=== PATIENT | female | born 1970 | race Caucasian/White ===

== ENCOUNTER → 2016-09-06 | Outpatient (CLI) | payer BC ==
--- NOTE | 2016-09-06 11:41 | US ---
EXAMINATION TYPE: US thyroid st tissue head/neck DATE OF EXAM: 09/06/2016 11:11 AM COMPARISON: NONE CLINICAL HISTORY: US. Difficulty swallowing, hypothyroid GLAND SIZE: Right Lobe: 4.7 x 1.4 x 1.5 cm Overall Parenchyma: homogenous Left Lobe: 5.1 x 1.3 x 1.6 cm Overall Parenchyma: homogeneous Isthmus Thickness: 0.3 cm NODULES RIGHT: # of nodules measured on right: 0 LEFT: # of nodules measured on left: 0 ISTHMUS: # of nodules measured in the isthmus: 0 TECHNOLOGIST IMPRESSION: Overall homogeneous echotexture of the thyroid gland without any significan t nodules seen at this time. Bilateral neck scanned, no abnormal lymphadenopathy noted. IMPRESSION: Mild thyromegaly. SONOGRAPHIC PATTERNS, ESTIMATED MALIGNANCY RISK AND FNA GUIDANCE FOR THYROID NODULES Sonographic Pattern: Benign Ultrasound Features: Purely Cystic Nodules (No Solid Component) Estimated Risk Of Malignancy, %: <1 FNA Size Cutoff (Largest Dimension): No Biopsy Sonographic Pattern: Very Low Suspicion Ultrasound Features: Spongiform Or Partially Cystic Nodules Without Any Of The Sonographic Features Described In Low, Inte rmediate Or High Suspicion Patterns. Estimated Risk Of Malignancy, %: <3 FNA Size Cutoff (Largest Dimension): Recommend FNA At > 2cm Or Observation Without FNA Sonographic Pattern: Low Suspicion Ultrasound Features: Isoechoic Or Hyperechoic Solid Nodule, Or Partially Cystic Nodule With Eccentric Solid Areas, Without Microcalcification, Irregular Margin Or Ete, Or Taller Than Wide Shape. Estimated Risk Of Malignancy, %: 5-10 FNA Size Cutoff (Largest Dimension): Recommend FNA At > 1.5cm Sonographic Pattern: Intermediate Suspicion Ultrasound Features: Hypoechoic Solid Nodule With Smooth Margins Without Microcalcifications, Ete, Or Taller Than Wide Sha pe. Estimated Risk Of Malignancy, %: 10-20 FNA Size Cutoff (Largest Dimension): Recommend FNA At > 1cm Sonographic Pattern: High Suspicion Ultrasound Features: Solid Hypoechoic Nodule Or Solid Hypoechoic Component Of A Partially Cystic Nodule With One Or More O f The Following Features: Irregular Margins (Infiltrative, Microlobulated), Microcalcifications, Tall er Than Wide Shape, Rim Calcifications With Small Extrusive Soft Tissue Component, Evidence Of Ete Estimated Risk Of Malignancy, %: >70-90 FNA Size Cutoff (Largest Dimension): Recommend FNA At > 1cm
== END | disposition home or self-care (01) ==
LOC: RADUSWWP 10:50
PROVIDERS: ATTEND Clinical Nurse Specialist Women's Health
DX: E01.0 Iodine-deficiency related diffuse (endemic) goiter (principal)
CPT/HCPCS: 76536

== ENCOUNTER 2016-09-17 20:09 | Emergency (ER) | payer MEDICAID, BC ==
[2016-09-17] MEDS ORDERED: methylPREDNISolone SOD SUCCI 125 MG/2 ML VIAL IM ONE (21:46)
[2016-09-17] MEDS ORDERED: DIAZEPAM 5 MG TAB PO STA (21:46)
--- NOTE | 2016-09-17 21:55 | ED ---
Back Pain HPI - General Chief Complaint: Back Pain/Injury Stated Complaint: Back Pain Time Seen by Provider: 09/17/16 21:32 Source: patient, RN notes reviewed Limitations: no limitations - History of Present Illness Initial Comments: 46-year-old female presents to the ER after hearing her back pop on the right- hand side and having some pain radiate down her buttocks and around to her anterior thigh and hip. This happened most she was moving her dog in her car today. she has a long-standing history of back problems and does have some lumbar disc issues. She is following with Dr. Luna currently. She has an MRI scheduled for Sunday. She came to the ER because of the popping noise and she was worried that her back may spasm. She recently has been treated with muscle relaxers and naproxen. She states that these did help when she took them however she is currently out because that was at the beginning of August. Denies any constitutional symptoms including headache, nausea, vomiting, abdominal pain, blurry vision, loss of bladder or bowel control, numbness or tingling or weakness in the extremities. She is brought to the ER by her sister who is her regional flatbed truck driver today. She also states that she had x-rays done at Dr. Luna office on Sunday and they did not show any major abnormalities. - Related Data Home Medications Medication Instructions Recorded Confirmed Solifenacin Succinate [Vesicare] 10 mg PO DAILY 11/10/14 08/09/16 Acetaminophen Tab [Tylenol] 500 - 1,000 mg PO Q4-6H PRN 05/18/16 08/09/16 L.acidoph,Paracasei, B.lactis 1 cap PO DAILY 05/18/16 08/09/16 [Probiotic] Vitamin B Complex 1 cap PO DAILY 05/18/16 08/09/16 Methocarbamol [Robaxin] 500 mg PO TID PRN 08/04/16 08/09/16 methylPREDNISolone [Medrol Dose 4 mg PO DIRECTED 08/04/16 08/09/16 Pack] Previous Rx's Medication Instructions Recorded Omeprazole 40 mg PO DAILY #90 capsule. 08/09/16 Diazepam [Valium] 5 mg PO BID PRN #20 tab 09/17/16 Naproxen [Naprosyn] 250 mg PO BID #20 tab 09/17/16 Allergies Allergy/AdvReac Type Severity Reaction Status Date / Time ketorolac tromethamine Allergy Rash/Hives Verified 09/17/16 21:04 [From Toradol] sulfamethoxazole Allergy Rash/Hives Verified 09/17/16 21:04 [From Bactrim] trimethoprim [From Bactrim] Allergy Rash/Hives Verified 09/17/16 21:04 adhesive AdvReac BLISTER ON Verified 09/17/16 21:04 SKIN FROM TAPE, STATES "PAPER TAPE IS OK" celecoxib [From Celebrex] AdvReac Unknown Verified 09/17/16 21:04 Review of Systems ROS Statement: Those systems with pertinent positive or pertinent negative responses have been documented in the HPI. ROS Other: All systems not noted in ROS Statement are negative. Past Medical History Past Medical History: Thyroid Disorder Additional Past Medical History / Comment(s): back pain, overactive bladder, hernia, gastritis,. Questionable ultrasound. History of Any Multi-Drug Resistant Organisms: None Reported Past Surgical History: Cholecystectomy, Orthopedic Surgery, Uterine Ablation Additional Past Surgical History / Comment(s): orif rt wrist. colonoscopy Past Anesthesia/Blood Transfusion Reactions: No Reported Reaction Past Psychological History: No Psychological Hx Reported Smoking Status: Never smoker Past Alcohol Use History: Rare Past Drug Use History: None Reported - Past Family History Father Family Medical History: Cancer General Exam Limitations: no limitations General appearance: alert, in distress (Mild; anxious.) Head exam: Present: atraumatic, normocephalic Eye exam: Present: normal appearance, PERRL, EOMI Pupils: Present: normal accommodation Neck exam: Present: normal inspection, full ROM Respiratory exam: Present: normal lung sounds bilaterally Cardiovascular Exam: Present: regular rate, normal rhythm Extremities exam: Present: normal inspection, full ROM, other (Strength is a 4 out of 4 bilaterally. Sensation intact to bilateral lower extremities.) Back exam: Present: normal inspection, other (Decreased extension due to muscle tightness and pain. Right SI joint tenderness no left SI joint tenderness. No spinous process tenderness, para vertebral muscle tenderness. Negative Dieudonne' s and straight leg raise test.) Neurological exam: Present: alert, oriented X3, CN II-XII intact Psychiatric exam: Present: normal affect, normal mood Skin exam: Present: warm, dry, intact Course Vital Signs 09/17/16 21:01 Temperature 99.3 F Pulse Rate 107 H Respiratory 18 Rate Blood Pressure 142/90 O2 Sat by Pulse 96 Oximetry Medical Decision Making - Medical Decision Making 46-year-old female brought to the ER with her sister after hearing her back pop while moving her dog in her car. Upon exam it does appear that she does have some SI joint tenderness on the right. Patient is already being followed closely by orthopedics and has an MRI scheduled for Sunday afternoon. Patient is not have any bladder or bowel control, numbness in the lower extremities, or decreased motor strength or weakness. Due to physical exam it do not feel that any further testing needs to be done today as an x-ray was taken on Sunday that was within normal limits. I do feel that she has some sacroiliitis as well as lumbar strain and tightening. She has had muscle relaxers and naproxen in the past 2 months to help with her comfort. She is currently out of these medications. I recommended changing from a muscle relaxer to Valium to get better relief of symptoms. Discussed side effects of the medication and addiction potential with patient and sister. Valium was administered in the ER and a prescription was given for her to take home. I also recommended an injection of Solu-Medrol to help decrease inflammatory process. Can take Valium 1-2 tablets at night. Cautioned on side effects and with driving. Also recommended ice, heat, rest of the area. Will keep off of work tomorrow. Patient is to follow-up with Dr. Luna on Sunday to discuss her MRI results. Warning signs were discussed and she is return to the ER if any worsening symptoms or concerns. Patient and sister voiced understanding of treatment plan and are agreeable. Disposition Clinical Impression: Strain of lumbar region, Sacro-iliac pain Disposition: HOME SELF-CARE Condition: Good Instructions: Sacroiliitis (ED), Back Pain (ED) Additional Instructions: To return to ER with any worsening symptoms or concerns. Follow-up with MRI and physician this week for results. Prescriptions: Diazepam [Valium] 5 mg PO BID PRN #20 tab PRN Reason: Pain Naproxen [Naprosyn] 250 mg PO BID #20 tab Referrals: Megan Friedman MD [Primary Care Provider] - 1-2 days Shant Luna DO [Doctor of Osteopathic Medicine] - 1-2 days Time of Disposition: 21:55
[2016-09-17 22:13] VITALS: BP 140/86; PULSE 98; RESP 16; TEMP 99.1
== END 2016-09-17 22:12 | disposition home or self-care (01) ==
LOC: EC 20:09
DX: S39.012A Strain of muscle, fascia and tendon of lower back, initial encounter (principal); X58.XXXA Exposure to other specified factors, initial encounter; M46.1 Sacroiliitis, not elsewhere classified; Z79.899 Other long term (current) drug therapy; Z88.6 Allergy status to analgesic agent; Z88.1 Allergy status to other antibiotic agents; Z88.2 Allergy status to sulfonamides
CPT/HCPCS: 99283; 96372; J2930

== ENCOUNTER → 2016-09-20 | Outpatient (CLI) | payer MEDICAID, BC ==
--- NOTE | 2016-09-20 21:24 | MR ---
EXAMINATION TYPE: MR lumbar spine wo con DATE OF EXAM: 09/20/2016 9:02 PM COMPARISON: Prior MRI lumbar spine March 03, 2014 HISTORY: LBP/ramone hip pain x 6 weeks TECHNIQUE: Multiplanar, multisequence imaging of the lumbar spine is performed without IV contrast. FINDINGS: Sagittal images of the lumbar spine show vertebral body heights and alignment to appear sat isfactory. There is redemonstration of disc desiccation L4-L5 and more prominent disc desiccation at the L5-S1 levels. Posterior disc herniations are redemonstrated at these levels with more prominent d isc herniation now identified at L4-L5 level on sagittal images. Increased signal posteriorly consist ent with annular tear is present at these levels. The conus medullaris remains normal in position and signal ending at mid L1 vertebral body level. The bone marrow signal intensity is within normal van its. No significant spurring is present. Axial images show the T12-L1, L1-L2, L2-L3, and L3-L4 levels all to remain within normal limits. Axial images at the L4-L5 level show new right paracentral disc extrusion with superior extension pas t mid L4 vertebral body level best on sagittal image 9 and axial image 16 effacing anterolateral thec al sac and central right L4 nerve on axial image 13 new from prior exam. Bilateral neural foramina re main patent. There is more central disc herniation at disc space level on axial images 11 and 12 effa cing anterior thecal sac redemonstrated though felt more prominent versus prior. Mild to moderate fac et degenerative changes bilaterally are redemonstrated at this level. Axial images at the L5-S1 level and straight right paracentral disc protrusion on axial image 4 sligh tly more prominent than prior exam effacing anterior thecal sac. There is mild bilateral anterior inf erior neural foraminal narrowing at this level felt present. Mild facet arthropathy bilaterally is ag ain seen. A few T2 hyperintense lesions scattered throughout both kidneys are felt to reflect simple cysts. The re is suggestion of mild left-sided pyelocaliectasis, this has a similar appearance to prior exam. IMPRESSION: Multilevel degenerative changes in lower lumbar spine are redemonstrated with progression from prior MRI noted, of most significance is much more prominent disc herniation L4-L5 level effaci ng anterior thecal sac and right L4 nerve.
== END | disposition home or self-care (01) ==
LOC: RADMRIMAIN 18:08
PROVIDERS: ATTEND Orthopaedic Surgery Orthopaedic Surgery of the Spine
DX: M51.16 Intervertebral disc disorders with radiculopathy, lumbar region (principal); M47.26 Other spondylosis with radiculopathy, lumbar region
CPT/HCPCS: 72148

== ENCOUNTER 2016-10-25 23:25 | Emergency (ER) | payer MEDICAID, BC ==
[2016-10-25] MEDS ORDERED: FAMOTIDINE 20 MG/2 ML VIAL IV STA (23:58)
[2016-10-25] MEDS ORDERED: MAG HYDROX/AL HYDROX/SIMETH 30 ML, HYOSCYAMINE ELIXIR 10 ML, CIMETIDINE HCL 300 MG, LID... PO STA ×4 (23:58)
[2016-10-25] MEDS ORDERED: SODIUM CHLORIDE 0.9% 1,000 ML IV ONE (23:58)
--- NOTE | 2016-10-26 00:17 | ED ---
Chest Pain HPI - General Chief Complaint: Chest Pain Stated Complaint: Chest Pain/Arm Weakness Time Seen by Provider: 10/25/16 23:43 Source: patient Mode of arrival: wheelchair Limitations: no limitations - History of Present Illness Initial Comments: This is a 46-year-old female with a history of hiatal hernia who presents emergency department for chest pain. She states over the last couple of days she's been feeling a little bit lightheaded and fatigued. She's also had intermittent headaches. She also has some episodes of tingling in her extremities. Tonight around 10 PM she developed some burning substernal chest discomfort that is been constant. She states it is worse with laying flat and better sitting up It is not worse with exertion. She has no associated shortness of breath. She does state that she still feels a little bit lightheaded however no nausea or vomiting. No fevers or chills. She states that her mother and father both from [place] and she was concerned. She was admitted once previously however never had a stress test performed at that time because she had to leave the hospital. She denies any other complaints. - Related Data Home Medications Medication Instructions Recorded Confirmed L.acidoph,Paracasei, B.lactis 1 cap PO DAILY 05/18/16 10/25/16 [Probiotic] Vitamin B Complex 1 cap PO DAILY 05/18/16 10/25/16 A D K Supplement 1 cap PO DAILY 10/25/16 10/25/16 Solifenacin Succinate [Vesicare] 10 mg PO DAILY 10/25/16 10/25/16 Thyroid,Pork [Nature-Throid] 65 mg PO BID 10/25/16 10/25/16 Previous Rx's Medication Instructions Recorded Naproxen [Naprosyn] 250 mg PO BID #20 tab 09/17/16 Sucralfate [Carafate] 1 gm PO ACHS #414 ml 10/26/16 Allergies Allergy/AdvReac Type Severity Reaction Status Date / Time ketorolac tromethamine Allergy Rash/Hives Verified 10/25/16 23:44 [From Toradol] sulfamethoxazole Allergy Rash/Hives Verified 10/25/16 23:44 [From Bactrim] trimethoprim [From Bactrim] Allergy Rash/Hives Verified 10/25/16 23:44 adhesive AdvReac BLISTER ON Verified 10/25/16 23:44 SKIN FROM TAPE, STATES "PAPER TAPE IS OK" celecoxib [From Celebrex] AdvReac Unknown Verified 10/25/16 23:44 Review of Systems ROS Statement: Those systems with pertinent positive or pertinent negative responses have been documented in the HPI. ROS Other: All systems not noted in ROS Statement are negative. EKG Findings - EKG Comments: EKG Findings:: EKG showing normal sinus rhythm with a rate of [address] segment changes or T-wave inversions. QTC is 454. Other intervals are normal. No ectopy. Past Medical History Past Medical History: Thyroid Disorder Additional Past Medical History / Comment(s): back pain, overactive bladder, hernia, gastritis,. Questionable ultrasound. History of Any Multi-Drug Resistant Organisms: None Reported Past Surgical History: Cholecystectomy, Orthopedic Surgery, Uterine Ablation Additional Past Surgical History / Comment(s): orif rt wrist. colonoscopy Past Anesthesia/Blood Transfusion Reactions: No Reported Reaction Past Psychological History: No Psychological Hx Reported Smoking Status: Never smoker Past Alcohol Use History: Rare Past Drug Use History: None Reported - Past Family History Father Family Medical History: Cancer General Exam - General Exam Comments Initial Comments: Constitutional: Awake alert Appears comfortable Head: Normocephalic atraumatic Eyes: no conjunctival injection No scleral icterus EOMI Neck: No JVD Supple Heart: Regular rate rhythm normal S1-S2 no murmurs Lungs: Clear to auscultation bilaterally No wheezing No rales Abdomen: Soft nondistended mild epigastric tenderness Extremities: Non edematous DP pulses intact Radial pulses intact Neuro: A&Ox3 No focal neurologic deficits Psych: Appropriate mood and affect Limitations: no limitations Course Vital Signs 10/25/16 10/26/16 23:27 00:37 Temperature 98.1 F Pulse Rate 94 84 Respiratory 18 18 Rate Blood Pressure 169/92 131/84 O2 Sat by Pulse 99 95 Oximetry Chest Pain MDM - MDM This is a 46-year-old female who came to the emergency department for chest burning. EKG was completely unremarkable. Troponin was negative. Patient is heart score of one and is low risk. At this time I feel that she can go home. She did feel improved after GI cocktail and Pepcid. We'll start on Carafate. I believe that her symptoms may be related to her hiatal hernia. She's also been going through a lot of testing through her neurologist and has been under a lot of stress recently and this may be playing a role. At this time I feel that she can go home. Patient can return if she has worsening or changing symptoms. Otherwise follow-up with her primary doctor and Dr. Corley. Disposition Clinical Impression: Chest pain Disposition: HOME SELF-CARE Condition: Stable Instructions: Chest Pain (ED) Prescriptions: Sucralfate [Carafate] 1 gm PO ACHS #414 ml Referrals: Megan Friedman MD [Primary Care Provider] - 1-2 days Diann Escobar MD [STAFF PHYSICIAN] - 1-2 days
[2016-10-26] MEDS ORDERED: NITROGLYCERIN SL TABS 0.4 MG TAB SUBLINGUAL STA (00:53)
--- NOTE | 2016-10-26 01:01 | XR ---
EXAM: XR Chest, 2 Views. CLINICAL HISTORY: Reason: Pain TECHNIQUE: Frontal and lateral views of the chest. COMPARISON: 12/28/15 chest radiographs. FINDINGS: Lungs: Unremarkable. No consolidation. Pleural spaces: Unremarkable. No pneumothorax. Heart: Stable without evidence of cardiomegaly. Mediastinum: Stable in appearance. Bones: Bones stable including slight leftward curvature of the mid to distal thoracic spine, and mild degenerative changes without acute fracture seen. Upper abdomen: Note is again made of surgical clips in the upper abdomen presumably from prior cholecystectomy. IMPRESSION: No significant change. No new acute intrathoracic abnormality seen.
[2016-10-26 01:07] LABS: ALT 19 U/L (9-52); AST 19 U/L (14-36); Alkaline Phosphatase 43 U/L (38-126); Anion Gap 11 mmol/L; Blood Urea Nitrogen 13 mg/dL (7-17); Calcium 9.1 mg/dL (8.4-10.2); Carbon Dioxide 26 mmol/L (22-30); Chloride 103 mmol/L (98-107); Glucose 99 mg/dL (74-99); Non-African American GFR(MDRD) >60 (>60 ml/min/1.73 sqM); Sodium 140 mmol/L (137-145); Total Bilirubin 0.6 mg/dL (0.2-1.3); Total Protein 6.7 g/dL (6.3-8.2)
[2016-10-26 01:10] LABS: INR 0.9 (<1.1); Prothrombin Time 9.6 sec (9.0-12.0)
[2016-10-26 01:11] LABS: Partial Thromboplastin Time 21.6 sec (22.0-30.0)
[2016-10-26 01:13] LABS: Basophils % (A) 0 %; CH 32.9; CHCM 35.7; Eosinophils # (A) 0.1 k/uL (0-0.7); Eosinophils % (A) 1 %; HCT 37.8 % (34.0-46.0); HDW 2.52; Luc # (Auto) 0.13; Luc % (Auto) 2; Lymphocytes # (A) 1.9 k/uL (1.0-4.8); Lymphocytes % (A) 28 %; MCH 31.8 pg (25.0-35.0); MCHC 34.4 g/dL (31.0-37.0); MCV 92.4 fL (80.0-100.0); Mean Platelet Volume 7.7; Monocytes # (A) 0.4 k/uL (0-1.0); Monocytes % (A) 6 %; Neutrophils # (A) 4.4 k/uL (1.3-7.7); Neutrophils % (A) 64 %; RBC 4.09 m/uL (3.80-5.40); RDW 12.5 % (11.5-15.5); WBC 6.9 k/uL (3.8-10.6); WBC (Perox) 6.74
[2016-10-26 01:32] LABS: Creatine Kinase MB <0.2 ng/mL (0.0-2.4); Troponin I <0.012 ng/mL (0.000-0.034)
[2016-10-26 01:48] VITALS: BP 154/76; PULSE 79; RESP 16; TEMP 97.7
== END 2016-10-26 01:49 | disposition home or self-care (01) ==
LOC: EC 23:25
DX: R07.9 Chest pain, unspecified (principal); K44.9 Diaphragmatic hernia without obstruction or gangrene; R10.816 Epigastric abdominal tenderness; R51 Headache; R53.83 Other fatigue; R42 Dizziness and giddiness; E07.9 Disorder of thyroid, unspecified; Z79.899 Other long term (current) drug therapy; Z79.1 Long term (current) use of non-steroidal anti-inflammatories (NSAID); Z88.6 Allergy status to analgesic agent; Z88.1 Allergy status to other antibiotic agents; Z88.2 Allergy status to sulfonamides
CPT/HCPCS: 36415; 71020; 80053; 82553; 83690; 83735; 84484; 85025; 85610; 85730; 93005; 96374; 99285

== ENCOUNTER → 2016-11-01 | Outpatient (CLI) | payer MEDICAID, BC ==
--- NOTE | 2016-11-01 23:16 | MR ---
EXAMINATION TYPE: MR brain wo/w con DATE OF EXAM: 11/01/2016 9:19 PM COMPARISON: 01/28/2016 HISTORY: 46-year-old female with headaches, Arnold-Chiari, blurred vision TECHNIQUE: Multiplanar, multisequence images of the brain and brainstem were acquired before and aft er administration of 18 mL IV MultiHance. Diffusion weighted imaging is performed. FINDINGS: No evidence for acute infarction, hemorrhage, mass, mass effect, midline shift, herniation, effacemen t of basal cisterns, or extra-axial fluid collection. The ventricles and sulci are age-appropriate. Major intracranial flow voids are intact. T2/FLAIR weighted sequences show stable focus of bright white matter change in the each subcortical f rontal lobe. Midline structures demonstrate normal morphology. Redemonstrated postsurgical changes of suboccipital decompression for Chiari malformation. The foramen magnum region is patent. Post contrast images demonstrate stable wispy enhancement within the anterior right frontal lobe. Dur al venous sinuses are patent. Trace mucosal thickening along the floors of the maxillary sinuses. Otherwise, the visualized sinuses are clear and the globes are intact. IMPRESSION: 1. Stable exam with postsurgical changes of suboccipital decompression for Chiari malformation. No ac vic intracranial abnormality seen. 2. 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 3. A couple T2 bright white matter foci in the frontal lobes remain unchanged.
== END ==
LOC: RADMRIMAIN 20:42
PROVIDERS: ATTEND Family Medicine
DX: R90.89 Other abnormal findings on diagnostic imaging of central nervous system (principal); G93.5 Compression of brain
CPT/HCPCS: 70553; A9577

== ENCOUNTER → 2016-12-20 | Outpatient (CLI) | payer MEDICAID, BC ==
--- NOTE | 2016-12-20 14:12 | XR ---
Right ankle HISTORY: Right ankle sprain 2 weeks prior, pain and swelling laterally 3 views of the right ankle No comparisons Soft tissue swelling is present. Bone mineralization, joint spaces and alignment are maintained. Ther e is a plantar calcaneus spur. IMPRESSION: No fracture or dislocation.
== END | disposition home or self-care (01) ==
LOC: RADXRMAIN 09:04
PROVIDERS: ATTEND Family Medicine
DX: S93.401A Sprain of unspecified ligament of right ankle, initial encounter (principal); X58.XXXA Exposure to other specified factors, initial encounter

== ENCOUNTER → 2017-02-15 | Outpatient (CLI) | payer MEDICAID, BC ==
--- NOTE | 2017-02-15 15:24 | CT ---
EXAMINATION TYPE: CT abdomen pelvis wo con DATE OF EXAM: 02/15/2017 HISTORY: Patient complains of right flank pain. Patient has a history of prior renal stones. CT DLP: 624.5 mGycm. Automated Exposure Control for Dose Reduction was Utilized. TECHNIQUE: CT scan of the abdomen and pelvis is performed without oral or IV contrast. COMPARISON: CT abdomen and pelvis May 18, 2016 FINDINGS: Within the limitations of a non-contrast study, the following observations are made. LUNG BASES: No significant abnormality is appreciated. LIVER/GB: Cholecystectomy clips are redemonstrated. PANCREAS: No significant abnormality is seen. SPLEEN: No significant abnormality is seen. ADRENALS: No significant abnormality is seen. KIDNEYS: Asymmetric atrophy or diminished size to right kidney is redemonstrated. There are 2-3 calcu li scattered throughout right kidney measured up to 2 mm in size lower pole level on coronal image 44 . Scarring laterally lower pole level right kidney is redemonstrated. The elongated 5 mm calculus low er pole level left kidney is slightly larger in size versus prior exam. No hydronephrosis or obstruct ing renal calculi are clearly seen bilaterally. No intraluminal calculus and bladder is present. BOWEL: Evaluation bowel is suboptimal secondary to lack of enteric contrast. No suspicious small or large bowel dilatation is present. Fecal filled prominent cecum is seen. Normal-appearing appendix is present on axial image 81. GENITAL ORGANS: Uterus is anteverted in shape. Tubal ligation clips in the bilateral pelvis are seen. Both ovaries are identified and not suspiciously enlarged. LYMPH NODES: No greater than 1cm abdominal or pelvic lymph nodes are appreciated. OSSEOUS STRUCTURES: There is sacralized L5 segment redemonstrated. OTHER: No significant additional abnormality is seen. IMPRESSION: Redemonstration of bilateral small renal calculi. No hydronephrosis or obstructing renal calculi are evident bilaterally. No significant new finding is seen to account for patient's symptoms .
== END | disposition home or self-care (01) ==
LOC: RADCTMAIN 14:53
PROVIDERS: ATTEND Family Medicine
DX: N20.0 Calculus of kidney (principal)
CPT/HCPCS: 74176; 87086

== ENCOUNTER → 2017-03-28 | Outpatient (CLI) | payer MEDICAID ==
[2017-03-28 14:49] LABS: Vitamin B12 >1000 pg/mL (239-931)
[2017-03-28 16:20] LABS: ANA w/Reflex to Titer NEGATIVE (NEGATIVE); Scleroderma SC-70 Ab Interp NEGATIVE (NEGATIVE)
[2017-03-29 14:03] LABS: C-ANCA <1:20 Titer (<1:20); P-ANCA <1:20 Titer (<1:20)
== END | disposition home or self-care (01) ==
LOC: LABWHC1 11:18
PROVIDERS: ATTEND Nurse Practitioner Family
DX: R06.00 Dyspnea, unspecified (principal); R53.83 Other fatigue; B37.0 Candidal stomatitis; K14.6 Glossodynia; K11.7 Disturbances of salivary secretion; Z86.19 Personal history of other infectious and parasitic diseases
CPT/HCPCS: 36415; 82164; 82306; 82607; 82784; 82785; 83036; 84439; 84443; 86038; 86235; 86255; 86334; 86376

== ENCOUNTER → 2017-04-06 | Outpatient (CLI) | payer MEDICAID ==
--- NOTE | 2017-04-06 19:09 | CT ---
EXAMINATION TYPE: CT soft tissue neck w con DATE OF EXAM: 04/06/2017 6:57 PM COMPARISON: NONE HISTORY: Cough and burning in throat x [address] DLP: 316.00 mGycm Automated exposure control for dose reduction was used. CONTRAST: CT scan of the neck is performed following with IV Contrast, patient injected with 100 mL of Omnipaqu e 300. Axial images are obtained, coronal and sagittal reformatted images are reviewed. FINDINGS: There is normal branching pattern of the great vessels on the aortic arch. Thyroid gland is symmetric . There is normal contrast opacification of the carotid arteries and jugular veins. There is no evide nce of a pharyngeal mass. Epiglottis is normal. The tonsils and adenoids are within normal limits. Pa rotid glands are symmetric. The submandibular salivary glands are symmetric. There are a few anterior triangle cervical lymph nodes that measure up to 1 cm. I see no cervical adenopathy. Trachea appears normal. There is no sign of superior mediastinal adenopathy. Cervical spine is intact. IMPRESSION: Exam is within normal limits.
== END | disposition home or self-care (01) ==
LOC: RADCTMAIN 18:25
PROVIDERS: ATTEND Otolaryngology
DX: J38.4 Edema of larynx (principal); R05 Cough; R49.0 Dysphonia
CPT/HCPCS: 70491; Q9967

== ENCOUNTER → 2017-05-02 | Outpatient (CLI) | payer MEDICAID ==
--- NOTE | 2017-05-02 19:01 | US ---
EXAMINATION TYPE: US pelvic complete DATE OF EXAM: 05/02/2017 COMPARISON: NONE CLINICAL HISTORY: R10.2 Pelvic Pain. Left pelvic pain, ablation 5-6 years ago TECHNIQUE: Transabdominal (TA) Date of LMP: unknown EXAM MEASUREMENTS: Uterus: 6.8 x 4.0 x 4.8 cm Endometrial Stripe: 0.4 cm Right Ovary: 2.4 x 1.7 x 2.4 cm Left Ovary: 4.7 x 3.6 x 4.1 cm 1. Uterus: Anteverted wnl 2. Endometrium: appears wnl 3. Right Ovary: appears wnl 4. Left Ovary: cystic area = 3.6 x 3.3 x 3.3cm 5. Bilateral Adnexa: wnl 6. Posterior cul-de-sac: appears wnl IMPRESSION: Normal uterus and endometrium. Large left ovarian cyst. No solid adnexal mass.
== END | disposition home or self-care (01) ==
LOC: RADUSMAIN 17:52
PROVIDERS: ATTEND Obstetrics & Gynecology
DX: N83.202 Unspecified ovarian cyst, left side (principal)
CPT/HCPCS: 76856

== ENCOUNTER → 2017-05-16 | Outpatient (CLI) | payer MEDICAID ==
--- NOTE | 2017-05-16 23:14 | MR ---
EXAMINATION TYPE: MR lumbar spine wo con DATE OF EXAM: 05/16/2017 COMPARISON: 09/20/2016 HISTORY: back pain TECHNIQUE: Multiplanar, multisequence images of the lumbar spine were acquired. The lumbar vertebra have normal alignment. There is a moderate sized posterior disc herniation at L4- 5 and to the spinal canal. There is resultant mild relative spinal stenosis. The disc herniation exte nds more to the right side. There is a smaller L5-S1 posterior lumbar disc herniation. There is no compression fracture. There is mild narrowing of disc spaces at L4-5 and L5-S1. The lumba r neural foramina are fairly well-maintained. There is no paraspinal mass. Sacroiliac joints appear i ntact. I see no focal bone destruction. IMPRESSION: Moderate size posterior central and right-sided L4-5 lumbar disc herniation. Smaller posterior L5-S1 disc herniation. There is a large sequestered disc fragment elevating the posterior longitudinal liga ment posterior to L4 vertebral body on the old MR scan which has diminished slightly on the current e xam.
--- NOTE | 2017-05-16 23:29 | MR ---
EXAMINATION TYPE: MR cervical spine wo/w con DATE OF EXAM: 05/16/2017 COMPARISON: 09/08/2014 HISTORY: Cervicalgia TECHNIQUE: Multiplanar, multisequence images of the cervical spine were acquired utilizing 9 ml mL intravenous G adavist gadolinium contrast. Diffusion weighted imaging was performed. The cervical vertebra have fairly normal spacing and alignment. There are small posterior disc bulges and herniation at C4-5 C5-6 C6-7. There is developmentally adequate spinal canal and no spinal steno sis. There is linear fluid signal within the central cervical spinal cord extending from C4 to C7. Th ere is no pathologic enhancement. There is no evidence of a mass. Brainstem appears intact. I see no focal bone destruction. IMPRESSION: Small multilevel posterior cervical disc herniation and disc bulging. Small anterior cervical disc herniations noted at C4-5 C5-6. Mild syrinx of the mid cervical spinal cord. No evidence of a mass. No change compared to old exam. N o spinal stenosis.
== END | disposition home or self-care (01) ==
LOC: RADMRIMAIN 19:40
PROVIDERS: ATTEND Psychiatry & Neurology Pain Medicine
DX: M51.27 Other intervertebral disc displacement, lumbosacral region (principal); M50.221 Other cervical disc displacement at C4-C5 level; G95.0 Syringomyelia and syringobulbia; Z88.2 Allergy status to sulfonamides; Z88.6 Allergy status to analgesic agent
CPT/HCPCS: 72148; 72156; A9581

== ENCOUNTER → 2017-05-18 | Outpatient (CLI) | payer MEDICAID ==
[2017-05-18 13:29] LABS: Bilirubin, Delta 0.3 mg/dL (0.0-0.2); Total Bilirubin 0.5 mg/dL (0.2-1.3); Total Protein 7.2 g/dL (6.3-8.2)
== END | disposition home or self-care (01) ==
LOC: LABT 12:33
PROVIDERS: ATTEND Obstetrics & Gynecology
DX: N76.1 Subacute and chronic vaginitis (principal); E03.9 Hypothyroidism, unspecified
CPT/HCPCS: 80076; 84439; 84443; 84481; 84482

== ENCOUNTER → 2017-05-25 | Outpatient (CLI) | payer MEDICAID ==
[2017-05-25 17:38] LABS: Bilirubin, Delta 0.2 mg/dL (0.0-0.2); Total Bilirubin 0.5 mg/dL (0.2-1.3); Total Protein 7.2 g/dL (6.3-8.2)
== END | disposition home or self-care (01) ==
LOC: LABWHC1 16:21
PROVIDERS: ATTEND Obstetrics & Gynecology
DX: N76.1 Subacute and chronic vaginitis (principal)
CPT/HCPCS: 36415; 80076

== ENCOUNTER → 2017-06-02 | Outpatient (CLI) | payer MEDICAID ==
--- NOTE | 2017-06-02 09:12 | XR ---
EXAMINATION TYPE: XR KUB , 2 VIEWS DATE OF EXAM ORDERED: 06/02/2017 HISTORY: N20.0 KIDNEY STONE. COMPARISON: Previous study dated 03/25/2016. FINDINGS: There has been a previous cholecystectomy. There are tubal ligation clips within the pelvi s. The abdominal gas pattern is unremarkable. There is no evidence of obstruction or free air. No unusua l calcifications are seen. IMPRESSION: NO ACUTE INTRA-ABDOMINAL ABNORMALITY.
== END | disposition home or self-care (01) ==
LOC: LABWHC1 08:39
PROVIDERS: ATTEND Family Medicine
DX: N20.0 Calculus of kidney (principal)
CPT/HCPCS: 74000

== ENCOUNTER → 2017-06-13 | Outpatient (CLI) | payer MEDICAID ==
--- NOTE | 2017-06-13 10:19 | EST ---
EXERCISE STRESS AGE: 46 SEX: F HT: 66" WT: 193 PROTOCOL: Reji Cardiolite Stress Test STAGE: 3 DURATION OF EXERCISE: 8:00 HEART RATE REST: 99 BLOOD PRESSURE REST: 121/86 MAXIMUM HEART RATE ACHIEVED: 162 MAXIMUM BLOOD PRESSURE: 156/55 85% MPHR: 149 100% MPHR: 175 METS: 9.7 INDICATIONS: Chest pain. CLINICAL INFORMATION: Baseline EKG shows sinus rhythm, normal axis, normal intervals. Patient exercised on Reji protocol for a total of 8 minutes achieving 9 METS, 92% of predicted maximal heart rate without chest pain or diagnostic ST-segment depression. CONCLUSION: 1. Above-average exercise tolerance. 2. Negative stress test by EKG criteria. 3. Cardiolite portion of this stress test will be reported separately. MMODL / IJN: [id number] /
--- NOTE | 2017-06-13 12:38 | NM ---
EXAMINATION TYPE: NM stress cardiolite complete DATE OF EXAM: 06/13/2017 COMPARISON: Chest x-ray 05/30/2017 HISTORY: Chest pain TECHNIQUE: After the intravenous administration of 11.31 mCi Tc 99m Sestamibi - Rest images obtained 45 minutes post injection. The patient exercised using a DIONNE protocol and 1 minute prior to peak exercise was injected with 27.9 mCi Tc 99m Sestamibi - Stress images obtained 10 minutes post inject ion. FINDINGS: Targeted heart rate was achieved during performance of the study. Review of stress and rest SPECT stiven ges demonstrates no distinct perfusion abnormality. Gated analysis shows normal wall motion with an estimated left ventricular ejection fraction of 63 %. IMPRESSION: No scintigraphic evidence for reversible ischemia. Consider echocardiographic correlation for ejectio n fraction
== END | disposition home or self-care (01) ==
LOC: RADNMMAIN 07:56
PROVIDERS: ATTEND Family Medicine
DX: R07.89 Other chest pain (principal)
CPT/HCPCS: 93017; 78452; A9500

== ENCOUNTER → 2017-08-01 | Outpatient (CLI) | payer MEDICAID ==
--- NOTE | 2017-08-02 13:40 | MM ---
Reason for exam: screening (asymptomatic). Last mammogram was performed 1 year ago. History: Family history of breast cancer in paternal grandmother at age 70. Benign excisional biopsy of the right breast, May 2011. Benign excisional biopsy of the left breast, 1996. Took hormonal contraceptives for 5 years beginning at age 21. Physical Findings: A clinical breast exam by your physician is recommended on an annual basis and results should be correlated with mammographic findings. MG 3D Screening Mammo W/Cad Bilateral CC and MLO view(s) were taken. Prior study comparison: July 28, 2016, bilateral MG 3d screening mammo w/cad. July 26, 2015, bilateral MG 3d screening mammo w/cad. The breast tissue is heterogeneously dense. This may lower the sensitivity of mammography. There is no discrete abnormality. ASSESSMENT: Negative, BI-RAD 1 RECOMMENDATION: Routine screening mammogram of both breasts in 1 year.
== END | disposition home or self-care (01) ==
LOC: RADMAMWWP 11:00
PROVIDERS: ATTEND Obstetrics & Gynecology
DX: Z12.31 Encounter for screening mammogram for malignant neoplasm of breast (principal)
CPT/HCPCS: 77063; G0202

== ENCOUNTER → 2017-09-07 | Day surgery (SDC) | payer MEDICAID ==
[2017-08-30 15:13] VITALS: BMI 32.3
[~2017-09-07] MED LIST: BUPIVACAINE-EPI 0.5%-1:200,000 10 ML VIAL SQ ONE; DEXAMETHASONE SOD PHOSPHATE 10 MG/ML 1 ML VIAL IV ONE; GLYCOPYRROLATE 0.2 MG/ML 2 ML VIAL ONE; HEPARIN SODIUM,PORCINE 5,000 UNIT/ML 1 ML VIAL SQ ONE; HYDROcodone/APAP 5-325MG 1 EACH TAB PO ONE; HYDROcodone/APAP 5-325MG 1 EACH TAB PO PRN; HYDROmorphone (PF) 1 MG/ML ONE; HYDROmorphone 0.5 MG/0.5 ML SYRINGE IVP PRN; LIDOCAINE 1% 20 ML VIAL (10MG/ML) FOR IV START INTRADERMA ONE; LIDOCAINE 1% INJ 10MG/ML (20 ML MDV) ONE; MIDAZOLAM 2 MG/2 ML VIAL IV PRN; MIDAZOLAM 2 MG/2 ML VIAL ONE; NALOXONE 0.4 MG/ML 1 ML VIAL IV PRN; NEOSTIGMINE 1 MG/ML 10 ML VIAL ONE; ONDANSETRON 4 MG/2 ML VIAL IVP ONE; ONDANSETRON 4 MG/2 ML VIAL IVP PRN; PROPOFOL 10 MG/ML 20 ML VIAL IV ONE; ROCURONIUM BROMIDE 10 MG/ML 10 ML VIAL IV ONE; SUCCINYLCHOLINE CHLORIDE 100 MG/5 ML SYR IV ONE; ceFAZolin IN SWFI 2 GM/20 ML SYRINGE IVP ONE; fentaNYL (PF) 50 MCG/ML 2 ML AMP ONE
[2017-09-07] MEDS: LACTATED RINGERS 1,000 ML IV SCH (06:29)
--- NOTE | 2017-09-07 07:23 | P.GSHP ---
History of Present Illness H&P Date: 09/07/17 CHIEF COMPLAINT: Inguinal hernia, left. HISTORY OF PRESENT ILLNESS: The patient is a 47-year-old female who presents with a history of swelling and pain along the left groin. She's noted increased swelling including pain of the area. Now she presents for repair of her inguinal hernia. PAST MEDICAL HISTORY: Please see list. PAST SURGICAL HISTORY: Please see list. MEDICATIONS: Please see list. ALLERGIES: Please see list. SOCIAL HISTORY: No illicit drug use FAMILY HISTORY: No reports of Crohn disease or ulcerative colitis. REVIEW OF ORGAN SYSTEMS: CONSTITUTIONAL: No reports of fevers or chills. No reports of weight loss despite prior attempts. GI: Denies any blood in stools or constipation. PHYSICAL EXAM: VITAL SIGNS: Stable GENERAL: Well-developed pleasant female in no acute distress. HEENT: No scleral icterus. Extraocular movements grossly intact. Moist buccal mucosa. NECK: Supple without lymphadenopathy. CHEST: Unlabored respirations. Equal bilateral excursions. CARDIOVASCULAR: Regular rate and rhythm. Distal 2+ pulses. ABDOMEN: Soft, nondistended. No peritoneal signs. Palpable defect of the left groin. MUSCULOSKELETAL: No clubbing, cyanosis, or edema. ASSESSMENT: 1. Inguinal hernia, left initial and symptomatic. PLAN: 1. Recommend proceeding with a diagnostic laparoscopy with inguinal repair with mesh with possible bilateral approach. 2. Benefits and risks of surgical intervention was discussed including possibility of open technique. 3. May need overnight observation pending anticipated postoperative pain. 4. DVT prophylaxis. 5. Antibiotic prophylaxis. 6. Robotic assisted approach discussed. Past Medical History Past Medical History: Asthma, Thyroid Disorder Additional Past Medical History / Comment(s): back pain, STATES HAS HERNIATED AND BULGING DISCS, [place] HAS A "BONE FRAGMENT IN BACK" overactive bladder, hernia , gastritis, History of Any Multi-Drug Resistant Organisms: None Reported Past Surgical History: Cholecystectomy, Hernia Repair, Orthopedic Surgery, Uterine Ablation Additional Past Surgical History / Comment(s): orif rt wrist,colonoscopy, RIGHT HERNIA REPAIN Past Anesthesia/Blood Transfusion Reactions: No Reported Reaction Past Psychological History: No Psychological Hx Reported Smoking Status: Never smoker Past Alcohol Use History: Rare Past Drug Use History: None Reported - Past Family History Father Family Medical History: Cancer Medications and Allergies Home Medications Medication Instructions Recorded Confirmed Type Solifenacin Succinate [Vesicare] 10 mg PO DAILY 10/25/16 09/07/17 History Acetaminophen Tab [Tylenol Tab] 325 - 650 mg PO Q4H PRN 08/30/17 09/07/17 History Budesonide-Formot 160-4.5 Mcg 2 puff INHALATION BID 08/30/17 09/07/17 History [Symbicort 160-4.5 Mcg Inhaler] Fexofenadine HCl 180 mg PO QAM 08/30/17 09/07/17 History Montelukast [Singulair] 10 mg PO HS 08/30/17 09/07/17 History Beef Selector Tyroid 30 mg PO HS 08/30/17 09/07/17 History Thyroid,Pork [[place] Thyroid] 15 mg PO HS 08/30/17 09/07/17 History Thyroid,Pork [Nature-Throid] 32.5 mg PO QAM 08/30/17 09/07/17 History Allergies Allergy/AdvReac Type Severity Reaction Status Date / Time ketorolac tromethamine Allergy Rash/Hives Verified 08/30/17 15:05 [From Toradol] sulfamethoxazole Allergy Rash/Hives Verified 08/30/17 15:05 [From Bactrim] trimethoprim [From Bactrim] Allergy Rash/Hives Verified 08/30/17 15:05 adhesive AdvReac BLISTER ON Verified 08/30/17 15:05 SKIN FROM TAPE, STATES "PAPER TAPE IS OK" celecoxib [From Celebrex] AdvReac Unknown Verified 08/30/17 15:05 Surgical - Exam Vital Signs Temp Pulse Resp BP Pulse Ox 98.4 F 87 16 142/85 95 09/07/17 06:11 09/07/17 06:11 09/07/17 06:11 09/07/17 06:11 09/07/17 06:11
[2017-09-07 11:04] VITALS: TEMP 97
[2017-09-07 11:05] VITALS: RESP 16
--- NOTE | 2017-09-07 11:07 | P.PCN ---
Date of Procedure: 09/07/17 Preoperative Diagnosis: Left groin swelling, history of inguinal hernia Postoperative Diagnosis: Same, obturator hernia, internal hernia, adhesions left pelvis, inguinal lipoma Procedure(s) Performed: Robotic-assisted laparoscopic left groin exploration, removal of incarcerated obturator tumor inguinal hernia left side, diagnostic laparoscopy, internal hernia takedown left groin involving fallopian tube and tubal ligation, lysis of adhesions, repair of left obturator hernia with mesh Anesthesia: DORCAS, local Surgeon: Diann Escobar Pathology: other (Obturator inguinal tumor) Condition: stable Disposition: same day
[2017-09-07 12:08] VITALS: BP 131/87; PULSE 84
--- NOTE | 2017-09-19 09:17 | P.OP ---
Date of Procedure: 09/07/17 Description of Procedure: SURGEON: MANNY ESCOBAR MD AUTOMATIC EMBROIDERY MACHINE TENDER: 1. ERIC STEELE PREOPERATIVE DIAGNOSES: 1. Left groin swelling 2. History of inguinal hernia 3. Hypothyroidism. 4. Asthma. POSTOPERATIVE DIAGNOSES: 1. Left groin swelling 2. History of inguinal hernia 3. Hypothyroidism. 4. Asthma. 5. Left obturator hernia, incarcerated. 6. Internal hernia of the left pelvis. 7. Peritoneal adhesion along the left pelvis. 8. Inguinal lipoma, left obturator. OPERATION: 1. Robotic-assisted da Shante Xi laparoscopic left groin exploration. 2.Robotic-assisted da Shante Xi laparoscopic removal and excision of incarcerated obturator tumor inguinal hernia left side. 3. Robotic-assisted da Shante Xi laparoscopic takedown of internal hernia left groin involving fallopian tube and tubal ligation 4. Robotic-assisted da Shante Xi laparoscopic lysis of adhesions 5. Robotic-assisted da Shante Xi laparoscopic repair of left obturator hernia with ventralight ST mesh ANESTHESIA: General with local anesthetic ESTIMATED BLOOD LOSS: 5 mL. SPECIMENS REMOVED: Incarcerated left Obturator inguinal tumor COMPLICATIONS: None. INDICATIONS: The patient is a 47-year-old female who presents with history of left groin swelling. Now presents for definitive surgical intervention. Laparoscopic versus open and robotic approaches were discussed. Benefits and risks including bleeding, infection, chronic groin pain were reviewed. Placement of mesh was also described. Informed consent was obtained. DESCRIPTION: In the preoperative area, the patient was marked with indelible marker along the left inguinal hernia. The patient was brought to the operating room and initially laid in supine position. The abdomen had been prepped and draped in standard sterile fashion. Ioban draping was also placed. Gaines catheter was also placed. Prior to incision, a timeout protocol was confirmed with surgical team regarding patient's name including procedures to be performed and location along the left groin. Initial positioning for the robotic ports were selected 20 cm superior to the target anatomy. A 0-degree 5 mm laparoscopic trocar entry was performed at the left upper quadrant. The abdomen was insufflated to 15 mmHg which she had tolerated well. Diagnostic laparoscopy demonstrated weakness along the left groin of the obturator area. Next, along the epigastrium, 8 mm robot trocar was placed. An 8-mm robotic trocar was placed under direct visualization at the right upper quadrant. The 5 mm port was exchanged for a 8 mm trocar. All trocars were positioned between 8 to 10-cm apart from each other. The [employer] XI robot was primed, draped, prepared for docking along the left side of the patient. I then went to the [employer] Xi console. The cement tester assistant was at bedside for exchange of the robot arms and equipment. Attention was brought to the left groin where an internal hernia was identified involving the ligation clip from her tubal ligation as well as small bowel. The adhesion was resected using electro-Bovie cautery. Next, attention was brought to the left obturator area. The peritoneum was scored and the left groin was explored. A large inguinal lipoma involving the obturator canal was incarcerated. Once completely reduced into the abdominal cavity, the peritoneal sac of the obturator hernia was stripped and a lipoma of the left groin was reduced. The sac was resected and then passed off for further pathological analysis. The size of the hernia defect was 3 cm with intraoperative films obtained. Using a 2-0 Surgidac, the peritoneal defect of the left inguinal hernia site was closed using a pursestring suture of 2-0 Surgidac. The defect was found to be completely closed with complete reduction of the left obturator hernia was confirmed. As an onlay, an Ventralight ST mesh by [employer] was initially cut in half and entered into the abdominal cavity via the 12 mm trocar. The mesh was tacked to the pelvis using 2-0 VLOC x 9-inch length sutures. The robot was undocked from the patient's bedside. I then rescrubbed into the case. The peritoneal defect corresponding to the 12 mm port was inspected. The fascial defect was reapproximated using 0-Vicryl and a [place]. Insufflation was released from the abdominal cavity and all instruments were removed from the abdominal cavity. The rest of incisions were reapproximated using 4-0 Monocryl in a running subcuticular fashion. Local anesthetic was placed along the incision including for a right groin block. Incisions were cleansed using dilute hydrogen peroxide. Dermabond was applied to the skin. At the end of the procedure, the needle, sponge and instrument counts had been verified correct by the surgical supply assistant. The patient had tolerated the procedure well and was taken to the postanesthesia care unit in stable condition. FINDINGS: 1. Initial incarcerated obturator hernia, left groin. 2. Internal hernia left groin involving tubal ligation clip and small bowel. 3. Adhesions along the left pelvis lysed. 4. Inguinal lipoma left side involving obturator canal, incarcerated. Plan - Discharge Summary Discharge Rx Participant: Yes New Discharge Prescriptions: New HYDROcodone/APAP 5-325MG [[place] 5-325] 1 tab PO Q6HR PRN #20 tab PRN Reason: Pain No Action Solifenacin Succinate [Vesicare] 10 mg PO DAILY Thyroid,Pork [Nature-Throid] 32.5 mg PO QAM Montelukast [Singulair] 10 mg PO HS Fexofenadine HCl 180 mg PO QAM Budesonide-Formot 160-4.5 Mcg [Symbicort 160-4.5 Mcg Inhaler] 2 puff INHALATION BID Acetaminophen Tab [Tylenol Tab] 325 - 650 mg PO Q4H PRN PRN Reason: Pain Thyroid,Pork [[place] Thyroid] 15 mg PO HS Director Of Business Continuity Tyroid 30 mg PO HS Discharge Medication List Solifenacin Succinate [Vesicare] 10 mg PO DAILY 10/25/16 [History] Acetaminophen Tab [Tylenol Tab] 325 - 650 mg PO Q4H PRN 08/30/17 [History] Budesonide-Formot 160-4.5 Mcg [Symbicort 160-4.5 Mcg Inhaler] 2 puff INHALATION BID 08/30/17 [History] Fexofenadine HCl 180 mg PO QAM 08/30/17 [History] Montelukast [Singulair] 10 mg PO HS 08/30/17 [History] Director Of Business Continuity Tyroid 30 mg PO HS 08/30/17 [History] Thyroid,Pork [[place] Thyroid] 15 mg PO HS 08/30/17 [History] Thyroid,Pork [Nature-Throid] 32.5 mg PO QAM 08/30/17 [History] HYDROcodone/APAP 5-325MG [[place] 5-325] 1 tab PO Q6HR PRN #20 tab 09/07/17 [Rx] Follow up Appointment(s)/Referral(s): Manny Escobar MD [STAFF PHYSICIAN] - 09/11/17 11:40 am Patient Instructions/Handouts: *Surgery [facility] - (Anesthesia) Discharge Instructions Outpatient Surgery, Laparoscopic Herniorrhaphy (DC) Activity/Diet/Wound Care/Special Instructions: No lifting over 4 pounds in 4 weeks. No showering. No bath tub soaks. rest today no driving until ok with your DR. resume home meds. Discharge Disposition: HOME SELF-CARE
== END | disposition home or self-care (01) ==
LOC: OR 05:54
PROVIDERS: ATTEND Surgery Plastic and Reconstructive Surgery
DX: K40.30 Unilateral inguinal hernia, with obstruction, without gangrene, not specified as recurrent (principal); K45.0 Other specified abdominal hernia with obstruction, without gangrene; D17.5 Benign lipomatous neoplasm of intra-abdominal organs; N73.6 Female pelvic peritoneal adhesions (postinfective); J45.909 Unspecified asthma, uncomplicated; E03.9 Hypothyroidism, unspecified; N32.81 Overactive bladder; Z79.51 Long term (current) use of inhaled steroids; Z79.899 Other long term (current) drug therapy; Z88.6 Allergy status to analgesic agent; Z88.2 Allergy status to sulfonamides; Z88.8 Allergy status to other drugs, medicaments and biological substances; Z91.09 Other allergy status, other than to drugs and biological substances
CPT/HCPCS: 49650; 49653; S2900; 81025; 88304

== ENCOUNTER 2017-10-18 04:33 | Emergency (ER) | payer MEDICAID ==
[2017-10-18 04:45] VITALS: PULSE 95; RESP 18; TEMP 98.3
[2017-10-18] MEDS ORDERED: METOCLOPRAMIDE 5 MG/ML 2 ML VIAL IM STA (05:05)
--- NOTE | 2017-10-18 05:08 | ED ---
General Adult HPI - General Chief complaint: Headache Stated complaint: headache Time Seen by Provider: 10/18/17 04:55 Source: patient, RN notes reviewed Mode of arrival: ambulatory Limitations: no limitations - History of Present Illness Initial comments: Patient is a pleasant 47-year-old female presenting to the emergency Department with headache. Onset of symptoms was last night around 10:30 or 11. Patient has headache mostly left frontal. Patient does have a history of chronic headaches however has not had many recently. Patient does see a neurologist. Patient did have recent injections of her back. Patient also has chronic neck problems. Patient does have history of previous decompression surgery for Arnold Chiari syndrome and does have chronic nystagmus. Patient has mild nausea. No vomiting. No fever. No weakness. - Related Data Home Medications Medication Instructions Recorded Confirmed Solifenacin Succinate [Vesicare] 10 mg PO DAILY 10/25/16 09/07/17 Acetaminophen Tab [Tylenol Tab] 325 - 650 mg PO Q4H PRN 08/30/17 09/07/17 Budesonide-Formot 160-4.5 Mcg 2 puff INHALATION BID 08/30/17 09/07/17 [Symbicort 160-4.5 Mcg Inhaler] Fexofenadine HCl 180 mg PO QAM 08/30/17 09/07/17 Montelukast [Singulair] 10 mg PO HS 08/30/17 09/07/17 Rehab Aide Tyroid 30 mg PO HS 08/30/17 09/07/17 Thyroid,Pork [[place] Thyroid] 15 mg PO HS 08/30/17 09/07/17 Thyroid,Pork [Nature-Throid] 32.5 mg PO QAM 08/30/17 09/07/17 Previous Rx's Medication Instructions Recorded HYDROcodone/APAP 5-325MG [[place] 1 tab PO Q6HR PRN #20 tab 09/07/17 5-325] Allergies Allergy/AdvReac Type Severity Reaction Status Date / Time ketorolac tromethamine Allergy Rash/Hives Verified 10/18/17 04:45 [From Toradol] sulfamethoxazole Allergy Rash/Hives Verified 10/18/17 04:45 [From Bactrim] trimethoprim [From Bactrim] Allergy Rash/Hives Verified 10/18/17 04:45 adhesive AdvReac BLISTER ON Verified 10/18/17 04:45 SKIN FROM TAPE, STATES "PAPER TAPE IS OK" celecoxib [From Celebrex] AdvReac Unknown Verified 10/18/17 04:45 Review of Systems ROS Statement: Those systems with pertinent positive or pertinent negative responses have been documented in the HPI. ROS Other: All systems not noted in ROS Statement are negative. Constitutional: Denies: fever Eyes: Denies: eye pain ENT: Denies: ear pain Respiratory: Denies: cough Cardiovascular: Denies: chest pain Endocrine: Denies: fatigue Gastrointestinal: Denies: abdominal pain Genitourinary: Denies: dysuria Musculoskeletal: Denies: back pain Skin: Denies: rash Neurological: Reports: headache. Denies: weakness, confusion Past Medical History Past Medical History: Asthma, Thyroid Disorder Additional Past Medical History / Comment(s): back pain, STATES HAS HERNIATED AND BULGING DISCS, [place] HAS A "BONE FRAGMENT IN BACK" overactive bladder, hernia , gastritis, History of Any Multi-Drug Resistant Organisms: None Reported Past Surgical History: Cholecystectomy, Hernia Repair, Orthopedic Surgery, Uterine Ablation Additional Past Surgical History / Comment(s): orif rt wrist,colonoscopy, RIGHT HERNIA REPAIN Past Anesthesia/Blood Transfusion Reactions: No Reported Reaction Past Psychological History: No Psychological Hx Reported Smoking Status: Never smoker Past Alcohol Use History: Rare Past Drug Use History: None Reported - Past Family History Father Family Medical History: Cancer General Exam Limitations: no limitations General appearance: alert, in no apparent distress Head exam: Present: atraumatic Eye exam: Present: normal appearance, PERRL, EOMI, nystagmus (Patient states chronic) ENT exam: Present: normal oropharynx Neck exam: Present: normal inspection Respiratory exam: Present: normal lung sounds bilaterally Cardiovascular Exam: Present: regular rate, normal rhythm GI/Abdominal exam: Present: soft. Absent: tenderness Extremities exam: Present: normal inspection Neurological exam: Present: alert, oriented X3, CN II-XII intact. Absent: motor sensory deficit Expanded Neurological exam: Present: protecting the airway Speech: Present: fluid speech Cranial nerves: EOM's Intact: Normal, Facial Sensation: Normal Sensory exam: Upper Extremity Light Touch: Normal, Lower Extremity Light Touch: Normal Motor strength exam: RUE: 5, LUE: 5, RLE: 5, LLE: 5 Eye Response: (4) open spontaneously Motor Response: (6) obeys commands Verbal Response: (5) oriented Psychiatric exam: Present: normal affect, normal mood Skin exam: Present: normal color Course Vital Signs 10/18/17 04:41 Temperature 98.3 F Pulse Rate 95 Respiratory 18 Rate Blood Pressure 173/88 O2 Sat by Pulse 96 Oximetry Disposition Clinical Impression: Cephalgia Disposition: HOME SELF-CARE Condition: Stable Instructions: Acute Headache (ED) Additional Instructions: Please follow-up to in the next day or 2 for recheck. Return for fever, weakness, confusion, worsening symptoms or other concerns. Referrals: Megan Friedman MD [Primary Care Provider] - 1-2 days Time of Disposition: 05:08
[2017-10-18] MEDS ORDERED: traMADol 50 MG STARTER PACK 3 TAB BTL PO STA (05:11)
[2017-10-18 05:15] VITALS: BP 139/87
== END 2017-10-18 05:27 | disposition home or self-care (01) ==
LOC: EC 04:33
DX: R51 Headache (principal); R11.0 Nausea; R40.2142 Coma scale, eyes open, spontaneous, at arrival to emergency department; R40.2252 Coma scale, best verbal response, oriented, at arrival to emergency department; R40.2362 Coma scale, best motor response, obeys commands, at arrival to emergency department; J45.909 Unspecified asthma, uncomplicated; E07.9 Disorder of thyroid, unspecified; Z98.890 Other specified postprocedural states; Z79.51 Long term (current) use of inhaled steroids; Z79.899 Other long term (current) drug therapy; Z88.1 Allergy status to other antibiotic agents; Z88.2 Allergy status to sulfonamides; Z88.6 Allergy status to analgesic agent; Z91.048 Other nonmedicinal substance allergy status
CPT/HCPCS: 96372; 99283

== ENCOUNTER → 2017-11-07 | Outpatient (CLI) | payer MEDICAID ==
[2017-11-07 13:09] LABS: T4, Free (Free Thyroxine) 0.66 ng/dL (0.78-2.19)
== END | disposition home or self-care (01) ==
LOC: LABWHC1 12:16
PROVIDERS: ATTEND Obstetrics & Gynecology
DX: E03.9 Hypothyroidism, unspecified (principal)
CPT/HCPCS: 36415; 84439; 84481

== ENCOUNTER → 2017-11-07 | Outpatient (CLI) | payer MEDICAID ==
--- NOTE | 2017-11-07 13:56 | MR ---
EXAMINATION TYPE: MR brain wo/w con DATE OF EXAM: 11/07/2017 COMPARISON: 11/01/2016 HISTORY: Vision change, confusion CONTRAST: Performed utilizing 9 mL intravenous Gadavist gadolinium contrast. TECHNIQUE: Multiplanar, multiecho imaging on a 3.0 Donna magnet is performed through the brain. Stud y is performed within 24 hours of arrival to the hospital. The craniovertebral junction is normal. There has been prior surgery for Arnold-Chiari malformation. No tonsillar pegging is evident. The pituitary is normal. Diffusion-weighted imaging is performed. No abnormal hyperintensity is present to suggest an acute i ntracranial infarct or acute ischemic change. 0.5 x 0.3 cm hyperintensity in the subcortical white matter right frontal lobe was present previously . Within measurement error, this appears stable. There may be a new 0.3 x 0.5 cm subcortical white matter change left posterior parietal lobe. Series 501, image 28 Ventricles and sulci are appropriate for the patient age. IMPRESSIONS: 1. Couple of punctate white matter changes. Lesion is identified in the posterior right parietal lobe. Number appear to remain within normal limi ts for the patient age.
== END | disposition home or self-care (01) ==
LOC: RADMRIMAIN 12:26
PROVIDERS: ATTEND Psychiatry & Neurology Pain Medicine
DX: G93.9 Disorder of brain, unspecified (principal); R90.89 Other abnormal findings on diagnostic imaging of central nervous system; Z88.2 Allergy status to sulfonamides; Z88.6 Allergy status to analgesic agent
CPT/HCPCS: 70553; A9581

== ENCOUNTER → 2017-11-21 | Outpatient (CLI) | payer MEDICAID ==
[2017-11-21 10:44] LABS: Basophils % (A) 1 %; Eosinophils # (A) 0.1 k/uL (0-0.7); Eosinophils % (A) 2 %; HCT 40.4 % (34.0-46.0); Lymphocytes # (A) 1.4 k/uL (1.0-4.8); Lymphocytes % (A) 32 %; MCHC 34.8 g/dL (31.0-37.0); MCV 89.1 fL (80.0-100.0); Monocytes # (A) 0.2 k/uL (0-1.0); Monocytes % (A) 4 %; Neutrophils # (A) 2.7 k/uL (1.3-7.7); Neutrophils % (A) 60 %; Platelet Count 311 k/uL (150-450); RBC 4.54 m/uL (3.80-5.40); RDW 12.5 % (11.5-15.5); WBC 4.5 k/uL (3.8-10.6)
[2017-11-21 11:43] LABS: ALT 15 U/L (9-52); AST 24 U/L (14-36); Albumin 4.2 g/dL (3.5-5.0); Alkaline Phosphatase 41 U/L (38-126); Anion Gap 10 mmol/L; Blood Urea Nitrogen 12 mg/dL (7-17); Calcium 9.4 mg/dL (8.4-10.2); Carbon Dioxide 25 mmol/L (22-30); Chloride 108 mmol/L (98-107); Glucose 93 mg/dL (74-99); Potassium 4.5 mmol/L (3.5-5.1); Sodium 143 mmol/L (137-145); Total Bilirubin 0.8 mg/dL (0.2-1.3); Total Protein 7.1 g/dL (6.3-8.2)
[2017-11-21 11:58] LABS: T4, Free (Free Thyroxine) 0.83 ng/dL (0.78-2.19)
[2017-11-21 16:09] LABS: Vitamin D 25 Hydroxy 18.2 ng/mL (30.0-100.0)
[2017-11-21 16:23] LABS: Folate, Serum 14.2 ng/mL
[2017-11-21 17:24] LABS: Hepatitis A Antibody IgM Non-Reactive (Non-Reactive); Hepatitis B Core IgM Non-Reactive (Non-Reactive)
[2017-11-21 17:43] LABS: HIV AB P24 Non-Reactive (Non-Reactive); HIV P24 AG Non-Reactive (Non-Reactive)
[2017-11-21 22:16] LABS: Hemoglobin A1C 4.7 % (4.0-6.0)
[2017-11-22 12:30] LABS: Vitamin B1 55 ug/L (38-122)
[2017-11-23 05:23] LABS: Vitamin B6 8 ug/L (5-50)
== END | disposition home or self-care (01) ==
LOC: LABWHC1 09:35
PROVIDERS: ATTEND Psychiatry & Neurology Pain Medicine
DX: G35 Multiple sclerosis (principal)
CPT/HCPCS: 36415; 80053; 80074; 82306; 82607; 82746; 83036; 84207; 84425; 84439; 84443; 84481; 84591; 85025; 87390

== ENCOUNTER 2017-12-11 12:06 | Observation (INO) | payer MEDICAID ==
[2017-12-11] MEDS ORDERED: ASPIRIN 81 MG PO STA (12:35)
[2017-12-11] MEDS ORDERED: NITROGLYCERIN OINT 1 INCH/GM PACKET TOPICAL STA (12:35)
--- NOTE | 2017-12-11 12:41 | ED ---
General Adult HPI - General Chief complaint: Chest Pain Stated complaint: Chest Pain Time Seen by Provider: 12/11/17 12:10 Source: patient, RN notes reviewed Mode of arrival: wheelchair Limitations: no limitations - History of Present Illness Initial comments: This is a 47-year-old female who presents to the emergency department complaining of chest heaviness across her chest and into her shoulders. Patient states today he is only into her left shoulder. Patient states associated with this constant chest pain since yesterday is shortness of breath. Patient states she's also been sweaty at times. Patient states she has a very strong family history of heart disease both her parents had heart disease at a early age. Patient denies any recent fever chills or cough. Patient denies any abdominal pain patient denies nausea vomiting or diarrhea. Patient denies any injury or trauma. Patient denies any lightheadedness dizziness or near syncopal episode. Patient denies headache patient denies numbness weakness - Related Data Home Medications Medication Instructions Recorded Confirmed Solifenacin Succinate [Vesicare] 10 mg PO DAILY 10/25/16 12/11/17 Acetaminophen Tab [Tylenol Tab] 650 mg PO Q4H PRN 08/30/17 12/11/17 Budesonide-Formot 160-4.5 Mcg 2 puff INHALATION RT-BID 08/30/17 12/11/17 [Symbicort 160-4.5 Mcg Inhaler] Montelukast [Singulair] 10 mg PO HS 08/30/17 12/11/17 Pipe Puller Thyroid 45mg 45 mg PO HS 12/11/17 12/11/17 Pipe Puller Thyroid 90mg 90 mg PO DAILY 12/11/17 12/11/17 Allergies Allergy/AdvReac Type Severity Reaction Status Date / Time ketorolac tromethamine Allergy Rash/Hives Verified 12/11/17 12:38 [From Toradol] sulfamethoxazole Allergy Rash/Hives Verified 12/11/17 12:38 [From Bactrim] trimethoprim [From Bactrim] Allergy Rash/Hives Verified 12/11/17 12:38 adhesive AdvReac BLISTER ON Verified 12/11/17 12:38 SKIN FROM TAPE, STATES "PAPER TAPE IS OK" celecoxib [From Celebrex] AdvReac Unknown Verified 12/11/17 12:38 Review of Systems ROS Statement: Those systems with pertinent positive or pertinent negative responses have been documented in the HPI. ROS Other: All systems not noted in ROS Statement are negative. Past Medical History Past Medical History: Asthma, Thyroid Disorder Additional Past Medical History / Comment(s): back pain, STATES HAS HERNIATED AND BULGING DISCS, [place] HAS A "BONE FRAGMENT IN BACK" overactive bladder, hernia , gastritis, History of Any Multi-Drug Resistant Organisms: None Reported Past Surgical History: Cholecystectomy, Hernia Repair, Orthopedic Surgery, Uterine Ablation Additional Past Surgical History / Comment(s): orif rt wrist,colonoscopy, RIGHT HERNIA REPAIR Past Anesthesia/Blood Transfusion Reactions: No Reported Reaction Past Psychological History: No Psychological Hx Reported Smoking Status: Never smoker Past Alcohol Use History: Rare Past Drug Use History: None Reported - Past Family History Father Family Medical History: Cancer General Exam - General Exam Comments Initial Comments: GENERAL: Patient is well-developed and well-nourished. Patient is nontoxic and well- hydrated and is in mild distress. ENT: Neck is soft and supple. No significant lymphadenopathy is noted. Oropharynx is clear. Moist mucous membranes. Neck has full range of motion without eliciting any pain. EYES: The sclera were anicteric and conjunctiva were pink and moist. Extraocular movements were intact and pupils were equal round and reactive to light. Eyelids were unremarkable. PULMONARY: Unlabored respirations. Good breath sounds bilaterally. No audible rales rhonchi or wheezing was noted. CARDIOVASCULAR: There is a regular rate and rhythm without any murmurs gallops or rubs. ABDOMEN: Soft and nontender with normal bowel sounds. No palpable organomegaly was noted. There is no palpable pulsatile mass. SKIN: Skin is clear with no lesions or rashes and otherwise unremarkable. NEUROLOGIC: Patient is alert and oriented x3. Cranial nerves II through XII are grossly intact. Motor and sensory are also intact. Normal speech, volume and content. Symmetrical smile. MUSCULOSKELETAL: Normal extremities with adequate strength and full range of motion. No lower extremity swelling or edema. No calf tenderness. LYMPHATICS: No significant lymphadenopathy is noted PSYCHIATRIC: Normal psychiatric evaluation. Normal interpersonal interactions appears functionally intact in deals appropriately with others. No signs of depression. No signs of anxiety. Limitations: no limitations Course Vital Signs 12/11/17 12:11 Temperature 98.7 F Pulse Rate 128 H Respiratory 20 Rate Blood Pressure 130/91 O2 Sat by Pulse 99 Oximetry Medical Decision Making - Medical Decision Making EKG shows sinus tachycardia at 101 bpm PA interval is on a 38 QRS is 94 QT interval 362 QTC is 469. Patient's EKG shows no ST segment elevation or ST segment depression. Patient's EKG shows no T-wave inversions Patient's chest x-ray is normal. - Lab Data Result diagrams: 12/11/17 12:52 12/11/17 12:52 Lab Results 12/11/17 12/11/17 12/11/17 Range/Units 12:52 12:52 12:52 WBC 11.9 H (3.8-10.6) k/uL RBC 4.81 (3.80-5.40) m/uL Hgb 14.8 (11.4-16.0) gm/dL Hct 42.8 (34.0-46.0) % MCV 89.0 (80.0-100.0) fL MCH 30.8 (25.0-35.0) pg MCHC 34.6 (31.0-37.0) g/dL RDW 12.5 (11.5-15.5) % Plt Count 277 (150-450) k/uL Neutrophils % 86 % Lymphocytes % 9 % Monocytes % 3 % Eosinophils % 2 % Basophils % 0 % Neutrophils # 10.2 H (1.3-7.7) k/uL Lymphocytes # 1.1 (1.0-4.8) k/uL Monocytes # 0.4 (0-1.0) k/uL Eosinophils # 0.2 (0-0.7) k/uL Basophils # 0.0 (0-0.2) k/uL PT (9.0-12.0) sec INR (<1.2) APTT (22.0-30.0) sec Sodium 143 (137-145) mmol/L Potassium 4.6 (3.5-5.1) mmol/L Chloride 103 (98-107) mmol/L Carbon Dioxide 27 (22-30) mmol/L Anion Gap 13 mmol/L BUN 15 (7-17) mg/dL Creatinine 0.70 (0.52-1.04) mg/dL Est GFR (CKD-EPI)AfAm >90 (>60 ml/min/1.73 sqM) Est GFR (CKD-EPI)NonAf >90 (>60 ml/min/1.73 sqM) Glucose 93 (74-99) mg/dL Calcium 9.8 (8.4-10.2) mg/dL Magnesium 2.0 (1.6-2.3) mg/dL Total Bilirubin 1.0 (0.2-1.3) mg/dL AST 35 (14-36) U/L ALT 31 (9-52) U/L Alkaline Phosphatase 52 (38-126) U/L Total Creatine Kinase 53 (30-135) U/L CK-MB (CK-2) <0.2 (0.0-2.4) ng/mL CK-MB (CK-2) Rel Index Troponin I <0.012 (0.000-0.034) ng/mL Total Protein 7.4 (6.3-8.2) g/dL Albumin 4.5 (3.5-5.0) g/dL 12/11/17 Range/Units 12:52 WBC (3.8-10.6) k/uL RBC (3.80-5.40) m/uL Hgb (11.4-16.0) gm/dL Hct (34.0-46.0) % MCV (80.0-100.0) fL MCH (25.0-35.0) pg MCHC (31.0-37.0) g/dL RDW (11.5-15.5) % Plt Count (150-450) k/uL Neutrophils % % Lymphocytes % % Monocytes % % Eosinophils % % Basophils % % Neutrophils # (1.3-7.7) k/uL Lymphocytes # (1.0-4.8) k/uL Monocytes # (0-1.0) k/uL Eosinophils # (0-0.7) k/uL Basophils # (0-0.2) k/uL PT 9.6 (9.0-12.0) sec INR 1.0 (<1.2) APTT 22.0 (22.0-30.0) sec Sodium (137-145) mmol/L Potassium (3.5-5.1) mmol/L Chloride (98-107) mmol/L Carbon Dioxide (22-30) mmol/L Anion Gap mmol/L BUN (7-17) mg/dL Creatinine (0.52-1.04) mg/dL Est GFR (CKD-EPI)AfAm (>60 ml/min/1.73 sqM) Est GFR (CKD-EPI)NonAf (>60 ml/min/1.73 sqM) Glucose (74-99) mg/dL Calcium (8.4-10.2) mg/dL Magnesium (1.6-2.3) mg/dL Total Bilirubin (0.2-1.3) mg/dL AST (14-36) U/L ALT (9-52) U/L Alkaline Phosphatase (38-126) U/L Total Creatine Kinase (30-135) U/L CK-MB (CK-2) (0.0-2.4) ng/mL CK-MB (CK-2) Rel Index Troponin I (0.000-0.034) ng/mL Total Protein (6.3-8.2) g/dL Albumin (3.5-5.0) g/dL Disposition Clinical Impression: Chest pain Disposition: ADMITTED IP TO THIS [facility] Referrals: Megan Friedman MD [Primary Care Provider] - 1-2 days Time of Disposition: 13:57
[2017-12-11 13:03] LABS: Basophils % (A) 0 %; Eosinophils # (A) 0.2 k/uL (0-0.7); Eosinophils % (A) 2 %; HCT 42.8 % (34.0-46.0); HGB 14.8 gm/dL (11.4-16.0); Lymphocytes # (A) 1.1 k/uL (1.0-4.8); Lymphocytes % (A) 9 %; MCH 30.8 pg (25.0-35.0); MCHC 34.6 g/dL (31.0-37.0); Monocytes # (A) 0.4 k/uL (0-1.0); Monocytes % (A) 3 %; Neutrophils # (A) 10.2 k/uL (1.3-7.7); Neutrophils % (A) 86 %; Platelet Count 277 k/uL (150-450); RBC 4.81 m/uL (3.80-5.40); RDW 12.5 % (11.5-15.5); WBC 11.9 k/uL (3.8-10.6)
[2017-12-11 13:17] LABS: Prothrombin Time 9.6 sec (9.0-12.0)
[2017-12-11 13:23] LABS: ALT 31 U/L (9-52); AST 35 U/L (14-36); Albumin 4.5 g/dL (3.5-5.0); Alkaline Phosphatase 52 U/L (38-126); Anion Gap 13 mmol/L; Blood Urea Nitrogen 15 mg/dL (7-17); Calcium 9.8 mg/dL (8.4-10.2); Carbon Dioxide 27 mmol/L (22-30); Chloride 103 mmol/L (98-107); Glucose 93 mg/dL (74-99); Potassium 4.6 mmol/L (3.5-5.1); Sodium 143 mmol/L (137-145); Total Protein 7.4 g/dL (6.3-8.2)
--- NOTE | 2017-12-11 13:26 | XR ---
EXAMINATION TYPE: XR chest 2V DATE OF EXAM: 12/11/2017 COMPARISON: Prior chest x-ray 10/26/2016 HISTORY: Chest pain TECHNIQUE: Frontal and lateral views of the chest are obtained. FINDINGS: There is no focal air space opacity, pleural effusion, or pneumothorax seen. The cardiac silhouette size is within normal limits. There are overlying cardiac leads. There is a spinal curvatu re. The osseous structures are intact. Surgical clips present in the upper abdomen. IMPRESSION: No acute cardiopulmonary process.
[2017-12-11 13:29] LABS: Creatine Kinase 53 U/L (30-135)
[2017-12-11 13:43] LABS: Creatine Kinase MB <0.2 ng/mL (0.0-2.4); Troponin I <0.012 ng/mL (0.000-0.034)
[2017-12-11] MEDS ORDERED: NITROGLYCERIN SL TABS 0.4 MG TAB SUBLINGUAL PRN (13:57)
[2017-12-11] MEDS ORDERED: HYDROcodone/APAP 5-325MG 1 EACH TAB PO PRN (15:33)
[2017-12-11] MEDS ORDERED: MELATONIN 3 MG TABLET PO PRN (15:33)
--- NOTE | 2017-12-11 15:37 | P.HPIM ---
History of Present Illness H&P Date: 12/11/17 Chief Complaint: chest pain Patient is a 47-year-old female with a past medical history of recently diagnosed multiple sclerosis, hypothyroidism, arthritis, multiple herniated disks in her back and neck, and overactive bladder who presented to the ER from [facility] with chest pain. On arrival to the ER she was tachycardic with a pulse of 128. EKG revealed sinus tachycardia with no significant ST-T wave changes. Troponin was negative. Laboratory analysis showed slightly elevated white blood cell count of 11.9. She was given an aspirin and had Nitropaste applied ER. She had slight improvement in her chest pain. She was also noted cough and sore throat, and right-sided ear pain. She was admitted for observation for chest pain with rule out of coronary artery disease. Patient seen and examined at bedside in the emergency department. She states that she started with chest pressure across her precordium and radiation to both arms for 2 days. Yesterday she noticed diaphoresis and intermittent tingling of her bottom lip. She also noted having some lightheadedness and nausea. She denies any tingling in her arms. She then developed a cough last night, sore throat, and right ear itching. Her brother has been sick as well. She has noted some increased sinus drainage. She has increased urination and has been worse for the last week. She has an appointment with her urologist this Sunday. Today her chest pain was through to her back and her cough was getting worse, she initially tried to call Dr. Friedman but she is out of office this week. She then went to [facility] who sent her over to the emergency department due to her complaints of chest pain. She has not recently started or stopped any medications. She does not smoke. She does have a strong family history of coronary artery disease with her mom passing away of a massive heart attack at age 67 and her father having a heart attack prior to the age of 65. She does see Dr. JESSICA Seo as an outpatient but has not yet seen him this year. Review of Systems Pertinent positives and negatives as per HPI, remainder of 12 point review of systems is negative Past Medical History Past Medical History: Asthma, Thyroid Disorder Additional Past Medical History / Comment(s): back pain, herniated disc and cervical and lumbar spine, [place] HAS A "BONE FRAGMENT IN BACK" overactive bladder , hernia, gastritis, Arnold-Chiari malformation, multiple sclerosis, hypothyroidism, arthritis, gastritis History of Any Multi-Drug Resistant Organisms: None Reported Past Surgical History: Cholecystectomy, Hernia Repair, Orthopedic Surgery, Uterine Ablation Additional Past Surgical History / Comment(s): orif rt wrist,colonoscopy, right and left hernia repair, right breast biopsy, left breast surgery for infected milk duct, Arnold-Chiari malformation surgery Past Anesthesia/Blood Transfusion Reactions: No Reported Reaction Past Psychological History: No Psychological Hx Reported Smoking Status: Never smoker Past Alcohol Use History: Rare Past Drug Use History: None Reported Additional History: Lives with her daughter, no assistive devices, works at the [employer] here at [facility] - Past Family History Father Family Medical History: Cancer Additional Family Medical History / Comment(s): Prostate cancer, myocardial infarction prior to the age of 65 Mother Family Medical History: Coronary Artery Disease (CAD) Additional Family Medical History / Comment(s): from heart attack at the age of 67 Medications and Allergies Home Medications Medication Instructions Recorded Confirmed Type Solifenacin Succinate [Vesicare] 10 mg PO DAILY 10/25/16 12/11/17 History Acetaminophen Tab [Tylenol Tab] 650 mg PO Q4H PRN 08/30/17 12/11/17 History Budesonide-Formot 160-4.5 Mcg 2 puff INHALATION RT-BID 08/30/17 12/11/17 History [Symbicort 160-4.5 Mcg Inhaler] Montelukast [Singulair] 10 mg PO HS 08/30/17 12/11/17 History Coroner Forensic Technician Thyroid 45mg 45 mg PO HS 12/11/17 12/11/17 History Coroner Forensic Technician Thyroid 90mg 90 mg PO DAILY 12/11/17 12/11/17 History Allergies Allergy/AdvReac Type Severity Reaction Status Date / Time ketorolac tromethamine Allergy Rash/Hives Verified 12/11/17 12:38 [From Toradol] sulfamethoxazole Allergy Rash/Hives Verified 12/11/17 12:38 [From Bactrim] trimethoprim [From Bactrim] Allergy Rash/Hives Verified 12/11/17 12:38 adhesive AdvReac BLISTER ON Verified 12/11/17 12:38 SKIN FROM TAPE, STATES "PAPER TAPE IS OK" celecoxib [From Celebrex] AdvReac Unknown Verified 12/11/17 12:38 Physical Exam Osteopathic Statement: *. No significant issues noted on an osteopathic structural exam other than those noted in the History and Physical/Consult. Vitals: Vital Signs Temp Pulse Resp BP Pulse Ox 12/11/17 14:56 98.9 F 98 17 146/86 97 12/11/17 14:09 101 H 17 144/86 98 12/11/17 12:11 98.7 F 128 H 20 130/91 99 Intake and Output 12/10/17 12/11/17 12/11/17 22:59 06:59 14:59 Other: Weight 94.347 kg General: non toxic, no distress, appears at stated age, normal weight Derm: no unusual rashes/lesions no unusual ecchymoses, warm, dry Head: atraumatic, normocephalic, symmetric Eyes: EOMI, no lid lag, anicteric sclera, pupils equal round reactive to light ENT: Nose and ears atraumatic, no thrush, + pharyngeal erythema, no tonsillar exudate, left TM with good cone of light and no erythemia, Right TM with loss of cone of light and bulging no erythema. Neck: No thyromegaly, no cervical lymphadenopathy, trachea midline, supple Mouth: no lip lesion, mucus membranes moist Cardiovascular: S1S2 reg, + murmur, positive posterior tibial pulse bilateral, no edema, capillary refill less than 2 seconds Lungs: Rhonchi left base , no accessory muscle use Abdominal: soft, nontender to palpation, no guarding, no appreciable organomegaly, normal bowel sounds Ext: no gross muscle atrophy, muscle strength 5 out of 5 in all 4 extremities grossly, no contractures, Neuro: CN II-XI grossly intact, light touch intact all 4 extremities, finger to nose within normal limits, Psych: Alert, oriented, appropriate affect Results CBC & Chem 7: 12/11/17 12:52 12/11/17 12:52 Labs: Abnormal Lab Results - Last 24 Hours (Table) 12/11/17 Range/Units 12:52 WBC 11.9 H (3.8-10.6) k/uL Neutrophils # 10.2 H (1.3-7.7) k/uL Comments: EKG is reviewed by myself revealed sinus tachycardia at a rate of [address]-T wave changes Chest x-ray: report reviewed Thrombosis Risk Factor Assmnt - DVT/VTE Prophylaxis DVT/VTE Prophylaxis: Low risk, early ambulation encouraged - Choose All That Apply Each Factor Represents 1 point: Age 41-60 years Thrombosis Risk Factor Assessment Total Risk Factor Score: 1 Thrombosis Risk Factor Assessment Level: Low Risk Assessment and Plan Assessment: Chest pain -Some symptoms suggestive of coronary artery disease other is not -Serial troponins -Nitropaste -Aspirin -Cardiology consult -Nothing by mouth after midnight pending cardiology evaluation -Telemetry -Check lipid profile in a.m. Sinusitis -Doubt bacterial -Flonase -Claritin Asthma without exacerbation -Continue with when necessary bronchodilators Urinary frequency -Check urinalysis -Continue outpatient follow-up with urology Leukocytosis -Chest x-ray negative -Await urinalysis -Suspect secondary to sinusitis Chronic: Hypothyroidism Arthritis Gastritis MS Chronic low back pain Overactive bladder Surrogate decision-maker: Daughter Sonali CODE STATUS: Full, would not want to be kept alive on vent ground services instructor or with feeding tube long-term DVT prophylaxis: SCDs Discussed with: Patient, family, ED physician Anticipated discharge: [address]: Home A total of 55 minutes was spent on the care of this complex patient more than 50 % of the time was spent in counseling and care coordination.
[2017-12-11] MEDS: ACETAMINOPHEN TAB 325 MG TAB PO PRN (16:15)
[2017-12-11 19:35] VITALS: RESP 16
[2017-12-11 19:38] LABS: Creatine Kinase 50 U/L (30-135)
[2017-12-11 19:49] LABS: Creatine Kinase MB <0.2 ng/mL (0.0-2.4); Troponin I <0.012 ng/mL (0.000-0.034)
[2017-12-11] MEDS ORDERED: BUDESONIDE FORMOT INHALATION SCH (20:00)
[2017-12-11] MEDS ORDERED: THYROID 45 MG PO SCH (21:00)
[2017-12-11] MEDS ORDERED: MONTELUKAST 10 MG PO SCH (21:00)
[2017-12-11] MEDS: FLUTICASONE 50MCG/SPRAY NASAL 16GM EA NOSTRIL SCH (21:08)
[2017-12-11] MEDS: LORATADINE 10 MG TAB PO SCH (21:09)
[2017-12-11] MEDS: NITROGLYCERIN OINT 1 INCH/GM PACKET TOPICAL SCH (21:10)
[2017-12-12 01:22] LABS: Creatine Kinase 48 U/L (30-135)
[2017-12-12 01:36] LABS: Creatine Kinase MB <0.2 ng/mL (0.0-2.4); Troponin I <0.012 ng/mL (0.000-0.034)
[2017-12-12] MEDS: NITROGLYCERIN OINT 1 INCH/GM PACKET TOPICAL SCH (04:16)
[2017-12-12] MEDS: ACETAMINOPHEN TAB 325 MG TAB PO PRN (04:18)
[2017-12-12 08:09] LABS: Cholesterol 231 mg/dL (<200); HDL Cholesterol 69 mg/dL (40-60); LDL Cholesterol,Calculated 144 mg/dL (0-99); Triglycerides 88 mg/dL (<150)
[2017-12-12] MEDS ORDERED: ASPIRIN 325 MG TAB PO SCH (09:00)
[2017-12-12] MEDS ORDERED: SOLIFENACIN SUCCINATE 10 MG PO SCH (09:00)
[2017-12-12] MEDS ORDERED: NP THYROID 90 MG PO SCH (09:00)
--- NOTE | 2017-12-12 09:29 | ECHOF ---
Referral Reason: MEASUREMENTS -------- HEIGHT: 167.6 cm WEIGHT: 95.3 kg BP: 118/69 IVSd: 1.1 cm (0.6 - 1.1) LVIDd: 3.9 cm (3.9 - 5.3) LVPWd: 1.3 cm (0.6 - 1.1) IVSs: 2.1 cm LVIDs: 2.4 cm LVPWs: 1.7 cm LAESV Index (A-L): 14.45 ml/m Ao Diam: 3.2 cm (2.0 - 3.7) AV Cusp: 2.2 cm (1.5 - 2.6) LA Diam: 3.5 cm (2.7 - 3.8) MV EXCURSION: 14.924 mm (> 18.000) MV EF SLOPE: 66 mm/s (70 - 150) EPSS: 0.9 cm MV E Omar: 0.78 m/s MV DecT: 139 ms MV A Omar: 0.83 m/s MV E/A Ratio: 0.94 RAP: 5.00 mmHg RVSP: 11.04 mmHg FINDINGS -------- Sinus rhythm. This was a technically good study. The left ventricular size is normal. Left ventricular wall thickness is normal. Overall left vent ricular systolic function is normal with, an EF between 55 - 60 %. The right ventricle is normal in size. The left atrium is normal in size. The right atrium is normal in size. The aortic valve is trileaflet, and appears structurally normal. No aortic stenosis or regurgitation. Normal appearing mitral valve. Trace tricuspid regurgitation present. The right ventricular systolic pressure, as measured by Dopp ler, is 11.04mmHg. Pulmonic valve appears structurally normal. The aortic root size is normal. Normal inferior vena cava with normal inspiratory collapse consistent with estimated right atrial pre ssure of 5 mmHg. The pericardium is normal. CONCLUSIONS -------- 1. Sinus rhythm. 2. This was a technically good study. 3. The left ventricular size is normal. 4. Left ventricular wall thickness is normal. 5. Overall left ventricular systolic function is normal with, an EF between 55 - 60 %. 6. The right ventricle is normal in size. 7. The left atrium is normal in size. 8. The right atrium is normal in size. 9. The aortic valve is trileaflet, and appears structurally normal. No aortic stenosis or regurgitati on. 10. Normal appearing mitral valve. 11. Trace tricuspid regurgitation present. 12. The right ventricular systolic pressure, as measured by Doppler, is 11.04mmHg. 13. Pulmonic valve appears structurally normal. 14. The aortic root size is normal. 15. Normal inferior vena cava with normal inspiratory collapse consistent with estimated right atrial pressure of 5 mmHg. 16. The pericardium is normal. SPECIAL FORCES WEAPONS SERGEANT: Clarisse Hope RDCS
[2017-12-12 10:31] LABS: Appearance,Urine Clear (Clear); Bacteria,Urine Rare /hpf; Bilirubin,Urine Negative (Negative); Blood,Urine Trace (Negative); Color,Urine Yellow; Glucose,Urine (UA) Negative (Negative); Ketones,Urine Negative (Negative); Leukocyte Esterase,Urine Small (Negative); Mucus,Urine Rare /hpf; Nitrite,Urine Negative (Negative); PH, Urine 6.5 (5.0-8.0); Protein,Urine Negative (Negative); RBC,Urine 1 /hpf (0-5); Specific Gravity,Urine 1.013 (1.001-1.035); Squamous Epithelial Cell,Urine 4 /hpf (0-4); Urobilinogen,Urine <2.0 mg/dL (<2.0); WBC,Urine 4 /hpf (0-5)
[2017-12-12] MEDS: LORATADINE 10 MG TAB PO SCH (10:31)
[2017-12-12] MEDS: FLUTICASONE 50MCG/SPRAY NASAL 16GM EA NOSTRIL SCH (10:32)
[2017-12-12 11:43] VITALS: BP 140/86; PULSE 100; TEMP 98.1
--- NOTE | 2017-12-12 11:44 | P.CRDCN ---
History of Present Illness History of present illness: Atypical chest discomfort, cough, fever likely bronchitis. Cardiac enzymes are normal atypical chest discomfort normal ECG. 2-D echo and Doppler study today, this shows normal LV size and function Follow Dr. Seo as an outpatient. No further cardiac workup at this point See full dictation by nurse practitioner Past Medical History Past Medical History: Asthma, Thyroid Disorder Additional Past Medical History / Comment(s): back pain, herniated disc and cervical and lumbar spine, Also HAS A "BONE FRAGMENT IN BACK" overactive bladder , hernia,PAST gastritis, Arnold-Chiari malformation, multiple sclerosis, hypothyroidism, arthritis,2 , pt stated approx 5 years ago was told she may have had a mild mi(per ekg). has had 2 stresst est both wnl. History of Any Multi-Drug Resistant Organisms: None Reported Past Surgical History: Ablation, Cholecystectomy, Hernia Repair, Orthopedic Surgery, Uterine Ablation Additional Past Surgical History / Comment(s): orif rt wrist,colonoscopy, right and left hernia repair, right breast biopsy, left breast surgery for infected milk duct, Arnold-Chiari malformation surgery Past Anesthesia/Blood Transfusion Reactions: No Reported Reaction Smoking Status: Never smoker - Past Family History Mother Family Medical History: Coronary Artery Disease (CAD) Additional Family Medical History / Comment(s): from heart attack at the age of 67. mom's mother had dm Brother(s) Additional Family Medical History / Comment(s): boraderline diabetic Father Family Medical History: Cancer, Diabetes Mellitus Additional Family Medical History / Comment(s): Prostate cancer, myocardial infarction prior to the age of 65 Medications and Allergies Home Medications Medication Instructions Recorded Confirmed Type Solifenacin Succinate [Vesicare] 10 mg PO DAILY 10/25/16 12/11/17 History Acetaminophen Tab [Tylenol Tab] 650 mg PO Q4H PRN 08/30/17 12/11/17 History Budesonide-Formot 160-4.5 Mcg 2 puff INHALATION RT-BID 08/30/17 12/11/17 History [Symbicort 160-4.5 Mcg Inhaler] Montelukast [Singulair] 10 mg PO HS 08/30/17 12/11/17 History Auto Hiker Thyroid 45mg 45 mg PO HS 12/11/17 12/11/17 History Auto Hiker Thyroid 90mg 90 mg PO DAILY 12/11/17 12/11/17 History Allergies Allergy/AdvReac Type Severity Reaction Status Date / Time ketorolac tromethamine Allergy Rash/Hives Verified 12/11/17 12:38 [From Toradol] sulfamethoxazole Allergy Rash/Hives Verified 12/11/17 12:38 [From Bactrim] trimethoprim [From Bactrim] Allergy Rash/Hives Verified 12/11/17 12:38 adhesive AdvReac BLISTER ON Verified 12/11/17 12:38 SKIN FROM TAPE, STATES "PAPER TAPE IS OK" celecoxib [From Celebrex] AdvReac Unknown Verified 12/11/17 12:38 Physical Exam Vitals: Vital Signs Temp Pulse Pulse Resp BP BP Pulse Ox 12/12/17 11:42 98.1 F 100 16 140/86 100 12/12/17 08:00 93 16 12/12/17 07:45 99.1 F 93 16 118/69 96 12/12/17 04:00 101.0 F H 115 H 16 148/77 90 L 12/12/17 00:00 100.7 F H 116 H 16 153/97 100 12/11/17 20:00 113 H 16 12/11/17 19:34 99.7 F H 107 H 16 125/76 94 L 12/11/17 15:48 98 12/11/17 15:45 103 H 12/11/17 15:15 98.7 F 108 H 18 146/90 96 12/11/17 14:56 98.9 F 98 17 146/86 97 12/11/17 14:09 101 H 17 144/86 98 12/11/17 12:11 98.7 F 128 H 20 130/91 99 Intake and Output 12/11/17 12/12/17 12/12/17 22:59 06:59 14:59 Intake Total 240 Balance 240 Intake: Oral 240 Other: Voiding Method Toilet Toilet Toilet # Voids 1 2 Weight 95.6 kg Results 12/11/17 12:52 12/11/17 12:52 Cardiac Enzymes 12/11/17 12/11/17 12/11/17 Range/Units 12:52 12:52 18:46 AST 35 (14-36) U/L CK-MB (CK-2) <0.2 <0.2 (0.0-2.4) ng/mL Troponin I <0.012 <0.012 (0.000-0.034) ng/mL 12/12/17 Range/Units 00:24 AST (14-36) U/L CK-MB (CK-2) <0.2 (0.0-2.4) ng/mL Troponin I <0.012 (0.000-0.034) ng/mL Coagulation 12/11/17 Range/Units 12:52 PT 9.6 (9.0-12.0) sec APTT 22.0 (22.0-30.0) sec Lipids 12/12/17 Range/Units 07:19 Triglycerides 88 (<150) mg/dL Cholesterol 231 H (<200) mg/dL HDL Cholesterol 69 H (40-60) mg/dL CBC 12/11/17 Range/Units 12:52 WBC 11.9 H (3.8-10.6) k/uL RBC 4.81 (3.80-5.40) m/uL Hgb 14.8 (11.4-16.0) gm/dL Hct 42.8 (34.0-46.0) % Plt Count 277 (150-450) k/uL Comprehensive Metabolic Panel 12/11/17 Range/Units 12:52 Sodium 143 (137-145) mmol/L Potassium 4.6 (3.5-5.1) mmol/L Chloride 103 (98-107) mmol/L Carbon Dioxide 27 (22-30) mmol/L BUN 15 (7-17) mg/dL Creatinine 0.70 (0.52-1.04) mg/dL Glucose 93 (74-99) mg/dL Calcium 9.8 (8.4-10.2) mg/dL AST 35 (14-36) U/L ALT 31 (9-52) U/L Alkaline Phosphatase 52 (38-126) U/L Total Protein 7.4 (6.3-8.2) g/dL Albumin 4.5 (3.5-5.0) g/dL Current Medications Generic Name Dose Route Start Last Admin Trade Name Freq PRN Reason Stop Dose Admin Acetaminophen 650 mg 12/11/17 15:33 12/12/17 04:18 Tylenol Tab PO 650 mg Q6HR PRN Administration Mild Pain or Fever > 100.5 Hydrocodone Bitart/Acetaminophen 1 each 12/11/17 15:33 12/11/17 17:51 [place] 5-325 PO 1 each Q4HR PRN Administration Moderate Pain Aspirin 325 mg 12/12/17 09:00 12/12/17 10:32 Aspirin PO 325 mg DAILY [place] Administration Fluticasone Propionate 2 spray 12/11/17 15:45 12/12/17 10:32 Flonase Nasal [place] EA NOSTRIL 2 spray DAILY [place] Administration Loratadine 10 mg 12/11/17 15:45 12/12/17 10:31 Claritin PO 10 mg DAILY [place] Administration Melatonin 3 mg 12/11/17 15:33 Melatonin PO HS PRN Insomnia Nitroglycerin 0.4 mg 12/11/17 13:57 Nitrostat SUBLINGUAL Q5M PRN Chest Pain Non-Formulary Medication 2 puff 12/11/17 20:00 Budesonide-Formot 160-4.5 Mcg [Symbicort 160-4.5 Mcg Inhaler] INHALATION RT-BID [place] Non-Formulary Medication 10 mg 12/11/17 21:00 12/11/17 21:10 Montelukast [Singulair] PO Not Given HS [place] Non-Formulary Medication 45 mg 12/11/17 21:00 12/11/17 21:07 Auto Hiker Thyroid 45mg PO Not Given HS [place] Non-Formulary Medication 90 mg 12/12/17 09:00 12/12/17 10:33 Auto Hiker Thyroid 90mg PO Not Given DAILY [place] Non-Formulary Medication 10 mg 12/12/17 09:00 12/12/17 10:33 Solifenacin Succinate [Vesicare] PO Not Given DAILY [place] Intake and Output 12/11/17 12/12/17 12/12/17 22:59 06:59 14:59 Intake Total 240 Balance 240 Intake: Oral 240 Other: Voiding Method Toilet Toilet Toilet # Voids 1 2 Weight 95.6 kg 12/11/17 12:52 12/11/17 12:52
[2017-12-12 13:11] LABS: HCT 41.9 % (34.0-46.0); HGB 14.2 gm/dL (11.4-16.0); MCH 30.7 pg (25.0-35.0); MCV 90.5 fL (80.0-100.0); Mean Platelet Volume 7.5; Platelet Count 254 k/uL (150-450); RBC 4.62 m/uL (3.80-5.40); RDW 12.4 % (11.5-15.5); WBC 7.6 k/uL (3.8-10.6)
--- NOTE | 2017-12-12 14:18 | P.CRDCN ---
History of Present Illness Consult date: 12/12/17 History of present illness: Mrs. Jewell is a pleasant 47-year-old female past medical history significant for multiple sclerosis, hypothyroidism and asthma. Weakness to see her in consultation for complaints of chest pain. She states she has had 2 episodes of chest pain over the last few days. The pain starts in the mid- sternal region and radiates across the chest to both shoulders and into the mid back region. It is described as a heavy squeezing sensation with no aggravating or alleviating factors. The pain lasts only a few minutes each time and is associated with shortness of breath and mild diaphoresis. She also complains of cough with productive white sputum, urinary frequency and fever or chills at home as well as in the hospital last night. She is a no further episodes of chest pain since admission, telemetry tracings have been unremarkable. EKG on arrival reveals sinus tachycardia with no acute ST or T wave abnormalities noted. Chest x-ray negative for an acute cardiopulmonary process. Laboratory data reviewed, cardiac enzymes negative 3., LDL 144, HDL 69, triglycerides 68, total cholesterol 231. She is positive for influenza type B. Review of Systems At the time of my exam: CONSTITUTIONAL: Denies fever. Denies chills. EYES: Denies blurred vision. Denies vision changes. Denies eye pain. EARS, NOSE, MOUTH & THROAT: Denies headache. Denies sore throat. Denies ear pain. CARDIOVASCULAR: Denies chest pain. Denies shortness of breath. Denies orthopnea. Denies PND. Denies palpitations. RESPIRATORY: Complains of cough. GASTROINTESTINAL: Denies abdominal pain. Denies diarrhea. Denies constipation. Denies nausea. Denies vomiting. MUSCULOSKELETAL: Denies myalgias. INTEGUMENTARY: Denies pruitis. Denies rash. NEUROLOGIC: Denies numbness. Denies tingling. Denies weakness. PSYCHIATRIC: Denies anxiety. Denies depression. ENDOCRINE: Denies fatigue. Denies weight change. Denies polydipsia. Denies polyurina. GENITOURINARY: Denies burning, hematuria or urgency with micturation. HEMATOLOGIC: Denies history of anemia. Denies bleeding. Past Medical History Past Medical History: Asthma, Thyroid Disorder Additional Past Medical History / Comment(s): back pain, herniated disc and cervical and lumbar spine, Also HAS A "BONE FRAGMENT IN BACK" overactive bladder , hernia,PAST gastritis, Arnold-Chiari malformation, multiple sclerosis, hypothyroidism, arthritis,2 , pt stated approx 5 years ago was told she may have had a mild mi(per ekg). has had 2 stresst est both wnl. History of Any Multi-Drug Resistant Organisms: None Reported Past Surgical History: Ablation, Cholecystectomy, Hernia Repair, Orthopedic Surgery, Uterine Ablation Additional Past Surgical History / Comment(s): orif rt wrist,colonoscopy, right and left hernia repair, right breast biopsy, left breast surgery for infected milk duct, Arnold-Chiari malformation surgery Past Anesthesia/Blood Transfusion Reactions: No Reported Reaction Smoking Status: Never smoker - Past Family History Mother Family Medical History: Coronary Artery Disease (CAD) Additional Family Medical History / Comment(s): from heart attack at the age of 67. mom's mother had dm Brother(s) Additional Family Medical History / Comment(s): boraderline diabetic Father Family Medical History: Cancer, Diabetes Mellitus Additional Family Medical History / Comment(s): Prostate cancer, myocardial infarction prior to the age of 65 Medications and Allergies Home Medications Medication Instructions Recorded Confirmed Type Solifenacin Succinate [Vesicare] 10 mg PO DAILY 10/25/16 12/11/17 History Acetaminophen Tab [Tylenol] 650 mg PO Q4H PRN 08/30/17 12/11/17 History Budesonide-Formot 160-4.5 Mcg 2 puff INHALATION RT-BID 08/30/17 12/11/17 History [Symbicort 160-4.5 Mcg Inhaler] Montelukast [Singulair] 10 mg PO HS 08/30/17 12/11/17 History Professor Of Historical Theology Thyroid 45mg 45 mg PO HS 12/11/17 12/11/17 History Professor Of Historical [employer]ology Thyroid 90mg 90 mg PO DAILY 12/11/17 12/11/17 History Fluticasone Nasal [place] [Flonase 2 spray EA NOSTRIL DAILY #1 bottle 12/12/17 Rx Nasal [place]] Loratadine [Claritin] 10 mg PO DAILY tab 12/12/17 Rx Oseltamivir [Tamiflu] 75 mg PO Q12HR #10 cap 12/12/17 Rx Allergies Allergy/AdvReac Type Severity Reaction Status Date / Time ketorolac tromethamine Allergy Rash/Hives Verified 12/11/17 12:38 [From Toradol] sulfamethoxazole Allergy Rash/Hives Verified 12/11/17 12:38 [From Bactrim] trimethoprim [From Bactrim] Allergy Rash/Hives Verified 12/11/17 12:38 adhesive AdvReac BLISTER ON Verified 12/11/17 12:38 SKIN FROM TAPE, STATES "PAPER TAPE IS OK" celecoxib [From Celebrex] AdvReac Unknown Verified 12/11/17 12:38 Physical Exam Vitals: Vital Signs Temp Pulse Pulse Resp BP BP Pulse Ox 12/12/17 07:45 99.1 F 93 16 118/69 96 12/12/17 04:00 101.0 F H 115 H 16 148/77 90 L 12/12/17 00:00 100.7 F H 116 H 16 153/97 100 12/11/17 20:00 113 H 16 12/11/17 19:34 99.7 F H 107 H 16 125/76 94 L 12/11/17 15:48 98 12/11/17 15:45 103 H 12/11/17 15:15 98.7 F 108 H 18 146/90 96 12/11/17 14:56 98.9 F 98 17 146/86 97 12/11/17 14:09 101 H 17 144/86 98 12/11/17 12:11 98.7 F 128 H 20 130/91 99 Intake and Output 12/11/17 12/12/17 12/12/17 22:59 06:59 14:59 Intake Total 240 Balance 240 Intake: Oral 240 Other: Voiding Method Toilet Toilet # Voids 1 Weight 95.6 kg Blood pressure 118/69 heart rate 93 temperature 99.1F overnight temperature spiked as high as 101F maintaining oxygen saturation on room air GENERAL: This is a 47-year-old [place] female in no apparent distress at the time of my examination. HEENT: Head is atraumatic, normocephalic. Pupils are equal, round. Sclerae anicteric. Conjunctivae are clear. Mucous membranes of the mouth are moist. Neck is supple. There is no jugular venous distention. No carotid bruit is heard. LUNGS: Clear to auscultation no wheezes, rales or rhonchi. No chest wall tenderness is noted on palpation or with deep breathing. HEART: Regular rate and rhythm without murmurs, rubs or gallops. S1 and S2 heard. ABDOMEN: Soft, nontender. Bowel sounds are heard. No organomegaly noted. EXTREMITIES: No evidence of peripheral edema and no calf tenderness noted. VASCULAR: Radial and dorsalis pedis pulses palpated, no evidence of clubbing. NEUROLOGIC: Patient is awake, alert and oriented x3. Results 12/12/17 07:19 12/11/17 12:52 Cardiac Enzymes 12/11/17 12/11/17 12/11/17 Range/Units 12:52 12:52 18:46 AST 35 (14-36) U/L CK-MB (CK-2) <0.2 <0.2 (0.0-2.4) ng/mL Troponin I <0.012 <0.012 (0.000-0.034) ng/mL 12/12/17 Range/Units 00:24 AST (14-36) U/L CK-MB (CK-2) <0.2 (0.0-2.4) ng/mL Troponin I <0.012 (0.000-0.034) ng/mL Coagulation 12/11/17 Range/Units 12:52 PT 9.6 (9.0-12.0) sec APTT 22.0 (22.0-30.0) sec Lipids 12/12/17 Range/Units 07:19 Triglycerides 88 (<150) mg/dL Cholesterol 231 H (<200) mg/dL HDL Cholesterol 69 H (40-60) mg/dL CBC 12/11/17 Range/Units 12:52 WBC 11.9 H (3.8-10.6) k/uL RBC 4.81 (3.80-5.40) m/uL Hgb 14.8 (11.4-16.0) gm/dL Hct 42.8 (34.0-46.0) % Plt Count 277 (150-450) k/uL Comprehensive Metabolic Panel 12/11/17 Range/Units 12:52 Sodium 143 (137-145) mmol/L Potassium 4.6 (3.5-5.1) mmol/L Chloride 103 (98-107) mmol/L Carbon Dioxide 27 (22-30) mmol/L BUN 15 (7-17) mg/dL Creatinine 0.70 (0.52-1.04) mg/dL Glucose 93 (74-99) mg/dL Calcium 9.8 (8.4-10.2) mg/dL AST 35 (14-36) U/L ALT 31 (9-52) U/L Alkaline Phosphatase 52 (38-126) U/L Total Protein 7.4 (6.3-8.2) g/dL Albumin 4.5 (3.5-5.0) g/dL Current Medications Generic Name Dose Route Start Last Admin Trade Name Freq PRN Reason Stop Dose Admin Acetaminophen 650 mg 12/11/17 15:33 12/12/17 04:18 Tylenol Tab PO 650 mg Q6HR PRN Administration Mild Pain or Fever > 100.5 Hydrocodone Bitart/Acetaminophen 1 each 12/11/17 15:33 12/11/17 17:51 [place] 5-325 PO 1 each Q4HR PRN Administration Moderate Pain Aspirin 325 mg 12/12/17 09:00 Aspirin PO DAILY [place] Fluticasone Propionate 2 spray 12/11/17 15:45 12/11/17 21:08 Flonase Nasal [place] EA NOSTRIL 2 spray DAILY [place] Administration Loratadine 10 mg 12/11/17 15:45 12/11/17 21:09 Claritin PO 10 mg DAILY [place] Administration Melatonin 3 mg 12/11/17 15:33 Melatonin PO HS PRN Insomnia Nitroglycerin 0.4 mg 12/11/17 13:57 Nitrostat SUBLINGUAL Q5M PRN Chest Pain Non-Formulary Medication 2 puff 12/11/17 20:00 Budesonide-Formot 160-4.5 Mcg [Symbicort 160-4.5 Mcg Inhaler] INHALATION RT-BID [place] Non-Formulary Medication 10 mg 12/11/17 21:00 12/11/17 21:10 Montelukast [Singulair] PO Not Given HS [place] Non-Formulary Medication 45 mg 12/11/17 21:00 12/11/17 21:07 Professor Of Historical Theology Thyroid 45mg PO Not Given HS [place] Non-Formulary Medication 90 mg 12/12/17 09:00 Professor Of Historical Theology Thyroid 90mg PO DAILY [place] Non-Formulary Medication 10 mg 12/12/17 09:00 Solifenacin Succinate [Vesicare] PO DAILY [place] Intake and Output 12/11/17 12/12/1712/12/18 22:59 06:59 14:59 Intake Total 240 Balance 240 Intake: Oral 240 Other: Voiding Method Toilet Toilet # Voids 1 Weight 95.6 kg 12/11/17 12:52 12/11/17 12:52 Assessment and Plan Assessment: ASSESSMENT 1. Chest pain, atypical. An acute coronary event has been ruled out with no EKG evidence of ischemia and negative cardiac enzymes. 2. Influenza B PLAN 2-D echocardiogram and Doppler study has been obtained and reviewed and reveals preserved left ventricular systolic function with ejection fraction 55-60%. Further cardiac workup at this time. Continue medical management of influenza. Follow-up with Dr. Seo upon discharge. Thank you kindly for this consultation. Nurse Practitioner note has been reviewed, I agree with a documented findings and plan of care. Patient was seen and examined.
--- NOTE | 2017-12-12 15:00 | P.DS ---
Providers Date of admission: 12/11/17 13:57 Expected date of discharge: 12/12/17 Attending physician: Michael Rodriguez MD Consults: 12/11/17 13:57 Consult Physician Urgent Consulting Provider: [facility] Consult Reason/Comments: Chest pain Do you want consulting provider notified?: Yes Primary care physician: Megan Friedman MD - Discharge Diagnosis(es) (1) Non-cardiac chest pain Current Visit: Yes Status: Acute (2) Influenza B Current Visit: Yes Status: Acute (3) Sinusitis Current Visit: Yes Status: Acute (4) Asthma without acute exacerbation Current Visit: Yes Status: Acute (5) Multiple sclerosis Current Visit: Yes Status: Acute Hospital Course: Patient is a 47-year-old female with a past medical history of recently diagnosed multiple sclerosis, hypothyroidism, arthritis, multiple herniated disks in her back and neck, and overactive bladder who presented to the ER from [facility] with chest pain. On arrival to the ER she was tachycardic with a pulse of 128. EKG revealed sinus tachycardia with no significant ST-T wave changes. Troponin was negative. Laboratory analysis showed slightly elevated white blood cell count of 11.9. She was given an aspirin and had Nitropaste applied ER. She had slight improvement in her chest pain. She was also noted cough and sore throat, and right-sided ear pain. She was admitted for observation for chest pain with rule out of coronary artery disease. She was started on Claritin and Flonase for possible sinusitis. She was noted to have fevers overnight on 07/14 with a T-max of 101. She had reported influenza exposure. The next day her influenza swab came back positive for influenza B. Recommendations are for Tamiflu which was prescribed on discharge. She had an echocardiogram done which was within normal limits. She was seen by cardiology who recommended no additional inpatient further testing but outpatient follow- up with Dr. Seo, and felt that her chest pain was likely due to her upper respiratory illness. She was discharged home in stable condition. 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 Patient was discharged home in stable condition. We also discussed her cholesterol profile with her LDL being 144 and her ideal target being all of 130 secondary to her family history. Patient seen and examined at bedside. No additional chest pain. Here pain and sinuses are greatly improved. No shortness of breath. No wheezing. Is still having fevers. Discussion about Tamiflu as above. Vital signs reviewed and stable. General: non toxic, no distress, appears at stated age Derm: warm, dry Head: atraumatic, normocephalic, symmetric Eyes: EOMI, no lid lag, anicteric sclera Mouth: no lip lesion, mucus membranes moist Cardiovascular: S1S2 reg, no murmur, positive posterior tibial pulse bilateral, Lungs: CTA bilateral, no rhonchi, no rales , no accessory muscle use Abdominal: soft, nontender to palpation, no guarding, no appreciable organomegaly Ext: no gross muscle atrophy, no edema, no contractures Neuro: CN II-XI grossly intact, no focal neuro deficits Psych: Alert, oriented, appropriate affect A total of 25 minutes of time were spent preparing this complex discharge summary . Pertinent Studies: Echo- Ejection fraction 55-60% Plan - Discharge Summary Discharge Rx Participant: Yes New Discharge Prescriptions: New RX: Fluticasone Nasal [place] [Flonase Nasal [place]] 2 spray EA NOSTRIL DAILY # 1 bottle RX: Loratadine [Claritin] 10 mg PO DAILY tab Oseltamivir [Tamiflu] 75 mg PO Q12HR #10 cap Continue RX: Solifenacin Succinate [Vesicare] 10 mg PO DAILY RX: Montelukast [Singulair] 10 mg PO HS RX: Budesonide-Formot 160-4.5 Mcg [Symbicort 160-4.5 Mcg Inhaler] 2 puff INHALATION RT-BID RX: Acetaminophen Tab [Tylenol] 650 mg PO Q4H PRN PRN Reason: Pain Tripe Scraper Thyroid 90mg 90 mg PO DAILY Tripe Scraper Thyroid 45mg 45 mg PO HS Discharge Medication List RX: Solifenacin Succinate [Vesicare] 10 mg PO DAILY 10/25/16 [History] RX: Acetaminophen Tab [Tylenol] 650 mg PO Q4H PRN 08/30/17 [History] RX: Budesonide-Formot 160-4.5 Mcg [Symbicort 160-4.5 Mcg Inhaler] 2 puff INHALATION RT-BID 08/30/17 [History] RX: Montelukast [Singulair] 10 mg PO HS 08/30/17 [History] Tripe Scraper Thyroid 45mg 45 mg PO HS 12/11/17 [History] Tripe Scraper Thyroid 90mg 90 mg PO DAILY 12/11/17 [History] Oseltamivir [Tamiflu] 75 mg PO Q12HR #10 cap 12/12/17 [Rx] RX: Fluticasone Nasal [place] [Flonase Nasal [place]] 2 spray EA NOSTRIL DAILY #1 bottle 12/12/17 [Rx] RX: Loratadine [Claritin] 10 mg PO DAILY tab 12/12/17 [Rx] Follow up Appointment(s)/Referral(s): Eber Seo MD [STAFF PHYSICIAN] - 2 Weeks Megan Friedman MD [Primary Care Provider] - 1-2 days Patient Instructions/Handouts: Hyperlipidemia (DC) Activity/Diet/Wound Care/Special Instructions: heart healthy diet Resume activity as tolerated Discharge/Stand Alone Forms: Work/School Release Discharge Disposition: HOME SELF-CARE
== END 2017-12-12 15:23 | disposition home or self-care (01) ==
LOC: EC 12:06 → 3OBS 13:57
PROVIDERS: ADMIT Internal Medicine; ATTEND Internal Medicine
DX: R07.89 Other chest pain (principal); J10.1 Influenza due to other identified influenza virus with other respiratory manifestations; J45.909 Unspecified asthma, uncomplicated; N32.81 Overactive bladder; G35 Multiple sclerosis; E03.9 Hypothyroidism, unspecified; M19.90 Unspecified osteoarthritis, unspecified site; M50.20 Other cervical disc displacement, unspecified cervical region; M51.26 Other intervertebral disc displacement, lumbar region; G89.29 Other chronic pain; Z79.51 Long term (current) use of inhaled steroids; Z79.899 Other long term (current) drug therapy; Z88.1 Allergy status to other antibiotic agents; Z88.2 Allergy status to sulfonamides; Z88.5 Allergy status to narcotic agent; Z88.8 Allergy status to other drugs, medicaments and biological substances; Z91.048 Other nonmedicinal substance allergy status; Z87.798 Personal history of other (corrected) congenital malformations; Z87.19 Personal history of other diseases of the digestive system; Z82.49 Family history of ischemic heart disease and other diseases of the circulatory system; Z80.42 Family history of malignant neoplasm of prostate; Z83.3 Family history of diabetes mellitus
CPT/HCPCS: 99285 ×2; 36415; 93005; 93306; 80061; 80053; 82550 ×2; 82553 ×2; 83735; 84484 ×2; 85025; 85027; 85610; 85730; 81001; 87502; 71046; G0378 ×2

== ENCOUNTER → 2018-01-23 | Outpatient (CLI) | payer MEDICAID | END | disposition home or self-care (01) | LOC: LABWHC1 12:24 | PROVIDERS: ATTEND Psychiatry & Neurology Pain Medicine | DX: E55.9 Vitamin D deficiency, unspecified (principal) | CPT/HCPCS: 36415; 82306 ==

== ENCOUNTER → 2018-02-18 | Outpatient (CLI) | payer MEDICAID ==
--- NOTE | 2018-02-18 23:42 | MR ---
EXAMINATION TYPE: MR cervical spine wo con DATE OF EXAM: 02/18/2018 COMPARISON: 05/16/2017 HISTORY: Pain and Stiffness x4 months, Previous MRI on PACS TECHNIQUE: Multiplanar, multisequence images of the cervical spine were acquired. The cervical vertebra have normal alignment. There are small posterior disc herniations at C5-6 C6-7. There is developmentally adequate spinal canal.there is a small syrinx seen from the level C3-T1. Th is measures 2 millimeters. There is no compression fracture. The skull base is intact. The brainstem appears normal. I see no focal bone destruction. IMPRESSION: Small posterior disc herniations as above. No spinal stenosis. Small syrinx. No evidence of myelomala surekha. No significant change compared to old exam.
== END | disposition home or self-care (01) ==
LOC: RADMRIMAIN 20:11
PROVIDERS: ATTEND Psychiatry & Neurology Neurology
DX: M50.222 Other cervical disc displacement at C5-C6 level (principal); G95.0 Syringomyelia and syringobulbia; Z88.2 Allergy status to sulfonamides; Z88.6 Allergy status to analgesic agent
CPT/HCPCS: 72141

== ENCOUNTER 2018-02-26 11:45 | Emergency (ER) | payer MEDICAID ==
--- NOTE | 2018-02-26 11:57 | ED ---
Neuro HPI - General Chief Complaint: Neuro Symptoms/Deficit Stated Complaint: NUMBNESS, LEFT ARM, CHEST Time Seen by Provider: 02/26/18 11:57 Source: patient Mode of arrival: ambulatory Limitations: no limitations - History of Present Illness Is the patient presenting with stroke symptoms?: No Initial Comments: Patient presents with flushing sensation of her head, chest, arms bilaterally. Patient states her the past 4 days she gets a flushing feeling in her face, arms bilaterally. States she's had similar symptoms in the past, specifically and December of this year when she was admitted to the hospital and had a full neuro workup was negative. Patient states she typically gets this flushing feeling when out mowing the lawn, or and hot areas. However recently this has been occurring even when in an air-conditioned environments. States her the past 4 days it's been associated with a numbness like feeling in left chest and left arm, states when she palpates her arm she can still feel things but states it feels like decreased sensation to her. States it happens more mildly, and intermittently in her right arm as well. She denies any history of cardiac disease, coronary artery disease, palpitations, history of lung disease , shortness of breath. Patient has a history of hypothyroid. Patient states she is followed by a neurologist here in [place], as well as went to a neurologist at [facility] for second opinion. States she had MRI of cervical spine 2 weeks ago, prior to seeing her for neurologist. States she has a history of Chiari malformation s/p surgery, and syringomylia. Patient states last MRI of the brain was approximately one year ago. Patient states she was told by surgeon if she ever began having hot and cold symptoms or flushing symptoms and may be related to recurrance of syringomylia. Patient denies vision changes, headaches, neck pain, recent trauma, confusion, speech problems , weakness. Patient states she went to follow up with her primary care physician today regarding these symptoms and her recent neurology appointments, however states "as soon as they heard left chest and left arm they sent me to ER " for evaluation, states she otherwise would not have come to the ER today. - Related Data Home Medications: Home Medications Medication Instructions Recorded Confirmed Solifenacin Succinate [Vesicare] 10 mg PO DAILY 10/25/16 02/26/18 Budesonide-Formot 160-4.5 Mcg 2 puff INHALATION RT-BID 08/30/17 02/26/18 [Symbicort 160-4.5 Mcg Inhaler] Montelukast [Singulair] 10 mg PO HS 08/30/17 02/26/18 Levothyroxine Sodium [Synthroid] 125 mcg PO DAILY 02/26/18 02/26/18 Phentermine HCl [Adipex-P] 37.5 mg PO QAM 02/26/18 02/26/18 Allergies/Adverse Reactions: Allergies Allergy/AdvReac Type Severity Reaction Status Date / Time ketorolac tromethamine Allergy Rash/Hives Verified 02/26/18 12:04 [From Toradol] sulfamethoxazole Allergy Rash/Hives Verified 02/26/18 12:04 [From Bactrim] trimethoprim [From Bactrim] Allergy Rash/Hives Verified 02/26/18 12:04 adhesive AdvReac BLISTER ON Verified 02/26/18 12:04 SKIN FROM TAPE, STATES "PAPER TAPE IS OK" celecoxib [From Celebrex] AdvReac Unknown Verified 02/26/18 12:04 Review of Systems ROS Statement: Those systems with pertinent positive or pertinent negative responses have been documented in the HPI. ROS Other: All systems not noted in ROS Statement are negative. Constitutional: Reports: other ("flushing"). Denies: fever, chills Eyes: Denies: eye pain, vision change ENT: Denies: hearing loss, congestion Respiratory: Denies: cough, dyspnea Cardiovascular: Denies: chest pain, palpitations, dyspnea on exertion, syncope Endocrine: Reports: heat or cold intolerance. Denies: fatigue Gastrointestinal: Denies: abdominal pain, nausea, vomiting, diarrhea, constipation Genitourinary: Denies: urgency, frequency Skin: Reports: change in color (flushing). Denies: rash Neurological: Reports: paresthesias. Denies: headache, weakness, numbness, confusion, abnormal gait, vertigo General Exam - General Exam Comments Initial Comments: Sitting up in bed alert. No acute distress. Conversing normally. Well- groomed well-dressed. Well-appearing. Calm, pleasant. Limitations: no limitations General appearance: alert, in no apparent distress Head exam: Present: atraumatic, normocephalic, normal inspection Eye exam: Present: normal appearance, PERRL, EOMI. Absent: scleral icterus, conjunctival injection, periorbital swelling, periorbital tenderness ENT exam: Present: normal exam, normal oropharynx, mucous membranes moist Neck exam: Present: normal inspection, full ROM. Absent: tenderness, meningismus Respiratory exam: Present: normal lung sounds bilaterally. Absent: respiratory distress, wheezes, rales Cardiovascular Exam: Present: regular rate, normal rhythm GI/Abdominal exam: Present: soft. Absent: distended, tenderness, guarding, rebound Extremities exam: Present: normal inspection, full ROM, normal capillary refill. Absent: tenderness, joint swelling Back exam: Present: normal inspection Neurological exam: Present: alert, oriented X3, CN II-XII intact, normal gait, motor sensory deficit, other (Cranial nerves II through XII intact. Eye movements intact bilaterally. Pupils equal and reactive bilaterally. Muscle strength 5 out of 5 in all extremities. Sensation intact in all extremities. Radial pulses +2 out of 4 bilaterally. Speech clear. Mentation well intact. Pronator drift negative bilaterally. Finger to nose coordinated bilaterally.) Psychiatric exam: Present: normal affect, normal mood Skin exam: Present: warm, dry, intact, normal color. Absent: rash, cyanosis, diaphoretic, erythema Stroke MDM - Lab Data Result diagrams: 02/26/18 12:48 02/26/18 12:48 Lab Results 02/26/18 02/26/18 02/26/18 Range/Units 12:48 12:48 12:48 WBC 6.3 (3.8-10.6) k/uL RBC 4.59 (3.80-5.40) m/uL Hgb 14.2 (11.4-16.0) gm/dL Hct 40.7 (34.0-46.0) % MCV 88.7 (80.0-100.0) fL MCH 30.8 (25.0-35.0) pg MCHC 34.8 (31.0-37.0) g/dL RDW 12.6 (11.5-15.5) % Plt Count 277 (150-450) k/uL Neutrophils % 67 % Lymphocytes % 24 % Monocytes % 6 % Eosinophils % 2 % Basophils % 0 % Neutrophils # 4.2 (1.3-7.7) k/uL Lymphocytes # 1.5 (1.0-4.8) k/uL Monocytes # 0.4 (0-1.0) k/uL Eosinophils # 0.1 (0-0.7) k/uL Basophils # 0.0 (0-0.2) k/uL PT 10.2 (9.0-12.0) sec INR 1.0 (<1.2) APTT 22.8 (22.0-30.0) sec Sodium 140 (137-145) mmol/L Potassium 4.2 (3.5-5.1) mmol/L Chloride 104 (98-107) mmol/L Carbon Dioxide 27 (22-30) mmol/L Anion Gap 9 mmol/L BUN 11 (7-17) mg/dL Creatinine 0.66 (0.52-1.04) mg/dL Est GFR (CKD-EPI)AfAm >90 (>60 ml/min/1.73 sqM) Est GFR (CKD-EPI)NonAf >90 (>60 ml/min/1.73 sqM) Glucose 109 H (74-99) mg/dL Calcium 9.2 (8.4-10.2) mg/dL Magnesium 1.9 (1.6-2.3) mg/dL Total Bilirubin 0.7 (0.2-1.3) mg/dL AST 23 (14-36) U/L ALT 24 (9-52) U/L Alkaline Phosphatase 38 (38-126) U/L Troponin I (0.000-0.034) ng/mL Total Protein 6.5 (6.3-8.2) g/dL Albumin 4.2 (3.5-5.0) g/dL TSH 0.030 L (0.465-4.680) mIU/L 02/26/18 Range/Units 12:48 WBC (3.8-10.6) k/uL RBC (3.80-5.40) m/uL Hgb (11.4-16.0) gm/dL Hct (34.0-46.0) % MCV (80.0-100.0) fL MCH (25.0-35.0) pg MCHC (31.0-37.0) g/dL RDW (11.5-15.5) % Plt Count (150-450) k/uL Neutrophils % % Lymphocytes % % Monocytes % % Eosinophils % % Basophils % % Neutrophils # (1.3-7.7) k/uL Lymphocytes # (1.0-4.8) k/uL Monocytes # (0-1.0) k/uL Eosinophils # (0-0.7) k/uL Basophils # (0-0.2) k/uL PT (9.0-12.0) sec INR (<1.2) APTT (22.0-30.0) sec Sodium (137-145) mmol/L Potassium (3.5-5.1) mmol/L Chloride (98-107) mmol/L Carbon Dioxide (22-30) mmol/L Anion Gap mmol/L BUN (7-17) mg/dL Creatinine (0.52-1.04) mg/dL Est GFR (CKD-EPI)AfAm (>60 ml/min/1.73 sqM) Est GFR (CKD-EPI)NonAf (>60 ml/min/1.73 sqM) Glucose (74-99) mg/dL Calcium (8.4-10.2) mg/dL Magnesium (1.6-2.3) mg/dL Total Bilirubin (0.2-1.3) mg/dL AST (14-36) U/L ALT (9-52) U/L Alkaline Phosphatase (38-126) U/L Troponin I <0.012 (0.000-0.034) ng/mL Total Protein (6.3-8.2) g/dL Albumin (3.5-5.0) g/dL TSH (0.465-4.680) mIU/L - Medical Decision Making No focal neuro deficits on exam. Patient is well-appearing. Patient has symptoms bilaterally, flushing associated with numbness-like sensation however no actual numbness, occurs in both right and left arm after onset of flushing. Symptoms may secondary to thyroid disease, versus syringomylia. Patient recently had MRI of the neck, is followed by 2 neurologists for this problem. EKG normal sinus rhythm, heart rate 87, no ST or T-wave changes appreciated. Chest x-ray shows no acute process CT head shows no change from prior, no acute process. TSH low. Troponin negative. No other significant lab abnormalities. Patient updated with all results and plan. This is a chronic problem the patient is following with her primary care physician, 2 separate neurologists, patient has no focal neurologic deficits at this time. Patient was comfortable following up palpation. Agrees to follow-up with her neurosurgeon to discuss possibility of syringomylia causing symptoms. Patient to return to ER for new or worsening symptoms. At this time and don't feel patient symptoms represent acute coronary syndrome or acute ischemic stroke. Past Medical History Past Medical History: Asthma, Thyroid Disorder Additional Past Medical History / Comment(s): back pain, herniated disc and cervical and lumbar spine, Also HAS A "BONE FRAGMENT IN BACK" overactive bladder , hernia,PAST gastritis, Arnold-Chiari malformation, multiple sclerosis, hypothyroidism, arthritis,2 History of Any Multi-Drug Resistant Organisms: None Reported Past Surgical History: Ablation, Cholecystectomy, Hernia Repair, Orthopedic Surgery, Uterine Ablation Additional Past Surgical History / Comment(s): orif rt wrist,colonoscopy, right and left hernia repair, right breast biopsy, left breast surgery for infected milk duct, Arnold-Chiari malformation surgery Past Anesthesia/Blood Transfusion Reactions: No Reported Reaction Past Psychological History: No Psychological Hx Reported Smoking Status: Never smoker Past Alcohol Use History: None Reported Past Drug Use History: None Reported - Past Family History Mother Family Medical History: Coronary Artery Disease (CAD) Additional Family Medical History / Comment(s): from heart attack at the age of 67. mom's mother had dm Brother(s) Additional Family Medical History / Comment(s): boraderline diabetic Father Family Medical History: Cancer, Diabetes Mellitus Additional Family Medical History / Comment(s): Prostate cancer, myocardial infarction prior to the age of 65 Course Vital Signs 02/26/18 02/26/18 11:49 13:06 Temperature 97.3 F L Pulse Rate 109 H 93 Respiratory 18 16 Rate Blood Pressure 133/88 134/71 O2 Sat by Pulse 97 98 Oximetry Disposition Clinical Impression: Flushing, Paresthesia Disposition: HOME SELF-CARE Condition: Good Instructions: Paresthesia (ED) Additional Instructions: Follow-up with your primary care physician, neurologist, neurosurgeon. Return to ER immediately if new or worsening symptoms. Is patient prescribed a controlled substance at d/c from ED?: No Referrals: Megan Friedman MD [Primary Care Provider] - 1-2 days
[2018-02-26 13:07] LABS: Basophils % (A) 0 %; Eosinophils # (A) 0.1 k/uL (0-0.7); Eosinophils % (A) 2 %; HCT 40.7 % (34.0-46.0); HGB 14.2 gm/dL (11.4-16.0); Lymphocytes # (A) 1.5 k/uL (1.0-4.8); Lymphocytes % (A) 24 %; MCH 30.8 pg (25.0-35.0); MCHC 34.8 g/dL (31.0-37.0); MCV 88.7 fL (80.0-100.0); Mean Platelet Volume 7.2; Monocytes # (A) 0.4 k/uL (0-1.0); Monocytes % (A) 6 %; Neutrophils # (A) 4.2 k/uL (1.3-7.7); Neutrophils % (A) 67 %; Platelet Count 277 k/uL (150-450); RBC 4.59 m/uL (3.80-5.40); RDW 12.6 % (11.5-15.5); WBC 6.3 k/uL (3.8-10.6)
[2018-02-26 13:13] LABS: ALT 24 U/L (9-52); AST 23 U/L (14-36); Albumin 4.2 g/dL (3.5-5.0); Alkaline Phosphatase 38 U/L (38-126); Anion Gap 9 mmol/L; Blood Urea Nitrogen 11 mg/dL (7-17); Calcium 9.2 mg/dL (8.4-10.2); Carbon Dioxide 27 mmol/L (22-30); Chloride 104 mmol/L (98-107); Glucose 109 mg/dL (74-99); Magnesium 1.9 mg/dL (1.6-2.3); Potassium 4.2 mmol/L (3.5-5.1); Sodium 140 mmol/L (137-145); Total Bilirubin 0.7 mg/dL (0.2-1.3); Total Protein 6.5 g/dL (6.3-8.2)
[2018-02-26 13:16] LABS: Partial Thromboplastin Time 22.8 sec (22.0-30.0); Prothrombin Time 10.2 sec (9.0-12.0)
--- NOTE | 2018-02-26 13:28 | CT ---
EXAMINATION TYPE: CT brain wo con DATE OF EXAM: 02/26/2018 COMPARISON: CT brain December 28, 2015 HISTORY: Numbness to left arm CT DLP: 1015.9 mGycm. Automated Exposure Control for Dose Reduction was Utilized. TECHNIQUE: CT scan of the head is performed without contrast. FINDINGS: Surgical changes from low occipital craniectomy are redemonstrated. Slight low-lying cerebe llar tonsils are stable in position at this level. There is no acute intracranial hemorrhage or midli ne shift shift identified. There is stable mild ventricular and sulcal prominence. The globes are in tact and the visualized sinuses are clear. IMPRESSION: No acute intracranial hemorrhage or midline shift is seen. No significant change from re cent CT.
--- NOTE | 2018-02-26 13:29 | XR ---
EXAMINATION TYPE: XR chest 2V DATE OF EXAM: 02/26/2018 COMPARISON: 12/11/2017 HISTORY: Chest pain TECHNIQUE: Frontal and lateral views of the chest are obtained. FINDINGS: There is no focal air space opacity. No evidence for pneumothorax. No pleural effusion. The cardiac silhouette size is within normal limits. The osseous structures are grossly intact. IMPRESSION: 1. No acute cardiopulmonary process.
[2018-02-26 14:09] LABS: T4, Free (Free Thyroxine) 1.37 ng/dL (0.78-2.19)
[2018-02-26 14:15] VITALS: BP 134/70; PULSE 90; RESP 18; TEMP 97.9
== END 2018-02-26 14:11 | disposition home or self-care (01) ==
LOC: EC 11:45
DX: R20.2 Paresthesia of skin (principal); R23.2 Flushing; J45.909 Unspecified asthma, uncomplicated; E03.9 Hypothyroidism, unspecified; G93.5 Compression of brain; Z90.49 Acquired absence of other specified parts of digestive tract; Z98.890 Other specified postprocedural states; Z79.51 Long term (current) use of inhaled steroids; Z79.899 Other long term (current) drug therapy; Z88.1 Allergy status to other antibiotic agents; Z88.2 Allergy status to sulfonamides; Z88.6 Allergy status to analgesic agent; Z91.048 Other nonmedicinal substance allergy status
CPT/HCPCS: 36415; 70450; 71046; 80053; 83735; 84439; 84443; 84484; 85025; 85610; 85730; 93005; 99285

== ENCOUNTER → 2018-03-14 | Outpatient (CLI) | payer MEDICAID ==
[2018-03-14 08:10] LABS: ALT 41 U/L (9-52); AST 35 U/L (14-36); Albumin 4.5 g/dL (3.5-5.0); Alkaline Phosphatase 46 U/L (38-126); Anion Gap 10 mmol/L; Blood Urea Nitrogen 11 mg/dL (7-17); Calcium 9.5 mg/dL (8.4-10.2); Carbon Dioxide 26 mmol/L (22-30); Chloride 107 mmol/L (98-107); Glucose 98 mg/dL (74-99); Potassium 4.4 mmol/L (3.5-5.1); Sodium 143 mmol/L (137-145); Total Bilirubin 0.5 mg/dL (0.2-1.3); Total Protein 7.3 g/dL (6.3-8.2)
[2018-03-14 08:24] LABS: T4, Free (Free Thyroxine) 1.53 ng/dL (0.78-2.19)
== END | disposition home or self-care (01) ==
LOC: LABWHC1 07:21
PROVIDERS: ATTEND Internal Medicine
DX: E03.9 Hypothyroidism, unspecified (principal); R23.2 Flushing; R61 Generalized hyperhidrosis
CPT/HCPCS: 36415; 80053; 82670; 83001; 83002; 84260; 84439; 84443

== ENCOUNTER 2018-04-10 09:55 | Day surgery (SDC) | payer MEDICAID ==
[2018-04-08 10:05] VITALS: BMI 32.5
--- NOTE | 2018-04-10 08:00 | P.GSHP ---
History of Present Illness H&P Date: 04/10/18 CHIEF COMPLAINT: GERD HISTORY OF PRESENT ILLNESS: The patient is a 47-year-old female who presents reports gastroesophageal reflux disease. Upper endoscopy was offered for further evaluation and management. PAST MEDICAL HISTORY: Please see list. PAST SURGICAL HISTORY: Please see list. MEDICATIONS: Please see list. ALLERGIES: Please see list. SOCIAL HISTORY: No illicit drug use FAMILY HISTORY: No reports of Crohn disease or ulcerative colitis. REVIEW OF ORGAN SYSTEMS: CONSTITUTIONAL: No reports of fevers or chills. GI: Denies any blood in stools or constipation. PHYSICAL EXAM: VITAL SIGNS: Stable GENERAL: Well-developed and pleasant in no acute distress. HEENT: No scleral icterus. Extraocular movements grossly intact. Moist buccal mucosa. NECK: Supple without lymphadenopathy. CHEST: Unlabored respirations. Equal bilateral excursions. CARDIOVASCULAR: Regular rate and rhythm. Distal 2+ pulses. ABDOMEN: Soft, nondistended. MUSCULOSKELETAL: No clubbing, cyanosis, or edema. ASSESSMENT: 1. Gastroesophageal reflux disease PLAN: 1. Recommend proceeding with an upper endoscopy Past Medical History Past Medical History: Asthma, GERD/Reflux, Thyroid Disorder Additional Past Medical History / Comment(s): back pain, herniated disc and cervical and lumbar spine, Also HAS A "BONE FRAGMENT IN BACK" overactive bladder , hernia,PAST gastritis, Arnold-Chiari malformation, multiple sclerosis, hypothyroidism, History of Any Multi-Drug Resistant Organisms: None Reported Past Surgical History: Cholecystectomy, Hernia Repair, Orthopedic Surgery, Uterine Ablation Additional Past Surgical History / Comment(s): orif rt wrist,colonoscopy, right and left hernia repair, right breast biopsy, left breast surgery for infected milk duct, Arnold-Chiari malformation surgery Past Anesthesia/Blood Transfusion Reactions: No Reported Reaction Smoking Status: Never smoker - Past Family History Mother Family Medical History: Coronary Artery Disease (CAD) Additional Family Medical History / Comment(s): from heart attack at the age of 67. mom's mother had dm Brother(s) Additional Family Medical History / Comment(s): boraderline diabetic Father Family Medical History: Cancer, Diabetes Mellitus Additional Family Medical History / Comment(s): Prostate cancer, myocardial infarction prior to the age of 65 Medications and Allergies Home Medications Medication Instructions Recorded Confirmed Type Solifenacin Succinate [Vesicare] 10 mg PO DAILY 10/25/16 04/08/18 History Budesonide-Formot 160-4.5 Mcg 2 puff INHALATION RT-BID PRN 08/30/17 04/08/18 History [Symbicort 160-4.5 Mcg Inhaler] Montelukast [Singulair] 10 mg PO HS 08/30/17 04/08/18 History Levothyroxine Sodium [Synthroid] 112 mcg PO DAILY 02/26/18 04/08/18 History Phentermine HCl [Adipex-P] 37.5 mg PO QAM 02/26/18 04/08/18 History Allergies Allergy/AdvReac Type Severity Reaction Status Date / Time ketorolac tromethamine Allergy Rash/Hives Verified 04/08/18 10:05 [From Toradol] sulfamethoxazole Allergy Rash/Hives Verified 04/08/18 10:05 [From Bactrim] trimethoprim [From Bactrim] Allergy Rash/Hives Verified 04/08/18 10:05 adhesive tape AdvReac BLISTER ON Verified 04/08/18 10:05 SKIN celecoxib [From Celebrex] AdvReac Unknown Verified 04/08/18 10:05
[~2018-04-10 09:55] MED LIST changes: -BUPIVACAINE-EPI 0.5%-1:200,000 10 ML VIAL SQ ONE; -DEXAMETHASONE SOD PHOSPHATE 10 MG/ML 1 ML VIAL IV ONE; -GLYCOPYRROLATE 0.2 MG/ML 2 ML VIAL ONE; -HEPARIN SODIUM,PORCINE 5,000 UNIT/ML 1 ML VIAL SQ ONE; -HYDROcodone/APAP 5-325MG 1 EACH TAB PO ONE; -HYDROcodone/APAP 5-325MG 1 EACH TAB PO PRN; -HYDROmorphone (PF) 1 MG/ML ONE; -HYDROmorphone 0.5 MG/0.5 ML SYRINGE IVP PRN; +LACTATED RINGERS 1,000 ML IV SCH; -LIDOCAINE 1% 20 ML VIAL (10MG/ML) FOR IV START INTRADERMA ONE; +LIDOCAINE 1% 20 ML VIAL (10MG/ML) FOR IV START INTRADERMA PRN; -LIDOCAINE 1% INJ 10MG/ML (20 ML MDV) ONE; -MIDAZOLAM 2 MG/2 ML VIAL ONE; -NALOXONE 0.4 MG/ML 1 ML VIAL IV PRN; -NEOSTIGMINE 1 MG/ML 10 ML VIAL ONE; -ONDANSETRON 4 MG/2 ML VIAL IVP ONE; -ONDANSETRON 4 MG/2 ML VIAL IVP PRN; -PROPOFOL 10 MG/ML 20 ML VIAL IV ONE; -ROCURONIUM BROMIDE 10 MG/ML 10 ML VIAL IV ONE; -SUCCINYLCHOLINE CHLORIDE 100 MG/5 ML SYR IV ONE; -ceFAZolin IN SWFI 2 GM/20 ML SYRINGE IVP ONE; -fentaNYL (PF) 50 MCG/ML 2 ML AMP ONE
[2018-04-10 12:32] VITALS: TEMP 98.2
[2018-04-10] MEDS ORDERED: PROPOFOL 10 MG/ML 20 ML VIAL IV ONE (12:50)
[2018-04-10] MEDS ORDERED: LIDOCAINE 1% INJ 10MG/ML (20 ML MDV) ONE (12:50)
--- NOTE | 2018-04-10 12:59 | P.PCN ---
Date of Procedure: 04/10/18 Description of Procedure: PREOPERATIVE DIAGNOSIS: Gastroesophageal reflux disease Hiatal hernia POSTOPERATIVE DIAGNOSIS: Gastroesophageal reflux disease Diaphragmatic hiatal hernia without obstruction OPERATION: Esophagogastroduodenoscopy with biopsies along antrum. SURGEON: Diann Escobar MD ANESTHESIA: MAC. INDICATIONS: The patient is a 47-year-old female who presents with a history of reflux disease. Benefits and risks of the procedure were described. Informed consent was obtained. DESCRIPTION: The patient was brought into the endoscopy suite and laid in the left lateral decubitus position. An Olympus gastroscope was passed along the posterior oropharynx down to the distal esophagus where the squamocolumnar junction was encountered at 35 cm from the incisors. The stomach was entered and no bile reflux was found. Additional findings are listed below. Biopsies with cold forceps were obtained of the antrum. The first through third portion of the duodenum was examined and unremarkable. Retroflexion of the scope confirmed Hill grade 4 lower esophageal valve. The squamocolumnar junction demonstrated LA grade A erosive esophagitis. The stomach was desufflated. The patient tolerated the procedure well. FINDINGS: Squamocolumnar junction 36 cm from the incisors. Diaphragmatic hiatus at 40 cm. Hiatal hernia 4 cm. Hill grade 4 lower esophageal valve. LA grade A erosive esophagitis. No active duodenitis. Mild gastritis RECOMMENDATIONS: Continue medical therapy. Upper endoscopy as needed. Will benefit from antireflux surgical procedure Plan - Discharge Summary New Discharge Prescriptions: No Action Solifenacin Succinate [Vesicare] 10 mg PO DAILY Montelukast [Singulair] 10 mg PO HS Budesonide-Formot 160-4.5 Mcg [Symbicort 160-4.5 Mcg Inhaler] 2 puff INHALATION RT-BID PRN PRN Reason: Shortness Of Breath Phentermine HCl [Adipex-P] 37.5 mg PO QAM Levothyroxine Sodium [Synthroid] 112 mcg PO DAILY Discharge Medication List Solifenacin Succinate [Vesicare] 10 mg PO DAILY 10/25/16 [History] Budesonide-Formot 160-4.5 Mcg [Symbicort 160-4.5 Mcg Inhaler] 2 puff INHALATION RT-BID PRN 08/30/17 [History] Montelukast [Singulair] 10 mg PO HS 08/30/17 [History] Levothyroxine Sodium [Synthroid] 112 mcg PO DAILY 02/26/18 [History] Phentermine HCl [Adipex-P] 37.5 mg PO QAM 02/26/18 [History]
[2018-04-10 13:27] VITALS: RESP 16
[2018-04-10 13:30] VITALS: BP 129/87; PULSE 77
== END 2018-04-10 13:57 | disposition home or self-care (01) ==
LOC: ORWHC2ENDO 09:55
PROVIDERS: ATTEND Surgery Plastic and Reconstructive Surgery
DX: K29.50 Unspecified chronic gastritis without bleeding (principal); K21.9 Gastro-esophageal reflux disease without esophagitis; K44.9 Diaphragmatic hernia without obstruction or gangrene; J45.909 Unspecified asthma, uncomplicated; M51.36 Other intervertebral disc degeneration, lumbar region; G35 Multiple sclerosis; E03.9 Hypothyroidism, unspecified; N32.81 Overactive bladder; Z79.890 Hormone replacement therapy; Z79.899 Other long term (current) drug therapy; Z88.6 Allergy status to analgesic agent; Z88.2 Allergy status to sulfonamides; Z88.8 Allergy status to other drugs, medicaments and biological substances; Z91.09 Other allergy status, other than to drugs and biological substances
CPT/HCPCS: 81025; 88305; 43239; J2001; J2704

== ENCOUNTER → 2018-04-13 | Outpatient (CLI) | payer MEDICAID ==
[2018-04-13 09:57] LABS: T4, Free (Free Thyroxine) 1.29 ng/dL (0.78-2.19)
== END | disposition home or self-care (01) ==
LOC: LABWHC1 08:59
PROVIDERS: ATTEND Internal Medicine
DX: E03.9 Hypothyroidism, unspecified (principal)
CPT/HCPCS: 36415; 84439; 84443

== ENCOUNTER 2018-04-29 10:01 | Observation (INO) | payer MEDICAID ==
[2018-04-29] MEDS ORDERED: ASPIRIN 81 MG PO STA (10:18)
[2018-04-29] MEDS ORDERED: NITROGLYCERIN OINT 1 INCH/GM PACKET TOPICAL STA (10:18)
--- NOTE | 2018-04-29 10:22 | ED ---
General Adult HPI - General Chief complaint: Chest Pain Stated complaint: chest pain Time Seen by Provider: 04/29/18 10:01 Source: patient, RN notes reviewed Mode of arrival: ambulatory Limitations: no limitations - History of Present Illness Initial comments: This a 47-year-old female who presents to the emergency department complaining of left sided chest pain radiating down left arm. Patient states his been pretty constant but there has been times over the weekend where it is gone away. Patient states it has not caused any shortness of breath or difficulty breathing she denies any diaphoretic episodes. Patient denies any nausea vomiting diarrhea. Patient states the pain remains currently. Patient denies any fever chills or cough. Patient states she was given a high dose of Solu- Medrol last month for possible multiple sclerosis. Patient denies any headache patient denies numbness weakness. Patient denies any lightheadedness dizziness or near syncopal episode. - Related Data Home Medications Medication Instructions Recorded Confirmed Solifenacin Succinate [Vesicare] 10 mg PO DAILY 10/25/16 04/29/18 Budesonide-Formot 160-4.5 Mcg 2 puff INHALATION RT-BID 08/30/17 04/29/18 [Symbicort 160-4.5 Mcg Inhaler] Montelukast [Singulair] 10 mg PO HS 08/30/17 04/29/18 Levothyroxine Sodium [Synthroid] 112 mcg PO DAILY 02/26/18 04/29/18 Albuterol Inhaler [Ventolin Hfa 1 - 2 puff INHALATION RT-Q6H PRN 04/29/18 Inhaler] predniSONE See Taper PO DAILY 04/29/18 04/29/18 Allergies Allergy/AdvReac Type Severity Reaction Status Date / Time adhesive tape Allergy Rash/Hives Verified 04/29/18 10:41 ketorolac tromethamine Allergy Rash/Hives Verified 04/29/18 10:41 [From Toradol] sulfamethoxazole Allergy Rash/Hives Verified 04/29/18 10:41 [From Bactrim] trimethoprim [From Bactrim] Allergy Rash/Hives Verified 04/29/18 10:41 celecoxib [From Celebrex] AdvReac Confusion Verified 04/29/18 10:41 Review of Systems ROS Statement: Those systems with pertinent positive or pertinent negative responses have been documented in the HPI. ROS Other: All systems not noted in ROS Statement are negative. Past Medical History Past Medical History: Asthma, GERD/Reflux, Thyroid Disorder Additional Past Medical History / Comment(s): back pain, herniated disc and cervical and lumbar spine, Also HAS A "BONE FRAGMENT IN BACK" overactive bladder , hernia,PAST gastritis, Arnold-Chiari malformation, multiple sclerosis, hypothyroidism, MS History of Any Multi-Drug Resistant Organisms: None Reported Past Surgical History: Cholecystectomy, Hernia Repair, Orthopedic Surgery, Uterine Ablation Additional Past Surgical History / Comment(s): orif rt wrist,colonoscopy, right and left hernia repair, right breast biopsy, left breast surgery for infected milk duct, Arnold-Chiari malformation surgery Past Anesthesia/Blood Transfusion Reactions: No Reported Reaction Past Psychological History: No Psychological Hx Reported Smoking Status: Never smoker Past Alcohol Use History: None Reported Past Drug Use History: None Reported - Past Family History Mother Family Medical History: Coronary Artery Disease (CAD) Additional Family Medical History / Comment(s): from heart attack at the age of 67. mom's mother had dm Brother(s) Additional Family Medical History / Comment(s): boraderline diabetic Father Family Medical History: Cancer, Diabetes Mellitus Additional Family Medical History / Comment(s): Prostate cancer, myocardial infarction prior to the age of 65 General Exam - General Exam Comments Initial Comments: GENERAL: Patient is well-developed and well-nourished. Patient is nontoxic and well- hydrated and is in mild distress. ENT: Neck is soft and supple. No significant lymphadenopathy is noted. Oropharynx is clear. Moist mucous membranes. Neck has full range of motion without eliciting any pain. EYES: The sclera were anicteric and conjunctiva were pink and moist. Extraocular movements were intact and pupils were equal round and reactive to light. Eyelids were unremarkable. PULMONARY: Unlabored respirations. Good breath sounds bilaterally. No audible rales rhonchi or wheezing was noted. CARDIOVASCULAR: There is a regular rate and rhythm without any murmurs gallops or rubs. ABDOMEN: Soft and nontender with normal bowel sounds. SKIN: Skin is clear with no lesions or rashes and otherwise unremarkable. NEUROLOGIC: Patient is alert and oriented x3. Cranial nerves II through XII are grossly intact. Motor and sensory are also intact. Normal speech, volume and content. Symmetrical smile. MUSCULOSKELETAL: Normal extremities with adequate strength and full range of motion. LYMPHATICS: No significant lymphadenopathy is noted PSYCHIATRIC: Normal psychiatric evaluation. Patient is mildly anxious Limitations: no limitations Course Vital Signs 04/29/18 04/29/18 04/29/18 10:02 10:48 12:00 Temperature 98.3 F Pulse Rate 105 H 79 80 Respiratory 20 18 18 Rate Blood Pressure 152/94 140/83 134/88 O2 Sat by Pulse 98 97 97 Oximetry Medical Decision Making - Medical Decision Making EKG shows normal sinus rhythm at 80 bpm ME interval is 138 QRS is 96 QT interval 366 QTC is 442. Patient's EKG shows no ST segment elevation or depression or T wave abnormalities are noted. Chest x-ray shows no acute abnormality. I spoke with he agreed to admit the patient admitted the patient I wrote admitting orders. Patient did complain of some blurred vision but when I saw her initially she had no blurred vision I will back into reevaluate the patient and she stated that her vision was now again a little bit blurry - Lab Data Result diagrams: 04/29/18 10:20 04/29/18 10:20 Lab Results 04/29/18 04/29/18 04/29/18 Range/Units 10:20 10:20 10:20 WBC 11.3 H (3.8-10.6) k/uL RBC 5.03 (3.80-5.40) m/uL Hgb 14.8 (11.4-16.0) gm/dL Hct 46.3 H (34.0-46.0) % MCV 91.9 (80.0-100.0) fL MCH 29.4 (25.0-35.0) pg MCHC 32.0 (31.0-37.0) g/dL RDW 12.5 (11.5-15.5) % Plt Count 336 (150-450) k/uL Neutrophils % 79 % Lymphocytes % 16 % Monocytes % 4 % Eosinophils % 1 % Basophils % 0 % Neutrophils # 8.9 H (1.3-7.7) k/uL Lymphocytes # 1.8 (1.0-4.8) k/uL Monocytes # 0.4 (0-1.0) k/uL Eosinophils # 0.1 (0-0.7) k/uL Basophils # 0.0 (0-0.2) k/uL PT (9.0-12.0) sec INR (<1.2) APTT (22.0-30.0) sec Sodium 139 (137-145) mmol/L Potassium 4.0 (3.5-5.1) mmol/L Chloride 103 (98-107) mmol/L Carbon Dioxide 27 (22-30) mmol/L Anion Gap 9 mmol/L BUN 15 (7-17) mg/dL Creatinine 0.70 (0.52-1.04) mg/dL Est GFR (CKD-EPI)AfAm >90 (>60 ml/min/1.73 sqM) Est GFR (CKD-EPI)NonAf >90 (>60 ml/min/1.73 sqM) Glucose 117 H (74-99) mg/dL Calcium 8.9 (8.4-10.2) mg/dL Magnesium 2.2 (1.6-2.3) mg/dL Total Bilirubin 0.6 (0.2-1.3) mg/dL AST 18 (14-36) U/L ALT 26 (9-52) U/L Alkaline Phosphatase 44 (38-126) U/L Total Creatine Kinase 27 L (30-135) U/L CK-MB (CK-2) 0.3 (0.0-2.4) ng/mL CK-MB (CK-2) Rel Index 1.1 Troponin I <0.012 (0.000-0.034) ng/mL Total Protein 6.7 (6.3-8.2) g/dL Albumin 4.0 (3.5-5.0) g/dL 04/29/18 Range/Units 10:20 WBC (3.8-10.6) k/uL RBC (3.80-5.40) m/uL Hgb (11.4-16.0) gm/dL Hct (34.0-46.0) % MCV (80.0-100.0) fL MCH (25.0-35.0) pg MCHC (31.0-37.0) g/dL RDW (11.5-15.5) % Plt Count (150-450) k/uL Neutrophils % % Lymphocytes % % Monocytes % % Eosinophils % % Basophils % % Neutrophils # (1.3-7.7) k/uL Lymphocytes # (1.0-4.8) k/uL Monocytes # (0-1.0) k/uL Eosinophils # (0-0.7) k/uL Basophils # (0-0.2) k/uL PT 10.0 (9.0-12.0) sec INR 1.0 (<1.2) APTT 19.8 L (22.0-30.0) sec Sodium (137-145) mmol/L Potassium (3.5-5.1) mmol/L Chloride (98-107) mmol/L Carbon Dioxide (22-30) mmol/L Anion Gap mmol/L BUN (7-17) mg/dL Creatinine (0.52-1.04) mg/dL Est GFR (CKD-EPI)AfAm (>60 ml/min/1.73 sqM) Est GFR (CKD-EPI)NonAf (>60 ml/min/1.73 sqM) Glucose (74-99) mg/dL Calcium (8.4-10.2) mg/dL Magnesium (1.6-2.3) mg/dL Total Bilirubin (0.2-1.3) mg/dL AST (14-36) U/L ALT (9-52) U/L Alkaline Phosphatase (38-126) U/L Total Creatine Kinase (30-135) U/L CK-MB (CK-2) (0.0-2.4) ng/mL CK-MB (CK-2) Rel Index Troponin I (0.000-0.034) ng/mL Total Protein (6.3-8.2) g/dL Albumin (3.5-5.0) g/dL Disposition Clinical Impression: Chest pain, Blurred vision Disposition: ADMITTED IP TO THIS HOSP Referrals: Megan Friedman MD [Primary Care Provider] - 1-2 days Time of Disposition: 11:55
[2018-04-29 10:44] LABS: Basophils % (A) 0 %; Eosinophils # (A) 0.1 k/uL (0-0.7); Eosinophils % (A) 1 %; HCT 46.3 % (34.0-46.0); HGB 14.8 gm/dL (11.4-16.0); Lymphocytes # (A) 1.8 k/uL (1.0-4.8); Lymphocytes % (A) 16 %; MCH 29.4 pg (25.0-35.0); MCV 91.9 fL (80.0-100.0); Mean Platelet Volume 6.8; Monocytes # (A) 0.4 k/uL (0-1.0); Monocytes % (A) 4 %; Neutrophils # (A) 8.9 k/uL (1.3-7.7); Neutrophils % (A) 79 %; Platelet Count 336 k/uL (150-450); RBC 5.03 m/uL (3.80-5.40); RDW 12.5 % (11.5-15.5); WBC 11.3 k/uL (3.8-10.6)
[2018-04-29 10:54] LABS: ALT 26 U/L (9-52); AST 18 U/L (14-36); Alkaline Phosphatase 44 U/L (38-126); Anion Gap 9 mmol/L; Blood Urea Nitrogen 15 mg/dL (7-17); Calcium 8.9 mg/dL (8.4-10.2); Carbon Dioxide 27 mmol/L (22-30); Chloride 103 mmol/L (98-107); Glucose 117 mg/dL (74-99); Magnesium 2.2 mg/dL (1.6-2.3); Sodium 139 mmol/L (137-145); Total Bilirubin 0.6 mg/dL (0.2-1.3); Total Protein 6.7 g/dL (6.3-8.2)
--- NOTE | 2018-04-29 11:00 | XR ---
EXAMINATION TYPE: XR chest 2V DATE OF EXAM: 04/29/2018 COMPARISON: Prior chest x-ray 02/26/2018 HISTORY: Chest pain TECHNIQUE: Frontal and lateral views of the chest are obtained. FINDINGS: There is no focal air space opacity, pleural effusion, or pneumothorax seen. The cardiac silhouette size is within normal limits. The osseous structures are intact. There are overlying car diac leads. There is a spinal curvature. IMPRESSION: No acute cardiopulmonary process.
[2018-04-29 11:01] LABS: Partial Thromboplastin Time 19.8 sec (22.0-30.0)
[2018-04-29 11:04] LABS: Creatine Kinase 27 U/L (30-135)
[2018-04-29 11:16] LABS: Creatine Kinase MB 0.3 ng/mL (0.0-2.4); Troponin I <0.012 ng/mL (0.000-0.034)
[2018-04-29] MEDS ORDERED: NITROGLYCERIN SL TABS 0.4 MG TAB SUBLINGUAL PRN (11:55)
[2018-04-29] MEDS ORDERED: NITROGLYCERIN OINT 1 INCH/GM PACKET TOPICAL SCH (12:00)
[2018-04-29] MEDS ORDERED: MAG HYDROX/AL HYDROX/SIMETH 30 ML CUP PO PRN (12:38)
[2018-04-29] MEDS ORDERED: traMADol 50 MG TAB PO PRN (12:57)
[2018-04-29] MEDS ORDERED: KETOROLAC 30 MG/ML 1 ML VIAL IVP PRN (12:57)
[2018-04-29] MEDS ORDERED: ONDANSETRON 4 MG/2 ML VIAL IVP PRN (12:57)
[2018-04-29] MEDS ORDERED: NALOXONE 0.4 MG/ML 1 ML VIAL IV PRN (12:57)
[2018-04-29] MEDS ORDERED: ALBUTEROL NEBULIZED 2.5 MG/3 ML INHALATION PRN (13:04)
--- NOTE | 2018-04-29 13:12 | P.HPIM ---
History of Present Illness H&P Date: 04/29/18 Chief Complaint: Chest discomfort 47-year-old female who presents to the emergency department complaining of left sided chest discomfort radiating down left arm. She described it as warmness sensation and not really pain. This started over the weekend and continued until today. Patient states the feeling has been pretty constant but there has been times over the weekend where it is gone away. No diaphoresis or palpitations. She has been using her inhaler for asthma more than usual. No cough, fevers or chills. Patient was admitted for similar symptoms last December, had an echocardiogram and was cleared of by cardiology for discharge. At that time she did not have a stress test. Patient denies any nausea vomiting diarrhea. Patient was recently diagnosed with multiple sclerosis, according to have been having worsening symptoms of blurry vision, difficulty with balance as well as the memory over the last several weeks. She was treated with high dose of Solu- Medrol for a week and currently she is receiving prednisone taper. She denied any headaches, slurred speech, focal numbness or weakness. Review of Systems 12 point review system performed, negative except for HPI Past Medical History Past Medical History: Asthma, GERD/Reflux, Thyroid Disorder Additional Past Medical History / Comment(s): back pain, herniated disc and cervical and lumbar spine, Also HAS A "BONE FRAGMENT IN BACK" overactive bladder , hernia,PAST gastritis, Arnold-Chiari malformation, multiple sclerosis, hypothyroidism, MS History of Any Multi-Drug Resistant Organisms: None Reported Past Surgical History: Cholecystectomy, Hernia Repair, Orthopedic Surgery, Uterine Ablation Additional Past Surgical History / Comment(s): orif rt wrist,colonoscopy, right and left hernia repair, right breast biopsy, left breast surgery for infected milk duct, Arnold-Chiari malformation surgery Past Anesthesia/Blood Transfusion Reactions: No Reported Reaction Past Psychological History: No Psychological Hx Reported Smoking Status: Never smoker Past Alcohol Use History: None Reported Past Drug Use History: None Reported - Past Family History Mother Family Medical History: Coronary Artery Disease (CAD) Additional Family Medical History / Comment(s): from heart attack at the age of 67. mom's mother had dm Brother(s) Additional Family Medical History / Comment(s): boraderline diabetic Father Family Medical History: Cancer, Diabetes Mellitus Additional Family Medical History / Comment(s): Prostate cancer, myocardial infarction prior to the age of 65 Medications and Allergies Home Medications Medication Instructions Recorded Confirmed Type Solifenacin Succinate [Vesicare] 10 mg PO DAILY 10/25/16 04/29/18 History Budesonide-Formot 160-4.5 Mcg 2 puff INHALATION RT-BID 08/30/17 04/29/18 History [Symbicort 160-4.5 Mcg Inhaler] Montelukast [Singulair] 10 mg PO HS 08/30/17 04/29/18 History Levothyroxine Sodium [Synthroid] 112 mcg PO DAILY 02/26/18 04/29/18 History Albuterol Inhaler [Ventolin Hfa 1 - 2 puff INHALATION RT-Q6H PRN 04/29/18 History Inhaler] predniSONE See Taper PO DAILY 04/29/18 04/29/18 History Allergies Allergy/AdvReac Type Severity Reaction Status Date / Time adhesive tape Allergy Rash/Hives Verified 04/29/18 10:41 ketorolac tromethamine Allergy Rash/Hives Verified 04/29/18 10:41 [From Toradol] sulfamethoxazole Allergy Rash/Hives Verified 04/29/18 10:41 [From Bactrim] trimethoprim [From Bactrim] Allergy Rash/Hives Verified 04/29/18 10:41 celecoxib [From Celebrex] AdvReac Confusion Verified 04/29/18 10:41 Physical Exam Vitals: Vital Signs Temp Pulse Resp BP Pulse Ox 04/29/18 12:00 80 18 134/88 97 04/29/18 10:48 79 18 140/83 97 04/29/18 10:02 98.3 F 105 H 20 152/94 98 Intake and Output 04/28/18 04/29/18 04/29/18 22:59 06:59 14:59 Other: Weight 91.626 kg Constitutional: No acute distress, conversant, pleasant Eyes:Anicteric sclerae, moist conjunctiva, no lid-lag, PERRLA, ENMT: Oropharynx clear, no erythema, exudates Neck: Supple, FROM, no masses, or JVD, No carotid bruits, No thyromegaly Lungs: Clear to auscultation, Clear to percussion, Normal respiratory effort, no accessory muscle use Cardiovascular: Heart regular in rate and rhythm, No murmurs, gallops, or rubs, No peripheral edema Abdominal: Soft, Nontender, no guarding, rebound or rigidity, Normoactive bowel sounds, No hepatomegaly, No splenomegaly, No palpable mass Skin: Normal temperature, tone, texture, turgor, no induration, No subcutaneous nodules, No rash, lesions, No ulcers Extremities: No digital cyanosis, No clubbing, Pedal pulses intact and symmetrical, Radial pulses intact and symmetrical, No calf tenderness Psychiatric: Alert and oriented to person, place and time, appropriate affect, intact judgement Neuro: Muscles Strength 5/5 in all 4 extremities, Sensation to light touch grossly present throughout, Cranial nerves II-XII grossly intact, no focal sensory deficits Results CBC & Chem 7: 04/29/18 10:20 04/29/18 10:20 Labs: Abnormal Lab Results - Last 24 Hours (Table) 04/29/18 04/29/18 04/29/18 Range/Units 10:20 10:20 10:20 WBC 11.3 H (3.8-10.6) k/uL Hct 46.3 H (34.0-46.0) % Neutrophils # 8.9 H (1.3-7.7) k/uL APTT (22.0-30.0) sec Glucose 117 H (74-99) mg/dL Total Creatine Kinase 27 L (30-135) U/L 04/29/18 Range/Units 10:20 WBC (3.8-10.6) k/uL Hct (34.0-46.0) % Neutrophils # (1.3-7.7) k/uL APTT 19.8 L (22.0-30.0) sec Glucose (74-99) mg/dL Total Creatine Kinase (30-135) U/L Assessment and Plan Plan: Acute chest pain Admit to observation Telemetry Cycle troponins Cardiac etiology unlikely based on this presentation We'll leave it up to the slurry control tender for further workup including stress test and echo Recent MS flareup Resume prednisone taper Chronic Asthma, GERD/Reflux, Hypothyroidism, back pain, herniated disc and cervical and lumbar spine, overactive bladder, GERD, Arnold-Chiari malformation: All stable Resume home meds. DVT prophylaxis: Low risk, ambulatory. No AC indicated.
--- NOTE | 2018-04-29 13:38 | P.CRDCN ---
History of Present Illness History of present illness: Mrs. Jewell is a pleasant 47-year-old female past medical history significant for chiari malformation, dyslipidemia, gastroesophageal reflux disease, multiple sclerosis and asthma. She denies history of coronary artery disease, hypertension or diabetes mellitus. She follows with Dr. JESSICA Seo in the office. Family history significant for premature coronary artery disease with both her mother and her father having heart disease for the age of 65. We have been asked to see her in consultation for symptoms of chest pain. She states she recently had a repeat MRI done on her brain was told by her neurologist Dr. Haines that she has a lesion related to her MS. She underwent steroid infusions last week every day Sunday through Sunday for 90 minutes. She states last week she felt overall not well with symptoms of blurred vision, fatigue and had some intermittent pallor. Over the weekend she felt warm tight sensation in the anterior chest wall with radiation down the left arm. The symptoms of chest discomfort were constant with no specific aggravating factors. She would at times take some [place] for heartburn and achieved some mild relief. She denies associated shortness of breath, palpitations, nausea, vomiting, dizziness or diaphoresis. She denies radiation of the pain to the back, neck or jaw. At the time of my exam she is seen resting comfortably in bed with family at the bedside. She continues to have warm tight sensation across her chest. Nitropatch was applied on admission and did no relief of her chest discomfort. EKG reveals sinus mechanism with no acute ST or T wave abnormalities noted. Chest x-ray is negative for an acute cardiopulmonary process. Laboratory data reviewed, hemoglobin 14.8, WBC 11.3, platelets 336, sodium 139, potassium 4.0, magnesium 2.2, creatinine 0.7, cardiac enzymes negative 1. Most recent echocardiogram performed December 2017 reveals preserved left ventricular systolic function with ejection fraction 55-60%. Review of Systems At the time of my exam: CONSTITUTIONAL: Denies fever. Denies chills. EYES: Denies blurred vision. Denies vision changes. Denies eye pain. EARS, NOSE, MOUTH & THROAT: Denies headache. Denies sore throat. Denies ear pain. Complains of blurred vision. CARDIOVASCULAR: Complains of warm sensation across her chest. Denies shortness of breath. Denies orthopnea. Denies PND. Denies palpitations. RESPIRATORY: Denies cough. GASTROINTESTINAL: Denies abdominal pain. Denies diarrhea. Denies constipation. Denies nausea. Denies vomiting. MUSCULOSKELETAL: Denies myalgias. INTEGUMENTARY: Denies pruitis. Denies rash. NEUROLOGIC: Denies numbness. Denies tingling. Denies weakness. PSYCHIATRIC: Denies anxiety. Denies depression. ENDOCRINE: Denies fatigue. Denies weight change. Denies polydipsia. Denies polyurina. GENITOURINARY: Denies burning, hematuria or urgency with micturation. HEMATOLOGIC: Denies history of anemia. Denies bleeding. Past Medical History Past Medical History: Asthma, GERD/Reflux, Thyroid Disorder Additional Past Medical History / Comment(s): back pain, herniated disc and cervical and lumbar spine, Also HAS A "BONE FRAGMENT IN BACK" overactive bladder , hernia,PAST gastritis, Arnold-Chiari malformation, multiple sclerosis, hypothyroidism, MS History of Any Multi-Drug Resistant Organisms: None Reported Past Surgical History: Cholecystectomy, Hernia Repair, Orthopedic Surgery, Uterine Ablation Additional Past Surgical History / Comment(s): orif rt wrist,colonoscopy, right and left hernia repair, right breast biopsy, left breast surgery for infected milk duct, Arnold-Chiari malformation surgery Past Anesthesia/Blood Transfusion Reactions: No Reported Reaction Past Psychological History: No Psychological Hx Reported Smoking Status: Never smoker Past Alcohol Use History: None Reported Past Drug Use History: None Reported - Past Family History Mother Family Medical History: Coronary Artery Disease (CAD) Additional Family Medical History / Comment(s): from heart attack at the age of 67. mom's mother had dm Brother(s) Additional Family Medical History / Comment(s): boraderline diabetic Father Family Medical History: Cancer, Diabetes Mellitus Additional Family Medical History / Comment(s): Prostate cancer, myocardial infarction prior to the age of 65 Medications and Allergies Home Medications Medication Instructions Recorded Confirmed Type Solifenacin Succinate [Vesicare] 10 mg PO DAILY 10/25/16 04/29/18 History Budesonide-Formot 160-4.5 Mcg 2 puff INHALATION RT-BID 08/30/17 04/29/18 History [Symbicort 160-4.5 Mcg Inhaler] Montelukast [Singulair] 10 mg PO HS 08/30/17 04/29/18 History Levothyroxine Sodium [Synthroid] 112 mcg PO DAILY 02/26/18 04/29/18 History Albuterol Inhaler [Ventolin Hfa 1 - 2 puff INHALATION RT-Q6H PRN 04/29/18 History Inhaler] predniSONE See Taper PO DAILY 04/29/18 04/29/18 History Allergies Allergy/AdvReac Type Severity Reaction Status Date / Time adhesive tape Allergy Rash/Hives Verified 04/29/18 10:41 ketorolac tromethamine Allergy Rash/Hives Verified 04/29/18 10:41 [From Toradol] sulfamethoxazole Allergy Rash/Hives Verified 04/29/18 10:41 [From Bactrim] trimethoprim [From Bactrim] Allergy Rash/Hives Verified 04/29/18 10:41 celecoxib [From Celebrex] AdvReac Confusion Verified 04/29/18 10:41 Physical Exam Vitals: Vital Signs Temp Pulse Resp BP Pulse Ox 04/29/18 12:00 80 18 134/88 97 04/29/18 10:48 79 18 140/83 97 04/29/18 10:02 98.3 F 105 H 20 152/94 98 Intake and Output 04/28/18 04/29/18 04/29/18 22:59 06:59 14:59 Other: Weight 91.626 kg Blood pressure 134 radiate heart rate 88 afebrile maintaining oxygen saturation room air GENERAL: This is a 47-year-old female in no apparent distress at the time of my examination. HEENT: Head is atraumatic, normocephalic. Pupils are equal, round. Sclerae anicteric. Conjunctivae are clear. Mucous membranes of the mouth are moist. Neck is supple. There is no jugular venous distention. No carotid bruit is heard. LUNGS: Clear to auscultation no wheezes, rales or rhonchi. No chest wall tenderness is noted on palpation or with deep breathing. HEART: Regular rate and rhythm without murmurs, rubs or gallops. S1 and S2 heard. ABDOMEN: Soft, nontender. Bowel sounds are heard. No organomegaly noted. EXTREMITIES: No evidence of peripheral edema and no calf tenderness noted. VASCULAR: Radial and dorsalis pedis pulses palpated, no evidence of clubbing. NEUROLOGIC: Patient is awake, alert and oriented x3. Results 04/29/18 10:20 04/29/18 10:20 Cardiac Enzymes 04/29/18 04/29/18 Range/Units 10:20 10:20 AST 18 (14-36) U/L CK-MB (CK-2) 0.3 (0.0-2.4) ng/mL Troponin I <0.012 (0.000-0.034) ng/mL Coagulation 04/29/18 Range/Units 10:20 PT 10.0 (9.0-12.0) sec APTT 19.8 L (22.0-30.0) sec CBC 04/29/18 Range/Units 10:20 WBC 11.3 H (3.8-10.6) k/uL RBC 5.03 (3.80-5.40) m/uL Hgb 14.8 (11.4-16.0) gm/dL Hct 46.3 H (34.0-46.0) % Plt Count 336 (150-450) k/uL Comprehensive Metabolic Panel 04/29/18 Range/Units 10:20 Sodium 139 (137-145) mmol/L Potassium 4.0 (3.5-5.1) mmol/L Chloride 103 (98-107) mmol/L Carbon Dioxide 27 (22-30) mmol/L BUN 15 (7-17) mg/dL Creatinine 0.70 (0.52-1.04) mg/dL Glucose 117 H (74-99) mg/dL Calcium 8.9 (8.4-10.2) mg/dL AST 18 (14-36) U/L ALT 26 (9-52) U/L Alkaline Phosphatase 44 (38-126) U/L Total Protein 6.7 (6.3-8.2) g/dL Albumin 4.0 (3.5-5.0) g/dL Current Medications Generic Name Dose Route Start Last Admin Trade Name Freq PRN Reason Stop Dose Admin Al Hydroxide/Mg Hydroxide 30 ml 04/29/18 12:38 Maalox PO Q4HR PRN GI Upset Aspirin 325 mg 04/30/18 09:00 Aspirin PO DAILY [place] Nitroglycerin 0.4 mg 04/29/18 11:55 Nitrostat SUBLINGUAL Q5M PRN Chest Pain Intake and Output 04/28/18 04/29/18 04/29/18 22:59 06:59 14:59 Other: Weight 91.626 kg Patient Weight 04/30/18 06:59 Weight 91.626 kg 04/29/18 10:20 04/29/18 10:20 Assessment and Plan Assessment: ASSESSMENT Chest pain, atypical. Constant and ongoing with relief from over the counter antacids Dyslipidemia Multiple sclerosis, recently underwent steroid infusions last week PLAN Remove nitropaste as it is not yielding any relief. Give dose of Maalox now and assess for relief of chest pain. With recent steroid infusions pain most likely related to irritation from steroids causing possible inflammation or gastritis. No further cardiac work-up at this time. Follow up with Dr. Seo upon discharge. Thank you kindly for this consultation. Nurse Practitioner note has been reviewed, I agree with a documented findings and plan of care. Patient was seen and examined.
[2018-04-29 16:52] LABS: Creatine Kinase 23 U/L (30-135)
[2018-04-29 17:04] LABS: Creatine Kinase MB <0.2 ng/mL (0.0-2.4); Troponin I <0.012 ng/mL (0.000-0.034)
[2018-04-29] MEDS: SYMBICORT 160-4.5 MCG INHALER INHALATION SCH (19:46)
[2018-04-29] MEDS ORDERED: MONTELUKAST 10 MG TAB PO SCH (21:00)
[2018-04-30 00:01] LABS: Creatine Kinase <20 U/L (30-135)
[2018-04-30 00:14] LABS: Creatine Kinase MB <0.2 ng/mL (0.0-2.4); Troponin I <0.012 ng/mL (0.000-0.034)
[2018-04-30] MEDS ORDERED: LEVOTHYROXINE 112 MCG TAB PO SCH (06:30)
[2018-04-30 06:43] LABS: Basophils % (A) 0 %; Eosinophils # (A) 0.2 k/uL (0-0.7); Eosinophils % (A) 2 %; HCT 43.9 % (34.0-46.0); HGB 14.1 gm/dL (11.4-16.0); Lymphocytes # (A) 3.9 k/uL (1.0-4.8); Lymphocytes % (A) 39 %; MCH 29.6 pg (25.0-35.0); MCHC 32.1 g/dL (31.0-37.0); MCV 92.3 fL (80.0-100.0); Mean Platelet Volume 6.8; Monocytes # (A) 0.6 k/uL (0-1.0); Monocytes % (A) 6 %; Neutrophils # (A) 5.3 k/uL (1.3-7.7); Neutrophils % (A) 53 %; Platelet Count 303 k/uL (150-450); RBC 4.76 m/uL (3.80-5.40); RDW 12.7 % (11.5-15.5); WBC 10.1 k/uL (3.8-10.6)
[2018-04-30 07:11] LABS: Anion Gap 7 mmol/L; Blood Urea Nitrogen 16 mg/dL (7-17); Calcium 8.6 mg/dL (8.4-10.2); Carbon Dioxide 30 mmol/L (22-30); Chloride 102 mmol/L (98-107); Glucose 87 mg/dL (74-99); Magnesium 2.2 mg/dL (1.6-2.3); Phosphorus 4.2 mg/dL (2.5-4.5); Potassium 4.3 mmol/L (3.5-5.1); Sodium 139 mmol/L (137-145)
[2018-04-30 08:26] VITALS: RESP 18
[2018-04-30] MEDS ORDERED: TROSPIUM CHLORIDE 20 MG TABLET PO SCH (09:00)
[2018-04-30] MEDS ORDERED: ASPIRIN 325 MG TAB PO SCH (09:00)
[2018-04-30] MEDS ORDERED: predniSONE 20 MG TAB PO SCH (09:00)
[2018-04-30] MEDS: SYMBICORT 160-4.5 MCG INHALER INHALATION SCH ×2 (10:11→19:18)
[2018-04-30] MEDS ORDERED: PANTOPRAZOLE 40 MG TABLET PO STA (10:11)
[2018-04-30] MEDS ORDERED: ACETAMINOPHEN TAB 325 MG TAB PO PRN (10:11)
--- NOTE | 2018-04-30 12:36 | P.PN ---
Subjective Progress Note Date: 04/30/18 Principal diagnosis: Chest pain Patient was seen and examined. No acute events overnight. Patient reports resolution of her CP. Has no complaints today. States had blurry vision during Solu Medrol infusion. She denies dizziness, chest pain, shortness of breath, palpitations. Objective - Vital Signs Vital signs: Vital Signs Temp 98.3 F 04/30/18 07:15 Pulse 78 04/30/18 07:15 Resp 18 04/30/18 07:15 BP 129/86 04/30/18 07:15 Pulse Ox 98 04/30/18 07:15 Intake & Output 04/29/18 04/30/18 04/30/18 18:59 06:59 18:59 Weight 92.2 kg Other: Voiding Method Toilet Toilet # Voids 1 - Exam General: non toxic, no distress, appears at stated age Derm: warm, dry Head: atraumatic, normocephalic, symmetric Eyes: EOMI, no lid lag, anicteric sclera Mouth: no lip lesion, mucus membranes moist Cardiovascular: S1S2 reg, no murmur, positive posterior tibial pulse bilateral, Lungs: CTA bilateral, no rhonchi, no rales , no accessory muscle use Abdominal: soft, nontender to palpation, no guarding, no appreciable organomegaly Ext: no gross muscle atrophy, no edema, no contractures Neuro: CN II-XI grossly intact, no focal neuro deficits Psych: Alert, oriented, appropriate affect - Labs CBC & Chem 7: 04/30/18 06:23 04/30/18 06:23 Labs: Abnormal Lab Results - Last 24 Hours (Table) 04/29/18 04/29/18 04/29/18 Range/Units 10:20 10:20 10:20 WBC 11.3 H (3.8-10.6) k/uL Hct 46.3 H (34.0-46.0) % Neutrophils # 8.9 H (1.3-7.7) k/uL APTT (22.0-30.0) sec Glucose 117 H (74-99) mg/dL Total Creatine Kinase 27 L (30-135) U/L 04/29/18 04/29/18 04/29/18 Range/Units 10:20 16:21 22:12 WBC (3.8-10.6) k/uL Hct (34.0-46.0) % Neutrophils # (1.3-7.7) k/uL APTT 19.8 L (22.0-30.0) sec Glucose (74-99) mg/dL Total Creatine Kinase 23 L <20 L (30-135) U/L Assessment and Plan Assessment: Assessment and Plan 47-year-old female with past medical history of Asthma, hypothyroidism, multiple sclerosis currently on a prednisone taper presented to the ED for chest pain. Cardiology is on board. Acute coronary syndrome has been ruled out. 1. Chest pain: Atypical likely GI related (Gastritis given h/o steroid use). Trop < 0.03 x 3, EKG shows NSR, ACS ruled out, will DC Nitrostat. 10 year ASCVD risk 0.8%, will DC ASA (can be cause of Gastritis). DC Toradol for pain management (can worsen Gastritis). Cardiology consulted, no further workup. Continue Maalox PRN. Add Protonix and Tylenol PRN. 2. Blurry vision: None now. Possibly related to steroid infusion vs MS? FU Neurology consult 2. Asthma: Stable. Continue Albuterol neb PRN, Symbicort 2 puff BID, Singlair 10 mg PO QHS. 3. Hypothyroidism: Stable. Continue Synthroid 125 mcg PO QD. 4. Multiple Sclerosis: Stable. Continue Prednisone taper. FU Neuro outPT. 5. DVT/GI: Early ambulation, low risk for DVT. Protonix 40 mg PO QD. Chest pain resolved. ACS ruled out. Cardiology cleared patient. Pending neurology evaluation for blurry vision. Likely DC today.
[2018-04-30 19:27] VITALS: BP 126/86; PULSE 94; TEMP 98.6
--- NOTE | 2018-04-30 23:11 | CONS ---
CONSULTATION DATE OF CONSULTATION: 04/30/2018. CHIEF COMPLAINT: Visual changes/blurred vision. HISTORY OF PRESENT ILLNESS: Mrs. Jewell is a 47-year-old female, who is being evaluated by the neurology service per the request of Dr. Chamorro for some blurred vision. The patient is being worked up for possible demyelinating disease in the outpatient clinic. She had recently developed some blurred vision and was treated with IV Solu-Medrol in clinic. Yesterday, she developed some discomfort in her left chest area which she describes as a warm sensation on the left chest without any sharp pain. She was brought into the emergency room for these symptoms, but a neurology consultation was obtained for her blurred vision. Cardiology is following the patient regarding her chest symptoms, but her cardiac enzymes have been negative. Her CBC showed mild leukocytosis at 11.3, which is likely due to her recent steroid therapy. Her comprehensive metabolic profile was normal. At the time of my evaluation, she is lying in her bed and appears to be in no acute distress. She states that she has not had any blurred vision for approximately 5 hours now. Her symptoms do occur on and off and affect both eyes. She denies any extremity symptoms. She is still receiving prednisone 40 mg daily at this time, as she did complete her IV Solu-Medrol therapy. PAST MEDICAL HISTORY: Nonspecific white matter changes being worked up for possible demyelinating disorder, asthma, gastroesophageal reflux disease, hypothyroidism, chronic back pain and neck pain, history of Arnold-Chiari malformation with decompression surgery, cholecystectomy, hernia repair, uterine ablation, orthopedic surgeries, breast biopsy. SOCIAL HISTORY: She denies any tobacco, alcohol or drug use. FAMILY HISTORY: Positive for heart disease and diabetes and cancer. HOME MEDICATIONS: Reviewed in the chart. ALLERGIES: ADHESIVE TAPE, TORADOL, BACTRIM, CELEBREX, SULFA DRUGS. REVIEW OF SYSTEMS: As mentioned above and otherwise negative. PHYSICAL EXAM: Vital signs show a temperature of 98.8, pulse 87, respirations 18, blood pressure 127/87. GENERAL APPEARANCE: The patient is a well-developed female who appears to be in no acute distress. HEENT: Normocephalic, atraumatic. No facial asymmetry is seen. Extraocular muscle testing showed significant lateral nystagmus. NECK: Supple with no masses felt. CARDIOVASCULAR: Regular rate and rhythm. ABDOMEN: Nontender, nondistended. Extremities showed no edema or clubbing. NEUROLOGICAL: The patient is awake and oriented x3. Speech and language are normal. Strength is full in all 4 extremities. Sensory was normal to light touch in all 4 extremities. Cranial nerve testing was normal except for nystagmus, as mentioned above. No tremors or seizure-like activity is seen. IMPRESSION: 1. Recurrent blurred vision. 2. Nonspecific white matter changes. 3. Atypical chest pain. RECOMMENDATION: The patient denies any current blurred vision and her symptoms have now been occurring on and off, which is not consistent with any optic neuritis or any other neurological demyelinating disorder. I do recommend an ophthalmological evaluation. The patient states that she does see Dr. Lange and she will see him in the clinic shortly. I reviewed with her the results of her workup thus far. From a neurology standpoint, the patient is cleared for discharge. She may continue on prednisone 20 mg daily for the next 3 days and then she can stop steroids. No further neurological workup is needed at this time. She will follow up with me in clinic for further management. Thank you for allowing me to participate in the care of your patient. If you have any questions, please feel free to contact me. MMODL / IJN: [id number] /
--- NOTE | 2018-05-01 09:26 | P.DS ---
Providers Date of admission: 04/29/18 12:00 Expected date of discharge: 04/30/18 Attending physician: Seferino Chamorro MD Consults: 04/29/18 11:55 Consult Physician Urgent Consulting Provider: [facility] Consult Reason/Comments: chest pain Do you want consulting provider notified?: Yes 04/29/18 12:03 Consult Physician Urgent Consulting Provider: Haroldo Haines Consult Reason/Comments: Blurred vision Do you want consulting provider notified?: Yes Primary care physician: Megan Friedman MD - Discharge Diagnosis(es) (1) Hypothyroid Status: Acute (2) Asthma without acute exacerbation Status: Acute (3) Blurred vision Status: Acute (4) Chest pain Status: Acute (5) Multiple sclerosis Status: Acute Hospital Course: 47-year-old female who presents to the emergency department complaining of left sided chest discomfort radiating down left arm. She described it as warmness sensation and not really pain. This started over the weekend and continued until today. Patient states the feeling has been pretty constant but there has been times over the weekend where it is gone away. No diaphoresis or palpitations. She has been using her inhaler for asthma more than usual. No cough, fevers or chills. Patient was admitted for similar symptoms last December, had an echocardiogram and was cleared of by cardiology for discharge. At that time she did not have a stress test. Patient denies any nausea vomiting diarrhea. Patient was recently diagnosed with multiple sclerosis, according to have been having worsening symptoms of blurry vision, difficulty with balance as well as the memory over the last several weeks. She was treated with high dose of Solu- Medrol for a week and currently she is receiving prednisone taper. She denied any headaches, slurred speech, focal numbness or weakness. With regard to her chest pain, thought to be atypical likely related to a GI source. Her chest pain was most likely gastritis given her history of steroid use. Troponins were less than 0.033, EKG showed normal sinus rhythm. ACS was ruled out. Her 10 year ASCVD risk was 0.8%, and aspirin was discontinued. Cardiology was consulted and recommended no further workup. Maalox and Protonix was added. For her blurry vision, neurology was consulted. Her blurry vision was thought to be secondary to the Solu-Medrol infusion but with concern for multiple sclerosis. Neurology saw the patient, no papilledema was seen, and patient was cleared for discharge. Her home medications of Symbicort, Singulair, albuterol, Synthroid, prednisone was resumed. Patient was advised to follow-up with her PCP within 1-2 days of discharge. Patient was advised to follow-up with neurologist Dr. Haines within 1 week of discharge. Pertinent Studies: Chest x-ray EKG Patient Condition at Discharge: Good Plan - Discharge Summary Discharge Rx Participant: No New Discharge Prescriptions: New Acetaminophen Tab [Tylenol] 650 mg PO Q6HR PRN tab PRN Reason: Fever and/ or Mild Pain Mag Hydrox/Al Hydrox/Simeth [Maalox] 30 ml PO Q4HR PRN cup PRN Reason: Gi Upset predniSONE 40 mg PO DAILY tab Continue Solifenacin Succinate [Vesicare] 10 mg PO DAILY Montelukast [Singulair] 10 mg PO HS Budesonide-Formot 160-4.5 Mcg [Symbicort 160-4.5 Mcg Inhaler] 2 puff INHALATION RT-BID Levothyroxine Sodium [Synthroid] 112 mcg PO DAILY predniSONE See Taper PO DAILY Albuterol Inhaler [Ventolin Hfa Inhaler] 1 - 2 puff INHALATION RT-Q6H PRN PRN Reason: Shortness Of Breath Discharge Medication List Solifenacin Succinate [Vesicare] 10 mg PO DAILY 10/25/16 [History] Budesonide-Formot 160-4.5 Mcg [Symbicort 160-4.5 Mcg Inhaler] 2 puff INHALATION RT-BID 08/30/17 [History] Montelukast [Singulair] 10 mg PO HS 08/30/17 [History] Levothyroxine Sodium [Synthroid] 112 mcg PO DAILY 02/26/18 [History] Albuterol Inhaler [Ventolin Hfa Inhaler] 1 - 2 puff INHALATION RT-Q6H PRN [History] predniSONE See Taper PO DAILY 04/29/18 [History] Acetaminophen Tab [Tylenol] 650 mg PO Q6HR PRN tab 04/30/18 [Rx] Mag Hydrox/Al Hydrox/Simeth [Maalox] 30 ml PO Q4HR PRN cup 04/30/18 [Rx] predniSONE 40 mg PO DAILY tab 04/30/18 [Rx] Follow up Appointment(s)/Referral(s): Eber Seo MD [STAFF PHYSICIAN] - 05/17/18 3:15 pm Megan Friedman MD [Primary Care Provider] - 1-2 days Haroldo Haines MD [STAFF PHYSICIAN] - 1 Week Activity/Diet/Wound Care/Special Instructions: Diet: Regular Please follow-up with your primary care provider within 1-2 days of discharge. Please follow-up with your insole and outsole splitter with the appointment given to you. Please take all medications as advised. Please call 911 or come to the ED if you experience chest pain, dizziness, palpitations, shortness of breath. Discharge Disposition: HOME SELF-CARE
== END 2018-04-30 22:50 | disposition home or self-care (01) ==
LOC: EC 10:01 → 3OBS 12:00
PROVIDERS: ADMIT Internal Medicine; ATTEND Internal Medicine
DX: R07.89 Other chest pain (principal); H53.8 Other visual disturbances; G35 Multiple sclerosis; E78.5 Hyperlipidemia, unspecified; K21.9 Gastro-esophageal reflux disease without esophagitis; J45.909 Unspecified asthma, uncomplicated; Q07.00 Arnold-Chiari syndrome without spina bifida or hydrocephalus; N32.81 Overactive bladder; G89.29 Other chronic pain; M51.26 Other intervertebral disc displacement, lumbar region; M50.20 Other cervical disc displacement, unspecified cervical region; E03.9 Hypothyroidism, unspecified; Z79.51 Long term (current) use of inhaled steroids; Z79.52 Long term (current) use of systemic steroids; Z79.899 Other long term (current) drug therapy; Z88.1 Allergy status to other antibiotic agents; Z88.2 Allergy status to sulfonamides; Z88.8 Allergy status to other drugs, medicaments and biological substances; Z91.048 Other nonmedicinal substance allergy status; Z87.19 Personal history of other diseases of the digestive system; Z90.49 Acquired absence of other specified parts of digestive tract; Z82.49 Family history of ischemic heart disease and other diseases of the circulatory system; Z83.3 Family history of diabetes mellitus; Z80.42 Family history of malignant neoplasm of prostate
CPT/HCPCS: 99285 ×2; 36415; 94640; 93005; 80053; 80048; 82550; 82553; 83735 ×2; 84100; 84484; 85025 ×2; 85610; 85730; 71046; G0378 ×2; J7512

== ENCOUNTER → 2018-05-20 | Outpatient (CLI) | payer MEDICAID ==
--- NOTE | 2018-05-21 09:57 | US ---
EXAMINATION TYPE: US carotid duplex BILAT DATE OF EXAM: 05/20/2018 COMPARISON: Prior carotid Doppler duplex dated 01/04/2015 CLINICAL HISTORY: H53.8 VISUAL DISTURB. Dizziness blurred vision. EXAM MEASUREMENTS: RIGHT: Peak Systolic Velocity (PSV) cm/sec ----- Right CCA: 78.4 ----- Right ICA: 84.2 ----- Right ECA: 82.7 ICA/CCA ratio: 1.1 RIGHT: End Diastole cm/sec ----- Right CCA: 26.0 ----- Right ICA: 37.7 ----- Right ECA: 12.9 LEFT: Peak Systolic Velocity (PSV) cm/sec ----- Left CCA: 90.0 ----- Left ICA: 87.1 ----- Left ECA: 84.2 ICA/CCA ratio: 1.0 LEFT: End Diastole cm/sec ----- Left CCA: 28.9 ----- Left ICA: 45.4 ----- Left ECA: 14.4 VERTEBRALS (direction of flow): Right Vertebral: Antegrade Left Vertebral: Antegrade Rhythm: Normal No significant stenosis seen Grayscale, color Doppler, spectral Doppler imaging performed of the carotid arteries. Waveform analys is does not show significant stenosis of the proximal internal carotid arteries. IMPRESSION: No hemodynamic significant stenosis of the proximal internal carotid arteries bilaterall y by Doppler criteria, an indirect measurement of carotid stenosis
== END | disposition home or self-care (01) ==
LOC: RADUSWWP 17:50
PROVIDERS: ATTEND Internal Medicine Interventional Cardiology
DX: H53.8 Other visual disturbances (principal); H54.7 Unspecified visual loss
CPT/HCPCS: 93880

== ENCOUNTER → 2018-05-23 | Outpatient (CLI) | payer MEDICAID ==
[2018-05-23 10:47] LABS: T4, Free (Free Thyroxine) 0.88 ng/dL (0.78-2.19)
== END | disposition home or self-care (01) ==
LOC: LABWHC1 07:11
PROVIDERS: ATTEND Internal Medicine
DX: E03.9 Hypothyroidism, unspecified (principal); R23.2 Flushing
CPT/HCPCS: 36415; 82024; 82533; 83835; 84305; 84439; 84443

== ENCOUNTER → 2018-05-28 | Outpatient (CLI) | payer MEDICAID ==
--- NOTE | 2018-06-19 12:19 | P.CEMON ---
Event monitor shows sinus rhythm and sinus tachycardia 1 run of nonsustained ventricular tachycardia for 4 beats
--- NOTE | 2018-06-20 09:38 | EM ---
Event monitor shows sinus rhythm and sinus tachycardia 1 run of nonsustained ventricular tachycardia for 4 beats MTDD
== END ==
LOC: RADECHMAIN 11:53
PROVIDERS: ATTEND Internal Medicine Interventional Cardiology
DX: R00.0 Tachycardia, unspecified (principal)
CPT/HCPCS: 93270; 93271

== ENCOUNTER → 2018-06-28 | Outpatient (CLI) | payer MEDICAID ==
--- NOTE | 2018-06-28 13:03 | XR ---
Left knee HISTORY: Trauma and pain 3 views of left knee, correlation prior exam 11/05/2007 Bone mineralization, joint spaces and alignment are maintained. No evident joint effusion. There is a lucency through the proximal fibula is thought to be well-corticated and could be related to old tra chris, correlate, no evident fracture healing. IMPRESSION: Proximal fibular shows an interval fracture which may be chronic. No dislocation. Knee MR I may be of benefit.
== END | disposition home or self-care (01) ==
LOC: RADXRMAIN 09:59
PROVIDERS: ATTEND Midwife
DX: S82.402A Unspecified fracture of shaft of left fibula, initial encounter for closed fracture (principal)

== ENCOUNTER → 2018-07-01 | Outpatient (CLI) | payer MEDICAID ==
--- NOTE | 2018-07-02 12:55 | XR ---
Right knee HISTORY: Right knee pain 4 views of the knee on 4 images. No comparisons Bone mineralization, joint spaces and alignment are maintained. No evident joint effusion. No fractur e or dislocation. IMPRESSION: No significant abnormality.
== END | disposition home or self-care (01) ==
LOC: RADXRMAIN 16:39
PROVIDERS: ATTEND Anesthesiology
DX: M25.561 Pain in right knee (principal)

== ENCOUNTER → 2018-07-10 | Outpatient (CLI) | payer MEDICAID ==
--- NOTE | 2018-07-11 06:28 | MR ---
EXAMINATION TYPE: MR knee LT wo con DATE OF EXAM: 07/10/2018 COMPARISON: Left knee x-ray June 28, 2018. Prior left knee MRI February 21, 2012. HISTORY: Left Knee pain and medial meniscal derangement per order. Outer knee pain and swelling for 4 months after fall injury per patient. TECHNIQUE: Multiplanar, multisequence images of the knee is performed without IV contrast. FINDINGS: MEDIAL MENISCUS: Anterior horn is intact without tear. Oblique irregular signal posterior horn of med ial meniscus is redemonstrated, does not distinctly extend to articular surface. LATERAL MENISCUS: Anterior and posterior horns are intact without tear. CRUCIATE LIGAMENTS: The anterior and posterior cruciate ligaments are intact and unremarkable. COLLATERAL LIGAMENTS: The medial collateral ligament and lateral collateral ligament complex are inta ct and unremarkable. EXTENSOR MECHANISM: Visualized quadriceps and patellar tendons are intact. EFFUSION: No significant suprapatellar joint effusion. POPLITEAL CYST: No popliteal/hu cyst. TRICOMPARTMENT SPACES: Joint spaces are fairly well-maintained. No significant spurring is seen. Well -defined ossific fragmentation from fibular head on x-ray is less well seen on MRI. Finding could ref lect product of old trauma. CARTILAGE: Tricompartment articular cartilage shows mild loss medial tibiofemoral compartment. No sig nificant chondromalacia patella is present. BONE MARROW SIGNAL: No focal abnormal marrow signal is appreciated. OTHER: No additional significant abnormality is appreciated. IMPRESSION: Stable suspected intrasubstance tear posterior horn of medial meniscus. No new meniscal o r ligamentous tear is seen.
== END | disposition home or self-care (01) ==
LOC: RADMRIMAIN 17:43
PROVIDERS: ATTEND Orthopaedic Surgery Sports Medicine
DX: M25.562 Pain in left knee (principal); M23.304 Other meniscus derangements, unspecified medial meniscus, left knee; M25.561 Pain in right knee

== ENCOUNTER → 2018-08-07 | Outpatient (CLI) | payer MEDICAID ==
--- NOTE | 2018-08-08 13:59 | MM ---
Reason for exam: screening (asymptomatic). Last mammogram was performed 1 year ago. History: Family history of breast cancer in paternal grandmother at age 70. Benign excisional biopsy of the right breast, May 2011. Benign excisional biopsy of the left breast, 1996. Took hormonal contraceptives for 5 years beginning at age 21. Physical Findings: A clinical breast exam by your physician is recommended on an annual basis and results should be correlated with mammographic findings. MG 3D Screening Mammo W/Cad Bilateral CC and MLO view(s) were taken. Prior study comparison: August 01, 2017, bilateral MG 3d screening mammo w/cad. July 28, 2016, bilateral MG 3d screening mammo w/cad. The breast tissue is heterogeneously dense. This may lower the sensitivity of mammography. No suspicious abnormality. No significant changes when compared with prior studies. ASSESSMENT: Negative, BI-RAD 1 RECOMMENDATION: Routine screening mammogram of both breasts in 1 year.
== END ==
LOC: RADMAMWWP 12:54
PROVIDERS: ATTEND Obstetrics & Gynecology
DX: Z12.31 Encounter for screening mammogram for malignant neoplasm of breast (principal)
CPT/HCPCS: 77063; 77067

== ENCOUNTER → 2018-10-09 | Outpatient (CLI) | payer MEDICAID ==
--- NOTE | 2018-10-09 16:56 | MR ---
EXAMINATION TYPE: MR lumbar spine wo con DATE OF EXAM: 10/09/2018 COMPARISON: 05/16/2017 HISTORY: Intervertebral disc degeneration, lumbar CONTRAST: 0 mL intravenous Gadavist. TECHNIQUE: Multiplanar, multisequence images of the lumbar spine were acquired. FINDINGS: L5-S1: There is right paracentral disc bulging with subligamentous disc extension causing mild anteri or thecal sac compression. Exiting nerve root contact is not identified. No spinal canal stenosis is evident. Facet degenerative changes are present. Findings appear stable from 05/16/2017. L4-L5: Broad-based disc bulge is present. There is increased signal on T2-weighted sequences suggesti ve for an annular tear. Disc bulge has mild anterior thecal sac compression. This is significantly di minished in size compared to 05/16/2017. No AP spinal canal stenosis is present. Facet hypertrophy is present with mild posterior lateral thecal sac compression. L3-L4: No significant disc bulge or disc herniation. No spinal canal stenosis. No foraminal stenosi s. Neural foramen are patent.. L2-L3: No significant disc bulge or disc herniation. No spinal canal stenosis. No foraminal stenosi s. Neural foramen are patent.. L1-L2: No significant disc bulge or disc herniation. No spinal canal stenosis. No foraminal stenosi s. Neural foramen are patent.. T12-L1: No significant disc bulge or disc herniation. No spinal canal stenosis. No foraminal stenos is. Neural foramen are patent.. IMPRESSION: 1. Broad-based disc bulging with mild anterior thecal sac compression L4-5. This is significantly imp roved from the prior disc herniation at this level. 2. Mild disc bulging L5-S1 appears stable from comparison.
== END | disposition home or self-care (01) ==
LOC: RADMRIMAIN 13:11
PROVIDERS: ATTEND Psychiatry & Neurology Neurology
DX: M51.27 Other intervertebral disc displacement, lumbosacral region (principal)
CPT/HCPCS: 72148

== ENCOUNTER → 2018-10-21 | Outpatient (CLI) | payer MEDICAID ==
--- NOTE | 2018-10-22 00:54 | MR ---
MR scan thoracic spine. History back pain. Comparison none. TECHNIQUE: Multiplanar multiecho imaging of the thoracic spine was performed with and without IV contrast. The c ontrast was gadolinium 9 mL. FINDINGS: Thoracic vertebra have normal alignment. There is no compression fracture. Thoracic spinal cord has n ormal signal pattern without evidence of edema. There is no thoracic paraspinal mass. Posterior eleme nts are intact. There is no spinal stenosis. I see no focal bone destruction. There is no pathologic enhancement. IMPRESSION: Negative MR scan of the thoracic spine. No fracture seen. No spinal stenosis.
--- NOTE | 2018-10-22 00:58 | MR ---
EXAMINATION TYPE: MR cervical spine wo con DATE OF EXAM: 10/21/2018 COMPARISON: None HISTORY: neck pain and stiffness x 1 month TECHNIQUE: Multiplanar, multisequence images of the cervical spine were acquired. There is mild straightening of the cervical spine. There is fairly normal disc spaces. There are smal l posterior disc bulges at C4-5 C5-6 without encroachment on the spinal canal. There is slight enlarg ement of the central spinal canal with fluid at the C6 level consistent with a mild syrinx. There is no evidence of cervical cord mass. Posterior elements are intact. The brainstem is intact. I see no bony destructive process. There is m ild anterior cervical disc herniation at C4-5 and C5-6. IMPRESSION: Minimal posterior disc bulging at C4-5 C5-6 without spinal stenosis. There is developmentally adequat e spinal canal. Minimal syrinx at the C6 level that measures 1.5 mm. No evidence of a cord mass.
== END | disposition home or self-care (01) ==
LOC: RADMRIMAIN 18:42
PROVIDERS: ATTEND Midwife
DX: M50.221 Other cervical disc displacement at C4-C5 level (principal); M54.6 Pain in thoracic spine
CPT/HCPCS: 72141; 72157; A9585

== ENCOUNTER → 2018-10-30 | Outpatient (CLI) | payer MEDICAID ==
--- NOTE | 2018-10-31 09:20 | CT ---
EXAMINATION TYPE: CT abdomen pelvis wo con DATE OF EXAM: 10/30/2018 COMPARISON: Prior CT 02/15/2017 HISTORY: LT side abdomen pain, nausea, change in bowel habits CT DLP: 835 mGycm Automated exposure control for dose reduction was used. TECHNIQUE: Helical acquisition of images from the lung bases through the pelvis. FINDINGS: Lack of intravenous contrast could compromise sensitivity. Small umbilical hernia contains fat. LUNG BASES: No significant abnormality is appreciated. AORTA: No significant abnormality is appreciated. LIVER/GB: Patient is post cholecystectomy. Liver is slightly enlarged. PANCREAS: No significant abnormality is seen. SPLEEN: No significant abnormality is seen. ADRENALS: No significant abnormality is seen. KIDNEYS: There is a nonobstructive lower pole left renal calculus measuring only approximately 3 to 4 mm. There is mild pelvic caliectasis bilaterally. Right kidney shows cortical thinning, probable sca rring with pelvic caliectasis. Nonobstructive calculus present at the lower pole also measures 3 to 4 mm. No evident ureteral calculus. Question some thickening of the renal pelvis wall on the left. REPRODUCTIVE ORGANS: Tubal ligation clip on the right is not present, clip is present in the depende nt portion of the pelvis on the left. Left-sided tubal ligation clip is in place. Probable right ovar paco cyst present measuring 18 mm. URINARY BLADDER: No significant abnormality is seen. BOWEL: Sigmoid colon shows wall thickening, findings could be due to muscular hypertrophy, difficult to exclude a mucosal mass, there is no bowel obstruction. Appendix is normal. FREE AIR: No Free Air is visible. ASCITES: None visible. PELVIC ADENOPATHY: None visualized. RETROPERITONEAL ADENOPATHY: No Retroperitoneal Adenopathy visible. OSSEOUS STRUCTURES: No significant abnormality is seen. IMPRESSION: BILATERAL NEPHROLITHIASIS, PELVIC CALIECTASIS. CORRELATE TO EXCLUDE URINARY TRACT INFECTION, POSSIBLE RECENT PASSAGE OF URETERAL CALCULUS. One of the tubal ligation clips is not in appropriate position. Probable chronic reflux nephropathy right kidney. Noncontrast exam. Postop changes. Findings in the colon as described, consider bowel surveillance as indicated.
== END | disposition home or self-care (01) ==
LOC: RADCTMAIN 15:09
PROVIDERS: ATTEND Family Medicine
DX: N20.0 Calculus of kidney (principal); N28.89 Other specified disorders of kidney and ureter
CPT/HCPCS: 74176

== ENCOUNTER 2018-12-11 07:08 | Day surgery (SDC) | payer MEDICAID ==
[2018-12-06 11:01] VITALS: BMI 31.4
[~2018-12-11 07:08] MED LIST changes: -MIDAZOLAM 2 MG/2 ML VIAL IV PRN
[2018-12-11 07:27] VITALS: TEMP 98
[2018-12-11] MEDS ORDERED: LACTATED RINGERS 1,000 ML IV ONE (07:34)
[2018-12-11] MEDS ORDERED: PROPOFOL 10 MG/ML 20 ML VIAL IV ONE (08:04)
[2018-12-11] MEDS ORDERED: LIDOCAINE 1% INJ 10MG/ML (20 ML MDV) ONE (08:04)
--- NOTE | 2018-12-11 08:19 | P.PCN ---
Date of Procedure: 12/11/18 Procedure(s) Performed: BRIEF HISTORY: Patient is a 48-year-old pleasant white female scheduled for an elective colonoscopy as a part of evaluation of change in bowel habits and abdominal CAT scan of abdomen showing thickening of the sigmoid colon was his mass. PROCEDURE PERFORMED: Colonoscopy. PREOPERATIVE DIAGNOSIS: Change in bowel habits and abdominal CT of the abdomen. IV sedation per Anesthesia. PROCEDURE: After informed consent was obtained, the patient, was brought into the endoscopy unit. IV sedation was administered by Anesthesia under continuous monitoring. Digital rectal examination was normal. Initially the Olympus CF-160 flexible video colonoscope was then inserted in the rectum, gradually advanced into the cecum without any difficulty. Careful examination was performed as the scope was gradually being withdrawn. Ileocecal valve and the appendiceal orifice were visualized and appeared normal. Prep was excellent. Mucosa of the cecum, ascending colon, transverse colon, descending colon, sigmoid colon, and rectum appeared normal. Retroflexion was performed in the rectum and no lesions were seen. The patient tolerated the procedure well. IMPRESSION: Normal-appearing colon from rectum to cecum with no evidence of colitis or colorectal neoplasia RECOMMENDATIONS: Findings of this examination were discussed with the patient as well as her family. She was advised to have a repeat screening colonoscopy in 10 years.
[2018-12-11 08:25] VITALS: RESP 16
[2018-12-11 08:38] VITALS: BP 138/88; PULSE 67
== END 2018-12-11 09:06 | disposition home or self-care (01) ==
LOC: ORWHC2ENDO 07:08
PROVIDERS: ATTEND Internal Medicine Gastroenterology
DX: R19.4 Change in bowel habit (principal); J45.909 Unspecified asthma, uncomplicated; N32.81 Overactive bladder; M54.81 Occipital neuralgia; K21.9 Gastro-esophageal reflux disease without esophagitis; Z88.2 Allergy status to sulfonamides; Z79.890 Hormone replacement therapy; Z88.6 Allergy status to analgesic agent; Z79.899 Other long term (current) drug therapy
CPT/HCPCS: 81025; 45378; J2001; J2704

== ENCOUNTER → 2019-02-07 | Outpatient (CLI) | payer MEDICAID ==
--- NOTE | 2019-02-10 08:56 | MR ---
EXAMINATION TYPE: MR shoulder RT wo con DATE OF EXAM: 02/07/2019 COMPARISON: None HISTORY: RT shoulder pain into rt arm, numbness TECHNIQUE: Multiplanar, multisequence imaging of the right shoulder is performed without contrast. FINDINGS: Bicipital tendon is well situated the bicipital groove. Bony labrum are grossly intact. The re is no joint effusion. I glenohumeral ligaments are intact. There is arthropathy of the AC joint with mild mass effect upon the supraspinatus tendon and muscle compatible impingement. Subscapularis tendon is intact. There is ill-definition increased signal involving the anterior margin of the anterior fibers of the supraspinatus tendon measuring 5 mm compatible tendinosis and partial tear. No definite through thick ness tear seen. There is no retraction. Infraspinatus tendon intact. Suprascapular Notch has a normal appearance. IMPRESSION: 1. Impingement secondary to AC joint arthropathy with tendinopathy of the distal margin and insertion of the supraspinatus tendon. 5 mm partial tear of the supraspinatus anterior fibers seen with no payal dence of retraction.
== END | disposition home or self-care (01) ==
LOC: RADMRIMAIN 21:41
PROVIDERS: ATTEND Family Medicine
DX: M25.811 Other specified joint disorders, right shoulder (principal); M19.011 Primary osteoarthritis, right shoulder; M67.813 Other specified disorders of tendon, right shoulder

== ENCOUNTER → 2019-02-17 | Outpatient (CLI) | payer MEDICAID ==
--- NOTE | 2019-02-17 15:46 | XR ---
2 view abdomen HISTORY: Abdomen pain 2 views of the abdomen on 3 images, comparison to prior exam 06/02/2017 Lung bases are clear. There is no evident pneumoperitoneum or bowel obstruction. Surgical clips prese nt in the right upper quadrant. Bowel gas may obscure underlying detail. There is a gentle spinal cur vature. Fallopian tubal ligation clips are present in the pelvis, there are surgical clips overlying the left inguinal region. IMPRESSION: Postop changes.
== END | disposition home or self-care (01) ==
LOC: RADXRMAIN 14:13
PROVIDERS: ATTEND Family Medicine
DX: R10.9 Unspecified abdominal pain (principal); Z98.890 Other specified postprocedural states
CPT/HCPCS: 74019

== ENCOUNTER → 2019-03-28 | Outpatient (CLI) | payer MEDICAID ==
--- NOTE | 2019-03-30 22:17 | CT ---
EXAMINATION TYPE: CT abdomen pelvis wo con DATE OF EXAM: 03/28/2019 COMPARISON: 10/30/2018 HISTORY: 48-year-old female Left side flank pain. CT DLP: 632.1 mGycm. Automated exposure control for dose reduction was used. TECHNIQUE: Contiguous axial scanning of the abdomen and pelvis without IV contrast. Coronal and sagit viraj reconstructions performed. FINDINGS: Heart normal size without pericardial effusion. Lung bases clear without pleural effusion. Liver mildly enlarged measuring 18.8 cm. Noncontrast appearance of the liver shows no focal lesion. C holecystectomy clips. Cortical defects within the right kidney suggests sequela of prior vascular or infectious insult. A few punctate nonobstructive calculi are present in the right kidney measuring up to 3 mm. Punctate 2 mm nonobstructive left lower pole renal calculus. No hydronephrosis on either side. Noncontrast appearance of the adrenal glands, spleen and pancreas show no gross abnormality. No dilated small bowel, free fluid, or free air. No mesenteric or retroperitoneal lymphadenopathy. Normal appendix. Scattered [id number] stool. No pericolonic inflammatory change. Bladder nondistended. Uterus anteverted. Both ovaries are visualized. Left-sided tubal ligation clip. The right-sided tubal ligation clip is displaced into the left cul-de-sac. No abnormal fluid collect ion in the pelvis or pelvic lymphadenopathy. Bones: Mild degenerative changes at the hips. No osseous destructive process. IMPRESSION: 1. Stable cortical defect within the right kidney suggests sequela of prior vascular or infectious i nsult. 2. Redemonstrated bilateral punctate nonobstructive renal calculi. The previous pelvicaliectasis has resolved. 3. Mild hepatomegaly (18.8 cm). 4. Redemonstrated displacement of the right tubal ligation clip into the left cul-de-sac.
== END | disposition home or self-care (01) ==
LOC: RADCTMAIN 16:43
PROVIDERS: ATTEND Family Medicine
DX: N20.0 Calculus of kidney (principal); R16.0 Hepatomegaly, not elsewhere classified; T83.428A Displacement of other prosthetic devices, implants and grafts of genital tract, initial encounter; N28.89 Other specified disorders of kidney and ureter
CPT/HCPCS: 74176

== ENCOUNTER → 2019-05-14 | Outpatient (CLI) | payer MEDICAID ==
--- NOTE | 2019-05-15 09:29 | ECHOS ---
STRESS ECHOCARDIOGRAM DATE OF SERVICE: 05/14/2019 INDICATIONS: Chest pain. MEDICATIONS: BASELINE HEART RATE: 95 BASELINE BLOOD PRESSURE: 128/80 MAXIMUM HEART RATE: 170 MAXIMUM BLOOD PRESSURE: 167/68 85% MPHR: 147 100% MPHR: 173 METS: 9.7 MAXIMUM STAGE REACHED: III TOTAL EXERCISE TIME: 8 minutes CLINICAL INFORMATION: STRESS DATA: Heart rate 95, pressure is 128/80 mmHg. Baseline EKG showed sinus mechanism. The patient exercised on the treadmill according to Reji protocol for a total of 8 minutes and achieved 9.7 METs. Max heart rate was 170, which is about 98% of maximum predicted heart rate. Maximum blood pressure was 167/68 mmHg. Clinically the patient did not have any symptoms of chest pain or discomfort. The EKG did not show any significant ST or T-wave abnormalities concerning for ischemia. ECHOCARDIOGRAM IMAGES: On echocardiogram images from parasternal long axis, parasternal short axis view, apical 4 chamber and apical 2 chamber were obtained as the baseline images, at the peak of the heart rate as well as on recovery. The echocardiogram images showed good augmentation in the left ventricular systolic function without any evidence of wall motion abnormalities concerning for ischemia. CONCLUSION: 1. Good exercise tolerance. 2. Normal EKG in response to exercise. 3. Normal echocardiogram in response to exercise. MMODL / IJN: [id number] /
== END ==
LOC: RADNMMAIN 09:53
PROVIDERS: ATTEND Family Medicine
DX: R07.89 Other chest pain (principal)
CPT/HCPCS: 93351

== ENCOUNTER → 2019-05-21 | Outpatient (CLI) | payer MEDICAID ==
--- NOTE | 2019-05-21 17:15 | MR ---
EXAMINATION TYPE: MR brain wo/w con DATE OF EXAM: 05/21/2019 COMPARISON: Prior MRI brain November 07, 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 FINDINGS: Diffusion weighted images demonstrate no evidence of a recent infarct or other diffusion ab normality. There is no extra-axial fluid collection or new significant white matter signal abnormali ty. Few nonspecific small white matter lesions high frontal lobes reference 4 x 2 mm lesion anterior right frontal lobe axial image 27 are stable. The ventricular system and cisternal spaces are normal in size and appearance. The brain volume is age appropriate. Midline structures redemonstrate low occipital surgical changes. The craniocervical junction appears within normal limits. No recurrent tonsillar herniation is identified Post contrast images demonstra te no abnormal enhancement. The dural venous sinuses appear patent. The visualized sinuses are clear and the globes are intact. IMPRESSION: Overall stable findings, postsurgical changes from Chiari correction surgery posterior as pect posterior fossa. Minimal nonspecific white matter changes redemonstrated.
== END | disposition home or self-care (01) ==
LOC: RADMRIMAIN 13:37
PROVIDERS: ATTEND Family Medicine
DX: R90.89 Other abnormal findings on diagnostic imaging of central nervous system (principal); Z98.890 Other specified postprocedural states
CPT/HCPCS: 70553; A9585

== ENCOUNTER → 2019-05-28 | Outpatient (CLI) | payer MEDICAID ==
[2019-05-28 18:09] LABS: Basophils # (A) 0.1 k/uL (0-0.2); Basophils % (A) 1 %; Eosinophils # (A) 0.1 k/uL (0-0.7); Eosinophils % (A) 2 %; HCT 41.1 % (34.0-46.0); HGB 14.1 gm/dL (11.4-16.0); Lymphocytes # (A) 2.1 k/uL (1.0-4.8); Lymphocytes % (A) 36 %; MCH 31.7 pg (25.0-35.0); MCHC 34.4 g/dL (31.0-37.0); MCV 92.2 fL (80.0-100.0); Mean Platelet Volume 7.4; Monocytes # (A) 0.3 k/uL (0-1.0); Monocytes % (A) 4 %; Neutrophils # (A) 3.2 k/uL (1.3-7.7); Neutrophils % (A) 55 %; Platelet Count 312 k/uL (150-450); RBC 4.45 m/uL (3.80-5.40); RDW 14.5 % (11.5-15.5); WBC 5.8 k/uL (3.8-10.6)
== END | disposition home or self-care (01) ==
LOC: LABPAT 16:52
PROVIDERS: ATTEND Surgery Plastic and Reconstructive Surgery
DX: Z01.812 Encounter for preprocedural laboratory examination (principal)
CPT/HCPCS: 85025

== ENCOUNTER 2019-05-30 10:04 | Day surgery (SDC) | payer MEDICAID ==
[2019-05-26 10:58] VITALS: BMI 31.9
--- NOTE | 2019-05-30 09:18 | P.GSHP ---
History of Present Illness H&P Date: 05/30/19 CHIEF COMPLAINT: History of intra-abdominal adhesions HISTORY OF PRESENT ILLNESS: The patient is a 48-year-old female who presents with history of intra-abdominal adhesions from multiple prior surgeries including increasing abdominal pain. She now presents for diagnostic laparoscopy including lysis of adhesions. PAST MEDICAL HISTORY: Please see list. PAST SURGICAL HISTORY: Please see list. MEDICATIONS: Please see list. ALLERGIES: Please see list. SOCIAL HISTORY: No illicit drug use FAMILY HISTORY: No reports of Crohn disease or ulcerative colitis. REVIEW OF ORGAN SYSTEMS: CONSTITUTIONAL: No reports of fevers or chills. GI: Denies any blood in stools or constipation. PHYSICAL EXAM: VITAL SIGNS: Stable GENERAL: Well-developed pleasant and in no acute distress. HEENT: No scleral icterus. Extraocular movements grossly intact. Moist buccal mucosa. NECK: Supple without lymphadenopathy. CHEST: Unlabored respirations. Equal bilateral excursions. CARDIOVASCULAR: Regular rate and rhythm. Distal 2+ pulses. ABDOMEN: Soft, left lower quadrant tenderness. No peritonitis. MUSCULOSKELETAL: No clubbing, cyanosis, or edema. ASSESSMENT: 1. Left lower quadrant abdominal pain. 2. History of multiple abdominal surgeries. 3. Intra-abdominal adhesions. PLAN: 1. Robotic lysis of adhesions were described in detail including risk of injury to the intestine, need for further surgery, and open technique. 2. DVT prophylaxis. 3. Antibiotic prophylaxis. Past Medical History Past Medical History: Asthma, GERD/Reflux, Thyroid Disorder Additional Past Medical History / Comment(s): occipital neuritis Other hx: Chronic low back pain/herniated and bulging discs cervical/lumbar, bone fragments in back, arnold chiari malformation, hypothyroid, colitis, overactive bladder, hiatal hernia, kidney stones History of Any Multi-Drug Resistant Organisms: None Reported Past Surgical History: Cholecystectomy, Hernia Repair, Orthopedic Surgery, Tubal Ligation, Uterine Ablation Additional Past Surgical History / Comment(s): ORIF rt wrist hardware since removed, 04/10/18 EGD with bx, colonoscopy, right inguinal hernia repair, robotic assisted exploratory lap with left inguinal hernia repair/L inguinal lipoma removed/lysis of adhesions, right breast biopsy, left breast surgery for infected milk duct, Arnold-Chiari malformation surgery,partial meniscus repair left knee Past Anesthesia/Blood Transfusion Reactions: No Reported Reaction Smoking Status: Never smoker - Past Family History Mother Family Medical History: Diabetes Mellitus, Myocardial Infarction (CT) Additional Family Medical History / Comment(s): Mother of a CT at the age of 67yrs. Brother(s) Additional Family Medical History / Comment(s): boraderline diabetic Father Family Medical History: Cancer, Diabetes Mellitus Additional Family Medical History / Comment(s): Father from prostate cancer at the age of 71 yrs. He also had a myocardial infarction prior to the age of 65 Medications and Allergies Home Medications Medication Instructions Recorded Confirmed Type Acetaminophen Tab [Tylenol] 650 mg PO Q6HR PRN tab 04/30/18 05/26/19 Rx Levothyroxine Sodium [Synthroid] 88 mcg PO QAM 12/06/18 05/26/19 History Multivit with Calcium,Iron,Min 1 each PO DAILY 12/06/18 05/26/19 History [Women's Multivitamin] Vitamin B Complex 1 each PO DAILY 12/06/18 05/26/19 History Allergies Allergy/AdvReac Type Severity Reaction Status Date / Time adhesive tape Allergy Rash/Hives,"paper Verified 05/26/19 10:25 tape ok" sulfamethoxazole Allergy severe Verified 05/26/19 10:25 [From Bactrim] hives trimethoprim [From Bactrim] Allergy severe Verified 05/26/19 10:25 hives celecoxib [From Celebrex] AdvReac Confusion Verified 05/26/19 10:25
[~2019-05-30 10:04] MED LIST changes: +ACETAMINOPHEN TAB 500 MG TAB PO STA; +DEXAMETHASONE SOD PHOSPHATE 10 MG/ML 1 ML VIAL IV ONE; +HEPARIN SODIUM,PORCINE 5,000 UNIT/ML 1 ML VIAL SQ ONE; +HYDROmorphone 0.5 MG/0.5 ML SYRINGE IVP PRN; -LIDOCAINE 1% 20 ML VIAL (10MG/ML) FOR IV START INTRADERMA PRN; +MIDAZOLAM 2 MG/2 ML VIAL IV PRN; +ONDANSETRON 4 MG/2 ML VIAL IVP ONE; +Pre Op ABX Message 1 EACH MISC MISCELLANE ONE; +SCOPOLAMINE 1.5MG/72HR PATCH TRANSDERM ONE
[2019-05-30] MEDS ORDERED: fentaNYL (PF) 50 MCG/ML 2 ML AMP ONE (11:49)
[2019-05-30] MEDS ORDERED: GLYCOPYRROLATE 0.2 MG/ML 2 ML VIAL ONE (11:49)
[2019-05-30] MEDS ORDERED: ROCURONIUM BROMIDE 10 MG/ML 10 ML VIAL IV ONE (11:49)
[2019-05-30] MEDS ORDERED: LIDOCAINE 1% INJ 10MG/ML (20 ML MDV) ONE (11:49)
[2019-05-30] MEDS ORDERED: ePHEDrine SULFATE/0.9% NACL/PF 50 MG/5 ML SYRINGE IV ONE (11:49)
[2019-05-30] MEDS ORDERED: SUCCINYLCHOLINE CHLORIDE 100 MG/5 ML SYR IV ONE (11:49)
[2019-05-30] MEDS ORDERED: NEOSTIGMINE 1 MG/ML 10 ML VIAL ONE (11:49)
[2019-05-30] MEDS ORDERED: MIDAZOLAM 2 MG/2 ML VIAL ONE (11:49)
[2019-05-30] MEDS ORDERED: PROPOFOL 10 MG/ML 20 ML VIAL IV ONE (11:49)
[2019-05-30] MEDS ORDERED: LIDOCAINE 1%-EPI 1:100,000 20 ML VIAL SQ ONE (12:10)
[2019-05-30] MEDS ORDERED: LACTATED RINGERS 1,000 ML IV ONE (12:37)
--- NOTE | 2019-05-30 12:50 | P.OP ---
Date of Procedure: 05/30/19 Description of Procedure: SURGEON: DIANN ESCOBAR MD PREOPERATIVE DIAGNOSES: 1. Left lower quadrant abdominal pain 2. History of multiple abdominal surgeries 3. Asthma 4. Thyroid nodules 5. Arnold Chiari malformation POSTOPERATIVE DIAGNOSES: 1. Left lower quadrant abdominal pain 2. History of multiple abdominal surgeries 3. Asthma 4. Thyroid nodules 5. Arnold Chiari malformation 6. Retained foreign body, left lower quadrant, Filshie clip OPERATION: 1. Robotic-assisted da Shante Xi laparoscopic with lysis of adhesions, 30 minutes 2. Removal of intra-abdominal foreign body ESTIMATED BLOOD LOSS: 5 mL. SPECIMENS REMOVED: None. COMPLICATIONS: None. OPERATIVE FINDINGS: 1. Omental to abdominal wall adhesions left lower quadrant to previous left inguinal hernia repair. 2. Left fallopian tube completely divided with free floating tubal ligation Filshie clip INDICATIONS: The patient is a 48-year-old female who presents with moderate to severe left lower quadrant abdominal pain. Surgical intervention with diagnostic laparoscopy, lysis of adhesions and possible left inguinal hernia repair were described. Informed consent was obtained. Robotic assisted laparoscopic approach was described. Benefits and risks of the procedure including but not limited to bleeding, infection, injury to the biliary tree was described. Informed consent was obtained. DESCRIPTION OF PROCEDURE: Patient was brought to the operating room, placed in supine position. After general induction, the abdomen had been prepped and draped in standard sterile fashion. The robotic da Shante XI system was primed. After a timeout protocol was performed, the patient had been prepped and draped in standard sterile fashion. The robot was docked along the left lateral abdomen. Please note prior to docking of the robot; however, a 5 mm 0 degrees laparoscopic trocar entry was performed along the left upper quadrant. Next, three 8 mm robotic ports were placed along the upper abdomen. The camera 8-mm port was maintained along the epigastrium. Please note that the ports were placed at least 10 to 15 cm away from the target anatomy. Instruments including graspers and vessel sealer were interchanged by the retail store assistant. I had sat at the console. Greater omental adhesions to the left lower pelvis was identified attaching to her previous left inguinal hernia repair with mesh placement. Adhesions were sharply divided using vessel sealer including blunt dissection. Careful investigation of the remaining pelvis demonstrated a free-floating ligation clip at the completely divided left fallopian tube. The right pelvis was otherwise unremarkable. The robot was undocked. All pneumoperitoneum and instruments were evacuated from the abdominal cavity. The incisions were reapproximated using 4-0 Monocryl in an interrupted subcuticular fashion. Please note along the trocar sites, local anesthetic was placed as a field block prior to insertion of all instruments. Exofin was applied to the skin. At the end of the procedure needle, sponge, and instrument count had been verified correct by the salesperson surgical appliances. The patient was transferred to postanesthesia care unit in stable condition. Plan - Discharge Summary Discharge Rx Participant: Yes New Discharge Prescriptions: New Acetaminophen Tab [Tylenol Tab] 500 mg PO Q6H PRN #30 tablet PRN Reason: Pain No Action Acetaminophen Tab [Tylenol] 650 mg PO Q6HR PRN tab PRN Reason: Fever and/ or Mild Pain Levothyroxine Sodium [Synthroid] 88 mcg PO QAM Vitamin B Complex 1 each PO DAILY Multivit with Calcium,Iron,Min [Women's Multivitamin] 1 each PO DAILY Discharge Medication List Acetaminophen Tab [Tylenol] 650 mg PO Q6HR PRN tab 04/30/18 [Rx] Levothyroxine Sodium [Synthroid] 88 mcg PO QAM 12/06/18 [History] Multivit with Calcium,Iron,Min [Women's Multivitamin] 1 each PO DAILY 12/06/18 [History] Vitamin B Complex 1 each PO DAILY 12/06/18 [History] Acetaminophen Tab [Tylenol Tab] 500 mg PO Q6H PRN #30 tablet 05/30/19 [Rx] Follow up Appointment(s)/Referral(s): Diann Escobar MD [STAFF PHYSICIAN] - 06/03/19 Patient Instructions/Handouts: Lysis of Abdominal Adhesions (IP) Activity/Diet/Wound Care/Special Instructions: May shower. No bathtub soaks until June 09. No lifting over 10 pounds until June 09. Light diet today. Apply ice to incisions for pain. Discharge Disposition: HOME SELF-CARE
[2019-05-30 13:04] VITALS: TEMP 97.4
[2019-05-30 13:18] VITALS: RESP 16
[2019-05-30 13:56] VITALS: BP 132/84; PULSE 61
== END 2019-05-30 14:27 | disposition home or self-care (01) ==
LOC: OR 10:04
PROVIDERS: ATTEND Surgery Plastic and Reconstructive Surgery
DX: K66.0 Peritoneal adhesions (postprocedural) (postinfection) (principal); E04.2 Nontoxic multinodular goiter; J45.909 Unspecified asthma, uncomplicated; Q07.00 Arnold-Chiari syndrome without spina bifida or hydrocephalus; Z83.3 Family history of diabetes mellitus; Z82.49 Family history of ischemic heart disease and other diseases of the circulatory system; Z79.890 Hormone replacement therapy; Z79.899 Other long term (current) drug therapy; Z88.2 Allergy status to sulfonamides; Z88.8 Allergy status to other drugs, medicaments and biological substances; Z18.89 Other specified retained foreign body fragments
CPT/HCPCS: 81025; 49329; J2250; J1644; J1100; J2710; J0690; J2405; J2001; J3010; J0330; J2704

== ENCOUNTER → 2019-06-04 | Outpatient (CLI) | payer MEDICAID ==
--- NOTE | 2019-06-04 11:08 | MM ---
Reason for exam: additional evaluation requested from prior study. Last mammogram was performed 10 months ago. History: Family history of breast cancer in paternal grandmother at age 70. Benign excisional biopsy of the right breast, May 2011. Benign excisional biopsy of the left breast, 1996. Took hormonal contraceptives for 5 years beginning at age 21. Physical Findings: Nurse did not find any significant physical abnormalities on exam. MG 3D Diag Mammo W/Cad YKM Bilateral CC and MLO view(s) were taken. Prior study comparison: August 07, 2018, bilateral MG 3d screening mammo w/cad. August 01, 2017, bilateral MG 3d screening mammo w/cad. The breast tissue is heterogeneously dense. This may lower the sensitivity of mammography. There is no discrete abnormality. No significant new findings when compared with previous films. These results were verbally communicated with the patient and result sheet given to the patient on 06/04/19. ASSESSMENT: Negative, BI-RAD 1 RECOMMENDATION: Routine screening mammogram of both breasts in 1 year. Manage patient on a clinical basis.
== END | disposition home or self-care (01) ==
LOC: RADMAMWWP 10:16
PROVIDERS: ATTEND Family Medicine
DX: N64.4 Mastodynia (principal)
CPT/HCPCS: 77062; 77066

== ENCOUNTER → 2019-06-21 | Outpatient (CLI) | payer MEDICAID ==
--- NOTE | 2019-06-21 16:53 | CT ---
EXAMINATION TYPE: CT abdomen pelvis w con DATE OF EXAM: 06/21/2019 COMPARISON: 03/28/2019 HISTORY: LLQ pain, recent scar tissue removal CT DLP: 928.1 mGycm Automated exposure control for dose reduction was used. TECHNIQUE: Helical acquisition of images was performed from the lung bases through the pelvis. CONTRAST: Performed with Oral Contrast and with IV Contrast, patient injected with 100 mL of Isovue 300. FINDINGS: Lung bases are clear. There is no pleural effusion. Heart size is normal. Liver spleen stomach pancreas appear normal. Bile ducts are not dilated. There are clips from cholecy stectomy. There is no adrenal mass. There is cortical thinning in the right kidney. This is more noticeable in the lower and upper pole. There is no hydronephrosis. Ureters are not dilated. There are calyceal div erticula in the upper and lower pole of the right kidney. There is no retroperitoneal adenopathy. Bladder distends smoothly. There is no inguinal hernia. There is no free fluid in the pelvis. There is no mesenteric edema. There is no ascites or free air. Appendix appears normal. Lumbar spine is intact. Bony pelvis is intact. There is 1 mm calculus lower pole left kidney. There is 1 mm calcul us lower pole right kidney. IMPRESSION: CORTICAL THINNING RIGHT KIDNEY CONSISTENT WITH SCARRING AND CHRONIC PYELONEPHRITIS UNCHANGED. NO EVID ENCE OF RENAL OBSTRUCTION. NONOBSTRUCTING LEFT AND RIGHT RENAL CALCULUS. NORMAL APPENDIX. NO EVIDENCE OF DIVERTICULITIS.
== END | disposition home or self-care (01) ==
LOC: RADCTMAIN 12:04
PROVIDERS: ATTEND Surgery Plastic and Reconstructive Surgery
DX: N20.0 Calculus of kidney (principal); N28.89 Other specified disorders of kidney and ureter
CPT/HCPCS: 74177; Q9967 ×2

== ENCOUNTER → 2019-06-21 | Outpatient (CLI) | payer MEDICAID ==
[2019-06-21 12:45] LABS: HCT 38.6 % (34.0-46.0); HGB 13.3 gm/dL (11.4-16.0); MCH 32.3 pg (25.0-35.0); MCHC 34.6 g/dL (31.0-37.0); MCV 93.6 fL (80.0-100.0); Mean Platelet Volume 6.3; Platelet Count 315 k/uL (150-450); RBC 4.13 m/uL (3.80-5.40); RDW 11.8 % (11.5-15.5); WBC 6.7 k/uL (3.8-10.6)
[2019-06-21 22:59] LABS: African American GFR (CKD) 119.6 (60.0-200.0); Albumin 4.7 g/dL (3.80-4.90); Albumin/Globulin Ratio 2.61 (1.60-3.17); Anion Gap 10.1 mmol/L (4.00-12.00); BUN/Creat Ratio 14.29 Ratio (12.00-20.00); Calcium 9.3 mg/dL (8.7-10.3); Carbon Dioxide 27.9 mmol/L (21.6-31.8); Globulin 1.8 g/dL (1.6-3.3); Potassium 4.5 mmol/L (3.5-5.5); Total Bilirubin 0.8 mg/dL (0.2-1.2); Total Protein 6.5 g/dL (6.2-8.2)
== END | disposition home or self-care (01) ==
LOC: LABWHC1 11:54
PROVIDERS: ATTEND Surgery Plastic and Reconstructive Surgery
DX: K57.32 Diverticulitis of large intestine without perforation or abscess without bleeding (principal); R10.84 Generalized abdominal pain
CPT/HCPCS: 36415; 80053; 85027

== ENCOUNTER → 2019-10-06 | Outpatient (CLI) | payer MEDICAID ==
--- NOTE | 2019-10-06 15:46 | XR ---
EXAMINATION TYPE: XR foot complete RT DATE OF EXAM: 10/06/2019 COMPARISON: NONE HISTORY: Pain TECHNIQUE: Three views are submitted. FINDINGS: The osseous structures are intact. There is no acute fracture or dislocation. Arthropathy of the f irst MTP. Plantar calcaneal spur. IMPRESSION: 1. No acute fracture or dislocation. If symptoms persist, follow-up exam in 7 to 10 days could be ob tained.
== END | disposition home or self-care (01) ==
LOC: RADXRMAIN 15:16
PROVIDERS: ATTEND Nurse Practitioner Family
DX: M79.674 Pain in right toe(s) (principal)

== ENCOUNTER → 2019-10-22 | Outpatient (CLI) | payer MEDICAID | END | disposition home or self-care (01) | LOC: LABWHC1 13:45 | PROVIDERS: ATTEND Otolaryngology | DX: M54.2 Cervicalgia (principal); R42 Dizziness and giddiness | CPT/HCPCS: 36415; 85652; 86618 ==

== ENCOUNTER → 2019-10-22 | Outpatient (CLI) | payer MEDICAID ==
--- NOTE | 2019-10-22 11:49 | ECHOS ---
STRESS ECHOCARDIOGRAM INDICATIONS: Chest pain. MEDICATIONS: Synthroid, Vesicare BASELINE HEART RATE: 100 BASELINE BLOOD PRESSURE: 130/73 MAXIMUM HEART RATE: 166 MAXIMUM BLOOD PRESSURE: 170/78 85% MPHR: 146 100% MPHR: 172 METS: 8.5 MAXIMUM STAGE REACHED: 3 TOTAL EXERCISE TIME: 7:00 CLINICAL INFORMATION: Baseline heart rate 100 beats per minute. Baseline blood pressure 130/73 mmHg. Baseline 12-lead ECG shows normal sinus rhythm with normal cardiac intervals, normal ST segments. Patient exercised on Reji protocol for 7 minutes achieving a peak heart rate of 166 beats per minute. Normal blood pressure response to exercise. There was no ECG evidence for ischemia. No arrhythmias were noted. The 2D echo showed normal LV size and systolic function without segmental wall motion abnormalities. At peak exercise, there was excellent augmentation of overall LV contractility without developing any wall motion abnormalities. At recovery, regional global LV systolic function remained normal. IMPRESSION: No ECG or echocardiographic evidence for ischemia. MMODL / IJN: [id number] /
== END | disposition home or self-care (01) ==
LOC: RADNMMAIN 09:51
PROVIDERS: ATTEND Internal Medicine Interventional Cardiology
DX: R07.9 Chest pain, unspecified (principal)
CPT/HCPCS: 93351

== ENCOUNTER → 2019-12-31 | Outpatient (CLI) | payer MEDICAID ==
[2019-12-31 15:56] LABS: Anion Gap 7.7 mmol/L (4.00-12.00); BUN/Creat Ratio 21.25 Ratio (12.00-20.00); Calcium 9.2 mg/dL (8.7-10.3); Carbon Dioxide 28.3 mmol/L (21.6-31.8); Magnesium 1.9 mg/dL (1.5-2.4); Non-African American GFR(CKD) 87.2 (60.0-200.0); Potassium 4.5 mmol/L (3.5-5.5)
[2019-12-31 16:04] LABS: T4, Free (Free Thyroxine) 1.5 ng/dL (0.80-1.80)
== END | disposition home or self-care (01) ==
LOC: LABWHC1 09:27
PROVIDERS: ATTEND Nurse Practitioner
DX: R00.2 Palpitations (principal)
CPT/HCPCS: 36415; 80048; 83735; 84439; 84443

== ENCOUNTER → 2020-02-02 | Outpatient (CLI) | payer MEDICAID ==
--- NOTE | 2020-02-02 12:09 | XR ---
EXAM TYPE: LUMBAR SPINE X RAY SERIES COMPARISON: 10/09/2018 HISTORY: Pain TECHNIQUE: 4 views are submitted. FINDINGS: Alignment is anatomic. The pedicles are intact. The transverse processes are intact. There is no s pondylolysis or spondylolisthesis. Surgical clips in the right upper quadrant are seen. Hypertrophic and degenerative change of the spine. Sacralization of L5 segment noted. Degenerative changes L4-5 a nd L5-S1. IMPRESSION: 1. Degenerative change L4-5 and L5-S1.
== END | disposition home or self-care (01) ==
LOC: RADXRMAIN 11:46
PROVIDERS: ATTEND Family Medicine
DX: M47.816 Spondylosis without myelopathy or radiculopathy, lumbar region (principal); M47.817 Spondylosis without myelopathy or radiculopathy, lumbosacral region
CPT/HCPCS: 72110

== ENCOUNTER → 2020-02-05 | Outpatient (CLI) | payer MEDICAID ==
--- NOTE | 2020-02-05 13:57 | XR ---
EXAMINATION TYPE: XR Hip Complete RT DATE OF EXAM: 02/05/2020 COMPARISON: NONE HISTORY: Pain TECHNIQUE: 2 views submitted FINDINGS: There is no evidence of erosive change or acute fracture. Hypertrophic change of the acetabulum. Mild concentric narrowing the joint space. IMPRESSION: 1. No evidence of acute fracture or dislocation. 2. Correlate for femoral acetabular impingement.
--- NOTE | 2020-02-05 14:04 | XR ---
EXAMINATION TYPE: XR cervical spine comp DATE OF EXAM: 02/05/2020 COMPARISON: NONE HISTORY: Pain TECHNIQUE: Four views are submitted. FINDINGS: The odontoid is intact. There are no compression deformities. The prevertebral soft tissue structur es are within normal limits. Degenerative changes C5-6 and C6-C7 noted. There is no compression defo rmities. IMPRESSION: 1. Mild degenerative change C5-6 and C6-C7..
--- NOTE | 2020-02-05 14:07 | XR ---
EXAMINATION TYPE: XR knee complete bilateral DATE OF EXAM: 02/05/2020 COMPARISON: NONE HISTORY: Pain TECHNIQUE: Three views are submitted. FINDINGS: Joint spaces are preserved. Osseous structures are intact. No acute fracture seen. IMPRESSION: 1. No acute fracture or dislocation.
== END | disposition home or self-care (01) ==
LOC: RADXRMAIN 12:18
PROVIDERS: ATTEND Family Medicine
DX: M25.561 Pain in right knee (principal); M25.562 Pain in left knee; M25.851 Other specified joint disorders, right hip; M47.812 Spondylosis without myelopathy or radiculopathy, cervical region
CPT/HCPCS: 72050; 73502

== ENCOUNTER → 2020-03-05 | Outpatient (CLI) | payer MEDICAID ==
[2020-03-05 14:41] LABS: Basophils % (A) 1 %; Eosinophils # (A) 0.1 k/uL (0-0.7); Eosinophils % (A) 3 %; HGB 13.3 gm/dL (11.4-16.0); Lymphocytes # (A) 1.7 k/uL (1.0-4.8); Lymphocytes % (A) 32 %; MCH 30.7 pg (25.0-35.0); MCHC 33.2 g/dL (31.0-37.0); MCV 92.5 fL (80.0-100.0); Mean Platelet Volume 7.4; Monocytes # (A) 0.3 k/uL (0-1.0); Monocytes % (A) 6 %; Neutrophils % (A) 57 %; Platelet Count 271 k/uL (150-450); RBC 4.33 m/uL (3.80-5.40); RDW 12.2 % (11.5-15.5); WBC 5.2 k/uL (3.8-10.6)
[2020-03-05 17:38] LABS: Protein, Total 6.8 g/dL (6.2-8.2)
[2020-03-05 17:49] LABS: ALT 12 U/L (8-44); AST 20 U/L (13-35); African American GFR (CKD) 118.7 (60.0-200.0); Albumin/Globulin Ratio 2.14 (1.60-3.17); Alkaline Phosphatase 47 U/L (41-126); Calcium 9.2 mg/dL (8.7-10.3); Carbon Dioxide 27.6 mmol/L (21.6-31.8); Chloride 105 mmol/L (96-109); Creatine Kinase 118 U/L (26-186); GGT <15 U/L (0-38); Globulin 2.2 g/dL (1.6-3.3); Glucose 91 mg/dL (70-110); Non-African American GFR(CKD) 102.5 (60.0-200.0); Rheumatoid Factor, Qnt 7 IU/mL (0-15); Sodium 139 mmol/L (135-145); Total Bilirubin 0.4 mg/dL (0.3-1.2); Total Protein 6.9 g/dL (6.2-8.2)
[2020-03-05 18:30] LABS: Cyclic Citrull Pep IgG Unit <0.5 U/mL; Cyclic Citrullinated Pep IgG NEGATIVE (NEGATIVE)
[2020-03-09 10:03] LABS: Vitamin E (Alpha Tocopherol) 1258 ug/dL (500-1800)
[2020-03-10 11:28] LABS: Albumin 4.41 g/dL (3.80-4.90); Gamma Globulin 0.86 g/dL (0.70-1.50)
[2020-03-10 15:44] LABS: Vit B1(Thiamine) 66 ug/L (38-122)
== END | disposition home or self-care (01) ==
LOC: LABWHC1 14:12
PROVIDERS: ATTEND Psychiatry & Neurology Neurology
DX: R20.2 Paresthesia of skin (principal)
CPT/HCPCS: 36415; 80053; 82306; 82550; 82607; 82977; 84165; 84207; 84425; 84443; 84446; 85025; 86038; 86200; 86334; 86431

== ENCOUNTER → 2020-04-13 | Outpatient (CLI) | payer MEDICAID ==
--- NOTE | 2020-04-13 22:09 | MR ---
EXAMINATION TYPE: MR knee RT wo con DATE OF EXAM: 04/13/2020 COMPARISON: Plain film 03/17/2020 HISTORY: Rt knee pain x 3 mos, prior surgery TECHNIQUE: Multiplanar, multisequence imaging of the right knee is performed without IV contrast. FINDINGS: MEDIAL MENISCUS: Anterior and posterior horns are intact without tear. LATERAL MENISCUS: Within the posterior horn of the lateral meniscus there is some increased signal to wards the root anchor however no clear tear is identified CRUCIATE LIGAMENTS: The anterior and posterior cruciate ligaments are intact and unremarkable. COLLATERAL LIGAMENTS: Within the medial collateral ligament there is transfixed increased signal sugg estive of partial tear or strain, some minimal local increased signal suggesting some minimal edema EXTENSOR MECHANISM: Visualized quadriceps and patellar tendons are intact. EFFUSION: Small joint effusion POPLITEAL CYST: No popliteal/hu cyst. TRICOMPARTMENT SPACES: Maintained CARTILAGE: Intact BONE MARROW SIGNAL: No focal abnormal marrow signal is appreciated. OTHER: Increased signal in the prepatellar region on T2-weighted sequences may be related to prior s urgery, intermediate signal and low signal seen on CT T1-weighted images. IMPRESSION: Postop changes. Small joint effusion. Possible medial collateral ligament sprain or partial tear. Sig nal changes within the posterior horn of the lateral meniscus as described.
== END | disposition home or self-care (01) ==
LOC: RADMRIMAIN 17:05
PROVIDERS: ATTEND Orthopaedic Surgery
DX: M25.461 Effusion, right knee (principal); R93.7 Abnormal findings on diagnostic imaging of other parts of musculoskeletal system; Z98.890 Other specified postprocedural states

== ENCOUNTER → 2020-04-14 | Outpatient (CLI) | payer MEDICAID ==
--- NOTE | 2020-04-14 17:02 | MR ---
EXAMINATION TYPE: MR brain/cspine wo/w DATE OF EXAM: 04/14/2020 COMPARISON: MRI brain May 21, 2019. MRI cervical spine October 21, 2018. HISTORY: Fall, imbalance, neck pain, headache TECHNIQUE: Multiplanar, multisequence images of the cervical spine, brain, and brainstem are all performed witho ut and with IV contrast, utilizing 9 mL intravenous Gadavist . FINDINGS: BRAIN: Diffusion weighted images demonstrate no evidence of a recent infarct or other diffusion abnormality. There is no extra-axial fluid collection or new significant white matter signal abnormality. There are less than 5 tiny scattered white matter lesions for reference 4 x 2 mm high right frontal lesion image 27 is redemonstrated. The ventricular system and cisternal spaces remain normal in size and jaylen earance and stable. The brain volume is age appropriate. Midline structures demonstrate normal morphology. The craniocervical junction appears within normal limits. Post contrast images demonstrate no abnormal enhancement. The dural venous sinuses appear pa tent. The visualized sinuses are clear and the globes are intact. Low occipital craniectomy changes a re redemonstrated. IMPRESSION: No new or acute findings are evident. MRI CERVICAL SPINE: FINDINGS: Coronal images redemonstrate slight levoconvex scoliotic curvature or positioning centered in the upper thoracic spine. Sagittal images of the cervical spine show the craniocervical junction t o remain within normal limits. Posterior postsurgical changes or decompression are redemonstrated. Th e cervical and upper thoracic spinal cord demonstrates slight AP diameter narrowing in the lower cerv ical spine at site of small syrinx most prominent from inferior C5 through the inferior C7 levels. No significant interval change. Alignment is stable and straightened with slight grade 1 retrolisthesis C5 on C6. The vertebral body and intravertebral disk heights remain normal. The bone marrow signal intensity is within normal limits. No suspicious postcontrast enhancement. Mild multilevel anterior s purring redemonstrated. Axial images show the C2-C3 and C3-C4 levels to remain within normal limits. Axial images at C4-C5 levels show broad-based posterior disc protrusion mild facet degenerative aranda es bilaterally. There is mild effacement of the anterior thecal sac and mild bilateral neural foramin al narrowing. No significant change from prior. Axial images at the C5-C6 level show lobulated posterior disc protrusion effacing the anterior thecal sac and causing mild bilateral neural foraminal narrowing. No significant change from prior. Axial images at the C6-C7 level redemonstrate spondylolisthesis and focal right paracentral disc prot rusion effacing the anterolateral thecal sac, bilateral neural foramina are patent. No significant ch alf from prior. Axial images at C7-T1 level remain within normal limits. Persistent visualization of syrinx centered C6 level on axial images. Stable. IMPRESSION: Stable loss of normal cervical curvature and multilevel degenerative changes at C4-C5 thr ough C6-C7 levels along with small syrinx centered C6 level. No significant change from prior MRI.
== END | disposition home or self-care (01) ==
LOC: RADMRIMAIN 14:55
PROVIDERS: ATTEND Psychiatry & Neurology Neurology
DX: M47.892 Other spondylosis, cervical region (principal); R20.2 Paresthesia of skin
CPT/HCPCS: 70553; 72156; A9585

== ENCOUNTER 2020-04-30 02:51 | Emergency (ER) | payer MEDICAID ==
[2020-04-30] MEDS ORDERED: IPRATROPIUM-ALBUTEROL 3 ML NEB INHALATION STA (03:26)
--- NOTE | 2020-04-30 03:27 | ED ---
Recheck HPI - General Chief Complaint: Abdominal Pain Stated Complaint: Right side pain Time Seen by Provider: 04/30/20 02:53 Source: patient Mode of arrival: ambulatory Limitations: no limitations - History of Present Illness Initial Comments: There is a 41-year-old female presented today for evaluation of right-sided abdominal pain flank pain. Increasing cough persistent cough concern for Aron. Feels clammy fevers chills. 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 She hasn't ER about 5 days ago had CAT scans and x-rays are negative at the time. Again no recent documented fevers the patient states the cough is persistent abdominal pain is persistent MD Complaint: other (abdominal pain and cough) -: days(s) Returns Today for: persistent/worsening pain related to initial visit Symptoms Since Prior Visit: worsening pain Context: planned re-check (not getting better) Associated Symptoms: fever, chills, shortness of breath (cough) Treatments Prior to Arrival: other medications (cough medication) - Related Data Home Medications Medication Instructions Recorded Confirmed Levothyroxine Sodium [Synthroid] 88 mcg PO QAM 12/06/18 05/30/19 Multivit with Calcium,Iron,Min 1 each PO DAILY 12/06/18 05/30/19 [Women's Multivitamin] Vitamin B Complex 1 each PO DAILY 12/06/18 05/30/19 Previous Rx's Medication Instructions Recorded Acetaminophen Tab [Tylenol] 650 mg PO Q6HR PRN tab 04/30/18 Acetaminophen Tab [Tylenol Tab] 500 mg PO Q6H PRN #30 tablet 05/30/19 Cephalexin [Keflex] 500 mg PO Q6HR 7 Days #28 cap 04/26/20 Allergies Allergy/AdvReac Type Severity Reaction Status Date / Time adhesive tape Allergy Rash/Hives,"paper Verified 04/30/20 02:56 tape ok" sulfamethoxazole Allergy severe Verified 04/30/20 02:56 [From Bactrim] hives trimethoprim [From Bactrim] Allergy severe Verified 04/30/20 02:56 hives celecoxib [From Celebrex] AdvReac Confusion Verified 04/30/20 02:56 Review of Systems ROS Statement: Those systems with pertinent positive or pertinent negative responses have been documented in the HPI. ROS Other: All systems not noted in ROS Statement are negative. Past Medical History Past Medical History: Asthma, GERD/Reflux, Thyroid Disorder Additional Past Medical History / Comment(s): pt states "thickening of colon wall that showed up on CT Aug 2018",occipital neuritis Other hx: Chronic low back pain/herniated and bulging discs cervical/lumbar, bone fragments in back, arnold chiari malformation, hypothyroid, colitis, overactive bladder, hiatal hernia,steroid dose pack November 2018 History of Any Multi-Drug Resistant Organisms: None Reported Past Surgical History: Cholecystectomy, Hernia Repair, Orthopedic Surgery, Uterine Ablation Additional Past Surgical History / Comment(s): ORIF rt wrist hardware since removed, 04/10/18 EGD with bx, colonoscopy, right inguinal hernia repair, robotic assisted exploratory lap with left inguinal hernia repairs/L inguinal lipoma removed/lysis of adhesions, right breast biopsy, left breast surgery for infected milk duct, Arnold-Chiari malformation surgery,partial meniscus repair left knee Past Anesthesia/Blood Transfusion Reactions: No Reported Reaction Past Psychological History: No Psychological Hx Reported Smoking Status: Never smoker Past Alcohol Use History: Occasional Past Drug Use History: None Reported - Past Family History Mother Family Medical History: Diabetes Mellitus, Myocardial Infarction (NC) Additional Family Medical History / Comment(s): Mother of a NC at the age of 67yrs. Brother(s) Additional Family Medical History / Comment(s): boraderline diabetic Father Family Medical History: Cancer, Diabetes Mellitus Additional Family Medical History / Comment(s): Father from prostate cancer at the age of 71 yrs. He also had a myocardial infarction prior to the age of 65 General Exam Limitations: no limitations General appearance: alert, in no apparent distress Head exam: Present: atraumatic, normocephalic, normal inspection Eye exam: Present: normal appearance, PERRL, EOMI. Absent: scleral icterus, conjunctival injection, periorbital swelling ENT exam: Present: normal exam, mucous membranes moist Neck exam: Present: normal inspection. Absent: tenderness, meningismus, lymphadenopathy Respiratory exam: Present: normal lung sounds bilaterally. Absent: respiratory distress, wheezes, rales, rhonchi, stridor Cardiovascular Exam: Present: regular rate, normal rhythm, normal heart sounds. Absent: systolic murmur, diastolic murmur, rubs, gallop, clicks GI/Abdominal exam: Present: soft, normal bowel sounds. Absent: distended, tenderness, guarding, rebound, rigid Extremities exam: Present: normal inspection, full ROM, normal capillary refill. Absent: tenderness, pedal edema, joint swelling, calf tenderness Back exam: Present: normal inspection Neurological exam: Present: alert, oriented X3, CN II-XII intact Psychiatric exam: Present: normal affect, normal mood Skin exam: Present: warm, dry, intact, normal color. Absent: rash Course Vital Signs 04/30/20 04/30/20 02:52 04:09 Temperature 98.5 F Pulse Rate 86 86 Respiratory 20 Rate Blood Pressure 158/89 O2 Sat by Pulse 97 Oximetry - Reevaluation(s) Reevaluation #1: 04/30/20 04:14 Medical record and prior ER visit are reviewed Reevaluation #2: 04/30/20 04:14 Significant change in symptoms here in the ER Reevaluation #3: 04/30/20 04:15 Spoke patient length regarding findings, we'll test for Kovic and patient can be discharged home Medical Decision Making - Medical Decision Making 41 female Rojelio with cough congestion persistent abdominal pain and cough upper respiratory infection. Urinary tract infection is resolved no other significant improvement in symptoms. Patient will follow-up with primary care - Lab Data Lab Results 04/30/20 Range/Units 03:33 Urine Color Yellow Urine Appearance Cloudy H (Clear) Urine pH 5.5 (5.0-8.0) Ur Specific [place] 1.018 (1.001-1.035) Urine Protein Negative (Negative) Urine Glucose (UA) Negative (Negative) Urine Ketones Negative (Negative) Urine Blood Moderate H (Negative) Urine Nitrite Negative (Negative) Urine Bilirubin Negative (Negative) Urine Urobilinogen <2.0 (<2.0) mg/dL Ur Leukocyte Esterase Moderate H (Negative) Urine RBC 29 H (0-5) /hpf Urine WBC 4 (0-5) /hpf Ur Squamous Epith Cells 20 H (0-4) /hpf Urine Bacteria Rare H (None) /hpf Urine Mucus Rare H (None) /hpf - Radiology Data Radiology results: report reviewed (XR abd series w CXR is negative for acute dz), image reviewed Disposition Clinical Impression: Abdominal pain, Bronchitis, Cough Disposition: HOME SELF-CARE Condition: Good Instructions (If sedation given, give patient instructions): Abdominal Pain (ED) Is patient prescribed a controlled substance at d/c from ED?: No Referrals: Ryder Loja MD [Primary Care Provider] - 1-2 days
--- NOTE | 2020-04-30 03:45 | XR ---
EXAMINATION TYPE: XR abdomen acute w cxr DATE OF EXAM: 04/30/2020 COMPARISON: 02/17/2019 HISTORY: Abdominal pain TECHNIQUE: 4 views FINDINGS: Heart and mediastinum are normal. Lungs are clear. Diaphragm is normal. There are clips from cholecystectomy. The bowel gas pattern is normal. There is no sign of intestinal obstruction or pneumoperitoneum. Fecal pattern is normal. There are surgical clips in the pelvis on the left side. There is no evidence of a mass. IMPRESSION: Nonacute abdomen. No active cardiopulmonary disease. Normal heart. Abdomen unchanged comp ared to old exam. Chest unchanged compared to 04/26/2020.
[2020-04-30 03:47] LABS: Appearance,Urine Cloudy (Clear); Bacteria,Urine Rare /hpf; Bilirubin,Urine Negative (Negative); Blood,Urine Moderate (Negative); Color,Urine Yellow; Glucose,Urine (UA) Negative (Negative); Ketones,Urine Negative (Negative); Leukocyte Esterase,Urine Moderate (Negative); Mucus,Urine Rare /hpf; Nitrite,Urine Negative (Negative); PH, Urine 5.5 (5.0-8.0); Protein,Urine Negative (Negative); RBC,Urine 29 /hpf (0-5); Specific Gravity,Urine 1.018 (1.001-1.035); Squamous Epithelial Cell,Urine 20 /hpf (0-4); Urobilinogen,Urine <2.0 mg/dL (<2.0); WBC,Urine 4 /hpf (0-5)
[2020-04-30 04:33] VITALS: BP 120/72; PULSE 84; RESP 18; TEMP 97.6
== END 2020-04-30 04:32 | disposition home or self-care (01) ==
LOC: EC 02:51
DX: J40 Bronchitis, not specified as acute or chronic (principal); R10.9 Unspecified abdominal pain; E03.9 Hypothyroidism, unspecified; Z79.890 Hormone replacement therapy; Z88.1 Allergy status to other antibiotic agents; Z88.2 Allergy status to sulfonamides; Z88.6 Allergy status to analgesic agent; Z91.048 Other nonmedicinal substance allergy status
CPT/HCPCS: 94640; 81001; 74022; 99284; U0003

== ENCOUNTER → 2020-05-21 | Outpatient (CLI) | payer MEDICAID ==
--- NOTE | 2020-05-21 18:18 | CT ---
EXAMINATION TYPE: CT chest w con DATE OF EXAM: 05/21/2020 COMPARISON: None HISTORY: c/o cough CT DLP: 260.8 mGycm Automated exposure control for dose reduction was used. CONTRAST: Performed with IV Contrast, patient injected with 100 mL of Isovue 370. The lungs are clear of infiltrate. There is minimal pleural thickening right posterior lung field. Th ere is no pleural effusion. There is no evidence of a pulmonary mass. Heart size is normal. There is no pericardial effusion. There is no pneumothorax. There are enlarged bronchial and mediastinal lymph nodes that measure up to 1.5 cm. Heart appears nor mal. There is some cortical thinning upper pole right kidney. There are clips from cholecystectomy. Thorac ic spine is intact. There is no compression fracture. IMPRESSION: There is mediastinal and bronchial lymphadenopathy. No evidence of any significant lung disease. Mini mal pleural thickening right posterior chest wall. Cortical thinning upper pole right kidney consistent with scarring unchanged compared to 04/26/2020 an d could relate to chronic pyelonephritis.
== END | disposition home or self-care (01) ==
LOC: RADCTMAIN 17:28
PROVIDERS: ATTEND Internal Medicine Critical Care Medicine
DX: R91.8 Other nonspecific abnormal finding of lung field (principal); R59.0 Localized enlarged lymph nodes; Z88.2 Allergy status to sulfonamides; Z88.6 Allergy status to analgesic agent
CPT/HCPCS: 71260; Q9967

== ENCOUNTER → 2020-05-26 | Outpatient (CLI) | payer MEDICAID ==
[2020-05-26 19:19] LABS: African American GFR (CKD) 118.7 (60.0-200.0); Albumin 4.8 g/dL (3.80-4.90); Albumin/Globulin Ratio 2.09 (1.60-3.17); Anion Gap 7.9 mmol/L (4.00-12.00); BUN/Creat Ratio 24.29 Ratio (12.00-20.00); C Reactive Protein, High Sens 1.29 mg/L (0.000-3.000); Calcium 9.2 mg/dL (8.7-10.3); Carbon Dioxide 27.1 mmol/L (21.6-31.8); Globulin 2.3 g/dL (1.6-3.3); Non-African American GFR(CKD) 102.5 (60.0-200.0); Potassium 4.1 mmol/L (3.5-5.5); Total Bilirubin 0.7 mg/dL (0.3-1.2); Total Protein 7.1 g/dL (6.2-8.2)
== END | disposition home or self-care (01) ==
LOC: LABWHC1 11:35
PROVIDERS: ATTEND Internal Medicine Critical Care Medicine
DX: R06.02 Shortness of breath (principal); D86.9 Sarcoidosis, unspecified; R05 Cough
CPT/HCPCS: 36415; 80053; 82164; 85652; 86141

== ENCOUNTER → 2020-05-28 | Outpatient (CLI) | payer MEDICAID ==
--- NOTE | 2020-05-31 06:55 | PE ---
EXAMINATION TYPE: PET CT fusion skull to thigh DATE OF EXAM: 05/28/2020 COMPARISON: Chest CT May 21, 2020. CT abdomen and pelvis April 26, 2020. Older CTs. HISTORY: Sarcoidosis with recent abnormal CT. TECHNIQUE: Following the intravenous administration of 11.2 mCi of F-18 FDG, whole body images are p erformed from the skull base to the midthigh. Images are reviewed on the computer in the coronal, ax ial, and sagittal planes. Reconstructed rotating images are created on independent workstation and r eviewed on the computer. A noncontrast CT is performed in conjunction with the PET scan. SCAN: Initial Scan FINDINGS: SKULL BASE AND NECK: No areas of suspicious hypermetabolic uptake. CHEST, MEDIASTINUM, AND HILAR REGION: Hypermetabolic nonenlarged and enlarged thoracic lymph nodes ar e present involving both hilar regions and the mediastinum. Max SUV right hilar region near axial stiven ge 91 is 8.58. Max SUV left hilar region near axial image 92 with 13.89. For reference there is 14 x 8 mm right tracheobronchial lymph node axial image 80, max SUV is 14.8 by . For reference there is 1.5 x 1.0 cm subcarinal lymph node axial image 85, max SUV is 14.03. Hyperme tabolic lymph nodes extend into the anterior superior mediastinum. ABDOMEN AND PELVIS: Normal excretion is present. There is hypermetabolic peripancreatic lymph node ju st anterior to the IVC in the region of the pancreatic head and level of cholecystectomy clips measur ing 1.9 x 1.4 cm, max SUV is 9.82. No adrenal masses are noted. OSSEOUS STRUCTURES: No suspicious hypermetabolic uptake. OTHER CT: There is low occipital craniectomy change. Cholecystectomy clips. Anteverted uterus. Left pelvic surgical clip. S-shaped scoliotic curvature. IMPRESSION: Enlarged and nonenlarged hypermetabolic thoracic lymph nodes with single upper abdominal enlarged hypermetabolic lymph node. No suspicious hypermetabolic nodules or masses to suggest primary lung neoplasm. Findings could be related to sarcoidosis or other granulomatous disease. Neoplasm suc h as lymphoma is not excluded.
== END | disposition home or self-care (01) ==
LOC: RADPETMAIN 16:35
PROVIDERS: ATTEND Internal Medicine Critical Care Medicine
DX: R59.9 Enlarged lymph nodes, unspecified (principal)
CPT/HCPCS: 78815; A9552

== ENCOUNTER → 2020-06-22 | Outpatient (CLI) | payer MEDICAID ==
--- NOTE | 2020-06-23 10:38 | US ---
EXAMINATION TYPE: US kidneys/renal and bladder DATE OF EXAM: 06/22/2020 COMPARISON: PET/CT 05/28/2020 CLINICAL HISTORY: N20.0 KIDNEY STONES. EXAM MEASUREMENTS: Right Kidney: 7.2 x 3.6 x 4.0 cm Left Kidney: 12.3 x 6.1 x 5.1 cm Right Kidney: No hydronephrosis. Simple benign cyst measures 0.9 x 0.7 x 0.8 cm. Nonobstructing 4 mm calculus of the interpolar kidney. Left Kidney: No hydronephrosis. Simple benign cyst measures 1.0 x 0.6 x 1.2 cm. Nonobstructing 4 mm c alculus of the lower pole. Bladder: Normal. Bilateral Jets seen: Yes IMPRESSION: 1. Bilateral nonobstructing 4 mm renal calculi. No hydronephrosis. 2. Normal urinary bladder.
== END | disposition home or self-care (01) ==
LOC: RADUSWWP 16:09
PROVIDERS: ATTEND Urology
DX: N20.0 Calculus of kidney (principal)
CPT/HCPCS: 76770

== ENCOUNTER → 2020-06-25 | Outpatient (CLI) | payer MEDICAID ==
[2020-06-25 08:33] LABS: Basophils % (A) 1 %; Eosinophils # (A) 0.1 k/uL (0-0.7); Eosinophils % (A) 3 %; HCT 39.5 % (34.0-46.0); HGB 13.8 gm/dL (11.4-16.0); Lymphocytes # (A) 1.1 k/uL (1.0-4.8); Lymphocytes % (A) 24 %; MCH 32.2 pg (25.0-35.0); MCHC 34.9 g/dL (31.0-37.0); MCV 92.3 fL (80.0-100.0); Mean Platelet Volume 7.4; Monocytes # (A) 0.3 k/uL (0-1.0); Monocytes % (A) 6 %; Neutrophils # (A) 3.1 k/uL (1.3-7.7); Neutrophils % (A) 65 %; Platelet Count 259 k/uL (150-450); RBC 4.28 m/uL (3.80-5.40); RDW 12.5 % (11.5-15.5); WBC 4.7 k/uL (3.8-10.6)
[2020-06-25 08:44] LABS: African American GFR (CKD) >90 (>60 ml/min/1.73 sqM); Anion Gap 7 mmol/L; Blood Urea Nitrogen 12 mg/dL (7-17); Carbon Dioxide 29 mmol/L (22-30); Chloride 105 mmol/L (98-107); Glucose 98 mg/dL (74-99); Non-African American GFR(CKD) >90 (>60 ml/min/1.73 sqM); Potassium 4.1 mmol/L (3.5-5.1); Prothrombin Time 10.1 sec (9.0-12.0); Sodium 141 mmol/L (137-145)
== END | disposition home or self-care (01) ==
LOC: LABPAT 07:18
PROVIDERS: ATTEND Thoracic Surgery (Cardiothoracic Vascular Surgery)
DX: Z01.818 Encounter for other preprocedural examination (principal); R59.1 Generalized enlarged lymph nodes; U07.1 COVID-19
CPT/HCPCS: 80051; 82565; 82947; 84520; 85025; 85610; 85730; 36415; U0003; C9803

== ENCOUNTER → 2020-07-08 | Day surgery (SDC) | payer MEDICAID ==
[2020-06-28 15:53] VITALS: BMI 33.2
[~2020-07-08] MED LIST changes: -ACETAMINOPHEN TAB 500 MG TAB PO STA; -DEXAMETHASONE SOD PHOSPHATE 10 MG/ML 1 ML VIAL IV ONE; +DEXAMETHASONE SOD PHOSPHATE 4 MG/ML 1 ML VIAL IV ONE; +GLYCOPYRROLATE 0.2 MG/ML 2 ML VIAL ONE; -HEPARIN SODIUM,PORCINE 5,000 UNIT/ML 1 ML VIAL SQ ONE; +HYDROmorphone (PF) 1 MG/ML ONE; +LIDOCAINE 1% (10MG/ML) FOR IV START INTRADERMA PRN; +LIDOCAINE 1% INJ 10MG/ML (20 ML MDV) ONE; -MIDAZOLAM 2 MG/2 ML VIAL IV PRN; +MIDAZOLAM 2 MG/2 ML VIAL ONE; +NEOSTIGMINE 1 MG/ML 10 ML VIAL ONE; +PROPOFOL 10 MG/ML 20 ML VIAL IV ONE; -Pre Op ABX Message 1 EACH MISC MISCELLANE ONE; +ROCURONIUM 10 MG/ML (10 ML VIAL) IV ONE; +SUCCINYLCHOLINE CHLORIDE 100 MG/5 ML SYR IV ONE; +fentaNYL (PF) 50 MCG/ML 2 ML AMP ONE
[2020-07-08 13:44] VITALS: TEMP 97.1
[2020-07-08 14:05] VITALS: RESP 16
[2020-07-08 14:57] VITALS: BP 151/84; PULSE 68
--- NOTE | 2020-07-08 15:41 | P.OP ---
Date of Procedure: 07/08/20 Preoperative Diagnosis: mediastinal lymphadenopathy Postoperative Diagnosis: same Procedure(s) Performed: mediastinoscopy with lymph node biopsy Anesthesia: DORCAS Surgeon: Adam Florence Rn Neonatal Icu #1: Hemal Ford Estimated Blood Loss (ml): 5 IV fluids (ml): 700 Urine output (ml): 0 Pathology: other (Right paratracheal lymph nodes for pathology (fresh) and culture) Condition: stable Disposition: PACU Indications for Procedure: 50-year-old female with significant mediastinal and bilateral hilar adenopathy consistent with sarcoidosis. Referred by internal medicine and pulmonology for biopsy for diagnosis. Operative Findings: enlarged right paratracheal lymph nodes Description of Procedure: the patient was brought to the operating room, placed supine on the operating table, anesthetized and intubated. She was appropriately positioned for mediastinoscopy. The anterior neck and chest were sterilely prepped and draped. Transverse incision was made across the midline at the base of the neck carried down through skin and subcutaneous tissue. Was continued vertically in the midline between the strap muscles to the pretracheal plane. The thyroid isthmus was encircled ligated with 0 silk ties and divided with the electrocautery. Dissection was now carried along the pretracheal plane into the mediastinum with the finger dissection. The mediastinoscope was inserted into the pretracheal plane and the dissection carried down to the level of the phoebe. Right enlarged paratracheal lymph nodes were noted and multiple biopsies were obtain ed. A portion was sent for culture and the remainder fresh for pathology. The mediastinum was packed with a 4 x 4 gauze for 5 minutes and then this was removed. There was no evidence of bleeding. Strap muscles were reapproximated with [id number]'s of 3-0 Vicryl. Subcutaneous tissue and subcuticular tissue were closed with running 3-0 Vicryl suture. Skin glue and dry sterile dressing were applied. Patient was extubated and transferred to recovery in stable condition.
== END | disposition home or self-care (01) ==
LOC: OR 09:16
PROVIDERS: ATTEND Thoracic Surgery (Cardiothoracic Vascular Surgery)
DX: I88.9 Nonspecific lymphadenitis, unspecified (principal); J45.909 Unspecified asthma, uncomplicated; E03.9 Hypothyroidism, unspecified; G89.29 Other chronic pain; M54.9 Dorsalgia, unspecified; E66.9 Obesity, unspecified; R05 Cough; J31.2 Chronic pharyngitis; I25.10 Atherosclerotic heart disease of native coronary artery without angina pectoris; K21.9 Gastro-esophageal reflux disease without esophagitis; Z87.798 Personal history of other (corrected) congenital malformations; Z98.890 Other specified postprocedural states; Z98.51 Tubal ligation status; Z90.49 Acquired absence of other specified parts of digestive tract; Z87.19 Personal history of other diseases of the digestive system; Z91.018 Allergy to other foods; Z68.33 Body mass index [BMI] 33.0-33.9, adult; Z88.2 Allergy status to sulfonamides; Z88.6 Allergy status to analgesic agent; Z79.899 Other long term (current) drug therapy; Z79.890 Hormone replacement therapy; Z82.49 Family history of ischemic heart disease and other diseases of the circulatory system; Z83.3 Family history of diabetes mellitus; Z80.9 Family history of malignant neoplasm, unspecified
CPT/HCPCS: 88307; 87070; 87205; 87075; 87116; 87102; 87206; 39402; J2250; J2710; J0690; J2405; J2001; J3010; J1170; J0330; J2704; 88312

== ENCOUNTER → 2020-08-20 | Outpatient (CLI) | payer MEDICAID ==
--- NOTE | 2020-08-24 12:25 | MM ---
Reason for exam: screening (asymptomatic). Last mammogram was performed 1 year and 3 months ago. History: Family history of breast cancer in paternal grandmother at age 70. Benign excisional biopsy of the right breast, May 2011. Benign excisional biopsy of the left breast, 1996. Took hormonal contraceptives for 5 years beginning at age 21. Physical Findings: A clinical breast exam by your physician is recommended on an annual basis and results should be correlated with mammographic findings. MG 3D Screening Mammo W/Cad Bilateral CC and MLO view(s) were taken. Prior study comparison: June 04, 2019, bilateral MG 3d diag mammo w/cad K[facility]. August 07, 2018, bilateral MG 3d screening mammo w/cad. The breast tissue is heterogeneously dense. This may lower the sensitivity of mammography. No significant changes when compared with prior studies. ASSESSMENT: Negative, BI-RAD 1 RECOMMENDATION: Routine screening mammogram of both breasts in 1 year.
== END | disposition home or self-care (01) ==
LOC: RADMAMWWP 16:29
PROVIDERS: ATTEND Obstetrics & Gynecology
DX: Z12.31 Encounter for screening mammogram for malignant neoplasm of breast (principal)
CPT/HCPCS: 77063; 77067

== ENCOUNTER → 2020-09-02 | Outpatient (CLI) | payer MEDICAID ==
[2020-09-02 11:42] LABS: Basophils % (A) 0 %; Eosinophils # (A) 0.1 k/uL (0-0.7); Eosinophils % (A) 1 %; HCT 41.5 % (34.0-46.0); HGB 13.8 gm/dL (11.4-16.0); Lymphocytes % (A) 13 %; MCH 30.6 pg (25.0-35.0); MCHC 33.3 g/dL (31.0-37.0); Mean Platelet Volume 7.2; Monocytes # (A) 0.3 k/uL (0-1.0); Monocytes % (A) 4 %; Neutrophils # (A) 5.9 k/uL (1.3-7.7); Neutrophils % (A) 80 %; Platelet Count 324 k/uL (150-450); RBC 4.51 m/uL (3.80-5.40); RDW 12.6 % (11.5-15.5); WBC 7.3 k/uL (3.8-10.6)
[2020-09-02 11:48] LABS: Total Eosinophil Count 95 #EOS/uL (150-300)
[2020-09-02 12:43] LABS: Erythrocyte Sedimentation Rate 11 mm/hr (0-20)
[2020-09-06 15:16] LABS: C-ANCA <1:20 Titer (<1:20)
[2020-09-06 17:20] LABS: Bartonella henselae Ab, IgG <1:64; Bartonella henselae Ab, IgM < 1:16
== END | disposition home or self-care (01) ==
LOC: LABWHC1 11:09
PROVIDERS: ATTEND Otolaryngology
DX: L92.9 Granulomatous disorder of the skin and subcutaneous tissue, unspecified (principal); R53.83 Other fatigue; K30 Functional dyspepsia
CPT/HCPCS: 36415; 82330; 82378; 83615; 84443; 84450; 84460; 85008; 85025; 85652; 86255; 86611; 86780

== ENCOUNTER → 2020-09-15 | Outpatient (CLI) | payer MEDICAID ==
--- NOTE | 2020-09-15 08:33 | US ---
EXAMINATION TYPE: US thyroid st tissue head/neck DATE OF EXAM: 09/15/2020 COMPARISON: 09/06/2016 CLINICAL HISTORY: 50-year-old female D86.9 Sarcoidosis. Midline neck swelling, on thyroid meds TECHNIQUE: Multiple sonographic images of the thyroid gland are obtained. FINDINGS: GLAND SIZE: Right Lobe: 4.3 x 1.2 x 1.3 cm Overall Parenchyma: homogenous Left Lobe: 3.9 x 1.1 x 1.1 cm Overall Parenchyma: homogeneous Isthmus Thickness: 0.3 cm NODULES RIGHT: # of nodules measured on right: 0 LEFT: # of nodules measured on left: 0 ISTHMUS: # of nodules measured in the isthmus: 1 1. 0.7 X 0.6 x 0.5 cm solid or almost completely solid, hypoechoic nodule, which is wider than tall , with smooth margins, without echogenic foci. Prior size: no previous Bilateral neck scanned, no evidence of lymphadenopathy. IMPRESSION: A 7 mm solid nodule within the left thyroid isthmus appears new from 2016. Follow-up can be considere d.
--- NOTE | 2020-09-15 13:37 | CT ---
EXAMINATION TYPE: CT soft tissue neck w con DATE OF EXAM: 09/15/2020 HISTORY: Lymph node removal with recent dx of sarcoidosis. COMPARISON: CT neck April 06 [address] DLP: 552.3 mGycm. Automated Exposure Control for Dose Reduction was Utilized. TECHNIQUE: CT scan of the neck is performed with IV Contrast, patient injected with 100 mL of Isovue 300, axial images are obtained, coronal and sagittal reformatted images are reviewed. FINDINGS: Airway: Mild emphysematous change redemonstrated. Parotid/submandibular glands: No gross abnormality seen. Carotid/Vascular Structures: No significant plaque or stenosis. Osseous Structures: Straightening of cervical spine. Slight underlying scoliotic curvature. Low occip ital craniectomy from Chiari decompression redemonstrated. Other: No suspicious greater than 1 cm neck adenopathy. Few scattered subcentimeter lymph nodes throu ghout the neck bilaterally are redemonstrated. Partial visualization of prominent low dense bilateral hilar lymph nodes. Oval low density oval structure adjacent to the ascending aorta and the mediastin um could reflect benign thin-walled cyst is partially imaged. IMPRESSION: No suspicious mass or adenopathy identified.
== END | disposition home or self-care (01) ==
LOC: RADUSWWP 07:09
PROVIDERS: ATTEND Internal Medicine Critical Care Medicine
DX: E04.1 Nontoxic single thyroid nodule (principal); D86.9 Sarcoidosis, unspecified
CPT/HCPCS: 76536; 70491; Q9967

== ENCOUNTER → 2020-09-15 | Outpatient (CLI) | payer MEDICAID ==
--- NOTE | 2020-09-15 08:36 | US ---
EXAMINATION TYPE: US abdomen complete DATE OF EXAM: 09/15/2020 COMPARISON: CT 04/26/2020 CLINICAL HISTORY: 50-year-old female R10.9 Unspecified abdominal pain. Abdomen pain, diarrhea, histor y of cholecystectomy TECHNIQUE: Multiple sonographic images of the abdomen are obtained. FINDINGS: EXAM MEASUREMENTS: Liver Length: 15.3 cm Gallbladder: surgically absent CBD: 0.3 cm Spleen: 9.9 cm Right Kidney: 9.4 x 4.7 x 4.2 cm Left Kidney: 10.1 x 5.4 x 4.6 cm Pancreas: Only a portion of the pancreatic neck is visualized. Remainder is obscured by bowel gas sh adowing. Liver: Homogeneous appearance. No focal lesion seen. Gallbladder: surgically absent Evidence for sonographic Soto's sign: no CBD: visualized portions wnl Spleen: visualized portions wnl, limited by overlying bowel gas Right Kidney: 0.5cm echogenic focus inferior pole. No hydronephrosis. Left Kidney: 1.1cm cystic area lateral mid pole, 0.3cm echogenic focus lower pole Upper IVC: wnl Abd Aorta: wnl IMPRESSION: A tiny renal calculus on either side measuring up to 5 mm. Cortical defects within the right kidney d emonstrated on CT are not well seen by ultrasound and could reflect sequela of prior vascular or infe ctious insults. Status post cholecystectomy. No biliary ductal dilatation.
== END | disposition home or self-care (01) ==
LOC: RADUSWWP 07:07
PROVIDERS: ATTEND Family Medicine
DX: N20.0 Calculus of kidney (principal); Z90.49 Acquired absence of other specified parts of digestive tract
CPT/HCPCS: 76700

== ENCOUNTER → 2020-09-22 | Outpatient (CLI) | payer MEDICAID ==
--- NOTE | 2020-09-22 10:41 | CT ---
EXAMINATION TYPE: CT abdomen pelvis w con DATE OF EXAM: 09/22/2020 HISTORY: Abd pain CT DLP: 983.7mGycm Automated Exposure Control for Dose Reduction was Utilized. CONTRAST: CT scan of the abdomen and pelvis is performed with IV Contrast, patient injected with 100 mL of Isov ue 300. COMPARISON: PET/CT May 28, 2020. CT abdomen and pelvis April 26, 2020 and older CTs. FINDINGS: LUNG BASES: No significant abnormality is appreciated. LIVER/GB: Cholecystectomy clips. PANCREAS: No significant abnormality is seen. SPLEEN: No significant abnormality is seen. ADRENALS: No significant abnormality is seen. KIDNEYS: Symmetric cortical medullary uptake and excretion with new [id number] bilateral hydron ephrosis. Focal cortical scarring and 2 to 3 mm nonobstructing calculus lower pole right kidney coron al image 55 redemonstrated. Focal cortical scarring upper pole right kidney also again seen. Right ki dney remains asymmetrically smaller to left kidney. Stable 2 to 3 mm nonobstructing calculus lower po le left kidney coronal image 54. No obstructing calculi or significant hydroureter. BOWEL: Oral contrast does not reach level of the terminal ileum making evaluation of distal bowel sli ghtly suboptimal. Normal-appearing appendix identified inferiorly from cecum in the right lower quadr ant. Mild to moderate wall thickening in the transverse and left colon. Findings could be product of the uncomplicated mild acute colitis. No suspicious small or large bowel dilatation. Mild to moderate fecal prominence in the right colon. UTERUS/ADNEXA: Anteverted uterus. Tubal ligation clip left pelvis posteriorly axial image 74 redemons trated. Slightly prominent draining left ovarian vein redemonstrated. Cannot exclude pelvic congestio n syndrome. LYMPH NODES: No greater than 1cm abdominal or pelvic lymph nodes are appreciated. OSSEOUS STRUCTURES: Sacralized L5 vertebra redemonstrated. OTHER: No significant additional abnormality is seen. IMPRESSION: 1. New mild to moderate bilateral hydronephrosis without delayed excretion or obstructing mass or ginette culus. Consider vesicoureteral reflux as possible etiology. Correlate clinically. 2. Possible mild new uncomplicated acute colitis involving the transverse and left colon versus produ ct of poor distention. Correlate clinically. Differential includes infectious and inflammatory etiolo gies.
== END | disposition home or self-care (01) ==
LOC: RADCTMAIN 07:54
PROVIDERS: ATTEND Family Medicine
DX: N13.30 Unspecified hydronephrosis (principal)
CPT/HCPCS: 74177; Q9967 ×2

== ENCOUNTER → 2020-09-29 | Outpatient (CLI) | payer MEDICAID ==
--- NOTE | 2020-09-29 15:43 | US ---
EXAMINATION TYPE: US renals and bladder DATE OF EXAM: 09/29/2020 COMPARISON: CT dated 09/22/2020, US 09/15/2020 CLINICAL HISTORY: N20.0 Kidney Stone; Bilateral renal stones per CT; Sarcoidosis -takes medication fo r this; right kidney smaller than left EXAM MEASUREMENTS: Right Kidney: 7.5 x 5.5 x 4.3 cm Left Kidney: 12.8 x 6.4 x 6.4 cm Post Void Residual Volume: 3.9 mL Right Kidney: Mild caliectasis seen; couple of hyperechoic foci imaged in lower pole with larger clus ter = 0.7 x 0.5 x 0.3cm Left Kidney: Mild hydronephrosis noted; inferior pole shadowing renal calculus seen = 0.6 x 0.7 x 0. 4cm; lateral cortical cyst cluster seen = 1.1 x 0.8 x 0.9cm. Bladder: wnl Bilateral Jets seen: yes Normal Post Void Residual: yes The urinary bladder is anechoic. Bilateral ureteral jets are seen. IMPRESSION: Right kidney is small, there are areas of loss of cortex consistent with prior scarring. Nonobstructi ve right nephrolithiasis, some mild hydronephrosis present bilaterally as on CT. Nonobstructive right nephrolithiasis.
== END | disposition home or self-care (01) ==
LOC: RADUSWWP 10:45
PROVIDERS: ATTEND Urology
DX: N13.2 Hydronephrosis with renal and ureteral calculous obstruction (principal); N27.0 Small kidney, unilateral
CPT/HCPCS: 76770

== ENCOUNTER → 2020-11-03 | Outpatient (CLI) | payer MEDICAID ==
--- NOTE | 2020-11-03 22:56 | US ---
EXAMINATION TYPE: US thyroid st tissue head/neck DATE OF EXAM: 11/03/2020 COMPARISON: Thyroid ultrasound September 15, 2020 CLINICAL HISTORY: E04.1 Thyroid Nodule. Follow up thyroid nodules. GLAND SIZE: Right Lobe: 3.9 x 1.2 x 1.2 cm Overall Parenchyma: homogenous Left Lobe: 3.9 x 1.5 x 0.8 cm Overall Parenchyma: homogeneous Isthmus Thickness: 0.3 cm NODULES RIGHT: # of nodules measured on right: 0 LEFT: # of nodules measured on left: 0 ISTHMUS: # of nodules measured in the isthmus: 1 1. 0.6 X 0.5 x 0.4 cm solid or almost completely solid, hypoechoic nodule, which is wider than tall , with smooth margins, without echogenic foci. Prior size: 0.7 x 0.6 x 0.5 cm Bilateral neck scanned, no evidence of lymphadenopathy. Homogeneous small size thyroid with stable small isthmus nodule. IMPRESSION: As above. No new or enlarging greater than 1 cm nodules
== END ==
LOC: RADUSWWP 15:35
PROVIDERS: ATTEND Otolaryngology
DX: E04.1 Nontoxic single thyroid nodule (principal)
CPT/HCPCS: 76536

== ENCOUNTER → 2020-11-05 | Outpatient (CLI) | payer MEDICAID ==
[2020-11-06 05:54] LABS: Luteinizing Hormone 34.2 mIU/mL
[2020-11-06 05:55] LABS: Follicle Stimulating Hormone 92.7 mIU/mL
[2020-11-06 06:03] LABS: Estradiol 15.5 pg/mL; Testosterone <7.00 ng/dL (9.01-47.94)
== END | disposition home or self-care (01) ==
LOC: LABWHC1 16:23
PROVIDERS: ATTEND Nurse Practitioner
DX: N95.9 Unspecified menopausal and perimenopausal disorder (principal)
CPT/HCPCS: 36415; 82670; 83001; 83002; 84144; 84402; 84403

== ENCOUNTER → 2020-11-12 | Outpatient (CLI) | payer MEDICAID ==
--- NOTE | 2020-11-12 09:34 | USB ---
Reason for exam: clinical finding. History: Family history of breast cancer in paternal grandmother at age 70. Benign excisional biopsy of the right breast, May 2011. Benign excisional biopsy of the left breast, 1996. Took hormonal contraceptives for 5 years beginning at age 21. Physical Findings: Nurse did not find any significant physical abnormalities on exam. US Breast RT Right complete breast ultrasound includes all four quadrants, the retroareolar region and axilla. Finding demonstrates no cystic or solid lesion seen. Additional targeted scanning of the axilla performed. These results were verbally communicated with the patient and result sheet given to the patient on 11/12/20. ASSESSMENT: Benign, BI-RAD 2 RECOMMENDATION: Return to routine screening mammogram schedule for both breasts. Back on schedule. Manage on a clinical basis with regard to right breast pain.
== END | disposition home or self-care (01) ==
LOC: RADUSWWP 07:01
PROVIDERS: ATTEND Family Medicine
DX: N64.4 Mastodynia (principal)

== ENCOUNTER → 2020-11-25 | Outpatient (CLI) | payer MEDICAID | END | disposition home or self-care (01) | LOC: LABWHC1 07:51 | PROVIDERS: ATTEND Internal Medicine Nephrology | DX: N20.0 Calculus of kidney (principal); D86.9 Sarcoidosis, unspecified | CPT/HCPCS: 82140; 82340; 82507; 82570; 83735; 83945; 83986; 84105; 84133; 84300; 84392; 84560 ==

== ENCOUNTER → 2021-01-17 | Outpatient (CLI) | payer MEDICAID ==
--- NOTE | 2021-01-18 04:38 | MR ---
EXAMINATION TYPE: MR lspine/sacrum wo con DATE OF EXAM: 01/17/2021 COMPARISON: 10/09/2018 HISTORY: LBP, radiating down right hip and leg. Multiplanar multiecho imaging of the lumbar spine was performed without contrast. Lumbar vertebra have normal alignment. There is some narrowing and decreased signal in the disks at L 4-5 and L5-S1. There is rudimentary disc at S1-S2. There is posterior central mild disc herniation at L4-5 and L5-S1. There is developmentally large spinal canal and no significant spinal stenosis. Ther e is no lumbar paraspinal mass. There is no compression fracture. The neural foramina are fairly well -maintained. The sacroiliac joints appear intact. There is no sign of sacroiliitis. IMPRESSION: Mild posterior disc herniations at L4-5 and L5-S1 without significant change compared to old exam. Mi ld degenerative disc changes. No spinal stenosis. No fracture.
== END | disposition home or self-care (01) ==
LOC: RADMRIMAIN 18:01
PROVIDERS: ATTEND Nurse Practitioner
DX: M51.27 Other intervertebral disc displacement, lumbosacral region (principal); M51.36 Other intervertebral disc degeneration, lumbar region
CPT/HCPCS: 72148; 72195

== ENCOUNTER → 2021-01-19 | Outpatient (CLI) | payer MEDICAID ==
--- NOTE | 2021-01-19 15:04 | CT ---
EXAMINATION TYPE: CT chest w con DATE OF EXAM: 01/19/2021 COMPARISON: 05/21/2020 HISTORY: 50-year-old female D86.9, Sarcoidosis TECHNIQUE: Contiguous axial scanning of the chest after the administration of 100 ml mL of Isovue 300 . Coronal/sagittal reconstructions performed. CT DLP: 325.90mGycm. Automatic exposure control utilized for a dose reduction. FINDINGS: Heart normal size without pericardial effusion. Aorta normal caliber with conventional arch vessel branching anatomy. Scattered mediastinal and hilar lymph nodes are stable to slightly smaller measuring colon 1.4 cm lower right paratracheal, unchanged. 2.3 cm right hilar versus 2.6 cm, previously, 1.8 cm left hilar versus 2.0 cm previously. 1.4 cm subcarinal, unchanged. Suspect a right-sided pericardiac cyst measuring 3.2 x 0.8 cm, unchanged. Strandy atelectasis posteriorly in the lower lobes. No perilymphatic nodularity or thickening of the bronchovascular bundles. No consolidation or pleural effusion. 9 mm anterior right midlung pulmonary nodule remains unchanged suggesting a benign etiology. Visualized upper abdomen shows cholecystectomy clips and stable focal cortical atrophy upper pole rig ht kidney. Tiny nonobstructive 4 mm right renal calculus partially visualized. Bones: No osseous destructive process. IMPRESSION: Right paratracheal and bilateral hilar lymph nodes are either stable or slightly smaller, measuring u p to 2.3 cm versus 2.6 cm, previously, and in keeping with the patient's diagnosis of sarcoidosis.
== END | disposition home or self-care (01) ==
LOC: RADCTMAIN 09:48
PROVIDERS: ATTEND Internal Medicine Critical Care Medicine
DX: D86.9 Sarcoidosis, unspecified (principal); R59.0 Localized enlarged lymph nodes
CPT/HCPCS: 71260; Q9967

== ENCOUNTER → 2021-01-19 | Day surgery (SDC) | payer MEDICAID ==
[2021-01-14 11:30] VITALS: BMI 34.5
[~2021-01-19] MED LIST changes: -DEXAMETHASONE SOD PHOSPHATE 4 MG/ML 1 ML VIAL IV ONE; -GLYCOPYRROLATE 0.2 MG/ML 2 ML VIAL ONE; -HYDROmorphone (PF) 1 MG/ML ONE; -HYDROmorphone 0.5 MG/0.5 ML SYRINGE IVP PRN; +LIDOCAINE 1% (10MG/ML) FOR IV START INTRADERMA ONE; -LIDOCAINE 1% (10MG/ML) FOR IV START INTRADERMA PRN; -NEOSTIGMINE 1 MG/ML 10 ML VIAL ONE; -ONDANSETRON 4 MG/2 ML VIAL IVP ONE; -ROCURONIUM 10 MG/ML (10 ML VIAL) IV ONE; -SCOPOLAMINE 1.5MG/72HR PATCH TRANSDERM ONE; -SUCCINYLCHOLINE CHLORIDE 100 MG/5 ML SYR IV ONE
--- NOTE | 2021-01-19 09:41 | P.GSHP ---
History of Present Illness H&P Date: 01/19/21 CHIEF COMPLAINT: GERD and colon screen HISTORY OF PRESENT ILLNESS: The patient is a 50-year-old female who presents with gastroesophageal reflux disease and need for colon screen. Upper and lower endoscopy were offered for further evaluation and management. PAST MEDICAL HISTORY: Please see list. PAST SURGICAL HISTORY: Please see list. MEDICATIONS: Please see list. ALLERGIES: Please see list. SOCIAL HISTORY: No illicit drug use FAMILY HISTORY: No reports of Crohn disease or ulcerative colitis. REVIEW OF ORGAN SYSTEMS: CONSTITUTIONAL: No reports of fevers or chills. GI: Denies any blood in stools or constipation. PHYSICAL EXAM: VITAL SIGNS: Stable GENERAL: Well-developed pleasant in no acute distress. HEENT: No scleral icterus. Extraocular movements grossly intact. Moist buccal mucosa. NECK: Supple without lymphadenopathy. CHEST: Unlabored respirations. Equal bilateral excursions. CARDIOVASCULAR: Regular rate and rhythm. Distal 2+ pulses. ABDOMEN: Soft, nondistended. MUSCULOSKELETAL: No clubbing, cyanosis, or edema. ASSESSMENT: 1. Gastroesophageal reflux disease 2. Colon screen. PLAN: 1. Recommend proceeding with an upper and lower endoscopy Past Medical History Past Medical History: Asthma, GERD/Reflux, Thyroid Disorder Additional Past Medical History / Comment(s): "Thickening of colon wall that showed up on CT Aug 2018", Occipital Neuritis. Chronic low back pain/herniated a nd bulging discs cervical/lumbar, bone fragments in back, Arnold Chiari Malformation, hypothyroid, Colitis, overactive bladder, hiatal hernia. Hx CoVid about 1 month ago. History of Any Multi-Drug Resistant Organisms: None Reported Past Surgical History: Cholecystectomy, Hernia Repair, Orthopedic Surgery, Uterine Ablation Additional Past Surgical History / Comment(s): ORIF rt wrist, hardware since removed, EGD with bx, colonoscopy, right inguinal hernia repair, robotic assisted exploratory lap with left inguinal hernia repair/L inguinal lipoma removed/lysis of adhesions, right breast biopsy, left breast surgery for infected milk duct, Arnold-Chiari malformation surgery, partial meniscus repair left knee. Past Anesthesia/Blood Transfusion Reactions: No Reported Reaction Past Psychological History: No Psychological Hx Reported Smoking Status: Never smoker Past Alcohol Use History: None Reported Past Drug Use History: None Reported - Past Family History Mother Family Medical History: Diabetes Mellitus, Myocardial Infarction (ME) Additional Family Medical History / Comment(s): Mother of a ME at the age of 67yrs. Brother(s) Additional Family Medical History / Comment(s): boraderconner diabetic Father Family Medical History: Cancer, Diabetes Mellitus, Myocardial Infarction (ME) Additional Family Medical History / Comment(s): Father from prostate cancer at the age of 71 yrs. He also had a myocardial infarction prior to the age of 65. Medications and Allergies Home Medications Medication Instructions Recorded Confirmed Type Acetaminophen Tab [Tylenol] 650 mg PO Q6HR PRN tab 04/30/18 01/14/21 Rx Carvedilol [Coreg] 3.125 mg PO BID 06/28/20 01/14/21 History Levothyroxine Sodium [Synthroid] 75 mcg PO DAILY 06/28/20 01/14/21 History Budesonide/Formoterol Fumarate 1 puff INHALATION DAILY PRN 12/10/20 01/14/21 History [Symbicort 160-4.5 Mcg Inhaler] Cypionate 0.5 mg PO Q28D 12/10/20 01/14/21 History Hydroxychloroquine Sulfate 200 mg PO BID 12/10/20 01/14/21 History Oxybutynin ER [Ditropan Xl] 10 mg PO DAILY 12/10/20 01/14/21 History Allergies Allergy/AdvReac Type Severity Reaction Status Date / Time adhesive tape Allergy Rash/Hives,"paper Verified 01/14/21 11:31 tape ok" ketorolac [From Toradol] Allergy Rash/Hives Verified 01/14/21 11:31 sulfamethoxazole Allergy severe Verified 01/14/21 11:31 [From Bactrim] hives trimethoprim [From Bactrim] Allergy severe Verified 01/14/21 11:31 hives celecoxib [From Celebrex] AdvReac Confusion Verified 01/14/21 11:31
[2021-01-19 10:16] VITALS: RESP 16; TEMP 98.2
[2021-01-19 10:31] LABS: Glucose,Whole Blood 97 mg/dL (75-99)
--- NOTE | 2021-01-19 11:17 | P.PCN ---
Date of Procedure: 01/19/21 Description of Procedure: PREOPERATIVE DIAGNOSIS: Gastroesophageal reflux disease. Sarcoidosis POSTOPERATIVE DIAGNOSIS: Gastritis. Gastroesophageal reflux disease. Sarcoidosis OPERATION: Esophagogastroduodenoscopy with biopsies along antrum. SURGEON: Diann Escobar MD ANESTHESIA: MAC. INDICATIONS: The patient is a 50-year-old female who presents with a history of reflux disease. Benefits and risks of the procedure were described. Informed consent was obtained. DESCRIPTION: The patient was brought into the endoscopy suite and laid in the left lateral decubitus position. An Olympus gastroscope was passed along the posterior oropharynx down to the distal esophagus where the squamocolumnar junction was encountered at 40 cm from the incisors. The stomach was entered and no bile reflux was found. Additional findings are listed below. Biopsies with cold forceps were obtained of the antrum. The first through third portion of the duodenum was examined and unremarkable. Retroflexion of the scope confirmed Hill grade 1 lower esophageal valve. The squamocolumnar junction demonstrated No LA grade A erosive esophagitis. The stomach was desufflated. The patient tolerated the procedure well. FINDINGS: Squamocolumnar junction 40 cm from the incisors. Diaphragmatic hiatus at 40 cm. Hill grade 4 lower esophageal valve. No LA grade A erosive esophagitis. No active duodenitis. Chronic gastritis RECOMMENDATIONS: Upper endoscopy as needed.
--- NOTE | 2021-01-19 11:41 | P.PCN ---
Date of Procedure: 01/19/21 Description of Procedure: PREOPERATIVE DIAGNOSIS: Change in bowel habits Abdominal pain POSTOPERATIVE DIAGNOSIS: Change in bowel habits Abdominal pain Microscopic colitis OPERATION: Colonoscopy to the cecum, ileocecal valve and appendiceal orifice. Colonoscopy with random cold forceps biopsies SURGEON: Diann Escobar MD. ANESTHESIA: MAC. INDICATIONS: The patient is a 50-year-old female who presents with change in bowel habits. Benefits and risks were described and informed consent was obtained. DESCRIPTION OF PROCEDURE: The patient had undergone Sutab prep. The patient had been brought into the operating room and laid in the left lateral decubitus position. After adequate intravenous sedation, the rectum was examined with 2% lidocaine jelly. No external hemorrhoids were encountered. The rectal tone was within normal limits. No lesions were palpated in the rectal vault. An Olympus colonoscope was advanced until the cecum, ileocecal valve and appendiceal orifice were clearly viewed. The prep was poor limiting view of the mucosa especially along the ascending colon/cecum. No sattered diverticulosis was encountered. No large colonic polyps were found. Random cold forceps biopsies are obtained for colitis. Retroflexion of the scope demonstrated grade 1 internal hemorrhoids wi thout active bleeding or inflammation. The colon was desufflated. The patient had tolerated the procedure well. Withdrawal time was over 6 minutes. FINDINGS: Aronchick preparation quality scale 3-4 (1-5) Internal hemorrhoids, grade 1 No external prolapsed hemorrhoids. No arteriovenous malformations. No adenomatous polyps. Random cold forceps biopsies for colitis or pain. RECOMMENDATIONS: Lower endoscopy in 5 years, 2025 Plan - Discharge Summary Discharge Rx Participant: Yes New Discharge Prescriptions: Continue Acetaminophen Tab [Tylenol] 650 mg PO Q6HR PRN tab PRN Reason: Fever and/ or Mild Pain Levothyroxine Sodium [Synthroid] 75 mcg PO DAILY Carvedilol [Coreg] 3.125 mg PO BID Cypionate 0.5 mg PO Q28D Budesonide/Formoterol Fumarate [Symbicort 160-4.5 Mcg Inhaler] 1 puff INHALATION DAILY PRN PRN Reason: Dyspnea Oxybutynin ER [Ditropan Xl] 10 mg PO DAILY Hydroxychloroquine Sulfate 200 mg PO BID Discharge Medication List Acetaminophen Tab [Tylenol] 650 mg PO Q6HR PRN tab 04/30/18 [Rx] Carvedilol [Coreg] 3.125 mg PO BID 06/28/20 [History] Levothyroxine Sodium [Synthroid] 75 mcg PO DAILY 06/28/20 [History] Budesonide/Formoterol Fumarate [Symbicort 160-4.5 Mcg Inhaler] 1 puff INHALATION DAILY PRN 12/10/20 [History] Cypionate 0.5 mg PO Q28D 12/10/20 [History] Hydroxychloroquine Sulfate 200 mg PO BID 12/10/20 [History] Oxybutynin ER [Ditropan Xl] 10 mg PO DAILY 12/10/20 [History] Follow up Appointment(s)/Referral(s): Diann Escobar MD [STAFF PHYSICIAN] - 01/27/21 Patient Instructions/Handouts: *[facility] - (Anesthesia) Endoscopy Discharge Instructions, Colonoscopy (DC), Gastritis (DC) Activity/Diet/Wound Care/Special Instructions: Repeat colonoscopy 5 years, 2025 Discharge Disposition: HOME SELF-CARE
[2021-01-19 11:45] VITALS: BP 113/77; PULSE 73
== END | disposition home or self-care (01) ==
LOC: ORWHC2ENDO 09:49
PROVIDERS: ATTEND Surgery Plastic and Reconstructive Surgery
DX: K29.50 Unspecified chronic gastritis without bleeding (principal); K21.9 Gastro-esophageal reflux disease without esophagitis; R19.4 Change in bowel habit; E07.9 Disorder of thyroid, unspecified; J45.909 Unspecified asthma, uncomplicated; Z88.2 Allergy status to sulfonamides; Z88.8 Allergy status to other drugs, medicaments and biological substances
CPT/HCPCS: 81025; 88305; 45380; 43239; J2250; J2001; J3010; J2704

== ENCOUNTER 2021-03-03 06:36 | Observation (INO) | payer MEDICAID ==
[2021-03-03] MEDS ORDERED: ASPIRIN 81 MG PO STA (07:01)
--- NOTE | 2021-03-03 07:06 | ED ---
General Adult HPI - General Chief complaint: Chest Pain Stated complaint: Chest Pressure Time Seen by Provider: 03/03/21 06:46 Source: patient, family, RN notes reviewed Mode of arrival: ambulatory Limitations: no limitations - History of Present Illness Initial comments: 50-year-old female with a past medical history of asthma, GERD presents to the emergency room for a chief complaint of chest pain. Patient reports that she had a very stressful situation yesterday where she had to tell a family member they needed to leave her house as she was not getting along with them. As she was leaving she had pain in her right scapula and pressure in her chest. States it improved over the night however when she woke up this morning to let her dog out she had tingling and a pressure sensation across her chest and into both her arms. She denies any pain radiating to her back. Denies shortness of breath. Denies fevers or chills.Patient has no other complaints at this time including shortness of breath, abdominal pain, nausea or vomiting, headache, or visual changes. - Related Data Home Medications Medication Instructions Recorded Confirmed Carvedilol [Coreg] 3.125 mg PO BID 06/28/20 01/19/21 Levothyroxine Sodium [Synthroid] 75 mcg PO DAILY 06/28/20 01/19/21 Budesonide/Formoterol Fumarate 1 puff INHALATION DAILY PRN 12/10/20 01/19/21 [Symbicort 160-4.5 Mcg Inhaler] Cypionate 0.5 mg PO Q28D 12/10/20 01/19/21 Hydroxychloroquine Sulfate 200 mg PO BID 12/10/20 01/19/21 Oxybutynin ER [Ditropan Xl] 10 mg PO DAILY 12/10/20 01/19/21 Previous Rx's Medication Instructions Recorded Acetaminophen Tab [Tylenol] 650 mg PO Q6HR PRN tab 04/30/18 Allergies Allergy/AdvReac Type Severity Reaction Status Date / Time adhesive tape Allergy Rash/Hives,"paper Verified 03/03/21 06:45 tape ok" ketorolac [From Toradol] Allergy Rash/Hives Verified 03/03/21 06:45 sulfamethoxazole Allergy severe Verified 03/03/21 06:45 [From Bactrim] hives trimethoprim [From Bactrim] Allergy severe Verified 03/03/21 06:45 hives celecoxib [From Celebrex] AdvReac Confusion Verified 03/03/21 06:45 Review of Systems ROS Statement: Those systems with pertinent positive or pertinent negative responses have been documented in the HPI. ROS Other: All systems not noted in ROS Statement are negative. Past Medical History Past Medical History: Asthma, GERD/Reflux, Thyroid Disorder Additional Past Medical History / Comment(s): pt states "thickening of colon wall that showed up on CT Aug 2018",occipital neuritis Other hx: Chronic low back pain/herniated and bulging discs cervical/lumbar, bone fragments in back, arnold chiari malformation, hypothyroid, colitis, overactive bladder, hiatal hernia,steroid dose pack November 2018, sarcoidosis History of Any Multi-Drug Resistant Organisms: None Reported Past Surgical History: Cholecystectomy, Hernia Repair, Orthopedic Surgery, Uterine Ablation Additional Past Surgical History / Comment(s): ORIF rt wrist hardware since removed, 04/10/18 EGD with bx, colonoscopy, right inguinal hernia repair, robotic assisted exploratory lap with left inguinal hernia repairs/L inguinal lipoma removed/lysis of adhesions, right breast biopsy, left breast surgery for infected milk duct, Arnold-Chiari malformation surgery,partial meniscus repair left knee Past Anesthesia/Blood Transfusion Reactions: No Reported Reaction Past Psychological History: No Psychological Hx Reported Smoking Status: Never smoker Past Alcohol Use History: Occasional Past Drug Use History: None Reported - Past Family History Mother Family Medical History: Diabetes Mellitus, Myocardial Infarction (ID) Additional Family Medical History / Comment(s): Mother of a ID at the age of 67yrs. Brother(s) Additional Family Medical History / Comment(s): boraderline diabetic Father Family Medical History: Cancer, Diabetes Mellitus, Myocardial Infarction (ID) Additional Family Medical History / Comment(s): Father from prostate cancer at the age of 71 yrs. He also had a myocardial infarction prior to the age of 65. General Exam Limitations: no limitations General appearance: alert, in no apparent distress Head exam: Present: atraumatic, normocephalic, normal inspection Eye exam: Present: normal appearance, PERRL, EOMI. Absent: scleral icterus, conjunctival injection, periorbital swelling ENT exam: Present: normal exam, mucous membranes moist Neck exam: Present: normal inspection, full ROM. Absent: tenderness, meningismus, lymphadenopathy Respiratory exam: Present: normal lung sounds bilaterally. Absent: respiratory distress, wheezes, rales, rhonchi, stridor Cardiovascular Exam: Present: regular rate, normal rhythm, normal heart sounds. Absent: systolic murmur, diastolic murmur, rubs, gallop, clicks GI/Abdominal exam: Present: soft, normal bowel sounds. Absent: distended, tenderness, guarding, rebound, rigid Extremities exam: Present: normal capillary refill (radial pulses 2+ bilat) Neurological exam: Present: alert Course Vital Signs 03/03/21 03/03/21 06:39 08:00 Temperature 98 F Pulse Rate 89 77 Respiratory 20 18 Rate Blood Pressure 132/91 128/90 O2 Sat by Pulse 97 97 Oximetry EKG Findings - EKG Comments: EKG Findings:: Normal sinus rhythm, ventricular rate 83, W[place] interval 152, QTC 444 Medical Decision Making - Medical Decision Making Vitals are stable. Patient well-appearing. EKG unremarkable. Nonischemic. CBC CMP within normal limits. Troponin negative. Chest x-ray shows no acute pu lmonary disease. Pt is 50 with a positive family history. She has not had a cardiac workup. Patient will be admitted for chest pain rule out. - Lab Data Result diagrams: 03/03/21 07:08 03/03/21 07:08 Lab Results 03/03/21 03/03/21 03/03/21 Range/Units 07:08 07:08 07:08 WBC 4.6 (3.8-10.6) k/uL RBC 4.58 (3.80-5.40) m/uL Hgb 14.3 (11.4-16.0) gm/dL Hct 40.6 (34.0-46.0) % MCV 88.6 (80.0-100.0) fL MCH 31.2 (25.0-35.0) pg MCHC 35.2 (31.0-37.0) g/dL RDW 12.4 (11.5-15.5) % Plt Count 283 (150-450) k/uL MPV 7.1 Neutrophils % 61 % Lymphocytes % 27 % Monocytes % 6 % Eosinophils % 5 % Basophils % 1 % Neutrophils # 2.8 (1.3-7.7) k/uL Lymphocytes # 1.2 (1.0-4.8) k/uL Monocytes # 0.3 (0-1.0) k/uL Eosinophils # 0.2 (0-0.7) k/uL Basophils # 0.0 (0-0.2) k/uL PT 9.8 (9.0-12.0) sec INR 0.9 (<1.2) APTT 22.6 (22.0-30.0) sec Sodium 141 (137-145) mmol/L Potassium 4.2 (3.5-5.1) mmol/L Chloride 107 (98-107) mmol/L Carbon Dioxide 28 (22-30) mmol/L Anion Gap 6 mmol/L BUN 10 (7-17) mg/dL Creatinine 0.68 (0.52-1.04) mg/dL Est GFR (CKD-EPI)AfAm >90 (>60 ml/min/1.73 sqM) Est GFR (CKD-EPI)NonAf >90 (>60 ml/min/1.73 sqM) Glucose 101 H (74-99) mg/dL Calcium 9.2 (8.4-10.2) mg/dL Magnesium 1.9 (1.6-2.3) mg/dL Total Bilirubin 0.4 (0.2-1.3) mg/dL AST 34 (14-36) U/L ALT 17 (4-34) U/L Alkaline Phosphatase 45 (38-126) U/L Troponin I (0.000-0.034) ng/mL NT-Pro-B Natriuret Pep pg/mL Total Protein 6.5 (6.3-8.2) g/dL Albumin 4.2 (3.5-5.0) g/dL Lipase 196 (23-300) U/L 03/03/21 03/03/21 Range/Units 07:08 07:08 WBC (3.8-10.6) k/uL RBC (3.80-5.40) m/uL Hgb (11.4-16.0) gm/dL Hct (34.0-46.0) % MCV (80.0-100.0) fL MCH (25.0-35.0) pg MCHC (31.0-37.0) g/dL RDW (11.5-15.5) % Plt Count (150-450) k/uL MPV Neutrophils % % Lymphocytes % % Monocytes % % Eosinophils % % Basophils % % Neutrophils # (1.3-7.7) k/uL Lymphocytes # (1.0-4.8) k/uL Monocytes # (0-1.0) k/uL Eosinophils # (0-0.7) k/uL Basophils # (0-0.2) k/uL PT (9.0-12.0) sec INR (<1.2) APTT (22.0-30.0) sec Sodium (137-145) mmol/L Potassium (3.5-5.1) mmol/L Chloride (98-107) mmol/L Carbon Dioxide (22-30) mmol/L Anion Gap mmol/L BUN (7-17) mg/dL Creatinine (0.52-1.04) mg/dL Est GFR (CKD-EPI)AfAm (>60 ml/min/1.73 sqM) Est GFR (CKD-EPI)NonAf (>60 ml/min/1.73 sqM) Glucose (74-99) mg/dL Calcium (8.4-10.2) mg/dL Magnesium (1.6-2.3) mg/dL Total Bilirubin (0.2-1.3) mg/dL AST (14-36) U/L ALT (4-34) U/L Alkaline Phosphatase (38-126) U/L Troponin I <0.012 (0.000-0.034) ng/mL NT-Pro-B Natriuret Pep 88 pg/mL Total Protein (6.3-8.2) g/dL Albumin (3.5-5.0) g/dL Lipase (23-300) U/L Disposition Clinical Impression: Chest pain Disposition: ADMITTED IP TO THIS HOSP Is patient prescribed a controlled substance at d/c from ED?: No Referrals: Ryder Loja MD [Primary Care Provider] - 1-2 days Time of Disposition: 08:45
[2021-03-03 07:25] LABS: Basophils % (A) 1 %; Eosinophils # (A) 0.2 k/uL (0-0.7); Eosinophils % (A) 5 %; HCT 40.6 % (34.0-46.0); HGB 14.3 gm/dL (11.4-16.0); Lymphocytes # (A) 1.2 k/uL (1.0-4.8); Lymphocytes % (A) 27 %; MCH 31.2 pg (25.0-35.0); MCHC 35.2 g/dL (31.0-37.0); MCV 88.6 fL (80.0-100.0); Mean Platelet Volume 7.1; Monocytes # (A) 0.3 k/uL (0-1.0); Monocytes % (A) 6 %; Neutrophils # (A) 2.8 k/uL (1.3-7.7); Neutrophils % (A) 61 %; Platelet Count 283 k/uL (150-450); RBC 4.58 m/uL (3.80-5.40); RDW 12.4 % (11.5-15.5); WBC 4.6 k/uL (3.8-10.6)
[2021-03-03 07:33] LABS: INR 0.9 (<1.2); Partial Thromboplastin Time 22.6 sec (22.0-30.0); Prothrombin Time 9.8 sec (9.0-12.0)
[2021-03-03 07:42] LABS: Anion Gap 6 mmol/L; Blood Urea Nitrogen 10 mg/dL (7-17); Carbon Dioxide 28 mmol/L (22-30); Chloride 107 mmol/L (98-107); Glucose 101 mg/dL (74-99); Potassium 4.2 mmol/L (3.5-5.1); Sodium 141 mmol/L (137-145)
[2021-03-03 07:43] LABS: ALT 17 U/L (4-34); AST 34 U/L (14-36); African American GFR (CKD) >90 (>60 ml/min/1.73 sqM); Albumin 4.2 g/dL (3.5-5.0); Alkaline Phosphatase 45 U/L (38-126); Calcium 9.2 mg/dL (8.4-10.2); Lipase 196 U/L (23-300); Magnesium 1.9 mg/dL (1.6-2.3); Non-African American GFR(CKD) >90 (>60 ml/min/1.73 sqM); Total Bilirubin 0.4 mg/dL (0.2-1.3); Total Protein 6.5 g/dL (6.3-8.2)
--- NOTE | 2021-03-03 07:53 | XR ---
EXAMINATION TYPE: XR chest 2V DATE OF EXAM: 03/03/2021 COMPARISON: 04/26/2020 HISTORY: Chest pain TECHNIQUE: Frontal and lateral views of the chest are obtained. FINDINGS: Multiple overlying leads. Heart size is within normal limits. No pleural effusion, focal c onsolidation or pneumothorax. Osseous structures are unremarkable. IMPRESSION: 1. No acute pulmonary disease.
[2021-03-03] MEDS ORDERED: NITROGLYCERIN SL TABS 0.4 MG TAB SUBLINGUAL PRN (08:43)
--- NOTE | 2021-03-03 11:39 | ECHOF ---
Referral Reason:cp MEASUREMENTS -------- HEIGHT: 165.1 cm WEIGHT: 96.2 kg BP: IVSd: 1.1 cm (0.6 - 1.1) LVIDd: 4.1 cm (3.9 - 5.3) LVPWd: 1.3 cm (0.6 - 1.1) IVSs: 1.2 cm LVIDs: 3.4 cm LVPWs: 1.5 cm LA Diam: 3.6 cm (2.7 - 3.8) LAESV Index (A-L): 25.14 ml/m Ao Diam: 3.4 cm (2.0 - 3.7) AV Cusp: 2.3 cm (1.5 - 2.6) MV EXCURSION: 26.030 mm (> 18.000) MV EF SLOPE: 114 mm/s (70 - 150) EPSS: 0.6 cm MV E Omar: 0.60 m/s MV DecT: 231 ms MV A Omar: 0.75 m/s MV E/A Ratio: 0.80 RAP: 5.00 mmHg RVSP: 21.14 mmHg FINDINGS -------- Sinus rhythm. This was a technically good study. LV size, wall thickness and systolic function are normal, with an EF greater than 55%. The left ramos tricular size is normal. The right ventricle is normal in size. Normal LA size by volume 22+/-6 ml/m2. The right atrial size is normal. The aortic valve is trileaflet, and appears structurally normal. No aortic stenosis or regurgitation. Mild mitral annular calcification present. Mild mitral regurgitation is present. Mild tricuspid regurgitation present. Right ventricular systolic pressure is normal at < 35 mmHg. There is no pulmonic regurgitation present. The aortic root size is normal. There is no pericardial effusion. CONCLUSIONS -------- 1. LV size, wall thickness and systolic function are normal, with an EF greater than 55%. 2. The left ventricular size is normal. 3. The right ventricle is normal in size. 4. Normal LA size by volume 22+/-6 ml/m2. 5. The right atrial size is normal. 6. The aortic valve is trileaflet, and appears structurally normal. No aortic stenosis or regurgitati on. 7. Mild mitral annular calcification present. 8. Mild mitral regurgitation is present. 9. Mild tricuspid regurgitation present. 10. The aortic root size is normal. 11. There is no pericardial effusion. [employer]: Misty Andre RDCS
[2021-03-03] MEDS: carvediloL 6.25 MG TAB PO SCH (17:37)
[2021-03-03] MEDS: POTASSIUM CITRATE 10 MEQ TABLET.ER PO SCH (20:59)
[2021-03-03] MEDS: HYDROXYCHLOROQUINE SULFATE 200 MG TAB PO SCH (20:59)
[2021-03-03] MEDS ORDERED: ZOLPIDEM 10 MG TAB PO SCH (21:00)
--- NOTE | 2021-03-03 21:18 | P.HPIM ---
History of Present Illness H&P Date: 03/03/21 Chief Complaint: Chest pain 50-year-old female, admitted to the hospital with complaint of chest discomfort. Significant past medical history of asthma, GERD. Patient reports recent family stress adding to the chest discomfort. Denies shortness of breath. Denies fevers or chills.Patient has no other complaints at this time including shortness of breath, abdominal pain, nausea or vomiting, headache, or visual changes. Review of Systems Constitutional: Reports as per HPI Ears, nose, mouth and throat: Reports as per HPI Cardiovascular: Reports chest pain Respiratory: Reports pain Gastrointestinal: Reports nausea Genitourinary: Reports as per HPI Musculoskeletal: Reports shooting arm pain Neurological: Reports tingling Psychiatric: Reports anxiety Endocrine: Reports as per HPI Hematologic/Lymphatic: Reports as per HPI Allergic/Immunologic: Reports as per HPI Past Medical History Past Medical History: Asthma, GERD/Reflux, Thyroid Disorder Additional Past Medical History / Comment(s): pt states "thickening of colon wall that showed up on CT Aug 2018",occipital neuritis Other hx: Chronic low back pain/herniated and bulging discs cervical/lumbar, bone fragments in back, arnold chiari malformation, hypothyroid, colitis, overactive bladder, hiatal hernia, sarcoidosis History of Any Multi-Drug Resistant Organisms: None Reported Past Surgical History: Cholecystectomy, Hernia Repair, Orthopedic Surgery, Uterine Ablation Additional Past Surgical History / Comment(s): ORIF rt wrist hardware since r emoved, 04/10/18 EGD with bx, colonoscopy, right inguinal hernia repair, robotic assisted exploratory lap with left inguinal hernia repairs/L inguinal lipoma removed/lysis of adhesions, right breast biopsy, left breast surgery for infected milk duct, Arnold-Chiari malformation surgery,partial meniscus repair left knee Past Anesthesia/Blood Transfusion Reactions: No Reported Reaction Past Psychological History: No Psychological Hx Reported Additional Psychological History / Comment(s): Pt works at [employer]. She is independent. Smoking Status: Never smoker Past Alcohol Use History: Occasional Past Drug Use History: None Reported - Past Family History Mother Family Medical History: Diabetes Mellitus, Myocardial Infarction ([place]) Additional Family Medical History / Comment(s): Mother of a [place] at the age of 67yrs. Brother(s) Additional Family Medical History / Comment(s): boraderline diabetic Father Family Medical History: Cancer, Diabetes Mellitus, Myocardial Infarction ([place]) Additional Family Medical History / Comment(s): Father from prostate cancer at the age of 71 yrs. He also had a myocardial infarction prior to the age of 65. Medications and Allergies Home Medications and Allergies Comment(s): Medications and allergies reviewed. Home Medications Medication Instructions Recorded Confirmed Type Levothyroxine Sodium [Synthroid] 75 mcg PO DAILY 06/28/20 03/03/21 History Hydroxychloroquine Sulfate 200 mg PO BID 12/10/20 03/03/21 History Oxybutynin ER [Ditropan Xl] 10 mg PO DAILY 12/10/20 03/03/21 History Potassium Citrate 10 meq PO BID 03/03/21 03/03/21 History carvediloL [Coreg] 6.25 mg PO BID 03/03/21 03/03/21 History Allergies Allergy/AdvReac Type Severity Reaction Status Date / Time adhesive tape Allergy Rash- see Verified 03/03/21 09:07 comment ketorolac [From Toradol] Allergy rash-see Verified 03/03/21 09:07 comment sulfamethoxazole Allergy severe Verified 03/03/21 09:07 [From Bactrim] hives trimethoprim [From Bactrim] Allergy severe Verified 03/03/21 09:07 hives celecoxib [From Celebrex] AdvReac Confusion Verified 03/03/21 09:07 Physical Exam Vitals: Vital Signs Temp Pulse Pulse Resp BP BP Pulse Ox 03/03/21 19:45 98.2 F 77 18 116/78 97 03/03/21 14:00 84 03/03/21 13:56 97.8 F 84 18 149/80 98 03/03/21 12:44 98.1 F 73 16 134/82 98 03/03/21 11:04 98.1 F 72 18 102/76 97 03/03/21 09:11 71 18 136/89 99 03/03/21 08:00 77 18 128/90 97 03/03/21 06:39 98 F 89 20 132/91 97 Intake and Output 03/03/21 03/03/21 03/03/21 06:59 14:59 22:59 Intake Total 300 Balance 300 Intake: Oral 300 Other: Voiding Method Toilet # Voids 1 2 Weight 96.162 kg 96.162 kg - Constitutional General appearance: cooperative - EENT Eyes: EOMI, PERRLA, normal appearance ENT: normal oropharynx Ears: bilateral: normal - Neck Neck: normal ROM Carotids: bilateral: upstroke normal Thyroid: bilateral: normal size - Respiratory Respiratory: bilateral: CTA - Cardiovascular NSR Heart rate: 74 Rhythm: regular Heart sounds: normal: S1, S2 radial pulse Peripheral Pulses: bilateral: Normal dorsalis pedis Peripheral Pulses: bilateral: Normal - Gastrointestinal General gastrointestinal: normal bowel sounds - Integumentary Integumentary: normal turgor - Neurologic Neurologic: CNII-XII intact - Musculoskeletal Musculoskeletal: gait normal - Psychiatric Psychiatric: A&O x's 3, appropriate affect, intact judgment & insight Results CBC & Chem 7: 03/03/21 07:08 03/03/21 07:08 Labs: Abnormal Lab Results - Last 24 Hours (Table) 03/03/21 Range/Units 07:08 Glucose 101 H (74-99) mg/dL Comments: ECHO- reviewed Chest x-ray: report reviewed Thrombosis Risk Factor Assmnt - Choose All That Apply Any of the Below Risk Factors Present?: Yes Each Factor Represents 1 point: Age 41-60 years, Obesity (BMI >25) Other Risk Factors: No Other congenital or acquired thrombophilia - If yes, enter type in comment: No Thrombosis Risk Factor Assessment Total Risk Factor Score: 2 Thrombosis Risk Factor Assessment Level: Low Risk Assessment and Plan Assessment: Chest pain Asthma GERD/Reflux hypothyroid Chronic low back pain/herniated and bulging discs cervical/lumbar sarcoidosis history of colitis history of cholecystectomy hiatal hernia full code Plan: Chest pain, no acute EKG changes, negative trops, normal echo, consultation with cardiology for recommendations for treatment plan continue home medications continue medical management Further recommendations to come based patient clinical condition hopefully discharge home within 24 hours. Time with Patient: Greater than 30
[2021-03-04] MEDS ORDERED: LEVOTHYROXINE 75 MCG TAB PO SCH (06:30)
[2021-03-04 08:00] VITALS: BP 115/80; PULSE 105; RESP 18; TEMP 98.5
[2021-03-04] MEDS ORDERED: OXYBUTYNIN 10 MG TAB.ER.24 PO SCH (09:00)
[2021-03-04] MEDS ORDERED: ASPIRIN 325 MG TAB PO SCH (09:00)
--- NOTE | 2021-03-04 09:05 | P.CRDCN ---
History of Present Illness History of present illness: HISTORY OF PRESENTING ILLNESS This is a pleasant 50-year-old female past medical history significant for hypertension, hypothyroidism, Arnold Chiarri malformation, sarcoidosis, asthma, GERD, cholecystectomy. She follows in the office with Dr. Seo. We have been asked to see in consultation for chest pain. Patient is seen and examined at bedside in no acute distress. Patient reports that she had a very stressful situation over the past weekend with her Family. She states she had to tell a family member they needed to leave her house as she was not getting along with them. This happened on Sunday. As she was leaving she had pain in her left side of her rib, she thought this was related to her sarcoidosis. She also later in the day had pain in her right scapula an shoulder and felt some pressure in her chest. This resolved. However, she still has some right shoulder pain. Her right shoulder pain was aggravated by movement. She denies associated palpitations, shortness of breath, lower extremity edema, fatigue, weakness, lightheadedness, syncope. She took tylenol this did not help. She states she thinks it may be anxiety, but she is not sure. Denies symptoms of orthopnea or PND. Denies history of coronary artery disease, [place], stroke, diabetes. She is a non-smoker. Denies illicit drug use. Occasionally drinks alcohol. She follows with Dr. Nunes and has an appointment coming up soon. She also has an appointment with Dr. Seo the end of this month. DIAGNOSTICS EKG reveals sinus rhythm, heart rate 83, Twave inversion in lead V2 Telemetry tracings indicate sinus mechanism, no ectopy or arrhythmia Chest xray no acute cardiopulmonary process Echocardiogram 03/03/2021 revealed EF 55%, mild mitral regurgitation, mild tricuspid regurgitation Most recent stress echo 10/2019- negative for ischemia. Laboratory reviewed, CBC unremarkable, sodium 141, potassium 4.2, BUN/creatinine 10, serum creatinine 0.68, magnesium 1.9, troponin negative 3, COVID-19 negative, proBNP 88. Current home medications include carvedilol 6.25mg BID, oxybutynin ER 10 mg daily, Synthroid 75mcg daily, Hydroxychlorquine 200mg BID, potassium citrate 10meq BID. REVIEW OF SYSTEMS At the time of my exam: CONSTITUTIONAL: Denies fever or chills. CARDIOVASCULAR: + chest pain,Denies shortness of breath, orthopnea, PND or palpitations. RESPIRATORY: Denies cough. GASTROINTESTINAL: Denies abdominal pain, diarrhea, constipation, nausea or vomiting. MUSCULOSKELETAL: Right sided shoulder pain, left side rib pain NEUROLOGIC: Denies numbness, tingling, headacbe or weakness. ENDOCRINE: Denies fatigue, weight change, polydipsia or polyurina. GENITOURINARY: Denies burning, hematuria or urgency with micturation. HEMATOLOGIC: Denies history of anemia or bleeding. PHYSICAL EXAMINATION Blood pressure 111/78 heart rate 87 afebrile and maintaining oxygen saturation on room air. CONSTITUTIONAL: No apparent distress. HEENT: Head is normocephalic. Pupils are equal, round. Sclerae anicteric. Mucous membranes of the mouth are moist. No JVD. No carotid bruit. CHEST EXAMINATION: Lungs are clear to auscultation. No chest wall tenderness is noted on palpation or with deep breathing. HEART EXAMINATION: Regular rate and rhythm. S1, S2 heard. No murmurs, gallops or rub. ABDOMEN: Soft, nontender. Positive bowel sounds. EXTREMITIES: 2+ peripheral pulses, no lower extremity edema and no calf tender ness. SKIN: intact NEUROLOGIC EXAMINATION: Patient is awake, alert and oriented x3. ASSESSMENT Chest pain, atypical, acute coronary syndrome ruled out, cardiac enzymes negative x 3. Hypertension Hypothyroidism History of Arnold Chiarri malformation Sarcoidosis Asthma GERD PLAN An acute coronary event has been ruled out with no EKG evidence of ischemia and negative cardiac enzymes. Echocardiogram obtained and reviewed From a cardiology perspective, patient is stable to be discharged home. Follow up with Dr. Seo for possible stress test outpatient.. She already has an appointment scheduled. Continue home Coreg Thank you kindly for this consultation. Nurse Practitioner note has been reviewed, I agree with a documented findings and plan of care. Patient was seen and examined. Past Medical History Past Medical History: Asthma, GERD/Reflux, Thyroid Disorder Additional Past Medical History / Comment(s): pt states "thickening of colon wall that showed up on CT Aug 2018",occipital neuritis Other hx: Chronic low back pain/herniated and bulging discs cervical/lumbar, bone fragments in back, arnold chiari malformation, hypothyroid, colitis, overactive bladder, hiatal hernia, sarcoidosis History of Any Multi-Drug Resistant Organisms: None Reported Past Surgical History: Cholecystectomy, Hernia Repair, Orthopedic Surgery, Uterine Ablation Additional Past Surgical History / Comment(s): ORIF rt wrist hardware since removed, 04/10/18 EGD with bx, colonoscopy, right inguinal hernia repair, robotic assisted exploratory lap with left inguinal hernia repairs/L inguinal lipoma removed/lysis of adhesions, right breast biopsy, left breast surgery for infected milk duct, Arnold-Chiari malformation surgery,partial meniscus repair left knee Past Anesthesia/Blood Transfusion Reactions: No Reported Reaction Past Psychological History: No Psychological Hx Reported Additional Psychological History / Comment(s): Pt works at [employer]. She is independent. Smoking Status: Never smoker Past Alcohol Use History: Occasional Past Drug Use History: None Reported - Past Family History Mother Family Medical History: Diabetes Mellitus, Myocardial Infarction ([place]) Additional Family Medical History / Comment(s): Mother of a [place] at the age of 67yrs. Brother(s) Additional Family Medical History / Comment(s): boraderline diabetic Father Family Medical History: Cancer, Diabetes Mellitus, Myocardial Infarction ([place]) Additional Family Medical History / Comment(s): Father from prostate cancer at the age of 71 yrs. He also had a myocardial infarction prior to the age of 65. Medications and Allergies Home Medications Medication Instructions Recorded Confirmed Type Levothyroxine Sodium [Synthroid] 75 mcg PO DAILY 06/28/20 03/03/21 History Hydroxychloroquine Sulfate 200 mg PO BID 12/10/20 03/03/21 History Oxybutynin ER [Ditropan Xl] 10 mg PO DAILY 12/10/20 03/03/21 History Potassium Citrate 10 meq PO BID 03/03/21 03/03/21 History carvediloL [Coreg] 6.25 mg PO BID 03/03/21 03/03/21 History Allergies Allergy/AdvReac Type Severity Reaction Status Date / Time adhesive tape Allergy Rash- see Verified 03/03/21 09:07 comment ketorolac [From Toradol] Allergy rash-see Verified 03/03/21 09:07 comment sulfamethoxazole Allergy severe Verified 03/03/21 09:07 [From Bactrim] hives trimethoprim [From Bactrim] Allergy severe Verified 03/03/21 09:07 hives celecoxib [From Celebrex] AdvReac Confusion Verified 03/03/21 09:07 Physical Exam Vitals: Vital Signs Temp Pulse Pulse Resp BP BP Pulse Ox 03/03/21 13:56 97.8 F 84 18 149/80 98 03/03/21 12:44 98.1 F 73 16 134/82 98 03/03/21 11:04 98.1 F 72 18 102/76 97 03/03/21 09:11 71 18 136/89 99 03/03/21 08:00 77 18 128/90 97 03/03/21 06:39 98 F 89 20 132/91 97 Intake and Output 03/02/21 03/03/21 03/03/21 22:59 06:59 14:59 Intake Total 300 Balance 300 Intake: Oral 300 Other: Weight 96.162 kg 96.162 kg Results 03/03/21 07:08 03/03/21 07:08 Cardiac Enzymes 03/03/21 03/03/21 03/03/21 Range/Units 07:08 07:08 09:37 AST 34 (14-36) U/L Troponin I <0.012 <0.012 (0.000-0.034) ng/mL 03/03/21 Range/Units 12:43 AST (14-36) U/L Troponin I <0.012 (0.000-0.034) ng/mL Coagulation 03/03/21 Range/Units 07:08 PT 9.8 (9.0-12.0) sec APTT 22.6 (22.0-30.0) sec CBC 03/03/21 Range/Units 07:08 WBC 4.6 (3.8-10.6) k/uL RBC 4.58 (3.80-5.40) m/uL Hgb 14.3 (11.4-16.0) gm/dL Hct 40.6 (34.0-46.0) % Plt Count 283 (150-450) k/uL Comprehensive Metabolic Panel 03/03/21 Range/Units 07:08 Sodium 141 (137-145) mmol/L Potassium 4.2 (3.5-5.1) mmol/L Chloride 107 (98-107) mmol/L Carbon Dioxide 28 (22-30) mmol/L BUN 10 (7-17) mg/dL Creatinine 0.68 (0.52-1.04) mg/dL Glucose 101 H (74-99) mg/dL Calcium 9.2 (8.4-10.2) mg/dL AST 34 (14-36) U/L ALT 17 (4-34) U/L Alkaline Phosphatase 45 (38-126) U/L Total Protein 6.5 (6.3-8.2) g/dL Albumin 4.2 (3.5-5.0) g/dL Current Medications Generic Name Dose Route Start Last Admin Trade Name Freq PRN Reason Stop Dose Admin Aspirin 325 mg 03/04/21 09:00 Aspirin 325 Mg Tab PO DAILY [place] Carvedilol 6.25 mg 03/03/21 17:30 Carvedilol 6.25 Mg Tab PO BID-W/MEALS [place] Hydroxychloroquine Sulfate 200 mg 03/03/21 21:00 Hydroxychloroquine Sulfate 200 Mg Tab PO BID [place] Levothyroxine Sodium 75 mcg 03/04/21 06:30 Levothyroxine 75 Mcg [place] 0630 [place] Nitroglycerin 0.4 mg 03/03/21 08:43 Nitroglycerin Sl Tabs 0.4 Mg Tab SUBLINGUAL Q5M PRN Chest Pain Oxybutynin Chloride 10 mg 03/04/21 09:00 Oxybutynin 10 Mg Tab.Er.24 PO DAILY [place] Potassium Citrate 10 meq 03/03/21 21:00 Potassium Citrate 10 Meq Tablet.Er PO BID [place] Intake and Output 03/02/21 03/03/21 03/03/21 22:59 06:59 14:59 Intake Total 300 Balance 300 Intake: Oral 300 Other: Weight 96.162 kg 96.162 kg Patient Weight 03/04/21 06:59 Weight 96.162 kg 03/03/21 07:08 03/03/21 07:08
[2021-03-04] MEDS: POTASSIUM CITRATE 10 MEQ TABLET.ER PO SCH (09:14)
[2021-03-04] MEDS: carvediloL 6.25 MG TAB PO SCH (09:14)
[2021-03-04] MEDS: HYDROXYCHLOROQUINE SULFATE 200 MG TAB PO SCH (09:14)
[2021-03-04 10:08] LABS: Basophils # (A) 0.04 X 10*3/uL (0.00-0.10); Basophils % (A) 0.9 %; Eosinophils # (A) 0.17 X 10*3/uL (0.04-0.35); Eosinophils % (A) 3.9 %; HCT 42.8 % (37.2-46.3); HGB 14.3 g/dL (12.0-15.0); Lymphocytes # (A) 1.22 X 10*3/uL (0.90-5.00); Lymphocytes % (A) 27.8 %; MCH 30.5 pg (27.0-32.0); MCHC 33.4 g/dL (32.0-37.0); MCV 91.3 fL (80.0-97.0); Mean Platelet Volume 10.1 fL (9.5-12.2); Monocytes # (A) 0.35 X 10*3/uL (0.20-1.00); Neutrophils % (A) 59.2 %; Platelet Count 321 X 10*3/uL (140-440); RBC 4.69 X 10*6/uL (4.10-5.20); RDW 12.5 % (11.5-14.5); WBC 4.39 X 10*3/uL (4.50-10.00)
[2021-03-04 12:23] LABS: Albumin 4.6 g/dL (3.80-4.90); Albumin/Globulin Ratio 2.19 (1.60-3.17); Anion Gap 12.1 mmol/L (4.00-12.00); BUN/Creat Ratio 21.67 Ratio (12.00-20.00); Calcium 9.5 mg/dL (8.7-10.3); Carbon Dioxide 22.9 mmol/L (21.6-31.8); Chol/HDL Ratio 3.73; Globulin 2.1 g/dL (1.6-3.3); LDL Cholesterol,Calculated 148.6 mg/dL (0.0-131.0); Magnesium 1.9 mg/dL (1.5-2.4); Potassium 4.5 mmol/L (3.5-5.5); Total Bilirubin 0.6 mg/dL (0.3-1.2); Total Protein 6.7 g/dL (6.2-8.2); VLDL Calculation 20.4 mg/dL (5.00-40.00)
--- NOTE | 2021-03-04 17:03 | P.DS ---
Providers Date of admission: 03/03/21 09:02 Expected date of discharge: 03/04/21 Attending physician: Ryder Loja Consults: 03/03/21 12:22 Consult Physician Routine Consulting Provider: [facility] Consult Reason/Comments: CP Do you want consulting provider notified?: Yes Primary care physician: Ryder Loja Hospital Course: 50-year-old female, admitted to the hospital with complaint of chest discomfort. Significant past medical history of asthma, GERD. Patient reports recent family stress adding to the chest discomfort. Denies shortness of breath. Denies fevers or chills.Patient has no other complaints at this time including shortness of breath, abdominal pain, nausea or vomiting, headache, or visual changes. Patient had echocardiogram revealing ejection fraction of 55-60% Patient had negative troponins 3 Patient was evaluated by cardiology for chest discomfort acute coronary syndrome ruled out atypical chest pain possibly related to stress-induced; patient tolerated hospital stay well Patient will follow-up with primary care in 1-2 weeks Patient to follow-up with cardiology in 1-2 weeks for further evaluation Constitutional General appearance: cooperative - EENT Eyes: EOMI, PERRLA, normal appearance ENT: normal oropharynx Ears: bilateral: normal - Neck Neck: normal ROM Carotids: bilateral: upstroke normal Thyroid: bilateral: normal size - Respiratory Respiratory: bilateral: CTA - Cardiovascular NSR Heart rate: 74 Rhythm: regular Heart sounds: normal: S1, S2 radial pulse Peripheral Pulses: bilateral: Normal dorsalis pedis Peripheral Pulses: bilateral: Normal - Gastrointestinal General gastrointestinal: normal bowel sounds - Integumentary Integumentary: normal turgor - Neurologic Neurologic: CNII-XII intact - Musculoskeletal Musculoskeletal: gait normal - Psychiatric Psychiatric: A&O x's 3, appropriate affect, intact judgment & insight Assessment: Chest pain, acute coronary syndrome ruled out echocardiogram normal chest x-ray normal troponins negative 3, evaluated by cardiology Asthma, controlled with inhalers GERD/Reflux, controlled with medication hypothyroid controlled with Synthroid Chronic low back pain/herniated and bulging discs cervical/lumbar sarcoidosis, follow-up with pulmonary for further evaluation possible chest pain related to atypical history of colitis history of cholecystectomy hiatal hernia full code Health Concerns: None noted Pertinent Studies: Serial chest x-rays Echocardiogram with ejection fraction of 55-60% normal diastolic function noted Procedures: No procedures performed during hospital stay Patient Condition at Discharge: Stable Plan - Discharge Summary Discharge Rx Participant: Yes New Discharge Prescriptions: Continue Levothyroxine Sodium [Synthroid] 75 mcg PO DAILY carvediloL [Coreg] 6.25 mg PO BID Oxybutynin ER [Ditropan Xl] 10 mg PO DAILY Hydroxychloroquine Sulfate 200 mg PO BID Potassium Citrate 10 meq PO BID Discharge Medication List Levothyroxine Sodium [Synthroid] 75 mcg PO DAILY 06/28/20 [History] Hydroxychloroquine Sulfate 200 mg PO BID 12/10/20 [History] Oxybutynin ER [Ditropan Xl] 10 mg PO DAILY 12/10/20 [History] Potassium Citrate 10 meq PO BID 03/03/21 [History] carvediloL [Coreg] 6.25 mg PO BID 03/03/21 [History] Follow up Appointment(s)/Referral(s): Ryder Loja MD [Primary Care Provider] - 03/08/21 1:00 pm Ebre Seo MD [Family Provider] - 03/30/21 10:45 am (At scheduled appointment) Patient Instructions/Handouts: Chest Pain (DC), Heart Healthy Diet (DC), Noncardiac Chest Pain (DC) Discharge Disposition: HOME SELF-CARE
== END 2021-03-04 13:02 | disposition home or self-care (01) ==
LOC: EC 06:36 → 6NMEDSUR 09:02
PROVIDERS: ADMIT Family Medicine; ATTEND Family Medicine
DX: R07.89 Other chest pain (principal); D86.9 Sarcoidosis, unspecified; J45.909 Unspecified asthma, uncomplicated; K21.9 Gastro-esophageal reflux disease without esophagitis; E03.9 Hypothyroidism, unspecified; G89.29 Other chronic pain; M50.20 Other cervical disc displacement, unspecified cervical region; M51.26 Other intervertebral disc displacement, lumbar region; N32.81 Overactive bladder; Q07.00 Arnold-Chiari syndrome without spina bifida or hydrocephalus; I10 Essential (primary) hypertension; M25.511 Pain in right shoulder; M54.81 Occipital neuralgia; K44.9 Diaphragmatic hernia without obstruction or gangrene; E66.9 Obesity, unspecified; Z68.34 Body mass index [BMI] 34.0-34.9, adult; Z20.822 Contact with and (suspected) exposure to COVID-19; Z79.890 Hormone replacement therapy; Z79.51 Long term (current) use of inhaled steroids; Z79.899 Other long term (current) drug therapy; Z88.6 Allergy status to analgesic agent; Z88.1 Allergy status to other antibiotic agents; Z88.5 Allergy status to narcotic agent; Z88.2 Allergy status to sulfonamides; Z91.048 Other nonmedicinal substance allergy status; Z90.49 Acquired absence of other specified parts of digestive tract; Z87.19 Personal history of other diseases of the digestive system; Z98.890 Other specified postprocedural states; Z82.49 Family history of ischemic heart disease and other diseases of the circulatory system; Z83.3 Family history of diabetes mellitus; Z80.42 Family history of malignant neoplasm of prostate
CPT/HCPCS: 93005 ×2; 99285; 36415; 93306; 83880; 80061; 80053 ×2; 83690; 83735 ×2; 84484; 85025 ×2; 85610; 85730; 87635; 71046; G0378 ×2

== ENCOUNTER → 2021-03-19 | Outpatient (CLI) | payer MEDICAID ==
[2021-03-19 17:29] LABS: Basophils # (A) 0.04 X 10*3/uL (0.00-0.10); Basophils % (A) 0.6 %; Eosinophils % (A) 3.1 %; HCT 42.8 % (37.2-46.3); HGB 14.6 g/dL (12.0-15.0); Lymphocytes # (A) 0.96 X 10*3/uL (0.90-5.00); Lymphocytes % (A) 15.1 %; MCH 30.9 pg (27.0-32.0); MCHC 34.1 g/dL (32.0-37.0); MCV 90.5 fL (80.0-97.0); Mean Platelet Volume 10.5 fL (9.5-12.2); Monocytes # (A) 0.57 X 10*3/uL (0.20-1.00); Monocytes % (A) 8.9 %; Neutrophils # (A) 4.58 X 10*3/uL (1.80-7.70); Platelet Count 357 X 10*3/uL (140-440); RBC 4.73 X 10*6/uL (4.10-5.20); RDW 12.3 % (11.5-14.5); WBC 6.37 X 10*3/uL (4.50-10.00)
[2021-03-19 18:14] LABS: African American GFR (CKD) 100.3 (60.0-200.0); Albumin 4.8 g/dL (3.80-4.90); Albumin/Globulin Ratio 2.09 (1.60-3.17); Anion Gap 8.4 mmol/L (4.00-12.00); Calcium 9.4 mg/dL (8.7-10.3); Carbon Dioxide 25.6 mmol/L (21.6-31.8); Globulin 2.3 g/dL (1.6-3.3); Non-African American GFR(CKD) 86.6 (60.0-200.0); Potassium 4.4 mmol/L (3.5-5.5); Total Bilirubin 0.7 mg/dL (0.2-1.2); Total Protein 7.1 g/dL (6.2-8.2)
== END | disposition home or self-care (01) ==
LOC: LABWHC1 11:16
PROVIDERS: ATTEND Specialist
DX: R23.2 Flushing (principal)
CPT/HCPCS: 36415; 80053; 83520; 84260; 84443; 85025; 86038

== ENCOUNTER → 2021-04-06 | Outpatient (CLI) | payer MEDICAID | END | disposition home or self-care (01) | LOC: LABWHC1 14:00 | PROVIDERS: ATTEND Emergency Medicine | DX: Z03.818 Encounter for observation for suspected exposure to other biological agents ruled out (principal); Z20.822 Contact with and (suspected) exposure to COVID-19 | CPT/HCPCS: 87635; C9803 ==

== ENCOUNTER → 2021-04-22 | Outpatient (CLI) | payer MEDICAID ==
--- NOTE | 2021-04-24 10:59 | CT ---
EXAMINATION TYPE: CT abdomen wo con DATE OF EXAM: 04/22/2021 COMPARISON: 09/22/2020 HISTORY: Abdominal pain, Bilateral flank pain, calculus of kidney. Dr did not want pelvis ordered. CT DLP: 250.50 mGycm Examination of the solid and hollow viscera is limited given the lack of contrast. Unenhanced CT of t he abdomen was performed. The lack of contrast limits evaluation. FINDINGS: LUNG BASES: No evidence for nodule. No evidence for infiltrate. LIVER/GB: The gallbladder is unremarkable. No space-occupying hepatic lesion. PANCREAS: No pancreatic mass identified. No inflammatory process seen. SPLEEN: No evidence for splenomegaly. No intrasplenic lesions seen. ADRENALS: No adrenal nodules identified. No evidence for thickening. KIDNEYS: Stable cyst midpole left kidney. No solid renal lesions detected. Renal parenchymal thinning identified upper pole right kidney. 3 mm calculus lower pole right kidney No hydronephrosis. BOWEL: Appendix has a normal appearance. No evidence of bowel obstruction. No inflammatory process. Lymph nodes: No evidence for adenopathy greater than 1 cm. Abdominal aorta: Atheromatous changes seen. No evidence for aneurysm. Other: No significant abnormality. IMPRESSION: NONOBSTRUCTING CALCULUS RIGHT KIDNEY.
== END | disposition home or self-care (01) ==
LOC: RADCTMAIN 16:27
PROVIDERS: ATTEND Surgery
DX: N20.0 Calculus of kidney (principal)
CPT/HCPCS: 74150

== ENCOUNTER → 2021-05-06 | Outpatient (CLI) | payer MEDICAID ==
--- NOTE | 2021-05-07 09:20 | US ---
EXAMINATION TYPE: US thyroid st tissue head/neck DATE OF EXAM: 05/06/2021 COMPARISON: NONE CLINICAL HISTORY: E04.1 Thyroid Nodule. f/u GLAND SIZE: Right Lobe: 4.1 x 0.8 x 1.7 cm Overall Parenchyma: homogenous Left Lobe: 4.0 x 1.3 x 1.2 cm Overall Parenchyma: homogeneous Isthmus Thickness: 0.3 cm NODULES RIGHT: # of nodules measured on right: 0 LEFT: # of nodules measured on left: 0 ISTHMUS: # of nodules measured in the isthmus: 1 0.6 x 0.5cm hypoechoic area that appears more like a distortion then a nodule, could not replicate in 2 planes. Nodule versus other etiology Bilateral neck scanned, no evidence of lymphadenopathy. IMPRESSION: No distinct nodularity appreciated.
== END | disposition home or self-care (01) ==
LOC: RADUSWWP 16:42
PROVIDERS: ATTEND Family Medicine
DX: E04.1 Nontoxic single thyroid nodule (principal)
CPT/HCPCS: 76536

== ENCOUNTER → 2021-05-25 | Outpatient (CLI) | payer MEDICAID | END | disposition home or self-care (01) | LOC: LABWHC1 08:27 | PROVIDERS: ATTEND Otolaryngology | DX: M54.2 Cervicalgia (principal); R53.83 Other fatigue | CPT/HCPCS: 36415; 86376; 86431 ==

== ENCOUNTER → 2021-05-27 | Outpatient (CLI) | payer MEDICAID ==
--- NOTE | 2021-05-27 09:13 | XR ---
Bilateral knees HISTORY: M54.31 J45.909 M25.569 4 views of each knee submitted Correlation to bilateral knees 02/05/2020 There is no significant interval change. Bone mineralization and alignment are maintained. Joint spac es show similar appearance. Difficult to exclude minimal knee joint effusions. IMPRESSION: Difficult to exclude minimal joint effusions. Knee MRI may be of benefit..
--- NOTE | 2021-05-27 09:17 | XR ---
Lumbosacral spine HISTORY: M54.31 J45.909 M25.569 5 views of the lumbosacral spine correlated to prior exam 02/02/2020 Surgical clips are present right upper quadrant. There may be a slight spinal curvature. Lumbar verte bral bodies show stable height, alignment, bone mineralization. No evident spondylolysis or spondylol isthesis. There is multilevel spondylosis. Loss of disc height present at intervertebral levels L3-4, L4-5 and L5-S1. There is a transitional vertebral body L5 as on prior exam, sacralized appearance. S clerosis is present in the posterior elements. IMPRESSION: Degenerative disc disease, facet arthropathy, slight spinal curvature
--- NOTE | 2021-05-27 09:23 | XR ---
EXAMINATION TYPE: XR chest 2V DATE OF EXAM: 05/27/2021 COMPARISON: Chest x-ray 03/03/2021 HISTORY: M54.31 J45.909 M25.569 TECHNIQUE: Frontal and lateral views of the chest are obtained. FINDINGS: There is no focal air space opacity, pleural effusion, or pneumothorax seen. The cardiac silhouette size is within normal limits. There is bronchial wall thickening. The osseous structures are intact. IMPRESSION: Correlate for reactive airways disease, bronchitis
== END | disposition home or self-care (01) ==
LOC: RADXRMAIN 07:09
PROVIDERS: ATTEND Family Medicine
DX: M51.16 Intervertebral disc disorders with radiculopathy, lumbar region (principal); M47.26 Other spondylosis with radiculopathy, lumbar region; J45.909 Unspecified asthma, uncomplicated; M25.561 Pain in right knee; M25.562 Pain in left knee
CPT/HCPCS: 71046; 72110

== ENCOUNTER → 2021-07-06 | Outpatient (CLI) | payer MEDICAID ==
[2021-07-06 23:10] LABS: Basophils # (A) 0.04 X 10*3/uL (0.00-0.10); Basophils % (A) 0.5 %; Eosinophils % (A) 1.3 %; HCT 40.9 % (37.2-46.3); HGB 13.6 g/dL (12.0-15.0); Lymphocytes # (A) 1.22 X 10*3/uL (0.90-5.00); Lymphocytes % (A) 16.1 %; MCH 31.3 pg (27.0-32.0); MCHC 33.3 g/dL (32.0-37.0); MCV 94.2 fL (80.0-97.0); Mean Platelet Volume 10.6 fL (9.5-12.2); Monocytes # (A) 0.49 X 10*3/uL (0.20-1.00); Monocytes % (A) 6.4 %; Neutrophils # (A) 5.73 X 10*3/uL (1.80-7.70); Neutrophils % (A) 75.4 %; Platelet Count 289 X 10*3/uL (140-440); RBC 4.34 X 10*6/uL (4.10-5.20); RDW 12.2 % (11.5-14.5)
[2021-07-07 00:20] LABS: Erythrocyte Sedimentation Rate 10 mm/Hr (0-20)
[2021-07-07 04:57] LABS: C Reactive Protein <0.30 mg/dL (0.00-0.80); Rheumatoid Factor, Qnt <10 IU/mL (0-15)
[2021-07-07 11:13] LABS: HLA B27 POSITIVE
[2021-07-07 13:52] LABS: Anti-DNA, DS unit <1.0 IU/mL; DNA Double-Stranded NEGATIVE (NEGATIVE)
== END | disposition home or self-care (01) ==
LOC: LABWHC1 15:45
PROVIDERS: ATTEND Orthopaedic Surgery
DX: M25.50 Pain in unspecified joint (principal)
CPT/HCPCS: 36415; 84550; 85025; 85652; 86038; 86039; 86140; 86225; 86431; 86812

== ENCOUNTER → 2021-07-06 | Outpatient (CLI) | payer MEDICAID ==
--- NOTE | 2021-07-07 16:11 | BD ---
EXAMINATION TYPE: Axial Bone Density DATE OF EXAM: 07/06/2021 COMPARISON: NONE CLINICAL HISTORY: Postmenopausal screening Height: 66.5 Weight: 198.9 FRAX RISK QUESTIONS: Alcohol (3 or more units per day): no Family History (Parent hip fracture): no Glucocorticoids (More than 3mos): no (Ex: prednisone, prednisolone, methylprednisolone, dexamethasone, and hydrocortisone). History of Fracture in Adulthood: no Secondary Osteoporosis: 1. Type 1 Diabetes: no 2. Hyperthyroidism: no 3. Menopause before 45: no 4. Malnutrition: no 5. Chronic liver disease: no Rheumatoid Arthritis: no Current Tobacco Use: no RISK FACTORS HISTORY OF: Surgery to Spine/Hip(right/left)/Wrist (right/left): no Family History of Osteoporosis: no Active: yes Diet low in dairy products/other sources of calcium: yes Postmenopausal woman: yes Lost more than 2 inches in height since high school: no MEDICATIONS: oxtbutanime, cardival. Potassium, magnesium Thyroid Medications: levothyroxine How Lon years Additional History: EXAM MEASUREMENTS: Bone mineral densitometry was performed using the [employer] System. Bone mineral density as measured about the Lumbar spine is: ----- L1-L4(G/cm2): 1.269 T Score Values are as follows: ----- L2: 0.2 ----- L3: 1.2 ----- L4: 1.2 ----- L1-L4: 0.7 Bone mineral density : baseline Bone mineral density about the R hip (g/cm2): 1.087 Bone mineral density about the L hip (g/cm2): 1.115 T Score values are as follows: -----R Neck: 0.4 -----L Neck: 0.6 -----R Total: 0.8 -----L Total: 0.5 Bone mineral density : baseline IMPRESSION: Normal (Values between +1 and -1 indicate normal bone mass). Consider repeating this study in 5 year s or sooner if there is some new clinical indication. NOTE: T-SCORE=SD OF THE YOUNG ADULT MEAN.
== END | disposition home or self-care (01) ==
LOC: RADBDWWP 15:46
PROVIDERS: ATTEND Obstetrics & Gynecology
DX: Z13.820 Encounter for screening for osteoporosis (principal); Z78.0 Asymptomatic menopausal state
CPT/HCPCS: 77080

== ENCOUNTER → 2021-07-11 | Outpatient (CLI) | payer MEDICAID ==
[2021-07-13 00:41] LABS: Calcium 24 Hour,Urine 186.8 mg/24Hr; Creatinine 24 Hour,Urine 1.24 g/24Hr (0.80-1.80)
[2021-07-13 00:42] LABS: Uric Acid 24 Hour,Urine 0.46 g/24Hr (0.25-0.75)
== END | disposition home or self-care (01) ==
LOC: LABWHC1 07:30
PROVIDERS: ATTEND Internal Medicine Nephrology
DX: N20.0 Calculus of kidney (principal)
CPT/HCPCS: 81050; 82340; 82570; 84300; 84540; 84560

== ENCOUNTER → 2021-07-20 | Outpatient (CLI) | payer MEDICAID ==
--- NOTE | 2021-07-20 13:18 | XR ---
KUB HISTORY: Bilateral nephrolithiasis Or KUB is submitted on [address] scan 04/22/2021 There is a fallopian tubal ligation clip in the left hemipelvis, surgical clips are present in the ri ght upper quadrant. Punctate calcification is present over the lower pole left kidney and likely midp ole of the right kidney. No evidence of bowel obstruction or pneumoperitoneum. Slight spinal curvatur e. IMPRESSION: Postop changes. Nephrolithiasis.
== END | disposition home or self-care (01) ==
LOC: RADXRMAIN 08:57
PROVIDERS: ATTEND Internal Medicine Nephrology
DX: N20.0 Calculus of kidney (principal)
CPT/HCPCS: 74018

== ENCOUNTER → 2021-08-13 | Outpatient (CLI) | payer MEDICAID ==
[2021-08-13 18:14] LABS: ALT 16 U/L (8-44); AST 23 U/L (13-35); African American GFR (CKD) 99.6 (60.0-200.0); Albumin 4.6 g/dL (3.8-4.9); Albumin/Globulin Ratio 2.09 (1.60-3.17); Alkaline Phosphatase 57 U/L (41-126); BUN/Creat Ratio 15.88 Ratio (12.00-20.00); Blood Urea Nitrogen 12.7 mg/dL (9.0-27.0); Calcium 9.5 mg/dL (8.7-10.3); Carbon Dioxide 24.8 mmol/L (20.0-27.5); Chloride 107 mmol/L (96-109); Globulin 2.2 g/dL (1.6-3.3); Glucose 93 mg/dL (70-110); Potassium 4.5 mmol/L (3.5-5.5); Sodium 143 mmol/L (135-145); Total Protein 6.8 g/dL (6.2-8.2)
[2021-08-13 18:31] LABS: C Reactive Protein <0.30 mg/dL (0.00-0.80)
== END | disposition home or self-care (01) ==
LOC: LABWHC1 11:00
PROVIDERS: ATTEND Internal Medicine Critical Care Medicine
DX: D86.9 Sarcoidosis, unspecified (principal)
CPT/HCPCS: 36415; 80053; 82164; 85652; 86140

== ENCOUNTER → 2021-08-19 | Outpatient (CLI) | payer MEDICAID ==
--- NOTE | 2021-08-20 09:31 | CT ---
EXAMINATION TYPE: CT chest w con DATE OF EXAM: 08/19/2021 COMPARISON: 01/19/2021 HISTORY: h/o sarcoidosis CT DLP: 811.6 mGycm Automated exposure control for dose reduction was used. TECHNIQUE: CT scan of the chest is performed with IV Contrast, patient injected with 100 mL of Isovue 300. MIP Images are created on CT scanner and reviewed. 3D reconstructed images are created on an independent workstation and reviewed. FINDINGS: LUNGS: The lungs are grossly clear, there is no concerning parenchymal mass or nodule identified. T here is no pleural effusion or pneumothorax seen. The tracheobronchial tree is patent. MEDIASTINUM: There are no greater than 1 cm hilar or mediastinal lymph nodes. No pericardial effusi on is seen. The right paratracheal and bilateral hilar lymphadenopathy has resolved in the interval. OTHER: No additional significant abnormality is seen. IMPRESSION: Resolution of the hilar and paratracheal lymphadenopathy. Currently, no significant abno rmality seen.
== END | disposition home or self-care (01) ==
LOC: RADCTMAIN 17:58
PROVIDERS: ATTEND Internal Medicine Critical Care Medicine
DX: D86.1 Sarcoidosis of lymph nodes (principal); M47.818 Spondylosis without myelopathy or radiculopathy, sacral and sacrococcygeal region
CPT/HCPCS: 72193; 71260; Q9967

== ENCOUNTER → 2021-08-19 | Outpatient (CLI) | payer MEDICAID ==
--- NOTE | 2021-08-20 09:41 | CT ---
CT pelvis without contrast HISTORY: Sarcoidosis and pelvic pain. COMPARISON: 09/22/2020 TECHNIQUE: Multiple axial images are obtained to the pelvis without use of IV contrast material. FINDINGS: The osseous structures are intact and there is no fracture or focal intraosseous abnormality. There is minimal degenerative change of the SI joints. The hips are normal and symmetric without dege neration. There is mild facet arthropathy in the lower lumbar spine. There is no pelvic mass, free fluid, abscess or adenopathy. IMPRESSION: Minimal degenerative change of the SI joints with no other significant abnormality seen.
== END | disposition home or self-care (01) ==
LOC: RADCTMAIN 17:54
PROVIDERS: ATTEND Internal Medicine Rheumatology
DX: M53.3 Sacrococcygeal disorders, not elsewhere classified (principal)
CPT/HCPCS: 72193

== ENCOUNTER → 2021-08-23 | Outpatient (CLI) | payer MEDICAID ==
--- NOTE | 2021-08-23 12:24 | MM ---
Reason for exam: screening (asymptomatic). Last mammogram was performed 1 year ago. History: Family history of breast cancer in paternal grandmother at age 70. Benign excisional biopsy of the right breast, May 2011. Benign excisional biopsy of the left breast, 1996. Took hormonal contraceptives for 5 years beginning at age 21. Physical Findings: A clinical breast exam by your physician is recommended on an annual basis and results should be correlated with mammographic findings. MG 3D Screening Mammo W/Cad Bilateral CC and MLO view(s) were taken. Prior study comparison: August 20, 2020, bilateral MG 3d screening mammo w/cad. June 04, 2019, bilateral MG 3d diag mammo w/cad KYM. There are scattered fibroglandular densities. No significant changes when compared with prior studies. ASSESSMENT: Benign, BI-RAD 2 RECOMMENDATION: Routine screening mammogram of both breasts in 1 year.
== END | disposition home or self-care (01) ==
LOC: RADMAMWWP 06:52
PROVIDERS: ATTEND Obstetrics & Gynecology
DX: Z12.31 Encounter for screening mammogram for malignant neoplasm of breast (principal); Z80.3 Family history of malignant neoplasm of breast
CPT/HCPCS: 77063; 77067

== ENCOUNTER → 2021-09-21 | Outpatient (CLI) | payer MEDICAID ==
--- NOTE | 2021-09-22 05:05 | MR ---
EXAMINATION TYPE: MR hip LT wo con DATE OF EXAM: 09/21/2021 COMPARISON: MRI scan December 03, 2013 HISTORY: Left hip/groin and lower back pain. Multiplanar multiecho imaging of the pelvis and left hip without contrast. The proximal femurs are intact. Hip joint spaces are fairly symmetric. There is no evidence of any si gnificant hip joint effusion. I see no bony destructive process. There is no evidence of a soft tissu e mass. There is no free fluid in the pelvis. Bladder distends smoothly. The sacroiliac joints appear intact. IMPRESSION: Negative MR scan of the pelvis and left hip. No adverse change compared to the old exam.
--- NOTE | 2021-09-22 12:04 | XR ---
Lumbosacral spine HISTORY: Pain in left hip, low back pain 5 views lumbosacral spine, correlation MRI left hip 09/21/2021 Some increased signal noted on MRI of the gluteus tendon insertion of the left hip suggesting tendino sis gluteus tendon insertion versus possibly partial tear. Lumbar vertebral bodies show slight spinal curvature which could be positional. Surgical clips are pr esent right upper quadrant. Suspect sacralization of L5. There is no evident spondylolysis. Some loss of disc height present L4-5. There is spondylosis. Sclerosis present in the posterior elements of th e lower lumbar spine. IMPRESSION: Degenerative disc disease, facet arthropathy. Mild spinal curvature and postop changes an d additional findings involving the left hip as described.
== END | disposition home or self-care (01) ==
LOC: RADMRIMAIN 16:40
PROVIDERS: ATTEND Orthopaedic Surgery
DX: M25.552 Pain in left hip (principal); M51.36 Other intervertebral disc degeneration, lumbar region; M47.816 Spondylosis without myelopathy or radiculopathy, lumbar region
CPT/HCPCS: 72110

== ENCOUNTER 2021-11-14 09:09 | Day surgery (SDC) | payer MEDICAID ==
[2021-11-10 12:40] VITALS: BMI 31.6
[~2021-11-14 09:09] MED LIST changes: +DEXAMETHASONE SOD PHOSPHATE 4 MG/ML 1 ML VIAL IV ONE; -LIDOCAINE 1% (10MG/ML) FOR IV START INTRADERMA ONE; +LIDOCAINE 1% (10MG/ML) FOR IV START INTRADERMA PRN; -LIDOCAINE 1% INJ 10MG/ML (20 ML MDV) ONE; -MIDAZOLAM 2 MG/2 ML VIAL ONE; +ONDANSETRON 4 MG/2 ML VIAL IVP ONE; -PROPOFOL 10 MG/ML 20 ML VIAL IV ONE; +SCOPOLAMINE 1.5MG/72HR PATCH TRANSDERM ONE; -fentaNYL (PF) 50 MCG/ML 2 ML AMP ONE
[2021-11-14] MEDS ORDERED: fentaNYL (PF) 50 MCG/ML 2 ML AMP ONE (10:52)
[2021-11-14] MEDS ORDERED: MIDAZOLAM 2 MG/2 ML VIAL ONE (10:52)
[2021-11-14] MEDS ORDERED: LIDOCAINE 1% INJ 10MG/ML (20 ML MDV) ONE (10:52)
[2021-11-14] MEDS ORDERED: ePHEDrine 50 MG/ML 1 ML VIAL ONE (10:52)
[2021-11-14] MEDS ORDERED: SUCCINYLCHOLINE CHLORIDE 100 MG/5 ML SYR IV ONE (10:52)
[2021-11-14] MEDS ORDERED: PROPOFOL 10 MG/ML 20 ML VIAL IV ONE (10:52)
[2021-11-14] MEDS ORDERED: BUPIVACAINE (PF) 0.25% 30 ML VIAL SQ ONE (11:15)
--- NOTE | 2021-11-14 11:48 | P.OP ---
Date of Procedure: 11/14/21 Preoperative Diagnosis: Displaced distal phalanx fracture left great toe Postoperative Diagnosis: Same Procedure(s) Performed: Open reduction with internal fixation distal phalanx fracture left great toe Implants: Arthrex compression staple Anesthesia: DORCAS Surgeon: Shaheed Green Estimated Blood Loss (ml): 2 Pathology: none sent Condition: stable Disposition: PACU Description of Procedure: The patient was brought into the operating room and placed on the table supine position. Timeout was taken to confirm correct patient identifiers, correct site of surgery, and correct procedure. When the room was in agreement with the timeout, the patient was induced and placed under general anesthesia. A well- padded tourniquet was placed on the left ankle and then 15 mL of 0.25% Marcaine was injected as a block in the proximal midfoot. The left foot was then prepped and draped usual manner. A small stab incision was made at the tip of the distal phalanx of left great toe. A drill was inserted for the placement of a 2.4 mm screw are was noted the bone quality in that area was not conducive for screw placement. At that point the it was decided to place a medial compression staple. An incision was made medially between the neurovascular structures over the distal phalanx. It was bluntly dissected down to the bone. The area was measured to determine the proper size of staple which was a 15 mm width. The drill guide was used to create the drill holes in the distal phalanx so that the arms of this staple would be distal and proximal to the fracture. Once the drill holes were completed the staple was inserted the drill holes and the in serter released which allowed for immediate compression across the fracture. The staple was further impacted to lie against the distal phalanx. Fluoroscopic imaging showed proper placement of the staple both on AP and lateral views. It also show that the alignment of the fracture was near anatomic and compressed. The wound is then thoroughly irrigated with antibiotic saline. And the skin incisions were closed with 3-0 nylon. Nonadherent gauze and a bulky dry dressing applied to left foot. The tourniquet was released and capillary refill return to all digits on the left foot. The patient was then placed in a fracture boot with ankle neutral position. Anesthesia was reversed and she was taken recovery with vital signs stable.
[2021-11-14 11:55] VITALS: RESP 16; TEMP 97
[2021-11-14] MEDS: HYDROmorphone 0.5 MG/0.5 ML SYRINGE IVP PRN ×2 (12:05→12:15)
[2021-11-14 12:49] VITALS: BP 139/88
[2021-11-14 13:01] VITALS: PULSE 79
== END 2021-11-14 13:25 | disposition home or self-care (01) ==
LOC: OR 09:09
PROVIDERS: ATTEND Podiatrist
DX: S92.422A Displaced fracture of distal phalanx of left great toe, initial encounter for closed fracture (principal); W20.8XXA Other cause of strike by thrown, projected or falling object, initial encounter; E03.9 Hypothyroidism, unspecified; N28.9 Disorder of kidney and ureter, unspecified; R51.9 Headache, unspecified; Z98.890 Other specified postprocedural states; Z83.3 Family history of diabetes mellitus; Z82.49 Family history of ischemic heart disease and other diseases of the circulatory system; Z79.890 Hormone replacement therapy; Z79.899 Other long term (current) drug therapy; Z88.6 Allergy status to analgesic agent; Z88.2 Allergy status to sulfonamides; Z88.8 Allergy status to other drugs, medicaments and biological substances
CPT/HCPCS: 81025; 28505; C1713; J2250; J1100; J0690; J2405; J2001; J3010; J0330; J2704; J1170

== ENCOUNTER → 2021-11-17 | Outpatient (CLI) | payer MEDICAID ==
--- NOTE | 2021-11-18 07:09 | CT ---
EXAMINATION TYPE: CT soft tissue neck w con DATE OF EXAM: 11/17/2021 HISTORY: Anterior and left sided neck swelling and pain. COMPARISON: CT neck September 15, 2020 CT DLP: 472.5 mGycm. Automated Exposure Control for Dose Reduction was Utilized. TECHNIQUE: CT scan of the neck is performed with IV Contrast, patient injected with 100ml mL of Isov ue 300, axial images are obtained, coronal and sagittal reformatted images are reviewed. FINDINGS: Airway: Airway remains patent. Parotid/submandibular glands: No gross abnormality seen. Carotid/Vascular Structures: No significant plaque or stenosis. Dominant right vertebral artery redem onstrated. Vertebral arteries are patent to basilar junction. Osseous Structures: Straightening of cervical spine redemonstrated. Slight underlying scoliotic curva ture. Low occipital craniectomy from Chiari decompression redemonstrated. No recurrent inferior tonsi llar herniation. Other: No suspicious greater than 1 cm neck adenopathy with particular attention to the left neck. Fe w scattered subcentimeter lymph nodes throughout the neck bilaterally are redemonstrated. Oval low de nsity oval structure adjacent to the ascending aorta N the mediastinum could reflect benign thin-wall ed cyst is partially imaged on last axial images. The parapharyngeal fat spaces are maintained. No sinclair spicious focal fluid collection or fat stranding seen IMPRESSION: No suspicious mass or adenopathy identified. No significant change from prior CT.
== END | disposition home or self-care (01) ==
LOC: RADCTMAIN 16:47
PROVIDERS: ATTEND Otolaryngology
DX: R22.1 Localized swelling, mass and lump, neck (principal)
CPT/HCPCS: 70491; Q9967

== ENCOUNTER → 2021-12-14 | Outpatient (CLI) | payer MEDICAID ==
--- NOTE | 2021-12-15 08:01 | XR ---
EXAMINATION TYPE: XR shoulder complete RT DATE OF EXAM: 12/14/2021 COMPARISON: NONE HISTORY: Pain TECHNIQUE: Three views are submitted. FINDINGS: The osseous structures are intact. There is no acute fracture or dislocation. AC joint arthropathy. IMPRESSION: 1. Severe AC joint arthropathy.
== END | disposition home or self-care (01) ==
LOC: RADXRMAIN 16:04
PROVIDERS: ATTEND Family Medicine
DX: M12.811 Other specific arthropathies, not elsewhere classified, right shoulder (principal)

== ENCOUNTER → 2022-01-13 | Outpatient (CLI) | payer MEDICAID ==
--- NOTE | 2022-01-15 19:47 | XR ---
EXAMINATION TYPE: XR shoulder complete LT DATE OF EXAM: 01/13/2022 Comparison: None Clinical History: 51-year-old female M25.519 Findings: There is moderate to severe degenerative joint space narrowing. Some subchondral sclerosis is present . Subacromial space is preserved. No acute fracture, subluxation, dislocation. Impression: Moderate to severe degenerative joint space narrowing at the left AC joint. No acute osseous abnormal ity seen.
== END | disposition home or self-care (01) ==
LOC: RADXRMAIN 16:26
PROVIDERS: ATTEND Family Medicine
DX: M19.012 Primary osteoarthritis, left shoulder (principal)

== ENCOUNTER → 2022-02-01 | Outpatient (CLI) | payer MEDICAID ==
--- NOTE | 2022-02-02 06:44 | US ---
EXAMINATION TYPE: US transvaginal DATE OF EXAM: 02/01/2022 COMPARISON: US 2017. CT pelvis August 19, 2021 CLINICAL HISTORY: R10.32 ABD PAIN, R10.2 LEFT PELVIC PAIN. Left pelvic pain, 1, para 1, histo ry or uterine ablation TECHNIQUE: Transvaginal exam only per ordering physician Date of LMP: Unknown EXAM MEASUREMENTS: Uterus: 6.0 x 3.1 x 3.7 cm Endometrial Stripe: 0.4 cm Right Ovary: 1.9 x 1.2 x 1.0 cm Left Ovary: 2.4 x 1.2 x 1.8 cm 1. Uterus: anteverted, heterogeneous, multiple nabothian cysts 2. Endometrium: appears wnl 3. Right Ovary: wnl 4. Left Ovary: wnl 5. Bilateral Adnexa: wnl 6. Posterior cul-de-sac: wnl A few tiny nabothian cysts in the cervix. Heterogeneous uterus. Endometrial stripe within normal limi ts . No free fluid in the pelvis. Ovaries symmetric and small in size . No concerning adnexal masses. IMPRESSION: No suspicious pelvic or ovarian masses.
== END | disposition home or self-care (01) ==
LOC: RADUSWWP 16:20
PROVIDERS: ATTEND Obstetrics & Gynecology
DX: N88.8 Other specified noninflammatory disorders of cervix uteri (principal)
CPT/HCPCS: 76830

== ENCOUNTER → 2022-02-17 | Outpatient (CLI) | payer MEDICAID ==
--- NOTE | 2022-02-17 11:43 | US ---
EXAMINATION TYPE: US venous doppler duplex LE LT DATE OF EXAM: 02/17/2022 10:46 AM COMPARISON: NONE CLINICAL HISTORY: M79.605 PAIN IN LEFT LEG R25.2 CRAMP AND SPASM. left upper thigh edema and pain for months SIDE PERFORMED: left TECHNIQUE: The lower extremity deep venous system is examined utilizing real time linear array sonog carlos with graded compression, doppler sonography and color-flow sonography. VESSELS IMAGED: Common Femoral Vein Deep Femoral Vein Femoral Vein Popliteal Vein Small Saphenous Vein * Proximal Calf Veins (* superficial vessels) Left Leg: no evidence of DVT. lymph node left groin = 3.0 x 1.0 x 2.1cm IMPRESSION: No evidence of DVT at this time.
== END | disposition home or self-care (01) ==
LOC: RADUSWWP 10:08
PROVIDERS: ATTEND Family Medicine
DX: M79.605 Pain in left leg (principal); R25.2 Cramp and spasm
CPT/HCPCS: 93922

== ENCOUNTER → 2022-02-18 | Outpatient (CLI) | payer MEDICAID ==
[2022-02-18 11:43] LABS: HCT 39.9 % (37.2-46.3); HGB 13.3 g/dL (12.0-15.0); MCHC 33.3 g/dL (32.0-37.0); MCV 89.9 fL (80.0-97.0); Mean Platelet Volume 10.4 fL (9.5-12.2); NRBC Per 100 WBC 0 /100 WBCS (0.0-0.0); Platelet Count 294 X 10*3/uL (140-440); RBC 4.44 X 10*6/uL (4.10-5.20); RDW 12.1 % (11.5-14.5)
[2022-02-18 11:59] LABS: ALT 11 U/L (8-44); AST 24 U/L (13-35); African American GFR (CKD) 117.1 (60.0-200.0); Albumin 4.4 g/dL (3.8-4.9); Albumin/Globulin Ratio 1.91 (1.60-3.17); Alkaline Phosphatase 49 U/L (41-126); BUN/Creat Ratio 18.29 Ratio (12.00-20.00); Blood Urea Nitrogen 12.8 mg/dL (9.0-27.0); Calcium 9.1 mg/dL (8.7-10.3); Carbon Dioxide 24.8 mmol/L (20.0-27.5); Chloride 107 mmol/L (96-109); Chol/HDL Ratio 3.72 Ratio; Globulin 2.3 g/dL (1.6-3.3); Glucose 101 mg/dL (70-110); Potassium 3.9 mmol/L (3.5-5.5); Sodium 142 mmol/L (135-145); Total Protein 6.7 g/dL (6.2-8.2)
== END | disposition home or self-care (01) ==
LOC: LABWHC1 08:07
PROVIDERS: ATTEND Family Medicine
DX: E05.90 Thyrotoxicosis, unspecified without thyrotoxic crisis or storm (principal); D86.9 Sarcoidosis, unspecified
CPT/HCPCS: 36415; 80053; 80061; 83036; 84439; 84443; 84481; 85027

== ENCOUNTER → 2022-04-06 | Outpatient (CLI) | payer MEDICAID ==
--- NOTE | 2022-04-07 05:59 | MR ---
EXAMINATION TYPE: MR brain wo/w con DATE OF EXAM: 04/06/2022 COMPARISON: MRI brain May 21, 2019 and older MRIs. HISTORY: Headaches, blurred vision, hx Chiari decompression 2016. TECHNIQUE: Multiplanar, multisequence images of the brain and brainstem is performed without and with IV contras t, utilizing 9 mL intravenous Gadavist . FINDINGS: Diffusion weighted images demonstrate no evidence of a recent infarct or other diffusion ab normality. There is no worrisome extra-axial fluid collection. There remain less than 5 tiny scatter ed white matter lesions. The ventricular system and cisternal spaces remain normal in size and appear ance and stable in size and appearance. The brain volume is age appropriate. Midline structures demonstrate normal morphology. The craniocervical junction appears within normal limits after decompression surgical changes redemonstrated. Post contrast images demonstrate no new enhancing masses. The dural venous sinuses remain patent. The visualized sinuses remain clear. Globes are intact bilaterally. Prominence of CSF surrounding optic nerves is unchanged from prior studies. IMPRESSION: No new or acute findings are evident. No significant change from prior studies.
== END | disposition home or self-care (01) ==
LOC: RADMRIMAIN 18:26
PROVIDERS: ATTEND Family Medicine
DX: R51.9 Headache, unspecified (principal); Z86.69 Personal history of other diseases of the nervous system and sense organs
CPT/HCPCS: 70553; A9585

== ENCOUNTER → 2022-05-05 | Outpatient (CLI) | payer MEDICAID ==
--- NOTE | 2022-05-05 11:57 | CT ---
EXAMINATION TYPE: CT chest w con DATE OF EXAM: 05/05/2022 COMPARISON: Prior chest CT August 19, 2021 and older studies HISTORY: sarcoidosis CT DLP: 255.1 mGycm. Automated Exposure Control for Dose Reduction was Utilized. TECHNIQUE: CT scan of the thorax is performed following with IV Contrast, patient injected with 70 m L of Isovue 300. FINDINGS: LUNGS: The lungs remain grossly clear, there is no concerning parenchymal mass or nodule identified. There is no pleural effusion or pneumothorax seen bilaterally. The tracheobronchial tree is patent . MEDIASTINUM: There are no recurrent greater than 1 cm hilar or mediastinal lymph nodes. No cardiome amy or pericardial effusion is seen. OTHER: Cholecystectomy clips are redemonstrated. Scoliotic curvature to the thoracic spine redemonstr ated. IMPRESSION: No recurrent enlarged thoracic adenopathy. No suspicious acute or chronic pulmonary paren chymal process.
--- NOTE | 2022-05-05 17:01 | CA ---
Transthoracic Echo Report Name: Haleigh Jewell Age: 51 Gender: F : 1970 Exam Date: 05/05/2022 11:26 Exam Location: [facility] Ht (in): 65 Wt (lb): 200 Ordering Physician: Arun Nunes DO Attending/Referring Phys: Checker Loader Misty Andre RDCS Procedure CPT: Indications: D86.9 SARCOIDOSIS, UNSPECIFIED Cardiac Hx: Technical Quality: Good Contrast 1: Total Dose (mL): Contrast 2: Total Dose (mL): MEASUREMENTS (Male / Female) Normal Values 2D ECHO LV Diastolic Diameter PLAX 4.7 cm 4.2 - 5.9 / 3.9 - 5.3 cm LV Systolic Diameter PLAX 3.0 cm IVS Diastolic Thickness 1.1 cm 0.6 - 1.0 / 0.6 - 0.9 cm LVPW Diastolic Thickness 1.1 cm 0.6 - 1.0 / 0.6 - 0.9 cm LV Relative Wall Thickness 0.5 RV Internal Dim ED PLAX 2.3 cm LA Systolic Diameter LX 2.7 cm 3.0 - 4.0 / 2.7 - 3.8 cm LA Volume 50.4 cm??? 18 - 58 / 22 - 52 cm??? M-MODE Aortic Root Diameter MM 3.5 cm LA Systolic Diameter MM 3.6 cm LA Ao Ratio MM 1.0 MV E Point Septal Separation 0.7 cm AV Cusp Separation MM 2.4 cm DOPPLER MV Area PHT 2.8 cm??? Mitral E Point Velocity 61.1 cm/s Mitral A Point Velocity 82.0 cm/s Mitral E to A Ratio 0.7 MV Deceleration Time 268.9 ms MV E' Velocity 8.2 cm/s Mitral E to MV E' Ratio 7.4 FINDINGS Left Ventricle Normal left ventricular size, wall thickness, left ventricular ejection fraction is estimated at 55 %. Right Ventricle The right ventricle is normal in size and function. Right ventricular systolic pressure within normal limits. Right Atrium The right atrium is normal in size. Left Atrium The left atrium is normal in size. Mitral Valve Structurally normal mitral valve without significant stenosis or prolapse. There is mild mitral regurgitation. Aortic Valve Structurally normal aortic valve without significant sclerosis or stenosis. There is no aortic regurgitation. Tricuspid Valve Structurally normal tricuspid valve without significant stenosis. Pulmonary artery systolic pressure is normal. Pulmonic Valve Structurally normal pulmonic valve without significant stenosis. There is no pulmonic regurgitation. Pericardium Normal pericardium without effusion. Aorta Normal aortic root dimension. CONCLUSIONS Normal left ventricular ejection fraction 55% Mild mitral regurgitation No aortic regurgitation Normal RVSP Previewed by: Dr. Ish Lawton DO (Electronically Signed) Final Date: 05 May 2022 17:01
== END | disposition home or self-care (01) ==
LOC: RADCTMAIN 11:14
PROVIDERS: ATTEND Internal Medicine Critical Care Medicine
DX: D86.9 Sarcoidosis, unspecified (principal); I34.0 Nonrheumatic mitral (valve) insufficiency
CPT/HCPCS: 93306; 71260; Q9967

== ENCOUNTER → 2022-08-04 | Outpatient (CLI) | payer MEDICAID ==
--- NOTE | 2022-08-05 07:57 | US ---
EXAMINATION TYPE: US kidneys/renal and bladder DATE OF EXAM: 08/04/2022 COMPARISON: CT 05/05/2022, 04/22/2021. CLINICAL HISTORY: N20.0 CALCULUS OF KIDNEY. hx renal stone. Left pelvic pressure. EXAM MEASUREMENTS: Right Kidney: 8.3 x 4.1 x 4.0 cm Left Kidney: 12.2 x 4.9 x 5.7 cm Right Kidney: Upper pole cortical thinning similar prior CT on 05/05/2022. Medial anechoic lesion at h ilum = 1.4 x 0.8 cm. Lower pole cortical simple cyst = 0.9 x 0.8 x 0.7 cm. Smaller in size compared to contralateral kidney. No renal calculus identified. Left Kidney: Possible dilated collecting system vs mild hydronephrosis. Mid lateral simple cortical cyst - 1.3 x 1.2 x 1.0 cm No renal calculus identified. Bladder: Distended, anechoic Bilateral Jets seen IMPRESSION: 1. No evidence of obstructive uropathy. 2. Renal calculi seen on prior CT abdomen 04/22/2021 not definitively visualized. 3.
== END | disposition home or self-care (01) ==
LOC: RADUSWWP 16:25
PROVIDERS: ATTEND Internal Medicine Nephrology
DX: N20.0 Calculus of kidney (principal)
CPT/HCPCS: 76770

== ENCOUNTER → 2022-08-23 | Outpatient (CLI) | payer MEDICAID ==
--- NOTE | 2022-08-23 09:15 | CT ---
EXAMINATION TYPE: CT abdomen pelvis wo con DATE OF EXAM: 08/23/2022 COMPARISON: 04/22/2020 10 HISTORY: LLQ pain and pressure, some bladder urgency, generalized pain. Hx renal stones CT DLP: 648.60 mGycm Examination of the solid and hollow viscera is limited given the lack of contrast. FINDINGS: LUNG BASES: No evidence for nodule. No evidence for infiltrate. LIVER/GB: The gallbladder is surgically absent. No space-occupying hepatic lesion. PANCREAS: No pancreatic mass identified. No inflammatory process seen. SPLEEN: No evidence for splenomegaly. No intrasplenic lesions seen. ADRENALS: No adrenal nodules identified. No evidence for thickening. KIDNEYS: Suggestion of 1 cm left renal cyst. 3 mm nonobstructing calculus lower pole right kidney. Ad ditional 3 mm nonobstructing calculus lower pole left kidney. No hydronephrosis. BOWEL: Appendix has a normal appearance. No evidence of bowel obstruction. No inflammatory process. Lymph nodes: No evidence for adenopathy greater than 1 cm. Abdominal aorta: Atheromatous changes seen. No evidence for aneurysm. Genital organs: No significant abnormality. Other: No significant abnormality. IMPRESSION: NONOBSTRUCTING CALCULI BILATERAL KIDNEYS.
== END | disposition home or self-care (01) ==
LOC: RADCTMAIN 08:40
PROVIDERS: ATTEND Internal Medicine Nephrology
DX: N20.0 Calculus of kidney (principal)
CPT/HCPCS: 74176

== ENCOUNTER → 2022-08-30 | Outpatient (CLI) | payer MEDICAID ==
--- NOTE | 2022-08-31 08:55 | MM ---
Reason for Exam: Screening (asymptomatic). Last screening mammogram was performed 12 month(s) ago. Patient History: Menarche at age 14. First Full-Term at age 26. Postmenopausal. Hormonal Contraceptives, starting at age 21 for 5 years. 05/2011, Benign Excisional Biopsy on the right side. 1996, Benign Excisional Biopsy on the left side. Paternal grandmother had breast cancer, age 70. Risk Values: Ese 5 year model risk: 1.7%. NCI Lifetime model risk: 14.3%. Prior Study Comparison: 07/28/2016 Bilateral Screening Mammogram, [facility]. 08/01/2017 Bilateral Screening Mammogram, [facility]. 08/07/2018 Bilateral Screening Mammogram, [facility]. 06/04/2019 Bilateral Diagnostic Mammogram, [facility]. 08/20/2020 Bilateral Screening Mammogram, [facility]. 08/23/2021 Bilateral Screening Mammogram, [facility]. Tissue Density: The breast tissue is heterogeneously dense. This may lower the sensitivity of mammography. Findings: Analyzed By CAD. There is no suspicious group of microcalcifications or new suspicious mass in either breast. Overall Assessment: Negative, BI-RAD 1 Management: Screening Mammogram of both breasts in 1 year. A clinical breast exam by your physician is recommended on an annual basis and results should be correlated with mammographic findings. [facility] will attempt to contact patient to return for supplemental views and ultrasound if indicated. Electronically signed and approved by: Arun Cummings DO
== END | disposition home or self-care (01) ==
LOC: RADMAMWWP 09:26
PROVIDERS: ATTEND Obstetrics & Gynecology
DX: Z12.31 Encounter for screening mammogram for malignant neoplasm of breast (principal); Z78.0 Asymptomatic menopausal state; Z80.3 Family history of malignant neoplasm of breast
CPT/HCPCS: 77063; 77067

== ENCOUNTER → 2022-09-02 | Outpatient (CLI) | payer MEDICAID ==
[2022-09-02 13:33] LABS: Appearance,Urine Clear (Clear); Bilirubin,Urine Negative (Negative); Blood,Urine Negative (Negative); Color,Urine Yellow; Glucose,Urine (UA) Negative (Negative); Ketones,Urine Negative (Negative); Leukocyte Esterase,Urine Negative (Negative); Nitrite,Urine Negative (Negative); PH, Urine 5.5 (5.0-8.0); Protein,Urine Negative (Negative); Specific Gravity,Urine 1.025 (1.001-1.035); Urobilinogen,Urine <2.0 mg/dL (<2.0)
[2022-09-02 17:19] LABS: Basophils # (A) 0.05 X 10*3/uL (0.00-0.10); Basophils % (A) 0.7 %; Eosinophils # (A) 0.14 X 10*3/uL (0.04-0.35); Eosinophils % (A) 2.1 %; HCT 40.3 % (37.2-46.3); HGB 13.7 g/dL (12.0-15.0); Immature Grans, Automated 0.4 %; Lymphocytes # (A) 1.41 X 10*3/uL (0.90-5.00); Lymphocytes % (A) 21.1 %; MCH 30.6 pg (27.0-32.0); Mean Platelet Volume 9.9 fL (9.5-12.2); Monocytes # (A) 0.46 X 10*3/uL (0.20-1.00); Monocytes % (A) 6.9 %; NRBC Per 100 WBC 0 /100 WBCS (0.0-0.0); Neutrophils # (A) 4.59 X 10*3/uL (1.80-7.70); Neutrophils % (A) 68.8 %; Platelet Count 317 X 10*3/uL (140-440); RBC 4.48 X 10*6/uL (4.10-5.20); RDW 11.9 % (11.5-14.5); WBC 6.68 X 10*3/uL (4.50-10.00)
[2022-09-02 17:54] LABS: African American GFR (CKD) 117.7 (60.0-200.0); Albumin 4.7 g/dL (3.8-4.9); Albumin/Globulin Ratio 2.18 (1.60-3.17); BUN/Creat Ratio 22.22 Ratio (12.00-20.00); Calcium 9.3 mg/dL (8.7-10.3); Carbon Dioxide 23.4 mmol/L (20.0-27.5); Globulin 2.2 g/dL (1.6-3.3); Non-African American GFR(CKD) 101.5 (60.0-200.0); Potassium 4.1 mmol/L (3.5-5.5); Total Bilirubin 0.5 mg/dL (0.30-1.20); Total Protein 6.9 g/dL (6.2-8.2)
== END | disposition home or self-care (01) ==
LOC: LABWHC1 10:36
PROVIDERS: ATTEND Internal Medicine Nephrology
DX: D86.9 Sarcoidosis, unspecified (principal); N20.0 Calculus of kidney
CPT/HCPCS: 36415; 80053; 81003; 85025; 87086

== ENCOUNTER 2022-09-15 08:36 | Emergency (ER) | payer MEDICAID ==
[2022-09-15 09:53] LABS: Basophils % (A) 1 %; Eosinophils # (A) 0.1 k/uL (0-0.7); Eosinophils % (A) 3 %; HCT 40.6 % (34.0-46.0); Lymphocytes # (A) 1.1 k/uL (1.0-4.8); Lymphocytes % (A) 26 %; MCH 30.6 pg (25.0-35.0); MCHC 34.6 g/dL (31.0-37.0); MCV 88.6 fL (80.0-100.0); Mean Platelet Volume 7.5; Monocytes # (A) 0.2 k/uL (0-1.0); Monocytes % (A) 5 %; Neutrophils # (A) 2.7 k/uL (1.3-7.7); Neutrophils % (A) 64 %; Platelet Count 290 k/uL (150-450); RBC 4.58 m/uL (3.80-5.40); WBC 4.3 k/uL (3.8-10.6)
[2022-09-15 09:55] LABS: Appearance,Urine Clear (Clear); Bilirubin,Urine Negative (Negative); Blood,Urine Trace (Negative); Color,Urine Yellow; Glucose,Urine (UA) Negative (Negative); Ketones,Urine Negative (Negative); Leukocyte Esterase,Urine Trace (Negative); Mucus,Urine Rare /hpf; Nitrite,Urine Negative (Negative); PH, Urine 5.5 (5.0-8.0); Protein,Urine Negative (Negative); RBC,Urine <1 /hpf (0-5); Squamous Epithelial Cell,Urine 1 /hpf (0-4); Urobilinogen,Urine <2.0 mg/dL (<2.0); WBC,Urine 3 /hpf (0-5)
[2022-09-15 10:09] LABS: ALT 18 U/L (4-34); AST 29 U/L (14-36); African American GFR (CKD) >90 (>60 ml/min/1.73 sqM); Albumin 4.8 g/dL (3.5-5.0); Alkaline Phosphatase 52 U/L (38-126); Anion Gap 7 mmol/L; Blood Urea Nitrogen 11 mg/dL (7-17); Calcium 9.2 mg/dL (8.4-10.2); Carbon Dioxide 27 mmol/L (22-30); Chloride 108 mmol/L (98-107); Glucose 103 mg/dL (74-99); Lipase 155 U/L (23-300); Non-African American GFR(CKD) >90 (>60 ml/min/1.73 sqM); Potassium 4.3 mmol/L (3.5-5.1); Sodium 142 mmol/L (137-145); Total Bilirubin 0.8 mg/dL (0.2-1.3); Total Protein 7.6 g/dL (6.3-8.2)
--- NOTE | 2022-09-15 11:02 | CT ---
EXAMINATION TYPE: CT abdomen pelvis w con DATE OF EXAM: 09/15/2022 COMPARISON: 08/23/2022 HISTORY: 52-year-old female Rt flank, RLQ pain TECHNIQUE: Contiguous axial scanning of the abdomen and pelvis following administration of 100 ml Iso zahira 300 IV contrast. Delayed images through the kidneys and coronal/sagittal reconstructions perform ed. CT DLP: 1062.1 mGycm Automated exposure control for dose reduction was used. FINDINGS: Heart normal size without pericardial effusion. Lung bases clear without pleural effusion. Mild circumferential wall thickening distal esophagus. No focal liver lesion. Portal venous system is patent. No biliary ductal dilatation. Cholecystectomy clips. Adrenal glands, spleen, and pancreas within normal limits. There appears to be mild fullness of the left renal collecting system and possible mild urothelial en hancement. Benign 1.4 cm cortical cyst left kidney. Prominent cortical defects involving the right kidney suggests sequela of prior vascular or infectiou s insults. There is a 1.4 cm cortical lesion posterior lower pole that appears to show soft tissue density even on the patient's prior noncontrast study, this could represent a small solid mass or comminuted cyst and additional follow-up is recommended. 4 mm nonobstructive calculus lower pole right kidney. No dilated small bowel, free fluid, or free air. No mesenteric or retroperitoneal lymphadenopathy. Colon is collapsed but seems to show circumferential wall thickening from the cecum to the upper desc ending colon. No pericolonic inflammatory change. Some submucosal fat deposition is noted throughout the colon. Normal appendix. Bladder partially distended. Uterus anteverted. Both ovaries are visualized. Prominent left periuteri ne varices. Left-sided tubal ligation clip. Right-sided tubal ligation clip not seen. No abnormal fluid collection in the pelvis or pelvic lymphadenopathy. Bones: Mild degenerative change of the hips. Facet arthropathy lower lumbar spine. IMPRESSION: 1. MILD CIRCUMFERENTIAL WALL THICKENING INVOLVING THE PROXIMAL TO MID COLON DOWN TO THE UPPER DESCEND ING COLON. CORRELATE FOR NONSPECIFIC INFECTIOUS OR INFLAMMATORY COLITIS. CONCURRENT SUBMUCOSAL FAT DE POSITION COULD BE IDIOPATHIC OR COULD REPRESENT PRIOR BOUTS OF INFLAMMATION. 2. MULTIPLE CORTICAL DEFECTS INVOLVING THE RIGHT KIDNEY SUGGEST PRIOR VASCULAR OR INFECTIOUS INSULTS. THERE IS POSSIBLE MILD UROTHELIAL THICKENING INVOLVING THE LEFT RENAL COLLECTING SYSTEM. CORRELATE W ITH URINALYSIS TO EXCLUDE ANY UPPER URINARY TRACT INFECTION. 3. POSSIBLE SMALL 1.4 CM SOLID MASS VERSUS COMPLICATED CYST LOWER POLE RIGHT KIDNEY . 6 MONTH FOLLOW- UP CT TO REASSESS. 4. NONOBSTRUCTIVE 4 MM RIGHT RENAL CALCULUS. 5. MILD CIRCUMFERENTIAL WALL THICKENING DISTAL ESOPHAGUS. CORRELATE FOR ANY SYMPTOMS OF MILD ESOPHAGI TIS. 6. LEFT PERIUTERINE VARICES ARE NONSPECIFIC BUT MAY BE SEEN WITH PELVIC CONGESTION SYNDROME.
[2022-09-15] MEDS ORDERED: ACETAMINOPHEN TAB 500 MG TAB PO STA (11:19)
[2022-09-15] MEDS ORDERED: ACET/COD 300 MG/30 MG STARTER PACK 6 TAB BTL PO STA (12:07)
--- NOTE | 2022-09-15 12:16 | ED ---
Abdominal Pain HPI - General Chief Complaint: Abdominal Pain Stated Complaint: lower abdominal & back pain Time Seen by Provider: 09/15/22 08:50 Source: patient Mode of arrival: ambulatory Limitations: no limitations - History of Present Illness Initial Comments: 52-year-old female presents emergency room in with reported acute on chronic abdominal pain. States that she has long-standing history of abdominal pain. She follows with Dr. Yan and has had a colonoscopy. She also follows with Dr. Cheng and has had pelvic examination and ultrasound. States that over the past week the abdominal pain has gotten worse. Describes as pressure sensation in her suprapubic region. Also has radiating pain in the right flank. Does have a history of kidney stones. Admits to some hematuria. Also has increased frequency of voiding. She has had diarrhea over the past week. States that this is somewhat improved. Denies black or bloody stools. No fevers. She is status post cholecystectomy and tubal ligation. She is not taking any medications at home for her pain. No other alleviating, the dictating or modifying factors - Related Data Home Medications Medication Instructions Recorded Confirmed Levothyroxine Sodium [Synthroid] 75 mcg PO DAILY 06/28/20 09/15/22 Oxybutynin ER [Ditropan Xl] 10 mg PO DAILY 12/10/20 09/15/22 carvediloL [Coreg] 6.25 mg PO BID 03/03/21 09/15/22 Acetaminophen [Tylenol Extra 500 mg PO Q6H PRN 09/15/22 09/15/22 Strength] Multivitamins, Thera [Multivitamin 1 tab PO DAILY 09/15/22 09/15/22 (formulary)] Previous Rx's Medication Instructions Recorded Acetaminophen-Codeine 300-30mg 1 tab PO Q6H PRN 3 Days #12 tablet 09/15/22 [Tylenol w/codeine #3] Amoxic-Pot Clav 875-125Mg 1 tab PO Q12HR 1 Days #20 tab 09/15/22 [Augmentin 875-125] Allergies Allergy/AdvReac Type Severity Reaction Status Date / Time adhesive tape Allergy Rash- see Verified 09/15/22 11:03 comment ketorolac [From Toradol] Allergy rash-see Verified 09/15/22 11:03 comment sulfamethoxazole Allergy severe Verified 09/15/22 11:03 [From Bactrim] hives trimethoprim [From Bactrim] Allergy severe Verified 09/15/22 11:03 hives celecoxib [From Celebrex] AdvReac Confusion Verified 09/15/22 11:03 Review of Systems ROS Statement: Those systems with pertinent positive or pertinent negative responses have been documented in the HPI. ROS Other: All systems not noted in ROS Statement are negative. Past Medical History Past Medical History: Asthma, GERD/Reflux, Thyroid Disorder Additional Past Medical History / Comment(s): FX LT GREAT TOE-11/05/21, pt states "thickening of colon wall that showed up on CT Aug 2018",occipital neuritis Other hx: Chronic low back pain/herniated and bulging discs cervical/lumbar, bone fragments in back, arnold chiari malformation, hypothyroid, colitis, overactive bladder, hiatal hernia, sarcoidosis History of Any Multi-Drug Resistant Organisms: None Reported Past Surgical History: Breast Surgery, Cholecystectomy, Hernia Repair, Orthopedic Surgery, Uterine Ablation Additional Past Surgical History / Comment(s): ORIF rt wrist hardware since removed, 04/10/18 EGD with bx, colonoscopy, right inguinal hernia repair, robotic assisted exploratory lap with left inguinal hernia repairs/L inguinal lipoma removed/lysis of adhesions, right breast biopsy, left breast surgery for infected milk duct, Arnold-Chiari malformation surgery,partial meniscus repair left knee Past Anesthesia/Blood Transfusion Reactions: No Reported Reaction Past Psychological History: No Psychological Hx Reported Smoking Status: Never smoker Past Alcohol Use History: None Reported Past Drug Use History: None Reported - Past Family History Mother Family Medical History: Diabetes Mellitus, Myocardial Infarction (MA) Additional Family Medical History / Comment(s): Mother of a MA at the age of 67yrs. Brother(s) Additional Family Medical History / Comment(s): boraderline diabetic Father Family Medical History: Cancer, Diabetes Mellitus, Myocardial Infarction (MA) Additional Family Medical History / Comment(s): Father from prostate cancer at the age of 71 yrs. He also had a myocardial infarction prior to the age of 65. General Exam Limitations: no limitations General appearance: alert, in no apparent distress Head exam: Present: atraumatic, normocephalic, normal inspection Eye exam: Present: normal appearance, PERRL, EOMI. Absent: scleral icterus, conjunctival injection, periorbital swelling ENT exam: Present: normal exam, mucous membranes moist Neck exam: Present: normal inspection. Absent: tenderness, meningismus, lymphadenopathy Respiratory exam: Present: normal lung sounds bilaterally. Absent: respiratory distress, wheezes, rales, rhonchi, stridor Cardiovascular Exam: Present: regular rate, normal rhythm, normal heart sounds. Absent: systolic murmur, diastolic murmur, rubs, gallop, clicks GI/Abdominal exam: Present: soft, tenderness (lower abdomen), normal bowel sounds. Absent: distended, guarding, rebound, rigid Extremities exam: Present: normal inspection, full ROM, normal capillary refill. Absent: tenderness, pedal edema, joint swelling, calf tenderness Back exam: Present: normal inspection Neurological exam: Present: alert, oriented X3, CN II-XII intact Psychiatric exam: Present: normal affect, normal mood Skin exam: Present: warm, dry, intact, normal color. Absent: rash Course Vital Signs 09/15/22 09/15/22 08:41 12:34 Temperature 98.5 F 98.2 F Pulse Rate 88 81 Respiratory 20 18 Rate Blood Pressure 143/91 139/78 O2 Sat by Pulse 98 98 Oximetry Medical Decision Making - Medical Decision Making Was pt. sent in by a medical professional or institution? no Did you speak to anyone other than the patient for history? no Did you review nursing and triage notes? yes and I agree Were old charts reviewed? yes, old reports and imaging Differential Diagnosis? MDM Differential Abdominal Pain Women: Appendicitis, Cholecystitis, diverticulosis, ischemic bowel, pancreatitis, hepatitis, UTI, gastroenteritis, AAA, incarcerated hernia, bowel obstruction, constipation, inflammatory bowel, hepatitis, peptic ulcer disease, splenic infarction, perforated viscus, vulvitis, ovarian torsion, PID, kidney stone, placenta abruption... This is not meant to be an all-inclusive list EKG interpreted by me (3pts min.)? no X-rays interpreted by me (1pt min.)? no CT interpreted by me (1pt min.)? yes U/S interpreted by me (1pt. min.)? no What testing was considered but not performed? (CT, X-rays, U/S, labs)? Why? none What meds were considered but not given? Why? none Did you discuss the management of the patient with other professionals? no Did you reconcile home meds? no Was smoking cessation discussed for >3mins.? yes Was critical care preformed (if so, how long)? no Were there social determinants of health that impacted care today? How? (Homelessness, low income, unemployed, alcoholism, drug addiction, transportation, low edu. Level, literacy, decrease access to med. care, [facility], rehab)? no Was there de-escalation of care discussed even if they declined? (Discuss DNR or withdrawal of care, Hospice)? no What co-morbidities impacted this encounter? (DM, HTN, Smoking, COPD, CAD, Ca ncer, CVA, Hep., AIDS, mental health diagnosis, sleep apnea, morbid obesity)? GERD, asthma Was patient admitted / discharged? Upon arrival patient was placed into room 18. A thorough history and physical exam was performed. Patient given Tylenol for pain control. IV is established and laboratory studies were conducted. Trace studies are reviewed. Patient does go for CT of her abdomen and pelvis due to the distribution of her pain. Demonstrates multiple findings including some colonic thickening of the proximal to mid colon. There are also multiple cortical defects involving the right kidney suggestive prior vascular or infectious insult. I did discuss these findings with the radiologist. States that these findings are old and due to a back to CT from a year ago. She also has a lower pole cyst of the right kidney. There is left periuterine varices nonspecific however may be seen with pelvic congestion syndrome. Because of these findings the patient will be placed on antibiotics. She is to follow-up with GI and [facility] for these findings. Also recommended following the renal cyst. She is to return for any new or worsening symptoms. Patient agreeable treatment plan and she is discharged home in stable condition Undiagnosed new problem with uncertain prognosis? yes Drug Therapy requiring intensive monitoring for toxicity (Heparin, Nitro, Insulin, Cardizem)? no Were any procedures done? no Diagnosis/symptom? lower abd pain, possible colitis Acute, or Chronic, or Acute on Chronic? chronic Uncomplicated (without systemic symptoms) or Complicated (systemic symptoms)? complicated Side effects of treatment? none Exacerbation, Progression, or Severe Exacerbation] exacerbation Poses a threat to life or bodily function? no - Lab Data Result diagrams: 09/15/22 09:41 09/15/22 09:41 Lab Results 09/15/22 09/15/22 09/15/22 Range/Units 09:41 09:41 09:41 WBC 4.3 (3.8-10.6) k/uL RBC 4.58 (3.80-5.40) m/uL Hgb 14.0 (11.4-16.0) gm/dL Hct 40.6 (34.0-46.0) % MCV 88.6 (80.0-100.0) fL MCH 30.6 (25.0-35.0) pg MCHC 34.6 (31.0-37.0) g/dL RDW 12.0 (11.5-15.5) % Plt Count 290 (150-450) k/uL MPV 7.5 Neutrophils % 64 % Lymphocytes % 26 % Monocytes % 5 % Eosinophils % 3 % Basophils % 1 % Neutrophils # 2.7 (1.3-7.7) k/uL Lymphocytes # 1.1 (1.0-4.8) k/uL Monocytes # 0.2 (0-1.0) k/uL Eosinophils # 0.1 (0-0.7) k/uL Basophils # 0.0 (0-0.2) k/uL Sodium 142 (137-145) mmol/L Potassium 4.3 (3.5-5.1) mmol/L Chloride 108 H (98-107) mmol/L Carbon Dioxide 27 (22-30) mmol/L Anion Gap 7 mmol/L BUN 11 (7-17) mg/dL Creatinine 0.67 (0.52-1.04) mg/dL Est GFR (CKD-EPI)AfAm >90 (>60 ml/min/1.73 sqM) Est GFR (CKD-EPI)NonAf >90 (>60 ml/min/1.73 sqM) Glucose 103 H (74-99) mg/dL Plasma Lactic Acid Jj (0.7-2.0) mmol/L Calcium 9.2 (8.4-10.2) mg/dL Total Bilirubin 0.8 (0.2-1.3) mg/dL AST 29 (14-36) U/L ALT 18 (4-34) U/L Alkaline Phosphatase 52 (38-126) U/L Total Protein 7.6 (6.3-8.2) g/dL Albumin 4.8 (3.5-5.0) g/dL Lipase 155 (23-300) U/L Urine Color Yellow Urine Appearance Clear (Clear) Urine pH 5.5 (5.0-8.0) Ur Specific [place] 1.020 (1.001-1.035) Urine Protein Negative (Negative) Urine Glucose (UA) Negative (Negative) Urine Ketones Negative (Negative) Urine Blood Trace H (Negative) Urine Nitrite Negative (Negative) Urine Bilirubin Negative (Negative) Urine Urobilinogen <2.0 (<2.0) mg/dL Ur Leukocyte Esterase Trace H (Negative) Urine RBC <1 (0-5) /hpf Urine WBC 3 (0-5) /hpf Ur Squamous Epith Cells 1 (0-4) /hpf Urine Mucus Rare H (None) /hpf 09/15/22 Range/Units 09:41 WBC (3.8-10.6) k/uL RBC (3.80-5.40) m/uL Hgb (11.4-16.0) gm/dL Hct (34.0-46.0) % MCV (80.0-100.0) fL MCH (25.0-35.0) pg MCHC (31.0-37.0) g/dL RDW (11.5-15.5) % Plt Count (150-450) k/uL MPV Neutrophils % % Lymphocytes % % Monocytes % % Eosinophils % % Basophils % % Neutrophils # (1.3-7.7) k/uL Lymphocytes # (1.0-4.8) k/uL Monocytes # (0-1.0) k/uL Eosinophils # (0-0.7) k/uL Basophils # (0-0.2) k/uL Sodium (137-145) mmol/L Potassium (3.5-5.1) mmol/L Chloride (98-107) mmol/L Carbon Dioxide (22-30) mmol/L Anion Gap mmol/L BUN (7-17) mg/dL Creatinine (0.52-1.04) mg/dL Est GFR (CKD-EPI)AfAm (>60 ml/min/1.73 sqM) Est GFR (CKD-EPI)NonAf (>60 ml/min/1.73 sqM) Glucose (74-99) mg/dL Plasma Lactic Acid Jj 1.2 (0.7-2.0) mmol/L Calcium (8.4-10.2) mg/dL Total Bilirubin (0.2-1.3) mg/dL AST (14-36) U/L ALT (4-34) U/L Alkaline Phosphatase (38-126) U/L Total Protein (6.3-8.2) g/dL Albumin (3.5-5.0) g/dL Lipase (23-300) U/L Urine Color Urine Appearance (Clear) Urine pH (5.0-8.0) Ur Specific [place] (1.001-1.035) Urine Protein (Negative) Urine Glucose (UA) (Negative) Urine Ketones (Negative) Urine Blood (Negative) Urine Nitrite (Negative) Urine Bilirubin (Negative) Urine Urobilinogen (<2.0) mg/dL Ur Leukocyte Esterase (Negative) Urine RBC (0-5) /hpf Urine WBC (0-5) /hpf Ur Squamous Epith Cells (0-4) /hpf Urine Mucus (None) /hpf Disposition Clinical Impression: Colitis, Pelvic congestion syndrome, Abdominal pain, Kidney cysts Disposition: HOME SELF-CARE Condition: Stable Instructions (If sedation given, give patient instructions): Colitis (ED) Additional Instructions: Your CAT scan is concerning for colitis and pelvic congestion syndrome. You have a cyst on your right kidney however that has been there for a long period of time. Please take the antibiotics to see if you have any improvement in your symptoms. Follow up with the [facility] in regards to your questionable pelvic congestion syndrome. return for any new or worsening symptoms Prescriptions: Amoxic-Pot Clav 875-125Mg [Augmentin 875-125] 1 tab PO Q12HR 1 Days #20 tab Acetaminophen-Codeine 300-30mg [Tylenol w/codeine #3] 1 tab PO Q6H PRN 3 Days #12 tablet PRN Reason: Pain Is patient prescribed a controlled substance at d/c from ED?: Yes When asked, does pt state using other controlled substances?: No If prescribed controlled substance>3 days was MAPS reviewed?: Prescribed <3 Days Referrals: Keiko Gordillo DO [Primary Care Provider] - 1-2 days Bryce Segura DO [REFERRING] - 1-2 days Diann Lau MD [STAFF PHYSICIAN] - 1-2 days Time of Disposition: 12:16
[2022-09-15 12:36] VITALS: BP 139/78; PULSE 81; RESP 18; TEMP 98.2
== END 2022-09-15 12:34 | disposition home or self-care (01) ==
LOC: EC 08:36
DX: K52.9 Noninfective gastroenteritis and colitis, unspecified (principal); N94.89 Other specified conditions associated with female genital organs and menstrual cycle; N28.1 Cyst of kidney, acquired; E03.9 Hypothyroidism, unspecified; J45.909 Unspecified asthma, uncomplicated; K21.9 Gastro-esophageal reflux disease without esophagitis; Z79.890 Hormone replacement therapy; Z79.899 Other long term (current) drug therapy; Z88.1 Allergy status to other antibiotic agents; Z88.2 Allergy status to sulfonamides; Z88.6 Allergy status to analgesic agent
CPT/HCPCS: 36415; 80053; 83605; 83690; 85025; 81001; 74177; 99284; Q9967

== ENCOUNTER → 2023-02-21 | Outpatient (CLI) | payer MEDICAID ==
--- NOTE | 2023-02-21 09:31 | US ---
EXAMINATION TYPE: US groin LT DATE OF EXAM: 02/21/2023 COMPARISON: NONE CLINICAL INDICATION: Female, 52 years old with history of R22.2 LOCALIZED SWELLING, MASS AND LUMP, TR UNK; Intermittent left groin pain x couple months Left groin at patient's area of concern: multiple lymph nodes seen with largest measuring 1.3 x 0.5 x 0.8cm Right groin for comparison: multiple lymph nodes seen IMPRESSION: Left inguinal lymph nodes.
--- NOTE | 2023-02-21 16:14 | US ---
EXAMINATION TYPE: US transvaginal DATE OF EXAM: 02/21/2023 COMPARISON: US 2021 CLINICAL INDICATION: Female, 52 years old with history of R22.2 LOCALIZED SWELLING, MASS AND LUMP, TR UNK; Intermittent left groin pain x couple months, history of ablation TECHNIQUE: Transvaginal exam only Date of LMP: 12 years ago EXAM MEASUREMENTS: Uterus: 5.3 x 2.8 x 3.9cm cm Endometrial Stripe: 0.4 cm Right Ovary: 2.1 x 1.1 x 1.3 cm Left Ovary: not seen 1. Uterus: anteverted, mildly heterogeneous 2. Endometrium: appears wnl 3. Right Ovary: wnl 4. Left Ovary: not seen 5. Bilateral Adnexa: wnl 6. Posterior cul-de-sac: wnl IMPRESSION: 1. Unremarkable pelvic ultrasound
== END | disposition home or self-care (01) ==
LOC: RADUSWWP 07:31
PROVIDERS: ATTEND Family Medicine
DX: R22.2 Localized swelling, mass and lump, trunk (principal)
CPT/HCPCS: 76830

== ENCOUNTER → 2023-03-19 | Outpatient (CLI) | payer MEDICAID ==
--- NOTE | 2023-03-19 20:13 | MR ---
EXAMINATION TYPE: MR pelvis wo/w con DATE OF EXAM: 03/19/2023 COMPARISON: MR abdomen 10/25/2022 CT abdomen pelvis 09/15/2022 left hip MRI 09/21/2021. CLINICAL INDICATION:Female, 52 years old with history of Z71.3, R59.0; TECHNIQUE: Triplane multisequence imaging was performed of the pelvis. IV Contrast: 9 cc Gadavist FINDINGS: Reproductive: Vagina: Unremarkable. Uterus: The uterus is anteverted in position. Uterus measures 5.5 x 2.9 x 3.5 cm . The endometrium an d junctional zone are within normal limits. Multiple nabothian cysts are seen in the lower uterine s egment. Ovaries: Ovaries are not definitively visualized and may be atrophic or surgically absent. Bladder: Partially distended and grossly unremarkable. Bowel: Unremarkable as visualized. Peritoneum: No evidence for free fluid. Lymph nodes: No evidence of adenopathy. No suspicious lymph nodes visualized. The inguinal lymph node s are stable bilaterally compared to prior CT on 09/15/2022 and may have a fatty hilum. Vasculature: Unremarkable. Musculoskeletal: Bone marrow signal is within normal signal intensity. Abdominal wall/soft tissues: No evidence for hernia organizing fluid collection or mass within the le ft inguinal region. IMPRESSION: No evidence for organizing fluid collection or mass within the left groin/inguinal region. No hernia visualized. No enlarged lymph nodes are present. There is a stable left inguinal lymph node which is unchanged from 09/21/2021 MRI. No abnormal postcontrast enhancement.
== END | disposition home or self-care (01) ==
LOC: RADMRIMAIN 18:43
PROVIDERS: ATTEND Internal Medicine
DX: R59.0 Localized enlarged lymph nodes (principal); Z71.3 Dietary counseling and surveillance
CPT/HCPCS: 72197; A9585

== ENCOUNTER → 2023-03-28 | Outpatient (CLI) | payer MEDICAID ==
--- NOTE | 2023-03-29 09:17 | CT ---
EXAMINATION TYPE: CT abdomen pelvis w con CT DLP: 850.5 mGycm, Automated exposure control for dose reduction was used. DATE OF EXAM: 03/28/2023 6:31 PM COMPARISON: CT abdomen pelvis most recent from 09/15/2022. CLINICAL INDICATION:Female, 52 years old with history of R10.9 R19.7 K21.9 K58.9 R59.0; Lower abd mansoor n, cramping, diarrhea TECHNIQUE: Axial CT of the abdomen and pelvis. Sagittal and coronal reformats were created on a [employer] workstation. Contrast used:100ml mL of Isovue 300 with IV Contrast, (none if empty) Oral contrast used: with Oral Contrast (none if empty) FINDINGS: LOWER CHEST: Unremarkable ABDOMEN LIVER: Unremarkable GALLBLADDER AND BILE DUCTS: Gallbladder appears surgically absent. PANCREAS: Unremarkable. SPLEEN: Unremarkable. ADRENAL GLANDS: Unremarkable. KIDNEYS AND URETERS: Multiple cortical defects within the right kidney compatible with prior injury. Area of abnormality within the right inferior pole sphincter present superimposed cortical defect/par enchyma scarring. Nonobstructing bilateral renal calculi measuring 3 mm in the right and 2 mm on the left. PELVIS BLADDER: Unremarkable REPRODUCTIVE: Surgical clip in the left pelvis. ABDOMEN & PELVIS STOMACH AND BOWEL: No evidence of bowel obstruction. Chronic submucosal fat deposition seen within th e amador are less prominent exam. Findings could represent resolution of prior mild colitis. PERITONEUM/RETROPERITONEUM: No evidence of pneumoperitoneum or free fluid. VASCULATURE: No evidence of aortic aneurysm. MUSCULOSKELETAL: No acute osseous abnormalities. Moderate disc degeneration changes are present throu ghout the thoracolumbar spine. LYMPH NODES: No gross evidence for lymphadenopathy. SOFT TISSUE/ABDOMINAL WALL: Fat-containing umbilical hernia. IMPRESSION: 1. Right kidney inferior pole area of concern stopped represent cortical defect likely secondary to prior injury. There is nonobstructing right renal calculus. 2. No evidence for acute process. 3. Area of colonic wall thickening on prior felt to represent chronic inflammation changes with subm ucosal fat deposition. No evidence for acute abdominal process. Bowel amador are within normal limits for thickness.
== END | disposition home or self-care (01) ==
LOC: RADCTMAIN 17:33
PROVIDERS: ATTEND Family Medicine
DX: N20.0 Calculus of kidney (principal); K58.9 Irritable bowel syndrome, unspecified; K21.9 Gastro-esophageal reflux disease without esophagitis; R59.0 Localized enlarged lymph nodes; R19.7 Diarrhea, unspecified; K63.89 Other specified diseases of intestine
CPT/HCPCS: 74177; Q9967

== ENCOUNTER → 2023-03-31 | Outpatient (CLI) | payer MEDICAID ==
[2023-03-31 23:08] LABS: Basophils # (A) 0.04 X 10*3/uL (0.00-0.10); Eosinophils # (A) 0.08 X 10*3/uL (0.04-0.35); HCT 39.1 % (37.2-46.3); HGB 13.8 d/dL (12.0-15.0); Immature Grans, Automated 0 %; Lymphocytes # (A) 1.35 X 10*3/uL (0.90-5.00); Lymphocytes % (A) 33.1 %; MCH 31.3 pg (27.0-32.0); MCHC 35.3 d/dL (32.0-37.0); MCV 88.7 FL (80.0-97.0); Mean Platelet Volume 10.4 FL (9.5-12.2); Monocytes # (A) 0.28 X 10*3/uL (0.20-1.00); Monocytes % (A) 6.9 %; NRBC Per 100 WBC 0 X 10*3/uL (0.00-0.01); Neutrophils # (A) 2.33 X 10*3/uL (1.80-7.70); Platelet Count 310 X 10*3/uL (140-440); RBC 4.41 X 10*6/uL (4.10-5.20); RDW 11.7 % (11.5-14.5); WBC 4.08 X 10*3/uL (4.50-10.00)
[2023-03-31 23:23] LABS: ALT 13 U/L (8-44); AST 24 U/L (13-35); Albumin 4.8 d/dL (3.8-4.9); Albumin/Globulin Ratio 2.09 Ratio (1.60-3.17); Alkaline Phosphatase 60 U/L (41-126); BUN/Creat Ratio 15.86 Ratio (12.00-20.00); Blood Urea Nitrogen 11.1 mg/dL (9.0-27.0); Calcium 9.7 mg/dL (8.7-10.3); Carbon Dioxide 24.9 mmol/L (21.6-31.8); Chloride 105 mmol/L (96-109); Globulin 2.3 d/dL (1.6-3.3); Glucose 118 mg/dL (70-110); LDH 171 U/L (120-246); Potassium 4.2 mmol/L (3.5-5.5); Sodium 141 mmol/L (135-145); Total Bilirubin 0.4 mg/dL (0.3-1.2); Total Protein 7.1 d/dL (6.2-8.2)
== END | disposition home or self-care (01) ==
LOC: LABWHC1 11:04
PROVIDERS: ATTEND Internal Medicine
DX: R10.9 Unspecified abdominal pain (principal); R19.7 Diarrhea, unspecified; Z71.3 Dietary counseling and surveillance
CPT/HCPCS: 36415; 80053; 83615; 83630; 83993; 85025; 87045; 87046

== ENCOUNTER 2023-05-22 07:07 | Emergency (ER) | payer MEDICAID ==
[2023-05-22 07:21] VITALS: RESP 18; TEMP 97.7
[2023-05-22] MEDS ORDERED: SODIUM CHLORIDE 0.9% 1,000 ML IV ONE (07:27)
--- NOTE | 2023-05-22 07:29 | ED ---
General Adult HPI - General Chief complaint: Abdominal Pain Stated complaint: Abd pain Time Seen by Provider: 05/22/23 07:14 Source: patient, RN notes reviewed, old records reviewed Mode of arrival: ambulatory Limitations: no limitations - History of Present Illness Initial comments: 52-year-old female presents for evaluation of abdominal pain. Pain is been present for several days. She states she has not had a bowel movement in the past 3 days. She states this is atypical for her. No vomiting but she has had some associated nausea. No fevers. She states she had CAT scan performed approximately one month ago and was noted to have an umbilical hernia. She is awaiting surgical evaluation. - Related Data Home Medications Medication Instructions Recorded Confirmed Levothyroxine Sodium [Synthroid] 75 mcg PO DAILY 06/28/20 09/15/22 Oxybutynin ER [Ditropan XL] 10 mg PO DAILY 12/10/20 09/15/22 carvediloL [Coreg] 6.25 mg PO BID 03/03/21 09/15/22 Acetaminophen [Tylenol Extra 500 mg PO Q6H PRN 09/15/22 09/15/22 Strength] Multivitamins, Thera [Multivitamin 1 tab PO DAILY 09/15/22 09/15/22 (formulary)] Previous Rx's Medication Instructions Recorded Acetaminophen-Codeine 300-30mg 1 tab PO Q6H PRN 3 Days #12 tablet 09/15/22 [Tylenol w/codeine #3] Amoxic-Pot Clav 875-125Mg 1 tab PO Q12HR 1 Days #20 tab 09/15/22 [Augmentin 875-125] Allergies Allergy/AdvReac Type Severity Reaction Status Date / Time adhesive tape Allergy Rash- see Verified 09/15/22 11:03 comment amitriptyline Allergy Rash/Hives Verified 05/22/23 07:18 baclofen Allergy Rash/Hives Verified 05/22/23 07:18 ketorolac [From Toradol] Allergy rash-see Verified 09/15/22 11:03 comment sulfamethoxazole Allergy severe Verified 09/15/22 11:03 [From Bactrim] hives trimethoprim [From Bactrim] Allergy severe Verified 09/15/22 11:03 hives celecoxib [From Celebrex] AdvReac Confusion Verified 09/15/22 11:03 Review of Systems ROS Statement: Those systems with pertinent positive or pertinent negative responses have been documented in the HPI. ROS Other: All systems not noted in ROS Statement are negative. Past Medical History Past Medical History: Asthma, GERD/Reflux, Thyroid Disorder Additional Past Medical History / Comment(s): FX LT GREAT TOE-11/05/21, pt states "thickening of colon wall that showed up on CT Aug 2018",occipital neuritis Other hx: Chronic low back pain/herniated and bulging discs cervical/lumbar, bone fragments in back, arnold chiari malformation, hypothyroid, colitis, overactive bladder, hiatal hernia, sarcoidosis History of Any Multi-Drug Resistant Organisms: None Reported Past Surgical History: Breast Surgery, Cholecystectomy, Hernia Repair, Orthopedic Surgery, Uterine Ablation Additional Past Surgical History / Comment(s): ORIF rt wrist hardware since removed, 04/10/18 EGD with bx, colonoscopy, right inguinal hernia repair, robotic assisted exploratory lap with left inguinal hernia repairs/L inguinal lipoma removed/lysis of adhesions, right breast biopsy, left breast surgery for infected milk duct, Arnold-Chiari malformation surgery,partial meniscus repair left knee Past Anesthesia/Blood Transfusion Reactions: No Reported Reaction Past Psychological History: No Psychological Hx Reported Smoking Status: Never smoker Past Alcohol Use History: None Reported Past Drug Use History: None Reported - Past Family History Mother Family Medical History: Diabetes Mellitus, Myocardial Infarction (PA) Additional Family Medical History / Comment(s): Mother of a PA at the age of 67yrs. Brother(s) Additional Family Medical History / Comment(s): boraderline diabetic Father Family Medical History: Cancer, Diabetes Mellitus, Myocardial Infarction (PA) Additional Family Medical History / Comment(s): Father from prostate cancer at the age of 71 yrs. He also had a myocardial infarction prior to the age of 65. General Exam Limitations: no limitations General appearance: alert, in no apparent distress Head exam: Present: atraumatic, normocephalic Eye exam: Present: normal appearance, PERRL ENT exam: Present: normal exam Neck exam: Present: normal inspection. Absent: tenderness, meningismus Respiratory exam: Present: normal lung sounds bilaterally. Absent: respiratory distress, wheezes Cardiovascular Exam: Present: regular rate, normal rhythm GI/Abdominal exam: Present: soft. Absent: distended, tenderness, guarding, rebound, rigid Neurological exam: Present: alert, CN II-XII intact. Absent: motor sensory deficit Skin exam: Present: warm, dry, intact Course Vital Signs 05/22/23 07:15 Temperature 97.7 F Pulse Rate 81 Respiratory 18 Rate Blood Pressure 136/81 O2 Sat by Pulse 98 Oximetry Medical Decision Making - Medical Decision Making Was pt. sent in by a medical professional or institution (, SUE, PLASTICS HEAT WELDER, urgent care, hospital, or intermediate...) When possible be specific @ -No Did you speak to anyone other than the patient for history (EMS, parent, family, police, friend...)? What history was obtained from this source @ -No Did you review nursing and triage notes (agree or disagree)? Why? @ -I reviewed and agree with nursing and triage notes Were old charts reviewed (outside hosp., previous admission, EMS record, old EKG, old radiological studies, urgent care reports/EKG's, intermediate records)? Report findings @ Reviewed computed tomography scan from end of March 2023 Differential Diagnosis (chest pain, altered mental status, abdominal pain women, abdominal pain men, vaginal bleeding, weakness, fever, dyspnea, syncope, headache, dizziness, GI bleed, back pain, seizure, CVA, palpatations, mental health, musculoskeletal)? @ Differential Abdominal Pain Women: Appendicitis, Cholecystitis, diverticulosis, ischemic bowel, pancreatitis, hepatitis, UTI, gastroenteritis, AAA, incarcerated hernia, bowel obstruction, constipation, inflammatory bowel, hepatitis, peptic ulcer disease, splenic infarction, perforated viscus, vulvitis, ovarian torsion, PID, kidney stone, placenta abruption, this is not meant to be an all-inclusive list EKG interpreted by me (3pts min.). @ -As above X-rays interpreted by me (1pt min.). @ X-ray of the abdomen showing nonobstructive pattern, no bowel dilatation, no intraperitoneal free air. CT interpreted by me (1pt min.). @ -None done U/S interpreted by me (1pt. min.). @ -None done What testing was considered but not performed or refused? (CT, X-rays, U/S, labs)? Why? @ -None What meds were considered but not given or refused? Why? @ -None Did you discuss the management of the patient with other professionals (professionals i.e. , PA, PLASTICS HEAT WELDER, lab, RT, psych nurse, social media specialist, lab rep, teacher, executive officer special warfare team, pillowcase cleaner)? Give summary @ -No Was smoking cessation discussed for >3mins.? @ -No Was critical care preformed (if so, how long)? @ -No Were there social determinants of health that impacted care today? How? (Homel essness, low income, unemployed, alcoholism, drug addiction, transportation, low edu. Level, literacy, decrease access to med. care, [facility], rehab)? @ -No Was there de-escalation of care discussed even if they declined (Discuss DNR or withdrawal of care, Hospice)? DNR status @ -No What co-morbidities impacted this encounter? (DM, HTN, Smoking, COPD, CAD, Cancer, CVA, ARF, Chemo, Hep., AIDS, mental health diagnosis, sleep apnea, morbid obesity)? @ -None Was patient admitted / discharged? Hospital course, mention meds given and route, prescriptions, significant lab abnormalities, going to OR and other pertinent info. @ -52-year-old female with abdominal pain, no focal tenderness on exam. No rebound. No guarding, stable vitals, normal CBC, normal CMP, normal urinalysis. X-ray negative for obstruction, showed normal bowel gas pattern. I do feel this patient is stable for continued outpatient follow-up with strict return parameters. Undiagnosed new problem with uncertain prognosis? @ -No Drug Therapy requiring intensive monitoring for toxicity (Heparin, Nitro, Insulin, Cardizem)? @ -No Were any procedures done? @ -No Diagnosis/symptom? @ -Abdominal pain Acute, or Chronic, or Acute on Chronic? @ -Acute Uncomplicated (without systemic symptoms) or Complicated (systemic symptoms)? @ -default Side effects of treatment? @ -No Exacerbation, Progression, or Severe Exacerbation? @ -No Poses a threat to life or bodily function? How? (Chest pain, USA, PA, pneumonia, PE, COPD, DKA, ARF, appy, cholecystitis, CVA, Diverticulitis, Homicidal, Suicidal, threat to staff... and all critical care pts) @ -Low risk at this time. There is junk calcification. - Lab Data Result diagrams: 05/22/23 07:31 05/22/23 07:31 Lab Results 05/22/23 05/22/2305/22/23 Range/Units 07:31 07:31 07:31 WBC 4.3 (3.8-10.6) k/uL RBC 4.44 (3.80-5.40) m/uL Hgb 13.6 (11.4-16.0) gm/dL Hct 40.5 (34.0-46.0) % MCV 91.2 (80.0-100.0) fL MCH 30.6 (25.0-35.0) pg MCHC 33.5 (31.0-37.0) g/dL RDW 12.2 (11.5-15.5) % Plt Count 253 (150-450) k/uL MPV 7.4 Neutrophils % 52 % Lymphocytes % 36 % Monocytes % 5 % Eosinophils % 4 % Basophils % 1 % Neutrophils # 2.3 (1.3-7.7) k/uL Lymphocytes # 1.6 (1.0-4.8) k/uL Monocytes # 0.2 (0-1.0) k/uL Eosinophils # 0.2 (0-0.7) k/uL Basophils # 0.0 (0-0.2) k/uL Sodium 140 (137-145) mmol/L Potassium 3.9 (3.5-5.1) mmol/L Chloride 108 H (98-107) mmol/L Carbon Dioxide 22 (22-30) mmol/L Anion Gap 10 mmol/L BUN 12 (7-17) mg/dL Creatinine 0.63 (0.52-1.04) mg/dL Est GFR (CKD-EPI)AfAm >90 (>60 ml/min/1.73 sqM) Est GFR (CKD-EPI)NonAf >90 (>60 ml/min/1.73 sqM) Glucose 105 H (74-99) mg/dL Calcium 9.4 (8.4-10.2) mg/dL Total Bilirubin 0.7 (0.2-1.3) mg/dL AST 25 (14-36) U/L ALT 14 (4-34) U/L Alkaline Phosphatase 61 (38-126) U/L Total Protein 7.4 (6.3-8.2) g/dL Albumin 4.5 (3.5-5.0) g/dL Amylase 53 (30-110) U/L Lipase 151 (23-300) U/L Urine Color Light Yellow Urine Appearance Clear (Clear) Urine pH 5.5 (5.0-8.0) Ur Specific [place] 1.012 (1.001-1.035) Urine Protein Negative (Negative) Urine Glucose (UA) Negative (Negative) Urine Ketones Negative (Negative) Urine Blood Negative (Negative) Urine Nitrite Negative (Negative) Urine Bilirubin Negative (Negative) Urine Urobilinogen <2.0 (<2.0) mg/dL Ur Leukocyte Esterase Negative (Negative) Disposition Clinical Impression: Abdominal pain Disposition: HOME SELF-CARE Condition: Good Instructions (If sedation given, give patient instructions): Abdominal Pain (ED) Is patient prescribed a controlled substance at d/c from ED?: No Referrals: Bro Cruz MD [Primary Care Provider] - 1-2 days Time of Disposition: 08:56
[2023-05-22 07:48] LABS: Basophils % (A) 1 %; Eosinophils # (A) 0.2 k/uL (0-0.7); Eosinophils % (A) 4 %; HCT 40.5 % (34.0-46.0); HGB 13.6 gm/dL (11.4-16.0); Lymphocytes # (A) 1.6 k/uL (1.0-4.8); Lymphocytes % (A) 36 %; MCH 30.6 pg (25.0-35.0); MCHC 33.5 g/dL (31.0-37.0); MCV 91.2 fL (80.0-100.0); Mean Platelet Volume 7.4; Monocytes # (A) 0.2 k/uL (0-1.0); Monocytes % (A) 5 %; Neutrophils # (A) 2.3 k/uL (1.3-7.7); Neutrophils % (A) 52 %; Platelet Count 253 k/uL (150-450); RBC 4.44 m/uL (3.80-5.40); RDW 12.2 % (11.5-15.5); WBC 4.3 k/uL (3.8-10.6)
[2023-05-22 08:01] LABS: ALT 14 U/L (4-34); AST 25 U/L (14-36); African American GFR (CKD) >90 (>60 ml/min/1.73 sqM); Albumin 4.5 g/dL (3.5-5.0); Alkaline Phosphatase 61 U/L (38-126); Amylase 53 U/L (30-110); Anion Gap 10 mmol/L; Blood Urea Nitrogen 12 mg/dL (7-17); Calcium 9.4 mg/dL (8.4-10.2); Carbon Dioxide 22 mmol/L (22-30); Chloride 108 mmol/L (98-107); Glucose 105 mg/dL (74-99); Lipase 151 U/L (23-300); Non-African American GFR(CKD) >90 (>60 ml/min/1.73 sqM); Potassium 3.9 mmol/L (3.5-5.1); Sodium 140 mmol/L (137-145); Total Bilirubin 0.7 mg/dL (0.2-1.3); Total Protein 7.4 g/dL (6.3-8.2)
--- NOTE | 2023-05-22 08:01 | XR ---
EXAMINATION TYPE: XR KUB DATE OF EXAM: 05/22/2023 COMPARISON: NONE HISTORY: Pain TECHNIQUE: One view abdominal series FINDINGS: The osseous structures are intact. The bowel gas pattern is nonspecific. Lung bases are clear. Surg ical clips are noted. Bilateral mild hypertrophic arthropathy of the hip. IMPRESSION: 1. Nonspecific abdomen.
[2023-05-22 08:47] LABS: Appearance,Urine Clear (Clear); Bilirubin,Urine Negative (Negative); Blood,Urine Negative (Negative); Color,Urine Light Yellow; Glucose,Urine (UA) Negative (Negative); Ketones,Urine Negative (Negative); Leukocyte Esterase,Urine Negative (Negative); Nitrite,Urine Negative (Negative); PH, Urine 5.5 (5.0-8.0); Protein,Urine Negative (Negative); Specific Gravity,Urine 1.012 (1.001-1.035); Urobilinogen,Urine <2.0 mg/dL (<2.0)
[2023-05-22 09:31] VITALS: BP 134/81; PULSE 82
== END 2023-05-22 09:31 | disposition home or self-care (01) ==
LOC: EC 07:07
DX: R10.9 Unspecified abdominal pain (principal); J45.909 Unspecified asthma, uncomplicated; E03.9 Hypothyroidism, unspecified; Z79.890 Hormone replacement therapy; Z79.899 Other long term (current) drug therapy; Z88.1 Allergy status to other antibiotic agents; Z88.2 Allergy status to sulfonamides; Z88.6 Allergy status to analgesic agent; Z88.8 Allergy status to other drugs, medicaments and biological substances; Z91.09 Other allergy status, other than to drugs and biological substances; Z90.49 Acquired absence of other specified parts of digestive tract
CPT/HCPCS: 36415; 74018; 80053; 81003; 82150; 83690; 85025; 96360; 96361; 99284

== ENCOUNTER → 2023-07-23 | Outpatient (CLI) | payer MEDICAID ==
[2023-07-23 10:40] LABS: Creatinine,Urine Random 122.8 mg/dL; Protein/Creatinine Ratio,Urine 0.057
[2023-07-23 15:34] LABS: Basophils # (A) 0.04 X 10*3/uL (0.00-0.10); Basophils % (A) 0.9 %; Eosinophils # (A) 0.13 X 10*3/uL (0.04-0.35); Eosinophils % (A) 2.8 %; HCT 40.5 % (37.2-46.3); HGB 13.7 g/dL (12.0-15.0); Lymphocytes # (A) 1.61 X 10*3/uL (0.90-5.00); Lymphocytes % (A) 35.1 %; MCH 30.5 pg (27.0-32.0); MCHC 33.8 g/dL (32.0-37.0); MCV 90.2 FL (80.0-97.0); Mean Platelet Volume 10.3 FL (9.5-12.2); Monocytes # (A) 0.33 X 10*3/uL (0.20-1.00); Monocytes % (A) 7.2 %; NRBC Per 100 WBC 0 X 10*3/uL (0.00-0.01); Neutrophils # (A) 2.47 X 10*3/uL (1.80-7.70); Neutrophils % (A) 53.8 %; Platelet Count 326 X 10*3/uL (140-440); RBC 4.49 X 10*6/uL (4.10-5.20); RDW 12.2 % (11.5-14.5); WBC 4.59 X 10*3/uL (4.50-10.00)
[2023-07-23 16:23] LABS: Albumin 4.6 g/dL (3.8-4.9); Calcium 9.7 mg/dL (8.7-10.3); Carbon Dioxide 25.3 mmol/L (21.6-31.8); Chloride 105 mmol/L (96-109); Creatine Kinase 129 U/L (26-186); Glucose 113 mg/dL (70-110); Magnesium 2.3 mg/dL (1.5-2.4); Sodium 142 mmol/L (135-145); Uric Acid 3.3 mg/dL (2.9-7.7)
[2023-07-23 17:07] LABS: Appearance,Urine Clear (Clear); Bilirubin,Urine Negative (Negative); Blood,Urine Trace (Negative); Color,Urine Yellow (Yellow); Ketones,Urine Negative (Negative); Nitrite,Urine Negative (Negative); PH, Urine 5.5; Urobilinogen,Urine 0.2 E.U./DL
[2023-07-23 17:14] LABS: Bacteria,Urine None Seen (None Seen)
== END | disposition home or self-care (01) ==
LOC: LABWHC1 07:52
PROVIDERS: ATTEND Internal Medicine Nephrology
DX: N18.9 Chronic kidney disease, unspecified (principal); N20.0 Calculus of kidney
CPT/HCPCS: 36415; 80069; 81001; 82306; 82550; 82570; 83735; 83970; 84156; 84550; 85025

== ENCOUNTER → 2023-08-11 | Outpatient (CLI) | payer MEDICAID ==
[2023-08-11 22:58] LABS: T4, Free (Free Thyroxine) 1.34 ng/dL (0.80-1.80)
== END | disposition home or self-care (01) ==
LOC: LABWHC1 10:50
PROVIDERS: ATTEND Family Medicine
DX: E03.9 Hypothyroidism, unspecified (principal); R73.01 Impaired fasting glucose
CPT/HCPCS: 36415; 83036; 84439; 84443; 84480

== ENCOUNTER → 2023-08-31 | Outpatient (CLI) | payer MEDICAID ==
--- NOTE | 2023-09-03 13:55 | MM ---
Reason for Exam: Screening (asymptomatic). Last screening mammogram was performed 12 month(s) ago. Patient History: Menarche at age 14. First Full-Term at age 26. Postmenopausal. Hormonal Contraceptives, starting at age 21 for 5 years. 05/2011, Benign Excisional Biopsy on the right side. 1996, Benign Excisional Biopsy on the left side. Paternal grandmother had breast cancer, age 70. Risk Values: Ese 5 year model risk: 1.8%. NCI Lifetime model risk: 14.0%. Prior Study Comparison: 08/01/2017 Bilateral Screening Mammogram, [facility]. 08/07/2018 Bilateral Screening Mammogram, [facility]. 06/04/2019 Bilateral Diagnostic Mammogram, [facility]. 08/20/2020 Bilateral Screening Mammogram, [facility]. 08/23/2021 Bilateral Screening Mammogram, [facility]. 08/30/2022 Bilateral MG 3D screening mammo w/cad, [facility]. Tissue Density: There are scattered fibroglandular densities. Findings: Analyzed By CAD. There is no suspicious group of microcalcifications or new suspicious mass in either breast. Overall Assessment: Negative, BI-RAD 1 Management: Screening Mammogram of both breasts in 1 year. . Patient should continue monthly self-breast exams. A clinical breast exam by your physician is recommended on an annual basis. This exam should not preclude additional follow-up of suspicious palpable abnormalities. Note on Ese scores and lifetime risk: 1. A Ese score greater than 3% is considered moderate risk. If this is the case, consider specialist referral to assess eligibility for a risk reducing agent. 2. If overall lifetime risk for the development of breast cancer is 20% or higher, the patient may qualify for future screening with alternating mammogram and breast MRI. Electronically signed and approved by: Catherine Bradford M.D. Radiologist
== END | disposition home or self-care (01) ==
LOC: RADMAMWWP 08:48
PROVIDERS: ATTEND Obstetrics & Gynecology
DX: Z12.31 Encounter for screening mammogram for malignant neoplasm of breast (principal); Z78.0 Asymptomatic menopausal state; Z80.3 Family history of malignant neoplasm of breast
CPT/HCPCS: 77063; 77067

== ENCOUNTER → 2023-10-09 | Outpatient (CLI) | payer MEDICAID ==
[2023-10-09 15:25] LABS: HCT 38.7 % (37.2-46.3); HGB 13.2 g/dL (12.0-15.0); MCH 30.3 pg (27.0-32.0); MCHC 34.1 g/dL (32.0-37.0); Mean Platelet Volume 10.5 FL (9.5-12.2); NRBC Per 100 WBC 0 X 10*3/uL (0.00-0.01); Platelet Count 297 X 10*3/uL (140-440); RBC 4.35 X 10*6/uL (4.10-5.20); RDW 11.9 % (11.5-14.5); WBC 3.71 X 10*3/uL (4.50-10.00)
[2023-10-09 16:02] LABS: ALT 8 U/L (8-44); AST 18 U/L (13-35); Albumin 4.7 g/dL (3.8-4.9); Albumin/Globulin Ratio 1.96 Ratio (1.60-3.17); Alkaline Phosphatase 51 U/L (41-126); BUN/Creat Ratio 15.71 Ratio (12.00-20.00); Calcium 9.5 mg/dL (8.7-10.3); Carbon Dioxide 25.5 mmol/L (21.6-31.8); Chloride 105 mmol/L (96-109); Chol/HDL Ratio 4.42 Ratio; Globulin 2.4 g/dL (1.6-3.3); Glucose 100 mg/dL (70-110); LDL Cholesterol,Calculated 158.8 mg/dL (0.0-131.0); Potassium 4.4 mmol/L (3.5-5.5); Sodium 144 mmol/L (135-145); T4, Free (Free Thyroxine) 1.49 ng/dL (0.80-1.80); Total Bilirubin 0.7 mg/dL (0.3-1.2); Total Protein 7.1 g/dL (6.2-8.2)
== END | disposition home or self-care (01) ==
LOC: LABWHC1 09:27
PROVIDERS: ATTEND Family Medicine
DX: E03.9 Hypothyroidism, unspecified (principal); D86.9 Sarcoidosis, unspecified; G93.5 Compression of brain
CPT/HCPCS: 36415; 80053; 80061; 84439; 84443; 84480; 85027

== ENCOUNTER → 2023-10-11 | Outpatient (CLI) | payer MEDICAID | END | disposition home or self-care (01) | LOC: LABWHC1 09:01 | PROVIDERS: ATTEND Internal Medicine Critical Care Medicine | DX: D86.9 Sarcoidosis, unspecified (principal); J45.909 Unspecified asthma, uncomplicated | CPT/HCPCS: 36415; 82785; 85008; 86001; 86606; 86609 ==

== ENCOUNTER → 2023-11-28 | Outpatient (CLI) | payer MEDICAID ==
--- NOTE | 2023-12-03 15:36 | CT ---
EXAMINATION TYPE: CT sinus wo con CT DLP: 599.8 mGycm, Automated exposure control for dose reduction was used. DATE OF EXAM: 11/28/2023 9:31 AM COMPARISON: . CLINICAL INDICATION:Female, 53 years old with history of J32.9 CHRONIC SINUSITIS; , Chronic sinusitis TECHNIQUE: Multiple thin axial images were obtained through the paranasal sinuses without the use of IV contrast. Additional coronal and sagittal reformatted images were submitted for evaluation. Contrast used: none Oral contrast used: none FINDINGS: Frontal sinuses: Normally developed and aerated. Frontal Recess: Clear Maxillary Sinuses: Tiny 3 mm mucous retention cyst in the medial wall of the left maxillary sinus n ear the base. Maxillary sinuses are otherwise normally developed and aerated. Maxillary Infundibula([facility]): Clear, . Ethmoid sinuses: Normally developed and aerated. Sphenoid sinuses: Normally developed and aerated. There is a normal sphenoid sinus pneumatization pat tern without evidence of dehiscence. No dehiscence of carotid canal. No evidence of optic nerve dehi scence within the sphenoid sinus. Sphenoethmoidal recesses: Clear. Nasal septum: Within normal limits.. Nasal Turbinates: Within normal limits. Mastoid air cells & middle ears: The air cells are clear. The middle ears are grossly unremarkable. Modified Soft tissues & Brain: Partially seen without gross abnormality. Globes are intact. Other: Cribriform plate demonstrates symmetric appearance of the cribriform plate. No evidence of bony dehi scence of skull base. Lamina papyracea is intact without evidence of remote orbital fracture or orbital prolapse into the e thmoid sinus. Lidia sapphire unremarkable IMPRESSION: 1. No significant mucosal sinus disease. 2. The ostiomeatal units, frontonasal and sphenoethmoidal recesses are clear.
== END | disposition home or self-care (01) ==
LOC: RADCTMAIN 08:28
PROVIDERS: ATTEND Otolaryngology
DX: J32.9 Chronic sinusitis, unspecified (principal)
CPT/HCPCS: 70486

== ENCOUNTER → 2023-11-28 | Outpatient (CLI) | payer MEDICAID ==
--- NOTE | 2023-12-04 13:25 | CT ---
EXAMINATION TYPE: CT chest w con CT DLP: 282.6 mGycm, Automated exposure control for dose reduction was used. DATE OF EXAM: 11/28/2023 9:38 AM COMPARISON: Chest CT 05/05/2022 CLINICAL INDICATION:Female, 53 years old with history of D86.9 SARCOIDOSIS; PHH, Sarcoidosis TECHNIQUE: Multiple axial images were obtained through the chest. Sagittal and coronal reformats were created for review. Contrast used:100 ml mL of Isovue 300 with IV Contrast (None if empty) Oral contrast used: (None if empty) FINDINGS: LUNGS/ PLEURA: The lung parenchyma appears unremarkable. AIRWAY: Patent and unremarkable. HEART: Size within normal limits. MEDIASTINUM: No gross evidence of adenopathy. VASCULATURE: No aortic aneurysm. MUSCULOSKELETAL: No acute osseous abnormalities SOFT TISSUES/LYMPH NODES: Unremarkable. LOWER NECK: No significant findings. UPPER ABDOMEN: No acute findings. Simple left kidney cyst requires no follow-up IMPRESSION: No acute process is detected. No recurrent enlarged thoracic adenopathy. No suspicious acute or chronic pulmonary parenchymal proce ss. Follow up recommendations for incidental pulmonary nodules, if there are any, are per [employer] or [employer] [place] [employer]. https://radiopaedia.org/articles/hzsvgxjhdd-nmgvzhk-eqqeqfxgi-ylpmvk-[email or web address]?lang=us
== END | disposition home or self-care (01) ==
LOC: RADCTMAIN 08:34
PROVIDERS: ATTEND Internal Medicine Critical Care Medicine
DX: D86.9 Sarcoidosis, unspecified (principal)
CPT/HCPCS: 71260; Q9967

== ENCOUNTER → 2024-01-03 | Outpatient (CLI) | payer MEDICAID ==
[2024-01-03 10:28] LABS: Creatinine,Urine Random 207.2 mg/dL; Protein/Creatinine Ratio,Urine 0.063
[2024-01-03 10:39] LABS: Basophils # (A) 0.05 X 10*3/uL (0.00-0.10); Basophils % (A) 1.2 %; Eosinophils # (A) 0.14 X 10*3/uL (0.04-0.35); Eosinophils % (A) 3.5 %; HCT 38.1 % (37.2-46.3); HGB 12.8 g/dL (12.0-15.0); Lymphocytes # (A) 1.66 X 10*3/uL (0.90-5.00); MCH 30.2 pg (27.0-32.0); MCHC 33.6 g/dL (32.0-37.0); MCV 89.9 FL (80.0-97.0); Mean Platelet Volume 10.2 FL (9.5-12.2); Monocytes # (A) 0.31 X 10*3/uL (0.20-1.00); Monocytes % (A) 7.7 %; NRBC Per 100 WBC 0 X 10*3/uL (0.00-0.01); Neutrophils # (A) 1.88 X 10*3/uL (1.80-7.70); Neutrophils % (A) 46.4 %; Platelet Count 284 X 10*3/uL (140-440); RBC 4.24 X 10*6/uL (4.10-5.20); WBC 4.05 X 10*3/uL (4.50-10.00)
[2024-01-03 11:21] LABS: Albumin 4.6 g/dL (3.8-4.9); BUN/Creat Ratio 12.14 Ratio (12.00-20.00); Blood Urea Nitrogen 8.5 mg/dL (9.0-27.0); Calcium 9.5 mg/dL (8.7-10.3); Carbon Dioxide 27.4 mmol/L (21.6-31.8); Chloride 104 mmol/L (96-109); Creatine Kinase 124 U/L (26-186); Glucose 104 mg/dL (70-110); Magnesium 2.1 mg/dL (1.5-2.4); Phosphorus 3.7 mg/dL (2.4-5.1); Potassium 3.6 mmol/L (3.5-5.5); Sodium 142 mmol/L (135-145)
[2024-01-03 12:45] LABS: Appearance,Urine Clear (Clear); Bacteria,Urine None Seen (None Seen); Bilirubin,Urine Negative (Negative); Blood,Urine Trace (Negative); Color,Urine Yellow (Yellow); Ketones,Urine Negative (Negative); Nitrite,Urine Negative (Negative); Urobilinogen,Urine 0.2 (>1.0)
== END | disposition home or self-care (01) ==
LOC: LABWHC1 06:58
PROVIDERS: ATTEND Internal Medicine Nephrology
DX: I12.9 Hypertensive chronic kidney disease with stage 1 through stage 4 chronic kidney disease, or unspecified chronic kidney disease (principal); N18.9 Chronic kidney disease, unspecified; N20.0 Calculus of kidney
CPT/HCPCS: 36415; 80069; 81001; 82306; 82550; 82570; 83735; 83970; 84156; 84550; 85025

== ENCOUNTER → 2024-01-08 | Outpatient (CLI) | payer MEDICAID ==
--- NOTE | 2024-01-08 14:20 | XR ---
EXAMINATION TYPE: XR KUB DATE OF EXAM: 01/08/2024 COMPARISON: 05/22/2023 HISTORY: Flank pain TECHNIQUE: One view abdominal series FINDINGS: The osseous structures are intact. The bowel gas pattern is nonspecific. Lung bases are clear. Posts urgical changes are seen in the gallbladder fossa. There are punctate 1 mm calcifications overlying the upper pole right kidney and lower pole left kidn ey. Surgical changes overlying the left pubic rami and left pelvis. Tiny punctate right hemipelvic calcification to small to characterize. Partial sacralization of the l owest lumbar segment. Bilateral hypertrophic hip arthropathy. Correlate for femoral acetabular imping ement. IMPRESSION: 1. Findings suspicious for punctate bilateral renal calculi.
== END | disposition home or self-care (01) ==
LOC: RADXRMAIN 13:48
PROVIDERS: ATTEND Internal Medicine Nephrology
DX: N20.0 Calculus of kidney (principal); R10.9 Unspecified abdominal pain
CPT/HCPCS: 74018

== ENCOUNTER → 2024-01-19 | Outpatient (CLI) | payer MEDICAID ==
[2024-01-19 22:30] LABS: HCT 40.4 % (37.2-46.3); HGB 13.6 g/dL (12.0-15.0); MCH 30.9 pg (27.0-32.0); MCHC 33.7 g/dL (32.0-37.0); MCV 91.8 FL (80.0-97.0); Mean Platelet Volume 10.7 FL (9.5-12.2); NRBC Per 100 WBC 0 X 10*3/uL (0.00-0.01); Platelet Count 316 X 10*3/uL (140-440); RDW 11.7 % (11.5-14.5); WBC 3.51 X 10*3/uL (4.50-10.00)
[2024-01-19 22:50] LABS: ALT 9 U/L (8-44); AST 21 U/L (13-35); Albumin 4.8 g/dL (3.8-4.9); Albumin/Globulin Ratio 2.09 Ratio (1.60-3.17); Alkaline Phosphatase 64 U/L (41-126); Blood Urea Nitrogen 11.2 mg/dL (9.0-27.0); Calcium 9.7 mg/dL (8.7-10.3); Carbon Dioxide 23.4 mmol/L (21.6-31.8); Chloride 105 mmol/L (96-109); Chol/HDL Ratio 3.88 Ratio; Globulin 2.3 g/dL (1.6-3.3); Glucose 96 mg/dL (70-110); LDL Cholesterol,Calculated 161.3 mg/dL (0.0-131.0); Potassium 4.2 mmol/L (3.5-5.5); Sodium 144 mmol/L (135-145); T4, Free (Free Thyroxine) 1.37 ng/dL (0.80-1.80); Total Bilirubin 0.5 mg/dL (0.3-1.2); Total Protein 7.1 g/dL (6.2-8.2)
== END | disposition home or self-care (01) ==
LOC: LABWHC1 10:53
PROVIDERS: ATTEND Physician Assistant
DX: E78.5 Hyperlipidemia, unspecified (principal); I10 Essential (primary) hypertension; E03.9 Hypothyroidism, unspecified
CPT/HCPCS: 36415; 80053; 80061; 83036; 84439; 84443; 85027

== ENCOUNTER → 2024-02-07 | Outpatient (CLI) | payer MEDICAID ==
--- NOTE | 2024-02-07 08:40 | MM ---
Reason for Exam: Clinical finding. Last screening mammogram was performed 6 month(s) ago. Indicated Problems: Pain of both sides (Focal) for 2 Week(s). Patient History: Menarche at age 14. First Full-Term at age 26. Postmenopausal. Hormonal Contraceptives, starting at age 21 for 5 years. 05/2011, Benign Excisional Biopsy on the right side. 1996, Benign Excisional Biopsy on the left side. Paternal grandmother had breast cancer, age 70. Risk Values: Ese 5 year model risk: 1.8%. NCI Lifetime model risk: 14.0%. Tissue Density: There are scattered areas of fibroglandular density. Findings: Analyzed By CAD. Superior asymmetric density on the right is unchanged. Slight contour indentation lower inner quadrant left breast is unchanged. Both relate to prior excisions. No significant change. Overall Assessment: Incomplete: need additional imaging evaluation, BI-RAD 0 Management: Diagnostic Breast Ultrasound of both breasts. Electronically signed and approved by: Catherine Bradford M.D. Radiologist
--- NOTE | 2024-02-07 09:23 | USB ---
Reason for Exam: Clinical finding. Patient History: Menarche at age 14. First Full-Term at age 26. Postmenopausal. Hormonal Contraceptives, starting at age 21 for 5 years. 05/2011, Benign Excisional Biopsy on the right side. 1996, Benign Excisional Biopsy on the left side. Paternal grandmother had breast cancer, age 70. Risk Values: Ese 5 year model risk: 1.8%. NCI Lifetime model risk: 14.0%. Technique: Method: Whole Breast Handheld. Prior Study Comparison: 08/23/2021 Bilateral Screening Mammogram, [facility]. 08/30/2022 Bilateral MG 3D screening mammo w/cad, [facility]. 08/31/2023 Bilateral MG 3D screening mammo w/cad, [facility]. Findings: The whole breast of both breasts, the axilla of both breasts and the retroareolar of both breasts were scanned. A complete US of all four quadrants of both breasts, axilla, and retro-areolar regions were reviewed. No solid or cystic masses are identified. No axillary lymphadenopathy or duct ectasia. Overall Assessment: Negative, BI-RAD 1 Management: Screening Mammogram of both breasts in 1 year. Further clinical management of patient's bilateral breast pain. A clinical breast exam by your physician is recommended on an annual basis and results should be correlated with mammographic findings. This exam should not preclude additional follow-up of suspicious palpable abnormalities. Results were given to the patient verbally at the time of exam. Electronically signed and approved by: Catherine Bradford M.D. Radiologist
== END | disposition home or self-care (01) ==
LOC: RADUSWWP 07:42
PROVIDERS: ATTEND Family Medicine
DX: R92.323 Mammographic fibroglandular density, bilateral breasts (principal); N64.4 Mastodynia; Z78.0 Asymptomatic menopausal state; Z80.3 Family history of malignant neoplasm of breast
CPT/HCPCS: 77062; 77066

== ENCOUNTER → 2024-02-09 | Outpatient (CLI) | payer MEDICAID ==
[2024-02-09 23:35] LABS: Basophils # (A) 0.07 X 10*3/uL (0.00-0.10); Basophils % (A) 1.5 %; Eosinophils # (A) 0.09 X 10*3/uL (0.04-0.35); Eosinophils % (A) 1.9 %; HCT 41.7 % (37.2-46.3); HGB 13.9 g/dL (12.0-15.0); Lymphocytes # (A) 1.24 X 10*3/uL (0.90-5.00); Lymphocytes % (A) 26.7 %; MCHC 33.3 g/dL (32.0-37.0); MCV 90.1 FL (80.0-97.0); Mean Platelet Volume 10.7 FL (9.5-12.2); Monocytes # (A) 0.32 X 10*3/uL (0.20-1.00); Monocytes % (A) 6.9 %; NRBC Per 100 WBC 0 X 10*3/uL (0.00-0.01); Neutrophils # (A) 2.91 X 10*3/uL (1.80-7.70); Neutrophils % (A) 62.8 %; Platelet Count 340 X 10*3/uL (140-440); RBC 4.63 X 10*6/uL (4.10-5.20); RDW 11.8 % (11.5-14.5); WBC 4.64 X 10*3/uL (4.50-10.00)
[2024-02-10 06:17] LABS: ALT 12 U/L (8-44); AST 23 U/L (13-35); Albumin 4.8 g/dL (3.8-4.9); Alkaline Phosphatase 65 U/L (41-126); Blood Urea Nitrogen 9.8 mg/dL (9.0-27.0); Calcium 9.4 mg/dL (8.7-10.3); Carbon Dioxide 24.4 mmol/L (21.6-31.8); Chloride 106 mmol/L (96-109); Globulin 2.4 g/dL (1.6-3.3); Glucose 100 mg/dL (70-110); Potassium 4.4 mmol/L (3.5-5.5); Sodium 145 mmol/L (135-145); Total Bilirubin 0.6 mg/dL (0.3-1.2); Total Protein 7.2 g/dL (6.2-8.2)
== END | disposition home or self-care (01) ==
LOC: LABWHC1 10:47
PROVIDERS: ATTEND Nurse Practitioner Family
DX: D72.819 Decreased white blood cell count, unspecified (principal)
CPT/HCPCS: 36415; 80053; 85025

== ENCOUNTER → 2024-05-17 | Outpatient (CLI) | payer MEDICAID ==
[2024-05-18 06:23] LABS: ALT 18 U/L (8-44); AST 26 U/L (13-35); Albumin 4.7 g/dL (3.8-4.9); Albumin/Globulin Ratio 2.04 Ratio (1.60-3.17); Alkaline Phosphatase 62 U/L (41-126); BUN/Creat Ratio 6.86 Ratio (12.00-20.00); Blood Urea Nitrogen 4.8 mg/dL (9.0-27.0); Calcium 9.2 mg/dL (8.7-10.3); Carbon Dioxide 27.9 mmol/L (21.6-31.8); Chloride 105 mmol/L (96-109); Globulin 2.3 g/dL (1.6-3.3); Glucose 96 mg/dL (70-110); Potassium 4.4 mmol/L (3.5-5.5); Sodium 143 mmol/L (135-145); Total Bilirubin 0.8 mg/dL (0.3-1.2)
[2024-05-18 07:19] LABS: C Reactive Protein, High Sens 0.709 mg/L (0.000-3.000)
== END | disposition home or self-care (01) ==
LOC: LABWHC1 10:08
PROVIDERS: ATTEND Internal Medicine Critical Care Medicine
DX: D86.9 Sarcoidosis, unspecified (principal)
CPT/HCPCS: 36415; 80053; 82164; 85652; 86141

== ENCOUNTER 2024-05-29 23:58 | Emergency (ER) | payer MEDICAID ==
[2024-05-30 01:02] LABS: Basophils % (A) 0 %; Eosinophils # (A) 0.1 k/uL (0-0.7); Eosinophils % (A) 1 %; HCT 39.5 % (34.0-46.0); HGB 13.4 gm/dL (11.4-16.0); Lymphocytes # (A) 1.5 k/uL (1.0-4.8); Lymphocytes % (A) 19 %; MCH 30.8 pg (25.0-35.0); MCHC 33.9 g/dL (31.0-37.0); MCV 90.8 fL (80.0-100.0); Mean Platelet Volume 7.5; Monocytes # (A) 0.4 k/uL (0-1.0); Monocytes % (A) 5 %; Neutrophils # (A) 5.9 k/uL (1.3-7.7); Neutrophils % (A) 74 %; Platelet Count 301 k/uL (150-450); RBC 4.35 m/uL (3.80-5.40); RDW 12.5 % (11.5-15.5)
[2024-05-30 01:13] LABS: ALT 16 U/L (4-34); AST 29 U/L (14-36); African American GFR (CKD) >90 (>60 ml/min/1.73 sqM); Albumin 4.9 g/dL (3.5-5.0); Alkaline Phosphatase 64 U/L (38-126); Amylase 63 U/L (30-110); Anion Gap 7 mmol/L; Blood Urea Nitrogen 15 mg/dL (7-17); Calcium 9.8 mg/dL (8.4-10.2); Carbon Dioxide 25 mmol/L (22-30); Chloride 107 mmol/L (98-107); Glucose 118 mg/dL (74-99); Lipase 230 U/L (23-300); Non-African American GFR(CKD) >90 (>60 ml/min/1.73 sqM); Sodium 139 mmol/L (137-145); Total Bilirubin 0.9 mg/dL (0.2-1.3); Total Protein 7.5 g/dL (6.3-8.2)
[2024-05-30 01:26] LABS: Appearance,Urine Clear (Clear); Bilirubin,Urine Negative (Negative); Blood,Urine Trace (Negative); Color,Urine Colorless; Glucose,Urine (UA) Negative (Negative); Ketones,Urine Negative (Negative); Leukocyte Esterase,Urine Negative (Negative); Mucus,Urine Rare /hpf; Nitrite,Urine Negative (Negative); PH, Urine 5.5 (5.0-8.0); Protein,Urine Negative (Negative); RBC,Urine <1 /hpf (0-5); Squamous Epithelial Cell,Urine 1 /hpf (0-4); Urobilinogen,Urine <2.0 mg/dL (<2.0); WBC,Urine 1 /hpf (0-5)
--- NOTE | 2024-05-30 03:10 | CT ---
EXAM: CT Abdomen and Pelvis Without Intravenous Contrast CLINICAL HISTORY: ITS.REASON CT Reason: right flank pain TECHNIQUE: Axial computed tomography images of the abdomen and pelvis without intravenous contrast. CTDI is 10.8 mGy and DLP is 599.8 mGy-cm. This CT exam was performed using one or more of the following dose reduction techniques: automated exposure control, adjustment of the mA and/or kV according to patient size, and/or use of iterative reconstruction technique. COMPARISON: CT abdomen/pelvis on 03/28/2023. FINDINGS: Lung bases: Unremarkable. No mass. No consolidation. ABDOMEN: Liver: Unremarkable. Gallbladder and bile ducts: Prior cholecystectomy. No ductal dilation. Pancreas: Unremarkable. No ductal dilation. Spleen: Unremarkable. No splenomegaly. Adrenals: Unremarkable. No mass. Kidneys and ureters: Small nonobstructing bilateral renal stones. Mild fullness of the renal collecting systems. Punctate calcifications along the right pelvic sidewall and right pelvis may represent phleboliths. Tiny distal ureteral stones cannot be entirely excluded. Atrophy of the right kidney with scarring. Small left renal cyst. No further follow-up necessary. Stomach and bowel: Dilation of the stomach is limited by underdistention. No mucosal thickening. No bowel obstruction or perforation. PELVIS: Appendix: Normal appendix. Bladder: Unremarkable. No stones. Reproductive: Unremarkable as visualized. ABDOMEN and PELVIS: Intraperitoneal space: Unremarkable. No free air. No significant fluid collection. Bones/joints: Mild degenerative changes of the spine. No acute fracture. No dislocation. Soft tissues: Injection granuloma in the left gluteal soft tissues. Vasculature: Phleboliths in pelvis. Surgical clips in the left pelvis. Mild atherosclerotic changes of the vasculature. No abdominal aortic aneurysm. Lymph nodes: Unremarkable. No enlarged lymph nodes. IMPRESSION: Small nonobstructing bilateral renal stones. Mild fullness of the renal collecting systems. Punctate calcifications along the right pelvic sidewall and right pelvis may represent phleboliths. Tiny distal ureteral stones cannot be entirely excluded.
--- NOTE | 2024-05-30 03:16 | ED ---
Abdominal Pain HPI - General Chief Complaint: Abdominal Pain Stated Complaint: FLANK PAIN Time Seen by Provider: 05/30/24 00:11 Source: patient Mode of arrival: ambulatory Limitations: no limitations - History of Present Illness Initial Comments: This patient is a 53-year-old woman who presents to have evaluation of right flank pain also pain radiating down to the suprapubic area. Patient states she has had intermittent pains going back for some time now and had been seen by her loading machine operator. She had been treated with antibiotic. Patient states that the pain became severe tonight. She has not noted associated fever or chills. There is some frequency MD Complaint: flank pain -: hour(s) Location: R flank Radiation: suprapubic Migration to: no migration Severity: severe Quality: sharp Consistency: intermittent Improves With: nothing Worsens With: nothing Associated Symptoms: dysuria - Related Data Home Medications Medication Instructions Recorded Confirmed Levothyroxine Sodium [Synthroid] 75 mcg PO DAILY 06/28/20 09/15/22 Oxybutynin ER [Ditropan XL] 10 mg PO DAILY 12/10/20 09/15/22 carvediloL [Coreg] 6.25 mg PO BID 03/03/21 09/15/22 Acetaminophen [Tylenol Extra 500 mg PO Q6H PRN 09/15/22 09/15/22 Strength] Multivitamins, Thera [Multivitamin 1 tab PO DAILY 09/15/22 09/15/22 (formulary)] Previous Rx's Medication Instructions Recorded Acetaminophen-Codeine 300-30mg 1 tab PO Q6H PRN 3 Days #12 tablet 09/15/22 [Tylenol w/codeine #3] Amoxic-Pot Clav 875-125Mg 1 tab PO Q12HR 1 Days #20 tab 09/15/22 [Augmentin 875-125] Tamsulosin [Flomax] 0.4 mg PO DAILY #14 cap 05/30/24 Allergies Allergy/AdvReac Type Severity Reaction Status Date / Time adhesive tape Allergy Rash- see Verified 05/30/24 00:03 comment amitriptyline Allergy Rash/Hives Verified 05/30/24 00:03 baclofen Allergy Rash/Hives Verified 05/30/24 00:03 ketorolac [From Toradol] Allergy rash-see Verified 05/30/24 00:03 comment sulfamethoxazole Allergy severe Verified 05/30/24 00:03 [From Bactrim] hives trimethoprim [From Bactrim] Allergy severe Verified 05/30/24 00:03 hives celecoxib [From Celebrex] AdvReac Confusion Verified 05/30/24 00:03 Review of Systems ROS Statement: Those systems with pertinent positive or pertinent negative responses have been documented in the HPI. ROS Other: All systems not noted in ROS Statement are negative. Constitutional: Denies: fever, chills, weakness Respiratory: Denies: cough, dyspnea Cardiovascular: Denies: chest pain, palpitations, edema Gastrointestinal: Reports: as per HPI, abdominal pain, nausea. Denies: vomiting, diarrhea, constipation Genitourinary: Reports: dysuria, frequency. Denies: discharge, abnormal menses Musculoskeletal: Reports: as per HPI, back pain Skin: Denies: rash Neurological: Denies: headache, weakness, numbness Past Medical History Past Medical History: Asthma, GERD/Reflux, Thyroid Disorder Additional Past Medical History / Comment(s): FX LT GREAT TOE-11/05/21, pt states "thickening of colon wall that showed up on CT Aug 2018",occipital neuritis Other hx: Chronic low back pain/herniated and bulging discs cervical/lumbar, bone fragments in back, arnold chiari malformation, hypothyroid, colitis, overactive bladder, hiatal hernia, sarcoidosis History of Any Multi-Drug Resistant Organisms: None Reported Past Surgical History: Breast Surgery, Cholecystectomy, Hernia Repair, Orthopedic Surgery, Uterine Ablation Additional Past Surgical History / Comment(s): ORIF rt wrist hardware since removed, 04/10/18 EGD with bx, colonoscopy, right inguinal hernia repair, robotic assisted exploratory lap with left inguinal hernia repairs/L inguinal lipoma removed/lysis of adhesions, right breast biopsy, left breast surgery for infected milk duct, Arnold-Chiari malformation surgery,partial meniscus repair left knee Past Anesthesia/Blood Transfusion Reactions: No Reported Reaction Past Psychological History: No Psychological Hx Reported Smoking Status: Never smoker Past Alcohol Use History: Rare Past Drug Use History: None Reported - Past Family History Mother Family Medical History: Diabetes Mellitus, Myocardial Infarction (HI) Additional Family Medical History / Comment(s): Mother of a HI at the age of 67yrs. Brother(s) Additional Family Medical History / Comment(s): boraderline diabetic Father Family Medical History: Cancer, Diabetes Mellitus, Myocardial Infarction (HI) Additional Family Medical History / Comment(s): Father from prostate cancer at the age of 71 yrs. He also had a myocardial infarction prior to the age of 65. General Exam Limitations: no limitations General appearance: alert, in no apparent distress Head exam: Present: atraumatic, normocephalic Eye exam: Present: normal appearance. Absent: scleral icterus, conjunctival injection Neck exam: Present: normal inspection, full ROM Respiratory exam: Present: normal lung sounds bilaterally. Absent: respiratory distress, wheezes, rales, rhonchi, stridor, accessory muscle use Cardiovascular Exam: Present: regular rate, normal rhythm, normal heart sounds. Absent: systolic murmur, diastolic murmur, rubs, gallop GI/Abdominal exam: Present: soft. Absent: distended, tenderness, guarding, rebound, rigid, mass, pulsatile mass Extremities exam: Present: normal inspection, normal capillary refill. Absent: pedal edema, calf tenderness Back exam: Present: normal inspection, CVA tenderness (R). Absent: CVA tenderness (L) Neurological exam: Present: alert Skin exam: Present: warm, dry, intact, normal color. Absent: rash Course Vital Signs 05/30/24 05/30/24 05/30/24 00:00 03:00 03:30 Temperature 98.4 F 97.9 F Pulse Rate 88 70 67 Respiratory 18 18 16 Rate Blood Pressure 170/111 157/90 131/84 O2 Sat by Pulse 98 97 98 Oximetry Medical Decision Making - Medical Decision Making The patient had CT scan of the abdomen and pelvis which I interpreted to not show free air, obstruction, or definite kidney stone. The patient may have recently passed stone there does appear to be some possible mild hydroureter Was pt. sent in by a medical professional or institution (, PA, FINANCIAL AID, urgent care, hospital, or intermediate...) When possible be specific @ -[No] Did you speak to anyone other than the patient for history (EMS, parent, family, police, friend...)? What history was obtained from this source @ -[No] Did you review nursing and triage notes (agree or disagree)? Why? @ -[I reviewed and agree with nursing and triage notes] Were old charts reviewed (outside hosp., previous admission, EMS record, old EKG, old radiological studies, urgent care reports/EKG's, intermediate records)? Report findings @ -[No old charts were reviewed] Differential Diagnosis (chest pain, altered mental status, abdominal pain women, abdominal pain men, vaginal bleeding, weakness, fever, dyspnea, syncope, headache, dizziness, GI bleed, back pain, seizure, CVA, palpatations, mental health, musculoskeletal)? @ -[Differential Abdominal Pain Women: Appendicitis, Cholecystitis, diverticulosis, ischemic bowel, pancreatitis, hepatitis, UTI, gastroenteritis, AAA, incarcerated hernia, bowel obstruction, constipation, inflammatory bowel, hepatitis, peptic ulcer disease, splenic infarction, perforated viscus, vulvitis, ovarian torsion, PID, kidney stone, placenta abruption, this is not meant to be an all-inclusive list EKG interpreted by me (3pts min.). @ -[As above] X-rays interpreted by me (1pt min.). @ -[None done] CT interpreted by me (1pt min.). @ -[I interpreted as above U/S interpreted by me (1pt. min.). @ -[None done] What testing was considered but not performed or refused? (CT, X-rays, U/S, l abs)? Why? @ -[None] What meds were considered but not given or refused? Why? @ -[None] Did you discuss the management of the patient with other professionals (professionals i.e. , PA, FINANCIAL AID, lab, RT, psych nurse, social media job titles, transformation consultant, teacher, child support officer, case planner)? Give summary @ -[No] Was smoking cessation discussed for >3mins.? @ -[No] Was critical care preformed (if so, how long)? @ -[No] Were there social determinants of health that impacted care today? How? (Homelessness, low income, unemployed, alcoholism, drug addiction, transportation, low edu. Level, literacy, decrease access to med. care, care home, rehab)? @ -[No] Was there de-escalation of care discussed even if they declined (Discuss DNR or withdrawal of care, Hospice)? DNR status @ -[No] What co-morbidities impacted this encounter? (DM, HTN, Smoking, COPD, CAD, Cancer, CVA, ARF, Chemo, Hep., AIDS, mental health diagnosis, sleep apnea, morbid obesity)? @ -[None] Was patient admitted / discharged? Hospital course, mention meds given and route, prescriptions, significant lab abnormalities, going to OR and other pertinent info. @ -[Patient is 53-year-old woman with flank pain radiating to the suprapubic area which she has been having worked up recently. The pain worsened tonight and therefore CT obtained which does not reveal definite stone. Patient to follow with her loading machine operator and also recommended follow-up with urology related to the possible hydroureter. Discussed appropriate further care as well as return parameters Undiagnosed new problem with uncertain prognosis? @ -[No] Drug Therapy requiring intensive monitoring for toxicity (Heparin, Nitro, Insulin, Cardizem)? @ -[No] Were any procedures done? @ -[No] Diagnosis/symptom? @ -[Acute flank pain Acute, or Chronic, or Acute on Chronic? @ -[Acute Uncomplicated (without systemic symptoms) or Complicated (systemic symptoms)? @ -[Uncomplicated Side effects of treatment? @ -[No] Exacerbation, Progression, or Severe Exacerbation? @ -[No] Poses a threat to life or bodily function? How? (Chest pain, USA, HI, pneumonia, PE, COPD, DKA, ARF, appy, cholecystitis, CVA, Diverticulitis, Homicidal, Suicidal, threat to staff... and all critical care pts) @ -[No] - Lab Data Result diagrams: 05/30/24 00:55 05/30/24 00:55 Lab Results 05/30/24 05/30/24 05/30/24 Range/Units 00:55 00:55 00:55 WBC 8.0 (3.8-10.6) k/uL RBC 4.35 (3.80-5.40) m/uL Hgb 13.4 (11.4-16.0) gm/dL Hct 39.5 (34.0-46.0) % MCV 90.8 (80.0-100.0) fL MCH 30.8 (25.0-35.0) pg MCHC 33.9 (31.0-37.0) g/dL RDW 12.5 (11.5-15.5) % Plt Count 301 (150-450) k/uL MPV 7.5 Neutrophils % 74 % Lymphocytes % 19 % Monocytes % 5 % Eosinophils % 1 % Basophils % 0 % Neutrophils # 5.9 (1.3-7.7) k/uL Lymphocytes # 1.5 (1.0-4.8) k/uL Monocytes # 0.4 (0-1.0) k/uL Eosinophils # 0.1 (0-0.7) k/uL Basophils # 0.0 (0-0.2) k/uL Sodium (137-145) mmol/L Potassium (3.5-5.1) mmol/L Chloride (98-107) mmol/L Carbon Dioxide (22-30) mmol/L Anion Gap mmol/L BUN (7-17) mg/dL Creatinine (0.52-1.04) mg/dL Est GFR (CKD-EPI)AfAm (>60 ml/min/1.73 sqM) Est GFR (CKD-EPI)NonAf (>60 ml/min/1.73 sqM) Glucose (74-99) mg/dL Calcium (8.4-10.2) mg/dL Total Bilirubin (0.2-1.3) mg/dL AST (14-36) U/L ALT (4-34) U/L Alkaline Phosphatase (38-126) U/L Total Protein (6.3-8.2) g/dL Albumin (3.5-5.0) g/dL Amylase (30-110) U/L Lipase (23-300) U/L Urine Color Colorless Urine Appearance Clear (Clear) Urine pH 5.5 (5.0-8.0) Ur Specific [place] 1.010 (1.001-1.035) Urine Protein Negative (Negative) Urine Glucose (UA) Negative (Negative) Urine Ketones Negative (Negative) Urine Blood Trace H (Negative) Urine Nitrite Negative (Negative) Urine Bilirubin Negative (Negative) Urine Urobilinogen <2.0 (<2.0) mg/dL Ur Leukocyte Esterase Negative (Negative) Urine RBC <1 (0-5) /hpf Urine WBC 1 (0-5) /hpf Ur Squamous Epith Cells 1 (0-4) /hpf Urine Mucus Rare H (None) /hpf Urine HCG, Qual Not Detected (Not Detectd) 05/30/24 Range/Units 00:55 WBC (3.8-10.6) k/uL RBC (3.80-5.40) m/uL Hgb (11.4-16.0) gm/dL Hct (34.0-46.0) % MCV (80.0-100.0) fL MCH (25.0-35.0) pg MCHC (31.0-37.0) g/dL RDW (11.5-15.5) % Plt Count (150-450) k/uL MPV Neutrophils % % Lymphocytes % % Monocytes % % Eosinophils % % Basophils % % Neutrophils # (1.3-7.7) k/uL Lymphocytes # (1.0-4.8) k/uL Monocytes # (0-1.0) k/uL Eosinophils # (0-0.7) k/uL Basophils # (0-0.2) k/uL Sodium 139 (137-145) mmol/L Potassium 4.0 (3.5-5.1) mmol/L Chloride 107 (98-107) mmol/L Carbon Dioxide 25 (22-30) mmol/L Anion Gap 7 mmol/L BUN 15 (7-17) mg/dL Creatinine 0.67 (0.52-1.04) mg/dL Est GFR (CKD-EPI)AfAm >90 (>60 ml/min/1.73 sqM) Est GFR (CKD-EPI)NonAf >90 (>60 ml/min/1.73 sqM) Glucose 118 H (74-99) mg/dL Calcium 9.8 (8.4-10.2) mg/dL Total Bilirubin 0.9 (0.2-1.3) mg/dL AST 29 (14-36) U/L ALT 16 (4-34) U/L Alkaline Phosphatase 64 (38-126) U/L Total Protein 7.5 (6.3-8.2) g/dL Albumin 4.9 (3.5-5.0) g/dL Amylase 63 (30-110) U/L Lipase 230 (23-300) U/L Urine Color Urine Appearance (Clear) Urine pH (5.0-8.0) Ur Specific [place] (1.001-1.035) Urine Protein (Negative) Urine Glucose (UA) (Negative) Urine Ketones (Negative) Urine Blood (Negative) Urine Nitrite (Negative) Urine Bilirubin (Negative) Urine Urobilinogen (<2.0) mg/dL Ur Leukocyte Esterase (Negative) Urine RBC (0-5) /hpf Urine WBC (0-5) /hpf Ur Squamous Epith Cells (0-4) /hpf Urine Mucus (None) /hpf Urine HCG, Qual (Not Detectd) Disposition Clinical Impression: Flank pain Disposition: HOME SELF-CARE Condition: Good Instructions (If sedation given, give patient instructions): Flank Pain (ED) Prescriptions: Tamsulosin [Flomax] 0.4 mg PO DAILY #14 cap Is patient prescribed a controlled substance at d/c from ED?: No Referrals: Bro Cruz MD [Primary Care Provider] - 1-2 days
[2024-05-30] MEDS: TAMSULOSIN 0.4 MG CAP.ER.24H PO STA (03:28)
[2024-05-30 03:31] VITALS: BP 131/84; PULSE 67; RESP 16; TEMP 97.9
== END 2024-05-30 03:32 | disposition home or self-care (01) ==
LOC: EC 23:58
CPT/HCPCS: 36415; 74176; 80053; 81001; 81025; 82150; 83690; 85025; 99284

== ENCOUNTER → 2024-05-31 | Outpatient (CLI) | payer MEDICAID ==
[2024-05-31 09:39] LABS: Creatinine,Urine Random 237.4 mg/dL
[2024-05-31 13:30] LABS: Basophils # (A) 0.05 X 10*3/uL (0.00-0.10); Basophils % (A) 0.8 %; Eosinophils % (A) 1.7 %; HCT 41.4 % (37.2-46.3); HGB 13.7 g/dL (12.0-15.0); Lymphocytes # (A) 2.05 X 10*3/uL (0.90-5.00); Lymphocytes % (A) 34.7 %; MCH 30.6 pg (27.0-32.0); MCHC 33.1 g/dL (32.0-37.0); MCV 92.4 FL (80.0-97.0); Mean Platelet Volume 10.7 FL (9.5-12.2); Monocytes # (A) 0.48 X 10*3/uL (0.20-1.00); Monocytes % (A) 8.1 %; NRBC Per 100 WBC 0 X 10*3/uL (0.00-0.01); Neutrophils # (A) 3.22 X 10*3/uL (1.80-7.70); Neutrophils % (A) 54.5 %; Platelet Count 334 X 10*3/uL (140-440); RBC 4.48 X 10*6/uL (4.10-5.20); RDW 12.3 % (11.5-14.5); WBC 5.91 X 10*3/uL (4.50-10.00)
[2024-05-31 13:42] LABS: Albumin 4.8 g/dL (3.8-4.9); BUN/Creat Ratio 19.38 Ratio (12.00-20.00); Blood Urea Nitrogen 15.5 mg/dL (9.0-27.0); Calcium 9.5 mg/dL (8.7-10.3); Carbon Dioxide 26.7 mmol/L (21.6-31.8); Chloride 104 mmol/L (96-109); Glucose 103 mg/dL (70-110); Magnesium 2.1 mg/dL (1.5-2.4); Phosphorus 3.6 mg/dL (2.4-5.1); Potassium 4.2 mmol/L (3.5-5.5); Sodium 143 mmol/L (135-145); Uric Acid 3.8 mg/dL (2.9-7.7)
[2024-05-31 17:11] LABS: Appearance,Urine Clear (Clear); Bilirubin,Urine Negative (Negative); Blood,Urine Small (Negative); Color,Urine Yellow (Yellow); Ketones,Urine Negative (Negative); Nitrite,Urine Negative (Negative); Specific Gravity,Urine 1.026 (1.001-1.030); Urobilinogen,Urine 0.2 E.U./DL
[2024-05-31 17:18] LABS: Bacteria,Urine None Seen (None Seen)
== END | disposition home or self-care (01) ==
LOC: LABWHC1 08:55
PROVIDERS: ATTEND Internal Medicine Nephrology
DX: I12.9 Hypertensive chronic kidney disease with stage 1 through stage 4 chronic kidney disease, or unspecified chronic kidney disease (principal); N18.9 Chronic kidney disease, unspecified
CPT/HCPCS: 36415; 80069; 81001; 82570; 83735; 83970; 84156; 84550; 85025

== ENCOUNTER → 2024-06-10 | Outpatient (CLI) | payer MEDICAID ==
[2024-06-10 15:51] LABS: C Reactive Protein <0.30 mg/dL (0.00-0.80); Creatine Kinase 127 U/L (26-186)
== END | disposition home or self-care (01) ==
LOC: LABWHC1 09:29
PROVIDERS: ATTEND Internal Medicine Nephrology
DX: Z01.812 Encounter for preprocedural laboratory examination (principal); K43.2 Incisional hernia without obstruction or gangrene
CPT/HCPCS: 36415; 82306; 82550; 85652; 86140

== ENCOUNTER → 2024-08-08 | Outpatient (CLI) | payer MEDICAID ==
--- NOTE | 2024-08-08 11:57 | US ---
EXAMINATION TYPE: US arterial LE single level DATE OF EXAM: 08/08/2024 10:26 AM COMPARISONS: US 2022 CLINICAL INDICATION: Female, 54 years old with history of R51.9 HEADACHE; TECHNIQUE: Systolic pressures were taken of the upper and lower extremity arteries with ankle-brachia l indices and toe brachial indices calculated bilaterally. History of: Smoker: Never Hypertension: Yes Diabetic: No Hyperlipidemia: Yes TIA/CVA: No Previous Vascular Surgery: No MT: No Vascular Ulcers: No Gangrene: No FINDINGS: Doppler Waveforms: Right: Multiphasic Left: Multiphasic Brachial Artery systolic pressure: Right: 143 Left: 130 Posterior Tibial artery systolic pressure: Right: 188 Left: 192 Dorsalis Pedis artery systolic pressure: Right: 172 Left: 180 Ankle-Brachial Indices: Right: 1.31 Left: 1.34 (Vessel hardening > 1.4; Normal 0.9 - 1.4, Moderate 0.7 - 0.9, Severe 0.5-0.7) IMPRESSION: Normal ankle-brachial brachial indices bilaterally. [facility], , 08/08/2024 11:55 AM
== END | disposition home or self-care (01) ==
LOC: RADUSWWP 09:36
PROVIDERS: ATTEND Family Medicine
DX: R51.9 Headache, unspecified (principal)
CPT/HCPCS: 93922

== ENCOUNTER → 2024-08-16 | Outpatient (CLI) | payer MEDICAID ==
[2024-08-16 11:12] LABS: HCT 42.2 % (34.0-46.0); HGB 13.6 gm/dL (11.4-16.0); MCH 30.3 pg (25.0-35.0); MCHC 32.3 g/dL (31.0-37.0); MCV 93.8 fL (80.0-100.0); Mean Platelet Volume 7.4; Platelet Count 304 k/uL (150-450); RDW 12.3 % (11.5-15.5)
[2024-08-16 11:36] LABS: ALT 14 U/L (4-34); AST 23 U/L (14-36); African American GFR (CKD) >90 (>60 ml/min/1.73 sqM); Albumin 4.4 g/dL (3.5-5.0); Alkaline Phosphatase 52 U/L (38-126); Anion Gap 6 mmol/L; Blood Urea Nitrogen 13 mg/dL (7-17); Calcium 9.2 mg/dL (8.4-10.2); Carbon Dioxide 31 mmol/L (22-30); Chloride 105 mmol/L (98-107); Glucose 107 mg/dL (74-99); Non-African American GFR(CKD) >90 (>60 ml/min/1.73 sqM); Potassium 4.3 mmol/L (3.5-5.1); Sodium 142 mmol/L (137-145); Total Bilirubin 0.8 mg/dL (0.2-1.3); Total Protein 6.9 g/dL (6.3-8.2)
== END | disposition home or self-care (01) ==
LOC: LAB 09:29
PROVIDERS: ATTEND Family Medicine
DX: K52.9 Noninfective gastroenteritis and colitis, unspecified (principal); R68.89 Other general symptoms and signs
CPT/HCPCS: 80053; 84443; 85027

== ENCOUNTER → 2024-08-20 | Outpatient (CLI) | payer MEDICAID ==
--- NOTE | 2024-08-22 12:28 | MR ---
EXAMINATION TYPE: MR brain wo/w con DATE OF EXAM: 08/20/2024 8:29 PM COMPARISON: 04/06/2022 CLINICAL INDICATION: Female, 54 years old with history of Z86.69 PERSONAL HISTORY OF DIS OF THE NERVO U R51.9, headaches, visual disturbances, history of Arnold chiari decompression TECHNIQUE: Multiplanar and multispin-echo imaging of the brain was performed both before and after th e administration of contrast. CONTRAST: Patient received 9 mL intravenous Gadobutrol gadolinium contrast. FINDINGS: The ventricles, basal cisterns and sulci overlying the cerebral convexities are within normal limits. There is no evidence for midline shift or mass effect. Acute intracranial hemorrhage or extra-axial collection is not evident. There remain less than 5 tiny scattered white matter lesions. Following contrast administration, there is no evidence for pathologic enhancement or enhancing mass. The paranasal sinuses and mastoid air cells are well-aerated. IMPRESSION: Nonspecific tiny scattered white matter lesions unchanged from prior study. [facility], , 08/22/2024 12:25 PM
== END | disposition home or self-care (01) ==
LOC: RADMRIMAIN 19:19
PROVIDERS: ATTEND Family Medicine
DX: Z86.69 Personal history of other diseases of the nervous system and sense organs (principal); R51.9 Headache, unspecified; Q07.00 Arnold-Chiari syndrome without spina bifida or hydrocephalus
CPT/HCPCS: 70553; A9585

== ENCOUNTER → 2024-09-17 | Outpatient (CLI) | payer MEDICAID ==
--- NOTE | 2024-09-17 13:55 | US ---
EXAMINATION TYPE: US kidneys/renal and bladder DATE OF EXAM: 09/17/2024 COMPARISON: NONE CLINICAL INDICATION: Female, 54 years old with history of N20.0 CALCULUS OF KIDNEY; hx of stones TECHNIQUE: Grayscale imaging of the bilateral kidneys and urinary bladder: FINDINGS: EXAM MEASUREMENTS: Right Kidney: 7.8 x 4.0 x 4.1 cm Left Kidney: 10.7 x 5.8 x 3.7 cm Right Kidney: No hydronephrosis or masses seen Left Kidney: anechoic areas seen mid pole 1.9 x .7 x 1.6 cm. Upper pole 1.4 x 1.5 x 1 cm. Bladder: anechoic Bilateral Jets seen: yes. There is no evidence for hydronephrosis at this point in time. No nephrolithiasis is seen. No isis s are identified. The urinary bladder is anechoic. IMPRESSION: 1. No evidence for obstructive uropathy or renal causes. 2. Left anechoic probable cyst. [facility], , 09/17/2024 1:52 PM
== END | disposition home or self-care (01) ==
LOC: RADUSWWP 12:58
PROVIDERS: ATTEND Urology
DX: N20.0 Calculus of kidney (principal); Z87.442 Personal history of urinary calculi
CPT/HCPCS: 76770

== ENCOUNTER → 2024-11-01 | Outpatient (CLI) | payer MEDICAID ==
[2024-11-02 06:39] LABS: HCT 39.6 % (37.2-46.3); HGB 13.2 g/dL (12.0-15.0); MCH 30.3 pg (27.0-32.0); MCHC 33.3 g/dL (32.0-37.0); MCV 90.8 FL (80.0-97.0); Mean Platelet Volume 11.3 FL (9.5-12.2); NRBC Per 100 WBC 0 X 10*3/uL (0.00-0.01); Platelet Count 308 X 10*3/uL (140-440); RBC 4.36 X 10*6/uL (4.10-5.20); RDW 11.9 % (11.5-14.5); WBC 3.59 X 10*3/uL (4.50-10.00)
[2024-11-02 07:15] LABS: BUN/Creat Ratio 19.71 Ratio (12.00-20.00); Blood Urea Nitrogen 13.8 mg/dL (9.0-27.0); Carbon Dioxide 24.8 mmol/L (21.6-31.8); Chloride 108 mmol/L (96-109); Chol/HDL Ratio 2.78 Ratio; Glucose 104 mg/dL (70-110); LDL Cholesterol,Calculated 99.4 mg/dL (0.0-131.0); Potassium 4.3 mmol/L (3.5-5.5); Sodium 144 mmol/L (135-145)
[2024-11-02 07:16] LABS: ALT 18 U/L (8-44); AST 25 U/L (13-35); Albumin 4.6 g/dL (3.8-4.9); Alkaline Phosphatase 55 U/L (41-126); Calcium 9.2 mg/dL (8.7-10.3); Globulin 2.3 g/dL (1.6-3.3); Total Bilirubin 0.5 mg/dL (0.3-1.2); Total Protein 6.9 g/dL (6.2-8.2)
== END | disposition home or self-care (01) ==
LOC: LABWHC1 10:11
PROVIDERS: ATTEND Family Medicine
DX: I10 Essential (primary) hypertension (principal); E78.00 Pure hypercholesterolemia, unspecified; R73.01 Impaired fasting glucose
CPT/HCPCS: 36415; 80053; 80061; 83036; 85027

== ENCOUNTER 2024-11-26 11:30 | Day surgery (SDC) | payer MEDICAID ==
[2024-11-25 14:06] VITALS: BMI 30.7
[~2024-11-26 11:30] MED LIST changes: +ATROPINE SULFATE 0.4 MG/ML 1 ML VIAL IM ONE; -DEXAMETHASONE SOD PHOSPHATE 4 MG/ML 1 ML VIAL IV ONE; -LIDOCAINE 1% (10MG/ML) FOR IV START INTRADERMA PRN; -ONDANSETRON 4 MG/2 ML VIAL IVP ONE; -SCOPOLAMINE 1.5MG/72HR PATCH TRANSDERM ONE
[2024-11-26 12:48] VITALS: TEMP 98.6
[2024-11-26] MEDS: IV FLUID CONTINUATION 1,000 ML IV ONE (12:48)
[2024-11-26] MEDS: LIDOCAINE 1% (10MG/ML) FOR IV START INTRADERMA PRN (12:49)
[2024-11-26] MEDS: LACTATED RINGERS 1,000 ML IV SCH (12:49)
[2024-11-26] MEDS ORDERED: LIDOCAINE 1% INJ 10MG/ML (20 ML MDV) ONE (12:58)
[2024-11-26] MEDS ORDERED: PROPOFOL 10 MG/ML 20 ML VIAL IV ONE (12:58)
[2024-11-26] MEDS: LIDOCAINE 2% INJ 20 MG/ML INTRATRACH ONE (13:08)
[2024-11-26 13:44] VITALS: RESP 18
[2024-11-26 13:45] VITALS: BP 146/83; PULSE 78
--- NOTE | 2024-11-26 20:12 | PCN ---
PROCEDURE NOTE PROCEDURES: Bronchoscopy, airway examination, therapeutic lavage, BAL right middle lobe. PREOPERATIVE DIAGNOSES: Retained secretions, rule out infection, pneumonia. POSTOPERATIVE DIAGNOSES: Retained secretions, rule out infection, pneumonia. CORDUROY CUTTING SUPERVISOR: Dr. Nunes. FIRST LEGAL ARCHIVIST: Dr. Richelle Haley. ANESTHESIA PROVIDED: Monitored anesthesia care. DESCRIPTION OF PROCEDURE: The patient's procedure was done in room #2 [facility]. After the patient was adequately sedated and being fully monitored, the bronchoscope was inserted through the left nostril. It passed through the left nasopharynx into the oropharynx. The hypopharynx was identified and topicalized. The hypopharyngeal structures, including anterior commissure, true cords, false cords, arytenoids, piriform sinuses, right and left, vallecula, and epiglottis, all appeared normal. After topicalization of the glottic opening, the bronchoscope was pushed through the glottic opening into the trachea. The trachea appeared relatively normal. Tracheal phoebe was sharp. The right and left mainstem were topicalized with lidocaine. The right upper lobe and its 3 segments, right middle lobe and its 2 segments, right lower lobe and its 5 segments, left upper lobe and its 2 segments, lingula and its 2 segments, and left lower lobe and its 4 segments all had similar findings of the airways were similar and that they all had diffuse airways erythema and hyperemia. I would say they were mild to moderate in severity. There was no dominant mass or tumor. There was some mucosal friability. There was some vascular engorgement. The secretions were thin and frothy. The right middle lobe was cannulated with the bronchoscope, and we did a formal BAL. 30 mL of turbid fluid was recovered. There was no immediate complication. The patient tolerated the procedure well without complication. The fluid will be sent for analysis. The patient will be recovered and discharged home. MMODL / IJN: [id number] /
[2024-11-26 21:27] LABS: Appearance,BF Cloudy (Clear); RBC, Body Fluid 500 /UL (0-2000)
[2024-12-01 11:35] LABS: Nucleated Cells, Body Fluid 420 /UL
== END 2024-11-26 14:09 | disposition home or self-care (01) ==
LOC: ORWHC2ENDO 11:30
PROVIDERS: ATTEND Internal Medicine Critical Care Medicine
DX: R05.1 Acute cough (principal); J45.909 Unspecified asthma, uncomplicated; D86.9 Sarcoidosis, unspecified; Q07.00 Arnold-Chiari syndrome without spina bifida or hydrocephalus; E03.9 Hypothyroidism, unspecified; Z86.16 Personal history of COVID-19; Z79.51 Long term (current) use of inhaled steroids; Z79.890 Hormone replacement therapy; Z88.2 Allergy status to sulfonamides
CPT/HCPCS: 88108; 88305; 89050; 87070; 87205; 87116; 87102; 87206; 31624; J2003 ×2; J2704

== ENCOUNTER 2025-01-20 08:06 | Day surgery (SDC) | payer MEDICAID ==
[~2025-01-20 08:06] MED LIST changes: -ATROPINE SULFATE 0.4 MG/ML 1 ML VIAL IM ONE; +LIDOCAINE 1% (10MG/ML) FOR IV START INTRADERMA PRN; +ONDANSETRON 4 MG/2 ML VIAL IVP PRN
[2025-01-20] MEDS: IV FLUID CONTINUATION 1,000 ML IV ONE (09:16)
[2025-01-20] MEDS ORDERED: LIDOCAINE 1% INJ 10MG/ML (20 ML MDV) ONE (09:42)
[2025-01-20] MEDS ORDERED: PROPOFOL 10 MG/ML 20 ML VIAL IV ONE (09:42)
--- NOTE | 2025-01-20 09:48 | P.GSHP ---
History of Present Illness H&P Date: 01/20/25 Chief Complaint: GERD 54-year-old female here for upper endoscopy. Patient with history of chronic cough, abdominal pain, nausea, GERD symptoms. Last EGD 4 years ago. Was taking omeprazole but stopped a while ago. Past Medical History Past Medical History: Asthma, GERD/Reflux, Osteoarthritis (OA), Thyroid Disorder Additional Past Medical History / Comment(s): Occipital neuritis, chronic low back pain/herniated and bulging discs cervical/lumbar, bone fragments in back, arnold chiari malformation, hypothyroid, colitis, overactive bladder, hiatal hernia, sarcoidosis. History of Any Multi-Drug Resistant Organisms: None Reported Past Surgical History: Breast Surgery, Cholecystectomy, Hernia Repair, Orthopedic Surgery, Uterine Ablation Additional Past Surgical History / Comment(s): ORIF right wrist - hardware since removed, EGD with biopsy, colonoscopy, right inguinal hernia repair, robotic assisted exploratory lap with left inguinal hernia repairs/left inguinal lipoma removed/lysis of adhesions, right breast biopsy, left breast surgery for infected milk duct, Arnold-Chiari malformation surgery, partial meniscus repair left knee. Past Anesthesia/Blood Transfusion Reactions: Previous Problems w/ Anesthesia Additional Past Anesthesia/Blood Transfusion Reaction / Comment(s): "Did not get enough with surgery on left breast". Smoking Status: Never smoker - Past Family History Mother Family Medical History: Diabetes Mellitus, Myocardial Infarction (IA) Additional Family Medical History / Comment(s): Mother of a IA at the age of 67yrs. Brother(s) Additional Family Medical History / Comment(s): boraderline diabetic Father Family Medical History: Cancer, Diabetes Mellitus, Myocardial Infarction (IA) Additional Family Medical History / Comment(s): Father from prostate cancer at the age of 71 yrs. He also had a myocardial infarction prior to the age of 65. Medications and Allergies Home Medications Medication Instructions Recorded Confirmed Type Levothyroxine Sodium [Synthroid] 75 mcg PO DAILY 06/28/20 01/15/25 History carvediloL [Coreg] 6.25 mg PO BID 03/03/21 01/15/25 History Albuterol Inhaler [Ventolin Hfa 2 puff INHALATION QID PRN 11/25/24 01/20/25 History Inhaler] Bacillus Coagulans [Probiotic] 1 each PO DAILY 11/25/24 01/15/25 History Mirabegron [Myrbetriq] 50 mg PO DAILY 11/25/24 01/20/25 History Omeprazole 20 mg PO DAILY PRN 11/25/24 01/20/25 History Vitamin B Complex 1 each PO DAILY 11/25/24 01/15/25 History Azithromycin [Zithromax] 250 mg PO ONCE 01/20/25 01/20/25 History Budesonide/Formoterol Fumarate 1 puff INHALATION DAILY 01/20/25 01/20/25 History [Symbicort 160-4.5 Mcg Inhaler] Allergies Allergy/AdvReac Type Severity Reaction Status Date / Time adhesive tape Allergy Rash- see Verified 01/20/25 08:53 comment amitriptyline Allergy Rash/Hives Verified 01/20/25 08:53 baclofen Allergy Rash/Hives Verified 01/20/25 08:53 ketorolac [From Toradol] Allergy rash-see Verified 01/20/25 08:53 comment sulfamethoxazole Allergy severe Verified 01/20/25 08:53 [From Bactrim] hives trimethoprim [From Bactrim] Allergy severe Verified 01/20/25 08:53 hives celecoxib [From Celebrex] AdvReac Confusion Verified 01/20/25 08:53 Surgical - Exam Vital Signs Pulse Resp BP Pulse Ox 81 16 137/94 98 01/20/25 09:08 01/20/25 09:08 01/20/25 09:08 01/20/25 09:08 Physical exam: General: Well-developed, well-nourished HEENT: Normocephalic, sclerae nonicteric Abdomen: Nontender, nondistended Extremities: No edema Neuro: Alert and oriented Assessment and Plan (1) GERD (gastroesophageal reflux disease) Narrative/Plan: Will proceed with upper endoscopy at this time. Current Visit: Yes Status: Acute Code(s): K21.9 - GASTRO-ESOPHAGEAL REFLUX DISEASE WITHOUT ESOPHAGITIS SNOMED Code(s): 242434302
--- NOTE | 2025-01-20 09:55 | P.PCN ---
Date of Procedure: 01/20/25 Procedure(s) Performed: Preoperative Dx: GERD, abdominal pain Postoperative Dx: Minimal gastritis, small hiatal hernia Procedure: EGD with Bx Anesthesia: Sedation Endoscopist: Dr. Baker Specimens: Antrum Endoscopic Procedure: The patient was on the endoscopy table in the left decubitus position. The Olympus gastroscope was inserted into the oropharynx and passed under direct visualization to the region of the third portion of the duodenum. From that point the scope was slowly withdrawn inspecting all surfaces carefully. There were no neoplastic inflammatory or polypoid lesions throughout the duodenum. The pylorus was widely patent. The stomach was carefully inspected. There was minimal gastritis present. A biopsy of the antrum took place to rule out H. pylori. Retroflexion revealed a small less than 1 cm hiatal hernia. The esophagus was then carefully examined. There were no neoplastic inflammatory or polypoid lesions throughout the visualized esophagus. The patient was then taken to the recovery room in stable condition per anesthesia guidelines. Recommendations: Resume diet. Continue as needed antiacid therapy.
[2025-01-20 10:22] VITALS: BP 137/86; PULSE 74; RESP 18
== END 2025-01-20 10:45 | disposition home or self-care (01) ==
LOC: ORWHC2ENDO 08:06
PROVIDERS: ATTEND Surgery
DX: K29.50 Unspecified chronic gastritis without bleeding (principal); K21.9 Gastro-esophageal reflux disease without esophagitis; K44.9 Diaphragmatic hernia without obstruction or gangrene; I10 Essential (primary) hypertension; E03.9 Hypothyroidism, unspecified; D86.9 Sarcoidosis, unspecified; Q07.00 Arnold-Chiari syndrome without spina bifida or hydrocephalus; J45.20 Mild intermittent asthma, uncomplicated; R05.3 Chronic cough; N32.81 Overactive bladder; Z91.89 Other specified personal risk factors, not elsewhere classified; Z79.890 Hormone replacement therapy; Z79.51 Long term (current) use of inhaled steroids; Z79.899 Other long term (current) drug therapy; Z91.048 Other nonmedicinal substance allergy status; Z88.1 Allergy status to other antibiotic agents; Z88.6 Allergy status to analgesic agent; Z88.2 Allergy status to sulfonamides
CPT/HCPCS: 43239; 81025; 88305; J2003; J2704

== ENCOUNTER → 2025-02-14 | Outpatient (CLI) | payer MEDICAID ==
--- NOTE | 2025-02-14 08:30 | XR ---
EXAMINATION TYPE: XR lumbar spine 2 or 3V DATE OF EXAM: 02/14/2025 8:23 AM COMPARISON: 09/21/2021 CLINICAL INDICATION: Female, 54 years old with history of [id number]; PHH, pain TECHNIQUE: XR lumbar spine 2 or 3V - Frontal, lateral and coned in L5-S1 lateral views of the spine. FINDINGS: No evidence of any acute osseous pathology. No evidence of loss of vertebral body height i s seen. There is normal alignment of the lumbar vertebral bodies. Scattered disc space narrowing. Mul tilevel marginal osteophyte formation throughout the visualized spine. There is facet joint arthropat hy throughout the spine. Scattered at least mild neural foraminal stenosis. Upper quadrant cholecyste ctomy clips. IMPRESSION: 1. No acute fracture. 2. Mild multilevel disc degeneration. [facility], , 02/14/2025 8:28 AM
[2025-02-14 13:13] LABS: Basophils # (A) 0.04 X 10*3/uL (0.00-0.10); Basophils % (A) 0.8 %; Eosinophils # (A) 0.12 X 10*3/uL (0.04-0.35); Eosinophils % (A) 2.4 %; HCT 39.5 % (37.2-46.3); HGB 13.1 g/dL (12.0-15.0); Lymphocytes # (A) 1.43 X 10*3/uL (0.90-5.00); Lymphocytes % (A) 28.2 %; MCH 30.3 pg (27.0-32.0); MCHC 33.2 g/dL (32.0-37.0); MCV 91.4 FL (80.0-97.0); Mean Platelet Volume 10.2 FL (9.5-12.2); Monocytes # (A) 0.39 X 10*3/uL (0.20-1.00); Monocytes % (A) 7.7 %; NRBC Per 100 WBC 0 X 10*3/uL (0.00-0.01); Neutrophils # (A) 3.07 X 10*3/uL (1.80-7.70); Neutrophils % (A) 60.5 %; Platelet Count 286 X 10*3/uL (140-440); RBC 4.32 X 10*6/uL (4.10-5.20); RDW 12.3 % (11.5-14.5); WBC 5.07 X 10*3/uL (4.50-10.00)
[2025-02-14 13:38] LABS: ALT 18 U/L (8-44); AST 25 U/L (13-35); Albumin 4.3 g/dL (3.8-4.9); Albumin/Globulin Ratio 1.95 Ratio (1.60-3.17); Alkaline Phosphatase 54 U/L (41-126); BUN/Creat Ratio 20.86 Ratio (12.00-20.00); Blood Urea Nitrogen 14.6 mg/dL (9.0-27.0); C Reactive Protein <0.30 mg/dL (0.00-0.80); Carbon Dioxide 24.6 mmol/L (21.6-31.8); Chloride 107 mmol/L (96-109); Chol/HDL Ratio 3.57 Ratio; Globulin 2.2 g/dL (1.6-3.3); Glucose 91 mg/dL (70-110); LDL Cholesterol,Calculated 149.8 mg/dL (0.0-131.0); Potassium 4.5 mmol/L (3.5-5.5); Rheumatoid Factor, Qnt <15 IU/mL (0-15); Sodium 143 mmol/L (135-145); Total Bilirubin 0.5 mg/dL (0.3-1.2); Total Protein 6.5 g/dL (6.2-8.2); Uric Acid 3.6 mg/dL (2.9-7.7); VLDL Calculation 18.72 mg/dL (5.00-40.00)
[2025-02-14 13:49] LABS: Erythrocyte Sedimentation Rate 18 mm/Hr (0-30)
[2025-02-16 15:09] LABS: Cyclic Citrull Pep IgG Unit <1.5 U/mL (<=3.9); Cyclic Citrullinated Pep IgG Negative
== END | disposition home or self-care (01) ==
LOC: LABWHC1 08:00
DX: I10 Essential (primary) hypertension (principal); E78.2 Mixed hyperlipidemia; M51.360 Other intervertebral disc degeneration, lumbar region with discogenic back pain only; M25.50 Pain in unspecified joint; M47.816 Spondylosis without myelopathy or radiculopathy, lumbar region; R10.30 Lower abdominal pain, unspecified
CPT/HCPCS: 36415; 72100; 80053; 80061; 83036; 83735; 84443; 84550; 85025; 85652; 86038; 86140; 86200; 86431

== ENCOUNTER → 2025-02-16 | Outpatient (CLI) | payer MEDICAID ==
--- NOTE | 2025-02-16 22:29 | CT ---
EXAMINATION TYPE: CT abdomen pelvis wo/w con DATE OF EXAM: 02/16/2025 6:50 PM COMPARISON: Prior CT abdomen/pelvis of 05/30/2024. CLINICAL INDICATION: Female, 54 years old with history of R10.30 LOWER ABD PAIN; LLQ pain x1 month TECHNIQUE: Axial CT abdomen pelvis wo/w con;Sagittal and coronal reformats were created on a [employer] workstation. Contrast used:100 ml mL of Isovue 300 with IV Contrast, Oral contrast used: with Oral Contrast pressure CT DLP: 1444.9 mGycm, Automated exposure control for dose reduction was used. FINDINGS: LOWER CHEST: Unremarkable ABDOMEN LIVER: Unremarkable GALLBLADDER AND BILE DUCTS: The gallbladder is surgically absent. PANCREAS: Unremarkable. SPLEEN: Unremarkable. ADRENAL GLANDS: Unremarkable. KIDNEYS AND URETERS: Chronic right renal parenchyma scarring defects again noted. Similar pelviectasi s bilaterally without evidence of significant hydronephrosis or ureter. Nonobstructing bilateral elza l calculi measuring up to 5 mm in the inferior left kidney. Simple left renal cyst. PELVIS BLADDER: No evidence for wall thickening or mass given limitations of exam. REPRODUCTIVE: Unremarkable. ABDOMEN & PELVIS STOMACH AND BOWEL: Stomach and duodenum are unremarkable. No evidence of bowel obstruction. PERITONEUM/RETROPERITONEUM: No evidence of pneumoperitoneum or free fluid. VASCULATURE: No evidence of aortic aneurysm. MUSCULOSKELETAL: No acute osseous abnormalities LYMPH NODES: No gross evidence for lymphadenopathy. SOFT TISSUE/ABDOMINAL WALL: Unremarkable IMPRESSION: 1. No acute abnormality in the abdomen/pelvis. 2. Bilateral nonobstructing renal calculi. No evidence of hydronephrosis or hydroureter. [facility], , 02/16/2025 10:26 PM
== END | disposition home or self-care (01) ==
LOC: RADCTMAIN 16:46
PROVIDERS: ATTEND Internal Medicine
DX: N20.0 Calculus of kidney (principal)
CPT/HCPCS: 74178; Q9967

== ENCOUNTER 2025-02-24 03:54 | Observation (INO) | payer MEDICAID ==
--- NOTE | 2025-02-24 04:03 | ED ---
Chest Pain HPI - General Chief Complaint: Chest Pain Stated Complaint: Chest discomfort, right back shoulder pain Time Seen by Provider: 02/24/25 03:57 Source: patient, RN notes reviewed, old records reviewed Mode of arrival: ambulatory Limitations: no limitations - History of Present Illness Initial Comments: This is a 54-year-old female to the ER for evaluation of chest pain patient presents today for evaluation of left-sided chest pain chest pain in the shoulder chest pain in the back patient also has abdominal pain epigastric pain occasional cough. No travel history or sick contacts this pain have been in the symptoms been ongoing for a while but she clinically comfortable last night bring her to the ER today. She does have a strong family history of heart disease as well as hypertension herself with what she believes is elevated cholesterol MD Complaint: chest pain Onset: during rest Pain Location: substernal, left chest Pain Radiation: none Severity: moderate Severity scale (1-10): 7 Quality: sharp Consistency: constant Improves With: nothing Worsens With: nothing Treatments Prior to Arrival: none - Related Data On Oral Contraceptives: No Home Medications Medication Instructions Recorded Confirmed Levothyroxine Sodium [Synthroid] 75 mcg PO DAILY 06/28/20 02/24/25 carvediloL [Coreg] 6.25 mg PO BID 03/03/21 02/24/25 Albuterol Inhaler [Ventolin Hfa 2 puff INHALATION RT-QID PRN 11/25/24 02/24/25 Inhaler] Bacillus Coagulans [Probiotic] 1 tab PO DAILY 11/25/24 02/24/25 Mirabegron [Myrbetriq] 50 mg PO DAILY 11/25/24 02/24/25 Fexofenadine HCl [Goldie Allergy] 180 mg PO DAILY PRN 02/24/25 02/24/25 Meloxicam [Mobic] 7.5 mg PO DAILY 02/24/25 02/24/25 Omeprazole 40 mg PO DAILY PRN 02/24/25 02/24/25 Rosuvastatin [Crestor] 20 mg PO DAILY 02/24/25 02/24/25 Vitamin D3(Unknown Dose) 1 tab PO DAILY 02/24/25 02/24/25 Previous Rx's Medication Instructions Recorded Azithromycin [Zithromax Tri-Anup (3 500 mg PO DAILY 3 Days #3 tab 02/26/25 tabs)] Allergies Allergy/AdvReac Type Severity Reaction Status Date / Time adhesive tape Allergy Rash- see Verified 02/24/25 09:11 comment amitriptyline Allergy Rash/Hives Verified 02/24/25 09:11 baclofen Allergy Rash/Hives Verified 02/24/25 09:11 ketorolac [From Toradol] Allergy rash-see Verified 02/24/25 09:11 comment sulfamethoxazole Allergy severe Verified 02/24/25 09:11 [From Bactrim] hives trimethoprim [From Bactrim] Allergy severe Verified 02/24/25 09:11 hives celecoxib [From Celebrex] AdvReac Confusion Verified 02/24/25 09:11 Review of Systems ROS Statement: Those systems with pertinent positive or pertinent negative responses have been documented in the HPI. ROS Other: All systems not noted in ROS Statement are negative. EKG Findings - EKG Comments: EKG Findings:: EKG is sinus 37 OH 58 QRS 100 QTc 412 - EKG Results: EKG: interpreted by FLORENCIOD Past Medical History Past Medical History: Asthma, GERD/Reflux, Osteoarthritis (OA), Thyroid Disorder Additional Past Medical History / Comment(s): Occipital neuritis, chronic low back pain/herniated and bulging discs cervical/lumbar, bone fragments in back, arnold chiari malformation, hypothyroid, colitis, overactive bladder, hiatal hernia, sarcoidosis. History of Any Multi-Drug Resistant Organisms: None Reported Past Surgical History: Breast Surgery, Cholecystectomy, Hernia Repair, Orthopedic Surgery, Uterine Ablation Additional Past Surgical History / Comment(s): ORIF right wrist - hardware since removed, EGD with biopsy, colonoscopy, right inguinal hernia repair, robotic assisted exploratory lap with left inguinal hernia repairs/left inguinal lipoma removed/lysis of adhesions, right breast biopsy, left breast surgery for infected milk duct, Arnold-Chiari malformation surgery, partial meniscus repair left knee. Past Anesthesia/Blood Transfusion Reactions: Previous Problems w/ Anesthesia Additional Past Anesthesia/Blood Transfusion Reaction / Comment(s): "Did not get enough with surgery on left breast". Past Psychological History: No Psychological Hx Reported Smoking Status: Never smoker Past Alcohol Use History: None Reported Past Drug Use History: None Reported - Past Family History Mother Family Medical History: Diabetes Mellitus, Myocardial Infarction (NH) Additional Family Medical History / Comment(s): Mother of a NH at the age of 67yrs. Brother(s) Additional Family Medical History / Comment(s): denaeaderconner diabetic Father Family Medical History: Cancer, Diabetes Mellitus, Myocardial Infarction (NH) Additional Family Medical History / Comment(s): Father from prostate cancer at the age of 71 yrs. He also had a myocardial infarction prior to the age of 65. General Exam Limitations: no limitations General appearance: alert, in no apparent distress Head exam: Present: atraumatic, normocephalic, normal inspection Eye exam: Present: normal appearance, PERRL, EOMI. Absent: scleral icterus, conjunctival injection, periorbital swelling ENT exam: Present: normal exam, mucous membranes moist Neck exam: Present: normal inspection. Absent: tenderness, meningismus, lymphadenopathy Respiratory exam: Present: normal lung sounds bilaterally. Absent: respiratory distress, wheezes, rales, rhonchi, stridor Cardiovascular Exam: Present: regular rate, normal rhythm, normal heart sounds. Absent: systolic murmur, diastolic murmur, rubs, gallop, clicks GI/Abdominal exam: Present: soft, normal bowel sounds. Absent: distended, tenderness, guarding, rebound, rigid Extremities exam: Present: normal inspection, full ROM, normal capillary refill. Absent: tenderness, pedal edema, joint swelling, calf tenderness Back exam: Present: normal inspection Neurological exam: Present: alert, oriented X3, CN II-XII intact Psychiatric exam: Present: normal affect, normal mood Skin exam: Present: warm, dry, intact, normal color. Absent: rash Course Vital Signs 02/24/25 02/24/25 02/24/25 03:56 06:21 08:20 Temperature 97.6 F 97.9 F Pulse Rate 83 80 76 Respiratory 20 19 16 Rate Blood Pressure 154/90 179/88 145/92 O2 Sat by Pulse 98 100 99 Oximetry - Reevaluation(s) Reevaluation #1: 02/24/25 04:33 Medical record is reviewed Reevaluation #2: 02/24/25 07:18 Patient still with chest pain back pain shoulder pain and abdominal pain here in the ER Reevaluation #3: 02/24/25 07:18 Patient informed of results questions answered Reevaluation #4: Was pt. sent in by a medical professional or institution (, PA, ASSURANCE AUDITOR, urgent care, hospital, or halfway...) When possible be specific @ -no Did you speak to anyone other than the patient for history (EMS, parent, family, police, friend...)? What history was obtained from this source @ -no Did you review nursing and triage notes (agree or disagree)? Why? @ -agree Are old charts reviewed (outside hosp., previous admission, EMS record, old EKG, old radiological studies, urgent care reports/EKG's, halfway records)? Report findings @ -yes Differential Diagnosis (chest pain, altered mental status, abdominal pain women, abdominal pain men, vaginal bleeding, weakness, fever, dyspnea, syncope, headache, dizziness, GI bleed, back pain, seizure, CVA, palpatations, mental health, musculoskeletal)? @ -prior EKG interpreted by me (3pts min.). @ -yes X-rays interpreted by me (1pt min.). @ -yes pleural effusions CT interpreted by me (1pt min.). @ -Yes positive pleural effusions U/S interpreted by me (1pt. min.). @ -no What testing was considered but not performed or refused? (CT, X-rays, U/S, labs)? Why? @ -none What meds were considered but not given or refused? Why? @ -none Did you discuss the management of the patient with other professionals (professionals i.e. , PA, ASSURANCE AUDITOR, lab, RT, psych nurse, social work professor, nutrition services associate, teacher, adult probation officer, counseling case manager)? Give summary @ -no Was smoking cessation discussed for >3mins.? @ -no Was critical care preformed (if so, how long)? @ -no Were there social determinants of health that impacted care today? How? (Homelessness, low income, unemployed, alcoholism, drug addiction, transportation, low edu. Level, literacy, decrease access to med. care, longterm, rehab)? @ -none Was there de-escalation of care discussed even if they declined (Discuss DNR or withdrawal of care, Hospice)? DNR status @ -no What co-morbidities impacted this encounter? (DM, HTN, Smoking, COPD, CAD, Cancer, CVA, ARF, Chemo, Hep., AIDS, mental health diagnosis, sleep apnea, morbid obesity)? @ -none Was patient admitted / discharged? Hospital course, mention meds given and route, prescriptions, significant lab abnormalities, going to OR and other pertinent info. @ - 54 female to ER for chest pain chest pain and abdominal pain found to have pancreatitis no history of alcoholism, gallbladder has been removed. Will trend pancreas, IV fluids n.p.o., patient also has chest pain for cardiac observation, EKG negative troponin negative CT angio chest for elevated D-dimer negative Admitted Undiagnosed new problem with uncertain prognosis? @ -no Drug Therapy requiring intensive monitoring for toxicity (Heparin, Nitro, Insulin, Cardizem)? @ -no Were any procedures done? @ -no Diagnosis/symptom? @ -Pleural effusions with significant pancreatitis Acute, or Chronic, or Acute on Chronic? @ -Acute Uncomplicated (without systemic symptoms) or Complicated (systemic symptoms)? @ -Complicated Side effects of treatment? @ -no Exacerbation, Progression, or Severe Exacerbation? @ -exacerbation Poses a threat to life or bodily function? How? (Chest pain, [place], NH, pneumonia, PE, COPD, DKA, ARF, appy, cholecystitis, CVA, Diverticulitis, Homicidal, Suicidal, threat to staff... and all critical care pts) @ -yes severe pancreatitis Reevaluation #5: Differential Chest Pain: Stable Angina, Unstable Angina, STEMI, NSTEMI Aortic Dissection, Pneumothorax, Musculoskeletal, Esophageal Spasm GERD, Cholecystitis, Pancreatitis, Zoster, this is not meant to be an all-inclusive list. - Consultations Consultation #1: Spoke with To her for patient he is agreeable to admit Chest Pain MDM - MDM 54 female to ER for chest pain chest pain and abdominal pain found to have pancreatitis no history of alcoholism, gallbladder has been removed. Will trend pancreas, IV fluids n.p.o., patient also has chest pain for cardiac observation, EKG negative troponin negative CT angio chest for elevated D-dimer negative Disposition Clinical Impression: Chest pain, Bilateral pneumonia, Pancreatitis Disposition: ADMITTED IP TO THIS HOSP Condition: Fair Is patient prescribed a controlled substance at d/c from ED?: No
[2025-02-24 05:14] LABS: Basophils # (A) 0.04 10*3/uL (0.00-0.10); Basophils % (A) 0.7 %; Eosinophils # (A) 0.18 10*3/uL (0.04-0.35); Eosinophils % (A) 3.4 %; HCT 35.1 % (37.2-46.3); HGB 12.1 g/dL (12.0-15.0); Lymphocytes # (A) 1.79 10*3/uL (0.90-5.00); Lymphocytes % (A) 33.5 %; MCH 30.9 pg (27.0-32.0); MCHC 34.5 g/dL (32.0-37.0); MCV 89.5 fL (80.0-97.0); Mean Platelet Volume 10.1 fL (9.5-12.2); Monocytes % (A) 7.5 %; Neutrophils # (A) 2.93 10*3/uL (1.80-7.70); Neutrophils % (A) 54.7 %; Platelet Count 289 10*3/uL (140-440); RBC 3.92 10*6/uL (4.10-5.20); RDW 11.9 % (11.5-14.5); WBC 5.35 10*3/uL (4.50-10.00)
--- NOTE | 2025-02-24 05:27 | XR ---
EXAM: XR Chest, 2 Views CLINICAL HISTORY: Chest Pain TECHNIQUE: Frontal and lateral views of the chest. COMPARISON: CT chest from 11/28/2023 FINDINGS: Lungs: Suspect small patchy airspace opacities over bilateral middle lung zones, larger on the left . Pleural space: Unremarkable. Mediastinum: Unremarkable. Normal mediastinal contour. Bones/joints: Moderate lower thoracic scoliosis convexed to the left. Upper abdomen: Cholecystectomy clips. IMPRESSION: Suspect small patchy atelectasis and/or pneumonia over bilateral middle lung zones.
[2025-02-24 05:31] LABS: INR 0.9 (<1.2); Partial Thromboplastin Time 23.3 sec (22.0-30.0); Prothrombin Time 10.6 sec (10.0-12.5)
[2025-02-24 05:34] LABS: ALT 13 U/L (4-34); AST 24 U/L (14-36); African American GFR (CKD) >90 (>60 ml/min/1.73 sqM); Albumin 4.1 g/dL (3.5-5.0); Alkaline Phosphatase 55 U/L (38-126); Anion Gap 10 mmol/L; Blood Urea Nitrogen 16 mg/dL (7-17); Calcium 9.6 mg/dL (8.4-10.2); Carbon Dioxide 25 mmol/L (22-30); Chloride 105 mmol/L (98-107); Glucose 102 mg/dL (74-99); Lipase 817 U/L (23-300); Non-African American GFR(CKD) >90 (>60 ml/min/1.73 sqM); Potassium 4.3 mmol/L (3.5-5.1); Sodium 140 mmol/L (137-145); Total Bilirubin 0.5 mg/dL (0.2-1.3); Total Protein 6.5 g/dL (6.3-8.2)
[2025-02-24 05:42] LABS: NT-Pro-B-Type Natriuretic Pept 34 pg/mL
--- NOTE | 2025-02-24 06:32 | CT ---
EXAM: CT Angiography Chest With Intravenous Contrast CLINICAL HISTORY: Patient comes in for chest discomfort/upper gastric pain radiates to left shoulder. Started ? PE TECHNIQUE: Axial computed tomographic angiography images of the chest with intravenous contrast. Coronal and sagittal reconstructions are performed. CTDI is 21 mGy and DLP is 880.6 mGy-cm. This CT exam was performed using one or more of the following dose reduction techniques: automated exposure control, adjustment of the mA and/or kV according to patient size, and/or use of iterative reconstruction technique. MIP reconstructed images were created and reviewed. COMPARISON: 11/28/2023 FINDINGS: Pulmonary arteries: Unremarkable. No pulmonary embolism. Aorta: No acute findings. No thoracic aortic aneurysm. Lungs: Small rounded patchy airspace opacities in bilateral lower and right upper lobes, suggest pneumonia. Pleural space: Unremarkable. No significant effusion. No pneumothorax. Heart: Unremarkable. No cardiomegaly. No significant pericardial effusion. No evidence of RV dysfunction. Bones/joints: Mild degenerative changes. Soft tissues: Unremarkable. Lymph nodes: Unremarkable. No enlarged lymph nodes. Gallbladder and bile ducts: Cholecystectomy clips. IMPRESSION: 1. No pulmonary embolism. Normal thoracic aorta. 2. Small rounded patchy airspace opacities in bilateral lower and right upper lobes, suggest pneumonia. Follow up to resolution is recommended to rule out potential underlying neoplastic etiologies.
--- NOTE | 2025-02-24 06:35 | CT ---
EXAM: CT Abdomen and Pelvis With Intravenous Contrast CLINICAL HISTORY: Patient comes in for chest discomfort/upper gastric pain radiates to left shoulder. Started TECHNIQUE: Axial computed tomography images of the abdomen and pelvis with intravenous contrast. Coronal and sagittal reconstructions are performed. CTDI is 8.3 mGy and DLP is 272.7 mGy-cm. This CT exam was performed using one or more of the following dose reduction techniques: automated exposure control, adjustment of the mA and/or kV according to patient size, and/or use of iterative reconstruction technique. COMPARISON: 02/16/2025 FINDINGS: ABDOMEN: Liver: Unremarkable. No mass. Gallbladder and bile ducts: Cholecystectomy clips. Pancreas: Unremarkable. No mass. No ductal dilation. Spleen: Unremarkable. No splenomegaly. Adrenals: Unremarkable. No mass. Kidneys and ureters: 3 mm nonobstructing right renal stone. 15 mm posterior left renal cyst. Cortical irregularity and thinning of right kidney suggest prior infarction versus infection. Atrophic right kidney. Stomach and bowel: Unremarkable. No obstruction. No mucosal thickening. PELVIS: Appendix: No findings to suggest acute appendicitis. Bladder: Unremarkable. No mass. Reproductive: No acute findings. ABDOMEN and PELVIS: Intraperitoneal space: Surgical clip of posterior left pelvis.. No free air. No significant fluid collection. Bones/joints: No acute findings. Soft tissues: Unremarkable Vasculature: Unremarkable. No abdominal aortic aneurysm. Lymph nodes: Unremarkable. No enlarged lymph nodes. IMPRESSION: No acute findings in the abdomen or pelvis.
[2025-02-24] MEDS ORDERED: ONDANSETRON 4 MG/2 ML VIAL IVP PRN (07:12)
[2025-02-24] MEDS ORDERED: NALOXONE 0.4 MG/ML 1 ML VIAL IV PRN (07:12)
[2025-02-24] MEDS: HYDROmorphone 1 MG/ML 1 ML SYRINGE IVP STA (07:51)
[2025-02-24] MEDS: SODIUM CHLORIDE 0.9% 500 ML 500 ML IV ONE (07:52)
[2025-02-24] MEDS: SODIUM CHLORIDE 0.9% 1,000 ML IV ONE (07:53)
[2025-02-24] MEDS: carvediloL 6.25 MG TAB PO SCH (09:20)
[2025-02-24] MEDS: SODIUM CHLORIDE 0.9% 1,000 ML IV SCH (09:22)
[2025-02-24] MEDS: PANTOPRAZOLE 40 MG/10 ML VIAL IV SCH (09:36)
[2025-02-24] MEDS: AZITHROMYCIN 500 MG in SODIUM CHLORIDE 0.9% 250 ML IVPB STA (09:57)
[2025-02-24] MEDS ORDERED: ALBUTEROL NEBULIZED 2.5 MG/3 ML INHALATION PRN (10:19)
[2025-02-24] MEDS ORDERED: NON FORMULARY DRUG (Omeprazole [Omeprazole] 40 MG Capsule.Dr) PO PRN (10:19)
--- NOTE | 2025-02-24 10:40 | P.CRDCN ---
History of Present Illness History of present illness: HISTORY OF PRESENTING ILLNESS This is a pleasant 54-year-old female past medical history significant for hypertension, pulmonary sarcoidosis, Arnold-Chiari malformation status post decompression and anxiety. She previously followed in the office with Dr. Seo but has not been seen since 2021. We have been asked to see in consultation for chest pain. She indicates that she has been experiencing a discomfort across her chest as well as the right upper quadrant of her abdomen for the previous couple of days also radiation into the left shoulder with associated cough. She also follows with Dr. Nunes and recently underwent a bronchoscopy for recurrent cough and pneumonia. Chest x-ray on this admission does indicate some bilateral infiltrate. She has been started on IV antibiotics. Pain is mostly pleuritic. Lipase is also elevated at 817. She has no nausea or vomiting. EKG reveals sinus rhythm heart rate [address] or T wave abnormalities noted. Laboratory data reviewed, WBC 5, hemoglobin 12.1, D-dimer 0.[address] of the chest for PE, sodium 140, potassium 4.3, creatinine 0.6, troponin negative x 2, NT proBNP 34 and lipase 817. Current daily cardiac medications include Coreg 6.25 mg twice daily. Most recent stress test November 2023 she walked on the treadmill for over 6 minutes, achieved target heart rate and there was no concern for ischemia. Most recent echocardiogram May 2022 revealed preserved LV systolic function with ejection fraction 55%, mild mitral regurgitation. REVIEW OF SYSTEMS At the time of my exam: CONSTITUTIONAL: Denies fever or chills. CARDIOVASCULAR: Denies chest pain, shortness of breath, orthopnea, PND or palpitations. RESPIRATORY: Denies cough. GASTROINTESTINAL: Complains of abdominal pain, denies diarrhea, constipation, nausea or vomiting. MUSCULOSKELETAL: Denies myalgias. NEUROLOGIC: Denies numbness, tingling, headache or weakness. ENDOCRINE: Denies fatigue, weight change, polydipsia or polyurina. GENITOURINARY: Denies burning, hematuria or urgency with micturation. HEMATOLOGIC: Denies history of anemia or bleeding. PHYSICAL EXAMINATION Blood pressure 145/92 heart rate 76 afebrile and maintaining oxygen saturation on room air. CONSTITUTIONAL: No apparent distress. HEENT: Head is normocephalic. Pupils are equal, round. Sclerae anicteric. Mucous membranes of the mouth are moist. No JVD. No carotid bruit. CHEST EXAMINATION: Lungs are clear to auscultation. No chest wall tenderness is noted on palpation or with deep breathing. HEART EXAMINATION: Regular rate and rhythm. S1, S2 heard. No murmurs, gallops or rub. ABDOMEN: Soft, nontender. EXTREMITIES: 2+ peripheral pulses, no lower extremity edema and no calf tenderness. NEUROLOGIC EXAMINATION: Patient is awake, alert and oriented x3. ASSESSMENT Chest pain, atypical Pneumonia Hypertension PLAN An acute coronary event has been ruled out. Resume Coreg 6.25 mg twice daily. Consult pulmonary. No further cardiac workup at this time. Follow-up in the office upon discharge with Dr. Jo and they can discuss outpatient testing in terms of repeating a stress test. We will follow along as needed. Thank you kindly for this consultation. Nurse Practitioner note has been reviewed, I agree with a documented findings a nd plan of care. Patient was seen and examined. Past Medical History Past Medical History: Asthma, GERD/Reflux, Osteoarthritis (OA), Thyroid Disorder Additional Past Medical History / Comment(s): Occipital neuritis, chronic low back pain/herniated and bulging discs cervical/lumbar, bone fragments in back, arnold chiari malformation, hypothyroid, colitis, overactive bladder, hiatal hernia, sarcoidosis. History of Any Multi-Drug Resistant Organisms: None Reported Past Surgical History: Breast Surgery, Cholecystectomy, Hernia Repair, Orthopedic Surgery, Uterine Ablation Additional Past Surgical History / Comment(s): ORIF right wrist - hardware since removed, EGD with biopsy, colonoscopy, right inguinal hernia repair, robotic assisted exploratory lap with left inguinal hernia repairs/left inguinal lipoma removed/lysis of adhesions, right breast biopsy, left breast surgery for infected milk duct, Arnold-Chiari malformation surgery, partial meniscus repair left knee. Past Anesthesia/Blood Transfusion Reactions: Previous Problems w/ Anesthesia Additional Past Anesthesia/Blood Transfusion Reaction / Comment(s): "Did not get enough with surgery on left breast". Past Psychological History: No Psychological Hx Reported Smoking Status: Never smoker Past Alcohol Use History: None Reported Past Drug Use History: None Reported - Past Family History Mother Family Medical History: Diabetes Mellitus, Myocardial Infarction ([place]) Additional Family Medical History / Comment(s): Mother of a [place] at the age of 67yrs. Brother(s) Additional Family Medical History / Comment(s): [place] diabetic Father Family Medical History: Cancer, Diabetes Mellitus, Myocardial Infarction ([place]) Additional Family Medical History / Comment(s): Father from prostate cancer at the age of 71 yrs. He also had a myocardial infarction prior to the age of 65. Medications and Allergies Home Medications Medication Instructions Recorded Confirmed Type Levothyroxine Sodium [Synthroid] 75 mcg PO DAILY 06/28/20 02/24/25 History carvediloL [Coreg] 6.25 mg PO BID 03/03/21 02/24/25 History Albuterol Inhaler [Ventolin Hfa 2 puff INHALATION RT-QID PRN 11/25/24 02/24/25 History Inhaler] Bacillus Coagulans [Probiotic] 1 tab PO DAILY 11/25/24 02/24/25 History Mirabegron [Myrbetriq] 50 mg PO DAILY 11/25/24 02/24/25 History Fexofenadine HCl [Goldie Allergy] 180 mg PO DAILY PRN 02/24/25 02/24/25 History Meloxicam [Mobic] 7.5 mg PO DAILY 02/24/25 02/24/25 History Omeprazole 40 mg PO DAILY PRN 02/24/25 02/24/25 History Rosuvastatin [Crestor] 20 mg PO DAILY 02/24/25 02/24/25 History Vitamin D3(Unknown Dose) 1 tab PO DAILY 02/24/25 02/24/25 History Allergies Allergy/AdvReac Type Severity Reaction Status Date / Time adhesive tape Allergy Rash- see Verified 02/24/25 09:11 comment amitriptyline Allergy Rash/Hives Verified 02/24/25 09:11 baclofen Allergy Rash/Hives Verified 02/24/25 09:11 ketorolac [From Toradol] Allergy rash-see Verified 02/24/25 09:11 comment sulfamethoxazole Allergy severe Verified 02/24/25 09:11 [From Bactrim] hives trimethoprim [From Bactrim] Allergy severe Verified 02/24/25 09:11 hives celecoxib [From Celebrex] AdvReac Confusion Verified 02/24/25 09:11 Physical Exam Vitals: Vital Signs Temp Pulse Resp BP Pulse Ox 02/24/25 09:52 16 02/24/25 08:20 97.9 F 76 16 145/92 99 02/24/25 06:21 80 19 179/88 100 02/24/25 03:56 97.6 F 83 20 154/90 98 Intake and Output 02/23/25 02/24/25 02/24/25 22:59 06:59 14:59 Other: Voiding Method Toilet Weight 87.543 kg 87.543 kg Results 02/24/25 05:07 02/24/25 05:07 Cardiac Enzymes 02/24/25 02/24/25 02/24/25 Range/Units 05:07 05:07 09:09 AST 24 (14-36) U/L Troponin I <0.012 <0.012 (0.000-0.034) ng/mL Coagulation 02/24/25 Range/Units 05:07 PT 10.6 (10.0-12.5) sec APTT 23.3 (22.0-30.0) sec CBC 02/24/25 Range/Units 05:07 WBC 5.35 (4.50-10.00) 10*3/uL RBC 3.92 L (4.10-5.20) 10*6/uL Hgb 12.1 (12.0-15.0) g/dL Hct 35.1 L (37.2-46.3) % Plt Count 289 (140-440) 10*3/uL Comprehensive Metabolic Panel 02/24/25 Range/Units 05:07 Sodium 140 (137-145) mmol/L Potassium 4.3 (3.5-5.1) mmol/L Chloride 105 (98-107) mmol/L Carbon Dioxide 25 (22-30) mmol/L BUN 16 (7-17) mg/dL Creatinine 0.60 (0.52-1.04) mg/dL Glucose 102 H (74-99) mg/dL Calcium 9.6 (8.4-10.2) mg/dL AST 24 (14-36) U/L ALT 13 (4-34) U/L Alkaline Phosphatase 55 (38-126) U/L Total Protein 6.5 (6.3-8.2) g/dL Albumin 4.1 (3.5-5.0) g/dL Current Medications Generic Name Dose Route Start Last Admin Trade Name Freq PRN Reason Stop Dose Admin Albuterol Sulfate 2.5 mg 02/24/25 10:19 Albuterol Nebulized 2.5 Mg/3 Ml INHALATION RT-QID PRN Shortness Of Breath Carvedilol 6.25 mg 02/24/25 09:00 02/24/25 09:20 Carvedilol 6.25 Mg Tab PO 6.25 mg BID-W/MEALS [place] Administration Hydromorphone HCl 1 mg 02/24/25 07:12 Hydromorphone 1 Mg/Ml 1 Ml Syringe IVP Q3HR PRN Severe Pain (Scale 7 to 10) Sodium Chloride 1,000 mls @ 75 mls/hr 02/24/25 07:15 02/24/25 09:22 Saline 0.9% IV 75 mls/hr .[id number] YK Administration Ceftriaxone Sodium 2 gm/ 50 mls @ 100 mls/hr 02/25/25 09:00 Sodium Chloride IVPB Q24HR [place] Protocol Azithromycin 500 mg/ Sodium 250 mls @ 250 mls/hr 02/25/25 09:00 Chloride IVPB 02/27/25 09:59 DAILY [facility] Protocol Lactobacillus Acidophilus 1 each 02/25/25 09:00 Lactobacillus Acidophilus/Pect 1 Each Capsule PO DAILY [place] Levothyroxine Sodium 75 mcg 02/25/25 09:00 Levothyroxine 75 Mcg Tab PO DAILY [place] Naloxone HCl 0.2 mg 02/24/25 07:12 Naloxone 0.4 Mg/Ml 1 Ml Vial IV Q2M PRN Opioid Reversal Non-Formulary Medication 50 mg 02/25/25 09:00 Mirabegron [Myrbetriq] PO DAILY [place] Non-Formulary Medication 40 mg 02/24/25 10:19 Omeprazole [Omeprazole] PO DAILY PRN Heartburn Non-Formulary Medication 20 mg 02/25/25 09:00 Rosuvastatin PO DAILY [place] Non-Formulary Medication 1 tab 02/25/25 09:00 Vitamin D3(Unknown Dose) PO DAILY [place] Ondansetron HCl 4 mg 02/24/25 07:12 Ondansetron 4 Mg/2 Ml Vial IVP Q8HR PRN Nausea And Vomiting Pantoprazole Sodium 40 mg 02/24/25 09:00 02/24/25 09:36 Pantoprazole 40 Mg/10 Ml Vial IV 40 mg DAILY [place] Administration Intake and Output 06/23/25 06/24/25 06/24/25 22:59 06:59 14:59 Other: Voiding Method Toilet Weight 87.543 kg 87.543 kg Patient Weight 02/25/25 06:59 Weight 87.543 kg 02/24/25 05:07 02/24/25 05:07
--- NOTE | 2025-02-24 15:37 | P.CNPUL ---
History of Present Illness Consult date: 02/24/25 Reason for consult: chest pain History of present illness: This is a 54-year-old female patient who was hospitalized for chest discomfort and pain across her anterior chest and epigastric area. This evolved over the past few days. The patient also has a chronic cough. No significant sputum production. No pleurisy. No hemoptysis. The patient had a D-dimer of 0.94. Normal coagulation profile. Troponins were negative. proBNP is not elevated. Normal CBC. Normal electrolytes. Normal LFTs. Normal calcium level. CT of the chest was done and the patient has patchy masslike pulmonary infiltrates, rounded, in the right upper lobe and the left lower lobe, and this is a new finding compared to the previous CAT scan of the chest. No evidence of any pulmonary embolism. The patient is afebrile. The patient is hemodynamically stable. The the patient also was given a CAT scan of the abdomen and pelvis that showed no acute process. Lipase level was mildly elevated at 817. However, the patient has no history of alcoholism. The patient is known to have history of pulmonary sarcoidosis. The patient presented to our office back in 2019 with extensive PET avid mediastinal lymphadenopathy and at that time the patient underwent a mediastinoscopy and the pathology was consistent with sarcoidosis. No evidence of any fungal or a typical mycobacterial infection. No evidence of any malignancy. At that time, the patient was treated with systemic steroids/prednisone. The patient responded nicely to treatment and the subsequent CAT scan of the chest that was done on 12/04/2023 showed no enlarged thoracic lymphadenopathy and no acute or chronic pulmonary process. No fibrosis. The patient has history of sinus allergies. CAT scan of the sinuses done in October 2024 showed a right septal deviation. Clinically, the patient has no skin rashes, no hypercalcemia, no kidney stones, no altered mentation. The MRI of the brain that was done in August 2024 showed nonspecific tiny scattered white matter lesions unchanged from previous studies. No vision changes. No pinkeye. No uveitis. Review of Systems Constitutional: Reports as per HPI Eyes: denies as per HPI, denies blurred vision, denies bulging eye, denies decreased vision, denies diplopia, denies discharge, denies dry eye, denies irritation, denies itching, denies pain, denies photophobia, denies loss of peripheral vision, denies loss of vision, denies tunnel vision/blind spots Ears: deny: decreased hearing, ear discharge, earache, tinnitus Ears, nose, mouth and throat: Reports as per HPI Breasts: absent: as per HPI, change in shape, gynecomastia, masses, nipple discharge, pain, skin changes, swelling Cardiovascular: Reports chest pain Respiratory: Reports cough Gastrointestinal: Reports as per HPI Genitourinary: Reports as per HPI Menstruation: Reports as per HPI Musculoskeletal: Reports as per HPI Musculoskeletal: absent: ankle pain, ankle stiffness, ankle swelling, as per HPI, elbow pain, elbow stiffness, elbow swelling, foot pain, foot stiffness, foot swelling, hand pain, hand stiffness, hand swelling, hip pain, hip stiffness, hip swelling, knee pain, knee stiffness, knee swelling, shoulder pain, shoulder stiffness, shoulder swelling, wrist pain, wrist stiffness, wrist swelling Integumentary: Reports as per HPI Neurological: Reports as per HPI Psychiatric: Reports as per HPI Endocrine: Reports as per HPI Hematologic/Lymphatic: Reports as per HPI Allergic/Immunologic: Reports as per HPI Past Medical History Past Medical History: Asthma, GERD/Reflux, Osteoarthritis (OA), Thyroid Disorder Additional Past Medical History / Comment(s): Occipital neuritis, chronic low back pain/herniated and bulging discs cervical/lumbar, bone fragments in back, arnold chiari malformation, hypothyroid, colitis, overactive bladder, hiatal hernia, sarcoidosis. History of Any Multi-Drug Resistant Organisms: None Reported Past Surgical History: Breast Surgery, Cholecystectomy, Hernia Repair, Orthopedic Surgery, Uterine Ablation Additional Past Surgical History / Comment(s): ORIF right wrist - hardware since removed, EGD with biopsy, colonoscopy, right inguinal hernia repair, robotic assisted exploratory lap with left inguinal hernia repairs/left inguinal lipoma removed/lysis of adhesions, right breast biopsy, left breast surgery for infect ed milk duct, Arnold-Chiari malformation surgery, partial meniscus repair left knee. Past Anesthesia/Blood Transfusion Reactions: Previous Problems w/ Anesthesia Additional Past Anesthesia/Blood Transfusion Reaction / Comment(s): "Did not get enough with surgery on left breast". Past Psychological History: No Psychological Hx Reported Smoking Status: Never smoker Past Alcohol Use History: None Reported Past Drug Use History: None Reported - Past Family History Mother Family Medical History: Diabetes Mellitus, Myocardial Infarction ([place]) Additional Family Medical History / Comment(s): Mother of a [place] at the age of 67yrs. Brother(s) Additional Family Medical History / Comment(s): [place] diabetic Father Family Medical History: Cancer, Diabetes Mellitus, Myocardial Infarction ([place]) Additional Family Medical History / Comment(s): Father from prostate cancer at the age of 71 yrs. He also had a myocardial infarction prior to the age of 65. Medications and Allergies Home Medications Medication Instructions Recorded Confirmed Type Levothyroxine Sodium [Synthroid] 75 mcg PO DAILY 06/28/20 02/24/25 History carvediloL [Coreg] 6.25 mg PO BID 03/03/21 02/24/25 History Albuterol Inhaler [Ventolin Hfa 2 puff INHALATION RT-QID PRN 11/25/24 02/24/25 History Inhaler] Bacillus Coagulans [Probiotic] 1 tab PO DAILY 11/25/24 02/24/25 History Mirabegron [Myrbetriq] 50 mg PO DAILY 11/25/24 02/24/25 History Fexofenadine HCl [Goldie Allergy] 180 mg PO DAILY PRN 02/24/25 02/24/25 History Meloxicam [Mobic] 7.5 mg PO DAILY 02/24/25 02/24/25 History Omeprazole 40 mg PO DAILY PRN 02/24/25 02/24/25 History Rosuvastatin [Crestor] 20 mg PO DAILY 02/24/25 02/24/25 History Vitamin D3(Unknown Dose) 1 tab PO DAILY 02/24/25 02/24/25 History Allergies Allergy/AdvReac Type Severity Reaction Status Date / Time adhesive tape Allergy Rash- see Verified 02/24/25 09:11 comment amitriptyline Allergy Rash/Hives Verified 02/24/25 09:11 baclofen Allergy Rash/Hives Verified 02/24/25 09:11 ketorolac [From Toradol] Allergy rash-see Verified 02/24/25 09:11 comment sulfamethoxazole Allergy severe Verified 02/24/25 09:11 [From Bactrim] hives trimethoprim [From Bactrim] Allergy severe Verified 02/24/25 09:11 hives celecoxib [From Celebrex] AdvReac Confusion Verified 02/24/25 09:11 Physical Exam Vitals: Vital Signs Temp Pulse Pulse Resp BP BP Pulse Ox 02/24/25 13:28 98.0 F 86 17 132/84 97 02/24/25 09:52 16 02/24/25 08:20 97.9 F 76 16 145/92 99 02/24/25 06:21 80 19 179/88 100 02/24/25 03:56 97.6 F 83 20 154/90 98 Intake and Output 02/23/25 02/24/25 02/24/25 22:59 06:59 14:59 Intake Total 240 Balance 240 Intake: Oral 240 Other: Voiding Method Toilet Weight 87.543 kg 87.543 kg The patient appeared well nourished and normally developed. Vital signs as documented. Head exam is unremarkable. No scleral icterus or corneal arcus noted. Neck is without jugular venous distension, thyromegaly, or carotid bruits. Carotid upstrokes are brisk bilaterally. Lungs are clear to auscultation and percussion. Cardiac exam reveals the PMI to be normally sized and situated. Rhythm is regular. First and second heart sounds normal. No murmurs, rubs or gallops. Abdominal exam reveals normal bowel sounds, no masses, no organomegaly and no aortic enlargement. Extremities are nonedematous and both femoral and pedal pulses are normal. Examination of the skin revealed no evidence of significant rashes, suspicious appearing nevi or other concerning lesions. Neurologically, the patient is awake and alert and the patient does not have any focal neurological deficit. Cranial nerves are essentially intact. Results - Laboratory Findings CBC and BMP: 02/24/25 05:07 02/24/25 05:07 PT/INR, D-dimer PT 10.6 sec (10.0-12.5) 02/24/25 05:07 INR 0.9 (<1.2) 02/24/25 05:07 D-Dimer 0.94 mg/L FEU (<0.60) H 02/24/25 05:07 Abnormal lab findings: Abnormal Labs 02/24/25 02/24/25 02/24/25 05:07 05:07 05:07 RBC 3.92 L Hct 35.1 L D-Dimer 0.94 H Glucose 102 H Lipase 817 H - Diagnostic Findings Chest x-ray: image reviewed CT scan - chest: image reviewed Assessment and Plan Plan: Chest pain, likely noncardiac. The patient has patchy around opacities, that evolved on the most recent CAT scan of the chest done on 02/23/2025 without evidence of any mediastinal lymphadenopathy. Obviously, with the history of pulmonary sarcoidosis, this could be an acute sarcoid flare. Noted, no as sociated extrapulmonary manifestations to indicate sarcoid at this point. At the same time, viral pneumonia should be considered specially the patient has elevated lipase level which could be as well a viral pancreatitis. No hypoxemia. No significant shortness of breath. Troponins are negative. proBNP is not elevated. History of sarcoidosis, confirmed by mediastinoscopy and mediastinal lymph nodes biopsy, treated with steroids back in 2019 with excellent results and resolution of the thoracic lymphadenopathy. Chronic cough, likely secondary to above Acute pancreatitis, likely viral in the patient has mild elevation of the lipase level. 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 Check viral 4 Plex Check angiotensin converting enzyme levels Repeat lipase level within the next 24 hours Will need subsequent follow-up, and consider steroids if the patchy pulmonary infiltrates do not resolve on subsequent chest x-rays. Oxygenation is stable and patient is currently on room air oxygen. Will continue to follow. No need for bronchoscopy. No need for biopsy at this point. Time with Patient: Greater than 30
[2025-02-24] MEDS: ACETAMINOPHEN TAB 325 MG TAB PO PRN (16:29)
[2025-02-24 17:13] LABS: Influenza A Not Detected (Not Detectd); Influenza B Not Detected (Not Detectd); RSV Not Detected (Not Detectd)
[2025-02-24] MEDS: HYDROmorphone 1 MG/ML 1 ML SYRINGE IVP PRN (21:21)
[2025-02-25] MEDS: LEVOTHYROXINE 75 MCG TAB PO SCH (05:32)
[2025-02-25 08:08] LABS: HCT 33.3 % (37.2-46.3); HGB 10.9 g/dL (12.0-15.0); MCH 29.8 pg (27.0-32.0); MCHC 32.7 g/dL (32.0-37.0); Mean Platelet Volume 10.5 FL (9.5-12.2); NRBC Per 100 WBC 0 X 10*3/uL (0.00-0.01); Platelet Count 267 X 10*3/uL (140-440); RBC 3.66 X 10*6/uL (4.10-5.20); RDW 12.2 % (11.5-14.5); WBC 6.24 X 10*3/uL (4.50-10.00)
[2025-02-25 08:09] LABS: Basophils # (A) 0.04 X 10*3/uL (0.00-0.10); Basophils % (A) 0.6 %; Eosinophils # (A) 0.11 X 10*3/uL (0.04-0.35); Eosinophils % (A) 1.8 %; Lymphocytes # (A) 1.69 X 10*3/uL (0.90-5.00); Lymphocytes % (A) 27.1 %; Monocytes # (A) 0.48 X 10*3/uL (0.20-1.00); Monocytes % (A) 7.7 %; Neutrophils % (A) 62.5 %
[2025-02-25 08:33] LABS: Amylase 242 U/L (23-121); BUN/Creat Ratio 15.57 Ratio (12.00-20.00); Blood Urea Nitrogen 10.9 mg/dL (9.0-27.0); Chloride 109 mmol/L (96-109); Glucose 103 mg/dL (70-110); Potassium 4.1 mmol/L (3.5-5.5); Sodium 144 mmol/L (135-145)
[2025-02-25 08:34] LABS: ALT 13 U/L (8-44); AST 20 U/L (13-35); Alkaline Phosphatase 54 U/L (41-126); Calcium 8.5 mg/dL (8.7-10.3); Carbon Dioxide 24.8 mmol/L (21.6-31.8); Globulin 2.1 g/dL (1.6-3.3); Magnesium 2.1 mg/dL (1.5-2.4); Total Bilirubin 0.3 mg/dL (0.3-1.2); Total Protein 6.1 g/dL (6.2-8.2)
[2025-02-25 08:46] LABS: Lipase 1440 U/L (14-63)
--- NOTE | 2025-02-25 08:56 | P.HPIM ---
History of Present Illness H&P Date: 02/24/25 Chief Complaint: Chest pain/pancreatitis/multilobar pneumonia HISTORY OF PRESENT ILLNESS: This is a 54-year-old female new patient to our office who was seen in our office on February 28 because abdominal pain for which she was discharged. Patient was sent for CT scan of his abdomen with except for nonobstructing stones, patient presented emergency department with abdominal pain, and today with a left scalp pain which is increased nausea without vomiting, patient did have a twelve-lead EKG that did show evidence of normal sinus rhythm with no acute ST-T wave changes, and the chest x-ray did not show any acute abnormalities, this was well-received angiography of the chest that was negative for pulm embolism but did show evidence of bilateral lower lobe pneumonia and right upper lobe pneumonia possible versus atelectasis, her lipase was elevated, in the range of 800, patient had a CT scan of the abdomen pelvis that did not show any evidence of acute abnormalities, patient was started on IV fluid resuscitation, she was seen in consultation by cardiology as well . REVIEW OF SYSTEMS: Constitutional: No documented fever, no chills, no night sweats. No weight change. No weakness, fatigue or lethargy. No daytime sleepiness. EENT: No headache. No blurred vision or double vision, no loss of vision. No loss of Hearing, no ringing in the ears, no dizziness. No nasal drainage or congestion. No epistaxis. No sore throat. Lungs: No shortness of breath, no cough, no sputum production. No wheezing. Reports no dyspnea with activity. Cardiovascular:left scapula/ chest pain, no lower extremity edema. No palpitations. No paroxysmal nocturnal dyspnea. No orthopnea. No lightheadedness or dizziness. No syncopal episodes. Abdominal: Reports no abdominal pain. No nausea, vomiting. No diarrhea. No constipation. No bloody or tarry stools reports loss of appetite. Genitourinary: No dysuria, increased frequency, urgency. No urinary retention. Musculoskeletal: No myalgias. No muscle weakness, no gait dysfunction, no frequent falls. No back pain. No neck pain. Integumentary: No wounds, no lesions. No rash or pruritus. No unusual brui sing. No change in hair or nails. Neurologic: No aphasia. No facial droop. No change in mentation. No head injury. No headache. No paralysis. No paresthesia. Psychiatric: No depression. No anxiety. No mood swings. Endocrine: No abnormal blood sugars. No weight change. PAST MEDICAL HISTORY: Pulmonary sarcoidosis treated in 2019. Hypertension and hypertensive vascular disease. Hypothyroidism. Overactive bladder. Arnold-Chiari syndrome without spina bifida or hydrocephalus Mild intermittent asthma. 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 FAMILY HISTORY: Father at age 75 from prostate cancer has a history of CAD and diabetes mellitus type 2, mother at age of 69 from myocardial infarction had history of hypertension as well patient has 1 brother who is depressed at the age of 24 from motor vehicle accident and she has a 1 1 younger brother who is alive at the age of 50 with type 2 diabetes patient has 1 older sister who is alive at the age of 55 with systemic lupus erythematosus and 1 other sister at the age of 53 with hypertension diabetes mellitus type 2 and asthma patient has a daughter 28-year-old who is alive and healthy PHYSICAL EXAMINATION: General: 54-year-old female laying down in bed in no apparent distress HEENT: Head is atraumatic, normocephalic, pupils were equal round reactive to light and recommendation, extraocular muscle movement were intact, sclera nonicteric, conjunctivae were pale, mucous membranes of the mouth are somewhat dry. Neck: Supple, no JVP, normal carotid upstroke bilaterally, no lymphadenopathy. Chest: Decreased breath sounds at the bases, few rhonchi, no expiratory wheezes, no chest wall tenderness, no intercostal retractions. Heart: First heart sound is normal, second heart sound is normal for murmur no rubs or heaves. Abdomen: Soft, nontender, nondistended, positive bowel sounds. Extremities: There is no edema no calf tenderness DP +2 bilaterally. Neurologic examination: Patient is awake alert and oriented x3, cranial nerves II-12 appear grossly intact, muscle power were 5 out of 5 in upper extremities and 5 out of 5 in bilateral lower extremities, deep tendon reflexes normal bilaterally. ASSESSMENT AND PLAN: 1. Chest pain likely noncardiac could be related to the patchy infiltrate in the lung and possible sarcoidosis patient was seen in consultation by cardiology continue patient on carvedilol at this point 6.25 mg orally twice every day, no further intervention is needed at this point in time. 2. Bilateral lower lobe patchy infiltrate as well as right upper lobe infiltrate likely suggestive of activation of her sarcoidosis, patient did have a recent bronchoscopy that was negative, continue patient on IV antibiotic in the form of ceftriaxone 1 g piggyback every 24 hours, Zithromax 500 mg orally once every day, the plan is to continue patient on Zithromax 500 mg for a total of 5 days hopefully she will be able to discharge home in the next 24 hours, pulmonary consultation for further evaluation recommendation at this time, angiotensin-converting enzyme level will be obtained. 3. Acute pancreatitis not showing up on the CT scan of the abdomen/pelvis ronda morelandsami idiopathic repeat lipase level in the next 24 hours, advance diet as tolerated. Continue pain management with Dilaudid 1 mg a push every 3 hours as needed. 4. Hypertension and hypertensive cardiovascular disease. Continue patient on carvedilol 6.25 mg orally twice every day. 5. Hypothyroidism. Continue levothyroxine 75 mcg orally once every day. 6. Mixed hyperlipidemia. Continue patient on atorvastatin 40 mg once every day. 7. Overactive bladder. Continue patient on Myrbetriq 50 mg orally once every day. 8. Mild intermittent asthma. Continue patient on albuterol as needed. 9. History of pulmonary sarcoidosis recent bronchoscopy November 2024 does not appear to be active at this point in time, continue patient on IV antibiotic for now patient may need to be started back on prednisone if her patchy infiltrate did not improve. 10. History of Arnold-Chiari malformation status post decompression stable at this time. 11. DVT prophylaxis. Increase activity level, start the patient on heparin 5000 units subcutaneously every 8 hours. 12. GI prophylaxis. Continue patient on Protonix 40 mg once every day. 13. Observation 14. Full code. Past Medical History Past Medical History: Asthma, GERD/Reflux, Osteoarthritis (OA), Thyroid Disorder Additional Past Medical History / Comment(s): Occipital neuritis, chronic low back pain/herniated and bulging discs cervical/lumbar, bone fragments in back, arnold chiari malformation, hypothyroid, colitis, overactive bladder, hiatal hernia, sarcoidosis. History of Any Multi-Drug Resistant Organisms: None Reported Past Surgical History: Breast Surgery, Cholecystectomy, Hernia Repair, Orthopedic Surgery, Uterine Ablation Additional Past Surgical History / Comment(s): ORIF right wrist - hardware since removed, EGD with biopsy, colonoscopy, right inguinal hernia repair, robotic assisted exploratory lap with left inguinal hernia repairs/left inguinal lipoma removed/lysis of adhesions, right breast biopsy, left breast surgery for infected milk duct, Arnold-Chiari malformation surgery, partial meniscus repair left knee. Past Anesthesia/Blood Transfusion Reactions: Previous Problems w/ Anesthesia Additional Past Anesthesia/Blood Transfusion Reaction / Comment(s): "Did not get enough with surgery on left breast". Past Psychological History: No Psychological Hx Reported Smoking Status: Never smoker Past Alcohol Use History: None Reported Past Drug Use History: None Reported - Past Family History Mother Family Medical History: Diabetes Mellitus, Myocardial Infarction (MT) Additional Family Medical History / Comment(s): Mother of a MT at the age of 67yrs. Brother(s) Additional Family Medical History / Comment(s): boraderline diabetic Father Family Medical History: Cancer, Diabetes Mellitus, Myocardial Infarction (MT) Additional Family Medical History / Comment(s): Father from prostate cancer at the age of 71 yrs. He also had a myocardial infarction prior to the age of 65. Medications and Allergies Home Medications Medication Instructions Recorded Confirmed Type Levothyroxine Sodium [Synthroid] 75 mcg PO DAILY 06/28/20 02/24/25 History carvediloL [Coreg] 6.25 mg PO BID 03/03/21 02/24/25 History Albuterol Inhaler [Ventolin Hfa 2 puff INHALATION RT-QID PRN 11/25/24 02/24/25 History Inhaler] Bacillus Coagulans [Probiotic] 1 tab PO DAILY 11/25/24 02/24/25 History Mirabegron [Myrbetriq] 50 mg PO DAILY 11/25/24 02/24/25 History Fexofenadine HCl [Goldie Allergy] 180 mg PO DAILY PRN 02/24/25 02/24/25 History Meloxicam [Mobic] 7.5 mg PO DAILY 02/24/25 02/24/25 History Omeprazole 40 mg PO DAILY PRN 02/24/25 02/24/25 History Rosuvastatin [Crestor] 20 mg PO DAILY 02/24/25 02/24/25 History Vitamin D3(Unknown Dose) 1 tab PO DAILY 02/24/25 02/24/25 History Allergies Allergy/AdvReac Type Severity Reaction Status Date / Time adhesive tape Allergy Rash- see Verified 02/24/25 09:11 comment amitriptyline Allergy Rash/Hives Verified 02/24/25 09:11 baclofen Allergy Rash/Hives Verified 02/24/25 09:11 ketorolac [From Toradol] Allergy rash-see Verified 02/24/25 09:11 comment sulfamethoxazole Allergy severe Verified 02/24/25 09:11 [From Bactrim] hives trimethoprim [From Bactrim] Allergy severe Verified 02/24/25 09:11 hives celecoxib [From Celebrex] AdvReac Confusion Verified 02/24/25 09:11 Physical Exam Vitals: Vital Signs Temp Pulse Resp BP Pulse Ox 02/24/25 08:20 97.9 F 76 16 145/92 99 02/24/25 06:21 80 19 179/88 100 02/24/25 03:56 97.6 F 83 20 154/90 98 Intake and Output 02/23/25 02/24/25 02/24/25 22:59 06:59 14:59 Other: Weight 87.543 kg Results CBC & Chem 7: 02/25/25 04:41 02/25/25 04:41 Labs: Abnormal Lab Results - Last 24 Hours (Table) 02/24/25 02/24/25 02/24/25 Range/Units 05:07 05:07 05:07 RBC 3.92 L (4.10-5.20) 10*6/uL Hct 35.1 L (37.2-46.3) % D-Dimer 0.94 H (<0.60) mg/L FEU Glucose 102 H (74-99) mg/dL Lipase 817 H (23-300) U/L Thrombosis Risk Factor Assmnt - Choose All That Apply Each Factor Represents 1 point: Age 41-60 years, Obesity (BMI >25), Varicose veins Other Risk Factors: No Other congenital or acquired thrombophilia - If yes, enter type in comment: No Thrombosis Risk Factor Assessment Total Risk Factor Score: 3 Thrombosis Risk Factor Assessment Level: Moderate Risk
[2025-02-25] MEDS ORDERED: NON FORMULARY DRUG (Vitamin D3(Unknown Dose) 1 TAB) PO SCH (09:00)
[2025-02-25] MEDS: AZITHROMYCIN 500 MG in SODIUM CHLORIDE 0.9% 250 ML IVPB SCH (09:20)
[2025-02-25] MEDS: LACTOBACILLUS ACIDOPHILUS/PECT 1 EACH CAPSULE PO SCH (09:21)
[2025-02-25] MEDS: ATORVASTATIN 40 MG TAB PO SCH (09:21)
[2025-02-25] MEDS: NON FORMULARY DRUG (Mirabegron [Myrbetriq] 50 MG Tab.Er.24h) PO SCH (09:23)
--- NOTE | 2025-02-25 09:38 | P.PN ---
Subjective Progress Note Date: 02/25/25 HISTORY OF PRESENT ILLNESS: This is a 54-year-old female new patient to our office who was seen in our office on February 28 because abdominal pain for which she was discharged. Patient was sent for CT scan of his abdomen with except for nonobstructing stones, patient presented emergency department with abdominal pain, and today with a left scalp pain which is increased nausea without vomiting, patient did have a twelve-lead EKG that did show evidence of normal sinus rhythm with no acute ST-T wave changes, and the chest x-ray did not show any acute abnormalities, this was well-received angiography of the chest that was negative for pulm embolism but did show evidence of bilateral lower lobe pneumonia and right upper lobe pneumonia possible versus atelectasis, her lipase was elevated, in the range of 800, patient had a CT scan of the abdomen pelvis that did not show any evidence of acute abnormalities, patient was started on IV fluid resuscitation, she was seen in consultation by cardiology as well . 02/25: Patient is laying down in bed, she is complaining of increased abdominal pain today, she is feeling a bit nauseated, but no vomiting, she did have some pain in the left scapula, as well as pain in the right lower leg, she has very nonspecific symptoms at this point in time, she has been eating her diet very well, she has been on Dilaudid 1 mg a push every 3 hours as needed, she has been on IV fluids as well, unfortunately her lipase is up today 1440,We will check ultrasound of the abdomen to rule out any dilatation of the common bile duct or any pancreatic duct, I will follow the patient very closely, she may need to stay in the hospital, will reduce her diet to low-fat low residue diet REVIEW OF SYSTEMS: Constitutional: No documented fever, no chills, no night sweats. No weight change. No weakness, fatigue or lethargy. No daytime sleepiness. EENT: No headache. No blurred vision or double vision, no loss of vision. No loss of Hearing, no ringing in the ears, no dizziness. No nasal drainage or congestion. No epistaxis. No sore throat. Lungs: No shortness of breath, no cough, no sputum production. No wheezing. Reports no dyspnea with activity. Cardiovascular:left scapula/ chest pain, no lower extremity edema. No palpitations. No paroxysmal nocturnal dyspnea. No orthopnea. No lightheadedness or dizziness. No syncopal episodes. Abdominal: Reports mild abdominal pain. Before nausea, vomiting. No diarrhea. No constipation. No bloody or tarry stools reports loss of appetite. Genitourinary: No dysuria, increased frequency, urgency. No urinary retention. Musculoskeletal: No myalgias. No muscle weakness, no gait dysfunction, no frequent falls. No back pain. No neck pain. Integumentary: No wounds, no lesions. No rash or pruritus. No unusual bruising. No change in hair or nails. Neurologic: No aphasia. No facial droop. No change in mentation. No head injury. No headache. No paralysis. No paresthesia. Psychiatric: No depression. No anxiety. No mood swings. Endocrine: No abnormal blood sugars. No weight change. PHYSICAL EXAMINATION: General: 54-year-old female laying down in bed in no apparent distress HEENT: Head is atraumatic, normocephalic, pupils were equal round reactive to light and recommendation, extraocular muscle movement were intact, sclera nonicteric, conjunctivae were pale, mucous membranes of the mouth are somewhat dry. Neck: Supple, no JVP, normal carotid upstroke bilaterally, no lymphadenopathy. Chest: Decreased breath sounds at the bases, few rhonchi, no expiratory wheezes, no chest wall tenderness, no intercostal retractions. Heart: First heart sound is normal, second heart sound is normal for murmur no rubs or heaves. Abdomen: Soft, nontender, nondistended, positive bowel sounds. Extremities: There is no edema no calf tenderness DP +2 bilaterally. Neurologic examination: Patient is awake alert and oriented x3, cranial nerves II-12 appear grossly intact, muscle power were 5 out of 5 in upper extremities and 5 out of 5 in bilateral lower extremities, deep tendon reflexes normal bilaterally. ASSESSMENT AND PLAN: 1. Chest pain likely noncardiac could be related to the patchy infiltrate in the lung and possible sarcoidosis patient was seen in consultation by cardiology continue patient on carvedilol at this point 6.25 mg orally twice every day, no further intervention is needed at this point in time. 2. Bilateral lower lobe patchy infiltrate as well as right upper lobe infiltrate likely suggestive of activation of her sarcoidosis, patient did have a recent bronchoscopy that was negative, continue patient on IV antibiotic in the form of ceftriaxone 1 g piggyback every 24 hours, Zithromax 500 mg orally once every day, the plan is to continue patient on Zithromax 500 mg for a total of 5 days hopefully she will be able to discharge home in the next 24 hours, pulmonary consultation for further evaluation recommendation at this time, angiotensin-converting enzyme level will be obtained. 3. Acute pancreatitis not showing up on the CT scan of the abdomen/pelvis likely idiopathic repeat lipase level in the next 24 hours, advance diet as tolerated. Continue pain management with Dilaudid 1 mg a push every 3 hours as needed. Monitor the patient symptoms very closely. 4. Hypertension and hypertensive cardiovascular disease. Continue patient on carvedilol 6.25 mg orally twice every day. 5. Hypothyroidism. Continue levothyroxine 75 mcg orally once every day. 6. Mixed hyperlipidemia. Continue patient on atorvastatin 40 mg once every day. 7. Overactive bladder. Continue patient on Myrbetriq 50 mg orally once every day. 8. Mild intermittent asthma. Continue patient on albuterol as needed. 9. History of pulmonary sarcoidosis recent bronchoscopy November 2024 does not appear to be active at this point in time, continue patient on IV antibiotic for now patient may need to be started back on prednisone if her patchy infiltrate did not improve. 10. History of Arnold-Chiari malformation status post decompression stable at this time. 11. DVT prophylaxis. Increase activity level, start the patient on heparin 5000 units subcutaneously every 8 hours. 12. GI prophylaxis. Continue patient on Protonix 40 mg once every day. 13. Will continue to follow-up with the patient very closely. Objective - Vital Signs Vital signs: Vital Signs Temp 98.3 F 02/25/25 07:25 Pulse 84 02/25/25 07:25 Resp 16 02/25/25 07:25 BP 132/81 02/25/25 07:25 Pulse Ox 99 02/25/25 07:25 FiO2 Intake & Output 02/24/25 02/25/25 02/25/25 18:59 06:59 18:59 Intake Total 360 Balance 360 Weight 87.543 kg Intake: Oral 360 Other: Voiding Method Toilet Toilet # Voids 1 2 - Labs CBC & Chem 7: 02/25/25 04:41 02/25/25 04:41 Labs: Abnormal Lab Results - Last 24 Hours (Table) 02/25/25 02/25/25 Range/Units 04:41 04:41 RBC 3.66 L (4.10-5.20) X 10*6/uL Hgb 10.9 L (12.0-15.0) g/dL Hct 33.3 L (37.2-46.3) % Calcium 8.5 L (8.7-10.3) mg/dL Total Protein 6.1 L (6.2-8.2) g/dL Amylase 242 H (23-121) U/L Lipase 1440 H (14-63) U/L
--- NOTE | 2025-02-25 15:39 | US ---
EXAMINATION TYPE: US abdomen limited DATE OF EXAM: 02/25/2025 COMPARISON: CLINICAL INDICATION: Female, 54 years old with history of Pancreatitis; Abnormal labs. GB removed. TECHNIQUE: Grayscale and color Doppler imaging of the right upper quadrant was performed. FINDINGS: EXAM MEASUREMENTS: Liver Length: 17.1 cm CBD: 0.4 cm Right Kidney: 8.0 x 4.5 x 3.7 cm Pancreas: No gross sonographic abnormality. Liver: Borderline in size but with otherwise normal homogeneous appearance. Gallbladder: Surgically absent Evidence for sonographic Soto's sign: chana CBD: wnl Right Kidney: Appears small in size. Extrarenal pelvis. No calyceal dilatation to suggest hydronephr osis. IMPRESSION: 1. No gallstones or biliary ductal dilatation. 2. No gross sonographic abnormality of the pancreas. No pancreatic fluid collection seen. Note that u ltrasound has limited sensitivity for the detection of pancreatitis. 3. Small size of the right kidney may reflect chronic medical renal disease. [facility], , 02/25/2025 3:37 PM
[2025-02-25] MEDS: HEPARIN SODIUM,PORCINE 5,000 UNIT/ML 1 ML VIAL SQ SCH (17:34)
[2025-02-25 19:40] VITALS: RESP 16
--- NOTE | 2025-02-25 22:23 | P.PN ---
Subjective Progress Note Date: 02/25/25 This is a 54-year-old female patient who was hospitalized for chest discomfort and pain across her anterior chest and epigastric area. This evolved over the past few days. The patient also has a chronic cough. No significant sputum production. No pleurisy. No hemoptysis. The patient had a D-dimer of 0.94. Normal coagulation profile. Troponins were negative. proBNP is not elevated. Normal CBC. Normal electrolytes. Normal LFTs. Normal calcium level. CT of the chest was done and the patient has patchy masslike pulmonary infiltrates, rounded, in the right upper lobe and the left lower lobe, and this is a new finding compared to the previous CAT scan of the chest. No evidence of any pul monary embolism. The patient is afebrile. The patient is hemodynamically stable. The the patient also was given a CAT scan of the abdomen and pelvis that showed no acute process. Lipase level was mildly elevated at 817. However, the patient has no history of alcoholism. The patient is known to have history of pulmonary sarcoidosis. The patient presented to our office back in 2019 with extensive PET avid mediastinal lymphadenopathy and at that time the patient underwent a mediastinoscopy and the pathology was consistent with sarcoidosis. No evidence of any fungal or atypical mycobacterial infection. No evidence of any malignancy. At that time, the patient was treated with systemic steroids/prednisone. The patient responded nicely to treatment and the subsequent CAT scan of the chest that was done on 12/04/2023 showed no enlarged thoracic lymphadenopathy and no acute or chronic pulmonary process. No fibrosis. The patient has history of sinus allergies. CAT scan of the sinuses done in October 2024 showed a right septal deviation. Clinically, the patient has no skin rashes, no hypercalcemia, no kidney stones, no altered mentation. The MRI of the brain that was done in August 2024 showed nonspecific tiny scattered white matter lesions unchanged from previous studies. No vision changes. No pinkeye. No uveitis. 02/25/2025, the patient continues to have some vague abdominal pain. No significant respiratory distress. The patient remains on Rocephin and Zithromax. Blood work shows a WBC of 6.2, hemoglobin of 10.9 and platelet count of 267. Electrolytes are normal. Lipase level is elevated at 1440 and the amylase level is at 242. NATAN level is at 33. The viral screen has been negative. She remains on room air oxygen. Ultrasound of the abdomen was also d one that showed surgically absent gallbladder. No gallstones or biliary dilatation. No pancreatic fluid collection seen. Objective - Vital Signs Vital signs: Vital Signs Temp 98.1 F 02/25/25 19:19 Pulse 80 02/25/25 19:19 Resp 16 02/25/25 19:19 BP 131/80 02/25/25 19:19 Pulse Ox 95 02/25/25 19:19 FiO2 Intake & Output 02/25/25 02/25/25 02/26/25 06:59 18:59 06:59 Intake Total 236 Balance 236 Intake: Oral 236 Other: Voiding Method Toilet Toilet # Voids 2 2 - Exam The patient appeared well nourished and normally developed. Vital signs as documented. Head exam is unremarkable. No scleral icterus or corneal arcus noted. Neck is without jugular venous distension, thyromegaly, or carotid bruits. Carotid upstrokes are brisk bilaterally. Lungs are clear to auscultation and percussion. Cardiac exam reveals the PMI to be normally sized and situated. Rhythm is regular. First and second heart sounds normal. No murmurs, rubs or gallops. Abdominal exam reveals normal bowel sounds, no masses, no organomegaly and no aortic enlargement. Extremities are nonedematous and both femoral and pedal pulses are normal. Examination of the skin revealed no evidence of significant rashes, suspicious appearing nevi or other concerning lesions. Neurologically, the patient is awake and alert and the patient does not have any focal neurological deficit. Cranial nerves are essentially intact. - Labs CBC & Chem 7: 02/25/25 04:41 02/25/25 04:41 Labs: Abnormal Lab Results - Last 24 Hours (Table) 02/25/25 02/25/25 Range/Units 04:41 04:41 RBC 3.66 L (4.10-5.20) X 10*6/uL Hgb 10.9 L (12.0-15.0) g/dL Hct 33.3 L (37.2-46.3) % Calcium 8.5 L (8.7-10.3) mg/dL Total Protein 6.1 L (6.2-8.2) g/dL Amylase 242 H (23-121) U/L Lipase 1440 H (14-63) U/L Microbiology - Last 24 Hours (Table) 02/24/25 08:11 Blood Culture - Preliminary Blood Assessment and Plan Plan: Chest pain, likely noncardiac. The patient has patchy around opacities, that evolved on the most recent CAT scan of the chest done on 02/23/2025 without evidence of any mediastinal lymphadenopathy. Obviously, with the history of pulmonary sarcoidosis, this could be an acute sarcoid flare. Noted, no associated extrapulmonary manifestations to indicate sarcoid at this point. At the same time, viral pneumonia should be considered specially the patient has elevated lipase level which could be as well a viral pancreatitis. No hypoxemia. No significant shortness of breath. Troponins are negative. proBNP is not elevated. History of sarcoidosis, confirmed by mediastinoscopy and mediastinal lymph nodes biopsy, treated with steroids back in 2019 with excellent results and resolution of the thoracic lymphadenopathy. Chronic cough, likely secondary to above Acute pancreatitis, likely viral in the patient has mild elevation of the lipase level. Lipase level is on the rise. Ultrasound of the abdomen shows no biliary disease and the patient's gallbladder is surgically absent. 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 Check viral 4 Plex is negative Check angiotensin converting enzyme levels nonelevated Repeat lipase level within the next 24 hours Will need subsequent follow-up, and consider steroids if the patchy pulmonary infiltrates do not resolve on subsequent chest x-rays. Obtain a follow-up chest x-ray for tomorrow. Oxygenation is stable and patient is currently on room air oxygen. Will continue to follow.
[2025-02-26] MEDS: PANTOPRAZOLE 40 MG TABLET PO SCH (06:20)
[2025-02-26 08:01] LABS: Basophils # (A) 0.03 X 10*3/uL (0.00-0.10); Basophils % (A) 0.5 %; Eosinophils # (A) 0.09 X 10*3/uL (0.04-0.35); Eosinophils % (A) 1.6 %; HCT 34.5 % (37.2-46.3); HGB 11.5 g/dL (12.0-15.0); Lymphocytes # (A) 1.67 X 10*3/uL (0.90-5.00); Lymphocytes % (A) 29.8 %; MCHC 33.3 g/dL (32.0-37.0); MCV 90.1 FL (80.0-97.0); Mean Platelet Volume 10.4 FL (9.5-12.2); Monocytes # (A) 0.49 X 10*3/uL (0.20-1.00); Monocytes % (A) 8.8 %; NRBC Per 100 WBC 0 X 10*3/uL (0.00-0.01); Neutrophils # (A) 3.31 X 10*3/uL (1.80-7.70); Neutrophils % (A) 59.1 %; Platelet Count 292 X 10*3/uL (140-440); RBC 3.83 X 10*6/uL (4.10-5.20); RDW 12.1 % (11.5-14.5)
[2025-02-26 08:44] VITALS: BP 142/82; PULSE 82; TEMP 98.4
--- NOTE | 2025-02-26 09:56 | P.DS ---
Providers Date of admission: 02/24/25 07:15 Expected date of discharge: 02/26/25 Attending physician: Rebecca Mcpherson Consults: 02/24/25 07:12 Consult Physician Routine Consulting Provider: Jourdan Cintron Consult Reason/Comments: cp Do you want consulting provider notified?: Yes 02/24/25 08:57 Consult Physician Routine Consulting Provider: Arun Nunes Consult Reason/Comments: sob, known to you recent bronch, pna Do you want consulting provider notified?: Yes Primary care physician: Rebecca Mcpherson Hospital Course: HISTORY OF PRESENT ILLNESS: This is a 54-year-old female new patient to our office who was seen in our office on February 28 because abdominal pain for which she was discharged. Patient was sent for CT scan of his abdomen with except for nonobstructing stones, patient presented emergency department with abdominal pain, and today with a left scalp pain which is increased nausea without vomiting, patient did have a twelve-lead EKG that did show evidence of normal sinus rhythm with no acute ST-T wave changes, and the chest x-ray did not show any acute abnormalities, this was well-received angiography of the chest that was negative for pulm embolism but did show evidence of bilateral lower lobe pneumonia and right upper lobe pneumonia possible versus atelectasis, her lipase was elevated, in the range of 800, patient had a CT scan of the abdomen pelvis that did not show any evidence of acute abnormalities, patient was started on IV fluid resuscitation, she was seen in consultation by cardiology as well . 02/25: Patient sitting up in bed in no apparent distress, she denies any chest pain, shortness of breath, she has no cough, hemoptysis, she was seen in consultation by both cardiology and pulmonary medicine, it was recommended to continue current treatment plan, her chest pain is noncardiac, her infiltrate likely related to her underlying sarcoidosis, continue the patient on Zithromax for a total of 5 days and patient can be discharged home today and follow-up with me as an outpatient next week. 02/25: Patient is laying down in bed, she is complaining of increased abdominal pain today, she is feeling a bit nauseated, but no vomiting, she did have some pain in the left scapula, as well as pain in the right lower leg, she has very nonspecific symptoms at this point in time, she has been eating her diet very well, she has been on Dilaudid 1 mg a push every 3 hours as needed, she has been on IV fluids as well, unfortunately her lipase is up today 1440,We will check ultrasound of the abdomen to rule out any dilatation of the common bile duct or any pancreatic duct, I will follow the patient very closely, she may need to stay in the hospital, will reduce her diet to low-fat low residue diet 02/26: Patient underwent ultrasound of the abdomen yesterday was negative for common bile duct dilatation, negative for early pancreatic fluid, I will let the patient go home today if her lipase is, continue low-fat diet, follow-up with me in the office as an outpatient, will arrange for MRCP and MRI of the pancreas as an outpatient Discharge diagnoses: 1. Chest pain likely noncardiac 2. Bilateral lower lobe patchy infiltrate as well as right upper lobe infiltrate likely suggestive of activation of her sarcoidosis 3. Acute pancreatitis likely idiopathic 4. Hypertension and hypertensive cardiovascular disease. 5. Hypothyroidism. 6. Mixed hyperlipidemia. 7. Overactive bladder. 8. Mild intermittent asthma. 9. History of pulmonary sarcoidosis recent bronchoscopy November 2024 does not appear to be active at this point in time 10. History of Arnold-Chiari malformation status post decompression Patient Condition at Discharge: Fair Plan - Discharge Summary New Discharge Prescriptions: No Action Levothyroxine Sodium [Synthroid] 75 mcg PO DAILY carvediloL [Coreg] 6.25 mg PO BID Albuterol Inhaler [Ventolin Hfa Inhaler] 2 puff INHALATION RT-QID PRN PRN Reason: Shortness Of Breath Omeprazole 40 mg PO DAILY PRN PRN Reason: Heartburn Fexofenadine HCl [Goldie Allergy] 180 mg PO DAILY PRN PRN Reason: Allergy Symptoms Vitamin D3(Unknown Dose) 1 tab PO DAILY Mirabegron [Myrbetriq] 50 mg PO DAILY Bacillus Coagulans [Probiotic] 1 tab PO DAILY Rosuvastatin [Crestor] 20 mg PO DAILY Meloxicam [Mobic] 7.5 mg PO DAILY Discharge Medication List Levothyroxine Sodium [Synthroid] 75 mcg PO DAILY 06/28/20 [History] carvediloL [Coreg] 6.25 mg PO BID 03/03/21 [History] Albuterol Inhaler [Ventolin Hfa Inhaler] 2 puff INHALATION RT-QID PRN 11/25/24 [History] Bacillus Coagulans [Probiotic] 1 tab PO DAILY 11/25/24 [History] Mirabegron [Myrbetriq] 50 mg PO DAILY 11/25/24 [History] Fexofenadine HCl [Goldie Allergy] 180 mg PO DAILY PRN 02/24/25 [History] Meloxicam [Mobic] 7.5 mg PO DAILY 02/24/25 [History] Omeprazole 40 mg PO DAILY PRN 02/24/25 [History] Rosuvastatin [Crestor] 20 mg PO DAILY 02/24/25 [History] Vitamin D3(Unknown Dose) 1 tab PO DAILY 02/24/25 [History] Follow up Appointment(s)/Referral(s): Dae Jo MD [Medical Doctor] - 1 Week Rebecca Mcpherson MD [Primary Care Provider] - 1-2 days Patient Instructions/Handouts: Chest Pain (ED)
--- NOTE | 2025-02-26 10:11 | XR ---
EXAMINATION TYPE: XR chest 1V DATE OF EXAM: 02/26/2025 COMPARISON: 02/24/2025 CLINICAL INDICATION: Female, 54 years old with history of Pneumonia follow-up; TECHNIQUE: Single frontal view of the chest is obtained. FINDINGS: Nodular density left midlung measuring 2.1 cm. Subtle nodularity right mid lung as well. L ow lung volume scarring the vascular markings but otherwise without consolidation. No pleural effusio n. Heart upper limits of normal in size. IMPRESSION: Similar nodular densities at the mid lungs measuring up to 2.1 cm on the left. Follow-up after treatment to assess for clearance and exclude suspicious pulmonary nodules/neoplasm. [facility], , 02/26/2025 10:08 AM
[2025-02-26 10:33] LABS: ALT 13 U/L (8-44); AST 20 U/L (13-35); Alkaline Phosphatase 60 U/L (41-126); BUN/Creat Ratio 12.43 Ratio (12.00-20.00); Blood Urea Nitrogen 8.7 mg/dL (9.0-27.0); Calcium 8.7 mg/dL (8.7-10.3); Carbon Dioxide 26.3 mmol/L (21.6-31.8); Chloride 108 mmol/L (96-109); Glucose 98 mg/dL (70-110); Potassium 4.1 mmol/L (3.5-5.5); Sodium 143 mmol/L (135-145); Total Bilirubin 0.4 mg/dL (0.3-1.2); Total Protein 6.3 g/dL (6.2-8.2)
[2025-02-26 10:34] LABS: Albumin/Globulin Ratio 1.74 Ratio (1.60-3.17); Globulin 2.3 g/dL (1.6-3.3)
[2025-02-26 10:46] LABS: Lipase 794 U/L (14-63)
== END 2025-02-26 12:26 | disposition home or self-care (01) ==
LOC: EC 03:54 → 6NMEDSUR 07:15
PROVIDERS: ADMIT Internal Medicine; ATTEND Internal Medicine
DX: R07.89 Other chest pain (principal); R91.8 Other nonspecific abnormal finding of lung field; K85.90 Acute pancreatitis without necrosis or infection, unspecified; I11.9 Hypertensive heart disease without heart failure; R05.3 Chronic cough; D86.0 Sarcoidosis of lung; E03.9 Hypothyroidism, unspecified; E78.2 Mixed hyperlipidemia; J45.20 Mild intermittent asthma, uncomplicated; N32.81 Overactive bladder; Q07.00 Arnold-Chiari syndrome without spina bifida or hydrocephalus; K21.9 Gastro-esophageal reflux disease without esophagitis; M19.90 Unspecified osteoarthritis, unspecified site; M50.30 Other cervical disc degeneration, unspecified cervical region; M51.369 Other intervertebral disc degeneration, lumbar region without mention of lumbar back pain or lower extremity pain; G89.29 Other chronic pain; K44.9 Diaphragmatic hernia without obstruction or gangrene; Z79.1 Long term (current) use of non-steroidal anti-inflammatories (NSAID); Z79.890 Hormone replacement therapy; Z79.899 Other long term (current) drug therapy; Z82.49 Family history of ischemic heart disease and other diseases of the circulatory system; Z88.8 Allergy status to other drugs, medicaments and biological substances; Z88.2 Allergy status to sulfonamides; Z88.6 Allergy status to analgesic agent
CPT/HCPCS: 96376; 96361; 96365 ×2; 96366 ×3; 96372 ×2; 96375 ×4; 96368 ×3; 99285; 36415; 93005; 85379; 83880; 80053 ×3; 87449; 82150; 82164; 83690 ×3; 83735 ×2; 84100; 84484; 85025 ×3; 85610; 85730; 87040; 87636; 71045; 71046; 76705; 71275; 74177; G0378 ×3; J1644 ×2; J0456 ×3; J0696 ×3; J1171 ×2; Q9967; J2470 ×2

== ENCOUNTER → 2025-03-02 | Outpatient (CLI) | payer MEDICAID ==
[2025-03-03 02:49] LABS: Basophils # (A) 0.06 X 10*3/uL (0.00-0.10); Basophils % (A) 0.9 %; Eosinophils # (A) 0.21 X 10*3/uL (0.04-0.35); Eosinophils % (A) 3.2 %; HCT 40.3 % (37.2-46.3); HGB 13.2 g/dL (12.0-15.0); Lymphocytes # (A) 2.06 X 10*3/uL (0.90-5.00); Lymphocytes % (A) 31.3 %; MCHC 32.8 g/dL (32.0-37.0); MCV 91.6 FL (80.0-97.0); Mean Platelet Volume 10.3 FL (9.5-12.2); Monocytes % (A) 7.6 %; NRBC Per 100 WBC 0 X 10*3/uL (0.00-0.01); Neutrophils # (A) 3.74 X 10*3/uL (1.80-7.70); Neutrophils % (A) 56.7 %; Platelet Count 381 X 10*3/uL (140-440); RDW 12.2 % (11.5-14.5); WBC 6.59 X 10*3/uL (4.50-10.00)
[2025-03-03 03:06] LABS: Amylase 57 U/L (23-121); LDH 193 U/L (120-246)
[2025-03-03 04:21] LABS: ALT 15 U/L (8-44); AST 23 U/L (13-35); Albumin 4.6 g/dL (3.8-4.9); Albumin/Globulin Ratio 1.77 Ratio (1.60-3.17); Alkaline Phosphatase 71 U/L (41-126); Calcium 9.8 mg/dL (8.7-10.3); Carbon Dioxide 26.6 mmol/L (21.6-31.8); Chloride 102 mmol/L (96-109); Globulin 2.6 g/dL (1.6-3.3); Glucose 94 mg/dL (70-110); Lipase 114 U/L (14-63); Potassium 4.4 mmol/L (3.5-5.5); Sodium 140 mmol/L (135-145); Total Bilirubin 0.2 mg/dL (0.3-1.2); Total Protein 7.2 g/dL (6.2-8.2)
== END | disposition home or self-care (01) ==
LOC: LABWHC1 16:05
DX: K85.00 Idiopathic acute pancreatitis without necrosis or infection (principal); R19.5 Other fecal abnormalities
CPT/HCPCS: 36415; 80053; 82150; 83615; 83690; 85025

== ENCOUNTER → 2025-03-06 | Outpatient (CLI) | payer MEDICAID ==
--- NOTE | 2025-03-09 08:08 | MR ---
EXAMINATION TYPE: MR shoulder LT wo con DATE OF EXAM: 03/06/2025 11:22 AM COMPARISON: Left shoulder x-ray January 13, 2022 CLINICAL INDICATION: Female, 54 years old with history of M75.52 BURSITIS OF LEFT SHOULDER, left shou lder pain for 5 months. IV Contrast: cc (None if empty) TECHNIQUE: Multiplanar, multisequence imaging of the left shoulder is performed without contrast. FINDINGS: Rotator Cuff: Some areas of mildly increased signal in the supraspinatus and infraspinatus tendons. S ome areas of mild increased signal subscapularis tendon. Acromioclavicular Joint: Moderate to severe narrowing with [id number] spurring. Moderate capsul ar hypertrophy. Loss of underlying fat plane noted. Glenohumeral Joint: Small size joint effusion. No significant spurring. Labrum: The labrum appears grossly intact given limitation of non-arthrogram study. Biceps Tendon: The long head of biceps is in normal location within bicipital groove. Bone marrow signal: No focal abnormal marrow signal is appreciated. Other: Masslike opacity left mid lung is seen. Findings correlate with most recent x-ray and CT. IMPRESSION: 1. Mild tendinosis of the supraspinatus and infraspinatus tendons. No significant rotator cuff or lab ral tear. 2. AC joint arthropathy with suggestion of underlying impingement. Correlate clinically. 3. Persistent masslike opacity left mid lung partially imaged, neoplasm cannot be excluded. Short-ter m follow-up CT and/or x-ray advised to reevaluate. [facility], , 03/09/2025 8:06 AM
== END | disposition home or self-care (01) ==
LOC: RADMRIMAIN 10:39
PROVIDERS: ATTEND Orthopaedic Surgery
DX: M75.52 Bursitis of left shoulder (principal); M67.814 Other specified disorders of tendon, left shoulder; M19.012 Primary osteoarthritis, left shoulder; M25.812 Other specified joint disorders, left shoulder

== ENCOUNTER → 2025-03-14 | Outpatient (CLI) | payer MEDICAID ==
--- NOTE | 2025-03-14 18:56 | MR ---
MR pancreas / mrcp wo/w con: 03/14/2025 12:09 PM INDICATION: 54 years old Female. K85.00 IDIOPATH ACUTE PANCREATITIS. COMPARISON: CT abdomen pelvis 02/24/2025, 02/16/2025, MR abdomen 10/26/2022. TECHNIQUE: Multiplanar multisequence MR imaging of the abdomen was performed both before and after th e intravenous administration of gadolinium (9 mL of Gadobutrol). MRCP protocol was utilized. Maximum intensity projection and 3-D images were reconstructed of the biliary tree at a separate independent workstation. FINDINGS: LUNG BASES: Focal patchy consolidative opacity within the right lower lobe measuring up to 1.9 cm. ABDOMEN: LIVER: Normal morphology. Mildly enlarged measuring 19.5 cm in CC dimension. No fatty infiltration. T here is no focal hepatic parenchymal abnormality. BILE DUCTS: CBD 5 mm. There is no intra or extrahepatic biliary ductal dilatation. There is no filli ng defect, stricture, obstructing lesion or biliary wall thickening identified. GALLBLADDER: Absent. PANCREAS: Unremarkable. Normal caliber pancreatic duct. Enhances homogeneously without concerning foc al lesion. No structural fluid collections or fat stranding. SPLEEN: Within normal limits. ADRENAL GLANDS: Unremarkable. KIDNEYS: No hydronephrosis. Mildly increased in size of T2 hyperintense 1.8 cm left renal lower pole simple appearing cyst. Previously 1.3 cm. Unchanged right renal superior pole T2 hyperintense simple appearing 1.1 cm cyst. Decreased size of right inferior pole 0.7 cm intrinsic T1 hyperintense lesion. Previously measured up to 1.5 cm. Regions of cortical thinning involving the right kidney from prior injury. BOWEL: Normal caliber. PERITONEUM: No ascites or free air. No fluid collection. VASCULATURE: No abdominal aortic aneurysm. Major abdominal veins are patent. No evidence for pseudoan eurysm. RETROPERITONEUM: Within normal limits. LYMPH NODES: Within normal limits. ABDOMINAL WALL: Unremarkable. MUSCULOSKELETAL: No suspicious osseous abnormality. IMPRESSION: 1. No evidence of biliary dilatation, stricture, filling defect, wall thickening or obstructing mass lesion. 2. No evidence for acute pancreatitis or complications. 3. Post cholecystectomy changes. 4. Mild hepatomegaly. 5. Bilateral Bosniak 1 and 2 equivalent renal cysts. No follow-up recommended. 6. Focal consolidative opacity within the right lower lobe concerning for possible developing pneumo rigo. Consider further evaluation with CT chest. [facility], , 03/14/2025 6:54 PM
== END | disposition home or self-care (01) ==
LOC: RADMRIMAIN 11:01
PROVIDERS: ATTEND Internal Medicine
DX: K85.00 Idiopathic acute pancreatitis without necrosis or infection (principal); R16.0 Hepatomegaly, not elsewhere classified; N28.1 Cyst of kidney, acquired; R91.8 Other nonspecific abnormal finding of lung field; Z90.49 Acquired absence of other specified parts of digestive tract
CPT/HCPCS: 74183; A9585

== ENCOUNTER → 2025-03-24 | Outpatient (CLI) | payer MEDICAID ==
--- NOTE | 2025-03-24 15:56 | XR ---
EXAMINATION TYPE: XR sacrum coccyx DATE OF EXAM: 03/24/2025 3:42 PM COMPARISON: None CLINICAL INDICATION: Female, 54 years old with history of M53.3 SACRAL PAIN; PHH, pain TECHNIQUE: 3 views FINDINGS: Transitional lumbosacral segment noted. SI joints appear symmetric and intact. Left-sided tubal ligat ion clip. No delineation to their alignment of the sacrum. There is some focal anterior angulation at the lower sacrum. No displaced fracture is seen. IMPRESSION: Chronic appearing anterior angulation at the lower sacrum. Suspect old tailbone fracture. Clinically correlate. No displaced sacrococcygeal fracture identified. [facility], , 03/24/2025 3:53 PM
== END | disposition home or self-care (01) ==
LOC: RADXRWHC 15:17
DX: M53.3 Sacrococcygeal disorders, not elsewhere classified (principal)
CPT/HCPCS: 72220

== ENCOUNTER → 2025-03-26 | Outpatient (CLI) | payer MEDICAID ==
--- NOTE | 2025-03-29 15:54 | PE ---
EXAMINATION TYPE: PET CT fusion skull to thigh DATE OF EXAM: 03/26/2025 CLINICAL INDICATION:Female, 54 years old with history of R91.8 LUNG MASS; TECHNIQUE: Following the intravenous administration of 11.32 mCi of F-18 FDG, whole body images are performed from the skull base to the Mid thigh. Images are reviewed on the computer in the coronal, axial, and sagittal planes. Reconstructed rotating images are created on independent workstation an d reviewed on the computer. A non-contrast CT is performed in conjunction with the PET scan. Glucos e level 108 mg/dL CT DLP: 796 mGycm, Automated exposure control for dose reduction was used. COMPARISON: CT 02/24/2025, PET/CT None, MRI: None FINDINGS: Mediastinal SUV mean is 2.2 Hepatic parenchyma SUV mean is 2.6. SKULL BASE AND NECK: No suspicious radiotracer activity. CHEST, MEDIASTINUM, AND HILAR REGION: Suspicious uptake identified; examples include: * Right perihilar 28 x 22 mm previously 17 x 13 mm on 02/24/2025 max SUV 4.7 * Right lower lobe pulmonary nodule 15 x 13 mm previously 11 x 9 mm on 02/24/2025 Max SUV 2.9 * Right lower lobe superior segment juxta fissural 10 mm nodule Max SUV 2.2 * Left lung base masslike consolidation measuring 34 x 23 mm previously measuring 19 x 17 on 02/25/20 25 SUV max SUV 5.8 Left lower lobe inferior nodule 8 x 6 mm on 02/24/2025 is no longer visualized. ABDOMEN AND PELVIS: No suspicious radiotracer activity. MUSCULOSKELETAL STRUCTURES: Focal uptake at the distal clavicle at the AC joint. On the left Max SUV 5.[address]: * Simple appearing left renal cortical cyst. Surgical clips in the pelvis. Nonobstructing bilateral renal calculi. The gallbladder surgically absent. Simple appearing left renal cyst. IMPRESSION: 1. Enlarging bilateral pulmonary nodules compared to 02/24/2025 correlate for history of malignancy g iven lack of lymphadenopathy in Infectious/inflammatory processes should be considered primarily with malignancies/metastatic disease less likely. Consider bronchoscopic guided biopsy for definitive jasmyn gnosis. No FDG avid lymph nodes identified at this time. 2. Suspected degenerative uptake in the left clavicle max SUV 5.1. [facility], , 03/29/2025 3:52 PM
== END | disposition home or self-care (01) ==
LOC: RADPETMAIN 06:30
PROVIDERS: ATTEND Internal Medicine Critical Care Medicine
DX: R91.8 Other nonspecific abnormal finding of lung field (principal)
CPT/HCPCS: 78815; A9552

== ENCOUNTER → 2025-04-03 | Outpatient (CLI) | payer MEDICAID ==
--- NOTE | 2025-04-03 07:49 | CT ---
EXAMINATION TYPE: CT pelvis wo con CT DLP: 516.3 mGycm, Automated exposure control for dose reduction was used. DATE OF EXAM: 04/03/2025 7:18 AM COMPARISON: PET/CT 03/26/2025, sacrum/coccyx radiographs 03/24/2025, CT abdomen and pelvis 02/16/2025 CLINICAL INDICATION:Female, 54 years old with history of M17.816 Lumbar spondylosis; Fall x3wks ago. C/O pelvic pain. TECHNIQUE: Standard CT of the pelvis without IV or oral contrast. Lack of IV or oral contrast limit s evaluation of solid and hollow organ viscera. Coronal and sagittal reformats were performed. 3-D re format of the pelvic osseous structures were obtained. FINDINGS: BLADDER: Distended, limiting evaluation. REPRODUCTIVE: Bilateral tubal ligation clips. In the left pelvis. BOWEL: No evidence of bowel obstruction. PERITONEUM: No evidence of pneumoperitoneum and trace fluid within the pelvis. VASCULATURE: No significant finding. MUSCULOSKELETAL: Acute nondisplaced coccygeal fracture. Additional remote appearing coccygeal fractur e. Degenerative changes of bilateral SI joints with vacuum disease. LYMPH NODES: No gross evidence for lymphadenopathy. SOFT TISSUE/ABDOMINAL WALL: Small fat filled umbilical hernia. IMPRESSION: Acute nondisplaced coccygeal fracture with remote appearing coccygeal fracture. [facility], , 04/03/2025 7:47 AM
== END | disposition home or self-care (01) ==
LOC: RADCTMAIN 06:58
PROVIDERS: ATTEND Internal Medicine
DX: S32.2XXA Fracture of coccyx, initial encounter for closed fracture (principal); M47.816 Spondylosis without myelopathy or radiculopathy, lumbar region; M53.3 Sacrococcygeal disorders, not elsewhere classified; W19.XXXA Unspecified fall, initial encounter
CPT/HCPCS: 72192